=== PATIENT | female | born 1935 | race African-American/Black ===

== ENCOUNTER → 2017-12-16 | Outpatient (CLI) | payer OTHER | END | disposition home or self-care (01) | LOC: ECHO 09:08 | DX: I08.1 Rheumatic disorders of both mitral and tricuspid valves (principal); R01.1 Cardiac murmur, unspecified | CPT/HCPCS: 93306 ==

== ENCOUNTER 2018-06-22 15:17 | Inpatient (IN) | payer MEDICARE, OTHER ==
[2018-06-22] VITALS (11 sets, daily range): BP systolic 88–115; BP diastolic 43–60
[~2018-06-22] VITALS: Ht 167.6 cm; Wt 106.8 kg
[~2018-06-22 15:17] MED LIST: CRESTOR5 MG PO; LEVO500T59 PO; SITA100T PO; [UNRECOGNIZED DRUG - CODE] PO
[2018-06-22] MEDS ORDERED: PANTOPRAZOLE IV PUSH 40 MG VIAL. IVP ONE (15:30)
[2018-06-22] MEDS ORDERED: IV NORMAL SALINE 1000ML BAG 1,000 ML IV ONE ×2 (15:30→17:45)
[2018-06-22 15:39] LABS: BASO # 0.1 x10^3/uL (0.0-0.2); BASO % 1 % (0-3); EOS # 0.1 x10^3/uL (0.0-0.7); EOS % 1 % (0-3); HEMOGLOBIN 10.2 g/dL (12.0-15.5); LYMPH # 3.4 x10^3/uL (1.0-4.8); LYMPH % 20 % (24-48); MEAN CORPUSCULAR HEMOGLOBIN 31 pg (25-35); MEAN CORPUSCULAR HGB CONC 33 g/dL (31-37); MEAN CORPUSCULAR VOLUME 93 fL (79-100); MONO # 1.5 x10^3/uL (0.0-1.1); MONO % 9 % (0-9); NEUT # 11.6 x10^3uL (1.8-7.7); NEUT % 70 % (31-73); PLATELET COUNT 296 x10^3/uL (140-400); RED BLOOD COUNT 3.33 x10^6/uL (3.50-5.40); RED CELL DISTRIBUTION WIDTH 13.7 % (11.5-14.5); WHITE BLOOD COUNT 16.6 x10^3/uL (4.0-11.0)
[2018-06-22 15:48] LABS: PROTHROMBIN TIME PATIENT 12.9 SEC (11.7-14.0)
[2018-06-22 15:52] LABS: CALCIUM 8.7 mg/dL (8.5-10.1); CREATININE 0.8 mg/dL (0.6-1.0); GFR 82.7; POTASSIUM 3.8 mmol/L (3.5-5.1)
--- NOTE | 2018-06-22 15:57 | PHYS DOC ---
Past Medical History Past Medical History: Diabetes-Type II, High Cholesterol, Hypertension, Other Past Surgical History: No Surgical History, Other Alcohol Use: None Drug Use: None Adult General Chief Complaint Chief Complaint: RECTAL BLEED [facility] HPI Patient is a 83 year old female who is in by EMS because of rectal bleeding. Patient states she suddenly started to have bright red rectal bleeding several times and then had a near-syncopal because of generalized weakness and had a fall without injury to her head family member heard about her fall and called 911. EMS reported that she had about 500 mL of blood on the floor. Patient did not have history of rectal bleeding of taking anticoagulation medication. Patient treated with antibiotics recently with upper respiratory infection. Patient denies chest pain, palpitation, abdominal pain. Review of Systems Review of Systems Constitutional: Denies fever or chills [] Eyes: Denies change in visual acuity, redness, or eye pain [] HENT: Denies nasal congestion or sore throat [] Respiratory: Denies cough or shortness of breath [] Cardiovascular: No additional information not addressed in HPI [] GI: Denies abdominal pain, nausea, vomiting, report bloody stools.[] : Denies dysuria or hematuria [] Musculoskeletal: Denies back pain or joint pain [] Integument: Denies rash or skin lesions [] Neurologic: Denies headache, focal weakness or sensory changes [] Endocrine: Denies polyuria or polydipsia [] All other systems were reviewed and found to be within normal limits, except as documented in this note. Current Medications Current Medications Current Medications Medications (Trade) Dose Ordered Sig/Kusum Start Time Stop Time Status Last Admin Dose Admin Pantoprazole Sodium (PROTONIX VIAL for IV PUSH) 80 mg 1X ONCE 06/22/18 15:30 06/22/18 15:32 DC 06/22/18 15:57 80 MG Sodium Chloride 1,000 ml @ 1,000 mls/hr 1X ONCE 06/22/18 15:30 06/22/18 16:29 DC 06/22/18 15:52 1,000 MLS/HR Allergies Allergies Allergies Coded Allergies Type Severity Reaction Last Updated Verified No Known Drug Allergies 10/20/15 No Physical Exam Physical Exam Constitutional: Well developed, well nourished, moderate distress, non-toxic appearance, patient covered with foul-smelling dark blood around genital and rectal area HENT: Normocephalic, atraumatic, oropharynx dry, mild pallor Eyes: PERRLA, EOMI, conjunctiva normal, no discharge. [] Neck: Normal range of motion, no tenderness, supple, no stridor. [] Cardiovascular:Heart rate regular rhythm, no murmur [] Lungs & Thorax: Bilateral breath sounds clear to auscultation [] Abdomen: Bowel sounds normal, soft, no tenderness, no masses, no pulsatile masses. Rectal exam with present of drum stock clerk showed loose maroon colored blood in the rectum. Skin: Warm, dry, no erythema, no rash. [] Back: No tenderness, no CVA tenderness. [] Extremities: No tenderness, no cyanosis, no clubbing, ROM intact, no edema. [] Neurologic: Alert and oriented X 3, normal motor function, normal sensory function, no focal deficits noted. [] Psychologic: Affect normal, judgement normal, mood normal. [] Current Patient Data Vital Signs Vital Signs Date Time Temp Pulse Resp B/P (MAP) Pulse Ox O2 Delivery O2 Flow Rate FiO2 06/22/18 15:45 78 107/44 (65) 96 Room Air 06/22/18 15:17 97.8 22 97.8 Lab Values Laboratory Tests Test 06/22/18 15:25 White Blood Count 16.6 x10^3/uL (4.0-11.0) H Red Blood Count 3.33 x10^6/uL (3.50-5.40) L Hemoglobin 10.2 g/dL (12.0-15.5) L Hematocrit 31.0 % (36.0-47.0) L Mean Corpuscular Volume 93 fL (79-100) Mean Corpuscular Hemoglobin 31 pg (25-35) Mean Corpuscular Hemoglobin Concent 33 g/dL (31-37) Red Cell Distribution Width 13.7 % (11.5-14.5) Platelet Count 296 x10^3/uL (140-400) Neutrophils (%) (Auto) 70 % (31-73) Lymphocytes (%) (Auto) 20 % (24-48) L Monocytes (%) (Auto) 9 % (0-9) Eosinophils (%) (Auto) 1 % (0-3) Basophils (%) (Auto) 1 % (0-3) Neutrophils # (Auto) 11.6 x10^3uL (1.8-7.7) H Lymphocytes # (Auto) 3.4 x10^3/uL (1.0-4.8) Monocytes # (Auto) 1.5 x10^3/uL (0.0-1.1) H Eosinophils # (Auto) 0.1 x10^3/uL (0.0-0.7) Basophils # (Auto) 0.1 x10^3/uL (0.0-0.2) Prothrombin Time 12.9 SEC (11.7-14.0) Prothrombin Time INR 1.0 (0.8-1.1) PTT 25 SEC (24-38) Sodium Level 141 mmol/L (136-145) Potassium Level 3.8 mmol/L (3.5-5.1) Chloride Level 104 mmol/L (98-107) Carbon Dioxide Level 29 mmol/L (21-32) Anion Gap 8 (6-14) Blood Urea Nitrogen 27 mg/dL (7-20) H Creatinine 0.8 mg/dL (0.6-1.0) Estimated GFR (Cockcroft-Gault) 82.7 BUN/Creatinine Ratio 34 (6-20) H Glucose Level 178 mg/dL (70-99) H Lactic Acid Level 1.6 mmol/L (0.4-2.0) Calcium Level 8.7 mg/dL (8.5-10.1) Total Bilirubin 0.3 mg/dL (0.2-1.0) Aspartate Amino Transferase (AST) 25 U/L (15-37) Alanine Aminotransferase (ALT) 38 U/L (14-59) Alkaline Phosphatase 67 U/L (46-116) Troponin I Quantitative < 0.017 ng/mL (0.000-0.055) XB-Baf-G-Type Natriuretic Peptide 60 pg/mL (0-449) Total Protein 6.7 g/dL (6.4-8.2) Albumin 2.8 g/dL (3.4-5.0) L Albumin/Globulin Ratio 0.7 (1.0-1.7) L Laboratory Tests 06/22/18 15:25 Laboratory Tests 06/22/18 15:25 EKG EKG [] Radiology/Procedures Radiology/Procedures [] Course & Med Decision Making Course & Med Decision Making Pertinent Labs reviewed. (See chart for details) Evaluation of patient in ER showed 83-year-old female patient brought in by EMS because of rectal bleeding. Patient was covered with foul-smelling blood but had stable vital signs. 12-lead because started and patient instructed with IV fluid, Protonix, and Zofran. Hbg was reported 10.2. Dr. Mayo accepted admission at 1600. Dr. Kaufman production associate GI was consulted at 1610 and agreed with plan of care. Dragon Disclaimer Dragon Disclaimer This electronic medical record was generated, in whole or in part, using a voice recognition dictation system. Departure Departure Impression: Primary Impression: Rectal bleeding Additional Impressions: Anemia Dehydration Disposition: 09 ADMITTED INPATIENT (at 1554) Admitting Physician: King Domínguez (accepted admission at 1600) Condition: GUARDED Referrals: UNKNOWN PCP NAME (PCP) Critical Care Time Critical care time was 50 minutes exclusive of procedures. Problem Qualifiers TATUM HERNÁNDEZ MD Jun 22, 2018 15:57
[2018-06-22 15:58] LABS: ALBUMIN 2.8 g/dL (3.4-5.0); ALBUMIN/GLOBULIN RATIO 0.7 (1.0-1.7); TOTAL BILIRUBIN 0.3 mg/dL (0.2-1.0); TOTAL PROTEIN 6.7 g/dL (6.4-8.2)
[2018-06-22] MEDS ORDERED: ONDANSETRON PF 4 MG/2 ML VIAL. IV PRN (16:15)
[2018-06-22] MEDS: IV NORMAL SALINE 1000ML BAG 1,000 ML IV SCH ×2 (16:40→23:21)
--- NOTE | 2018-06-22 16:44 | PDOC2 ---
GI CONSULT Reason For Consult: Lower GI bleeding HPI: HPI: Very pleasant 83 y/o female seen in the ER. This morning she ate scrambled eggs and sausage for breakfast, then brushed her teeth which made her gag and vomit. After that, she sat on the toilet to urinate because she had what felt like "a hunger pain." Then passed bright red blood w/ a small amount of runny stool. Then stood up, felt dizzy, and fell to her knees. No LOC. Crawled to yell to her son for help. Was diaphoretic when arrived in ER, still feeling a little dizzy but better. BP 87/39 in ER. No bleeding since arrival. Has a little abdominal soreness. Typically no issues w/ vomiting, abd pain, or bleeding. Denies reflux/heartburn , dysphagia, change in appetite, weight loss, diarrhea, or melena. Has a h/o constipation controlled w/ Miralax QHS. No previous EGD or colonoscopy - she "doesn't believe in them." No GB, liver, pancreas, or PUD history. No h/o anemia. Takes ASA 81mg QD but no NSAIDs. WBC 16.6, Hgb 10.2 w/ normal indices, BUN 27 w/ normal Cr. For comparison, Hgb 11-12 in 10/2015. PMH: PMH: HTN, DM, allergic rhinitis, ?asthma, constipation, bilateral cataract removal FH: Family History: No pertinent hx (denies GI cancers) Social History: Smoke: No ALCOHOL: none Drugs: None ROS: GEN: +sweats HEENT: Denies blurred vision, sore throat CV: Denies chest pain RESP: +coughs up phlegm sometimes GI: Per HPI : Denies hematuria, dysuria ENDO: Denies weight changes NEURO: +dizziness MSK: Denies weakness, joint pain/swelling SKIN: Denies jaundice, pruritus Vitals: Vitals: Vital Signs Date Time Temp Pulse Resp B/P (MAP) Pulse Ox O2 Delivery O2 Flow Rate FiO2 06/22/18 15:17 97.8 77 22 87/39 (55) 98 Room Air 97.8 Labs: Labs: Laboratory Tests Test 06/22/18 15:25 White Blood Count 16.6 x10^3/uL (4.0-11.0) Red Blood Count 3.33 x10^6/uL (3.50-5.40) Hemoglobin 10.2 g/dL (12.0-15.5) Hematocrit 31.0 % (36.0-47.0) Mean Corpuscular Volume 93 fL (79-100) Mean Corpuscular Hemoglobin 31 pg (25-35) Mean Corpuscular Hemoglobin Concent 33 g/dL (31-37) Red Cell Distribution Width 13.7 % (11.5-14.5) Platelet Count 296 x10^3/uL (140-400) Neutrophils (%) (Auto) 70 % (31-73) Lymphocytes (%) (Auto) 20 % (24-48) Monocytes (%) (Auto) 9 % (0-9) Eosinophils (%) (Auto) 1 % (0-3) Basophils (%) (Auto) 1 % (0-3) Neutrophils # (Auto) 11.6 x10^3uL (1.8-7.7) Lymphocytes # (Auto) 3.4 x10^3/uL (1.0-4.8) Monocytes # (Auto) 1.5 x10^3/uL (0.0-1.1) Eosinophils # (Auto) 0.1 x10^3/uL (0.0-0.7) Basophils # (Auto) 0.1 x10^3/uL (0.0-0.2) Prothrombin Time 12.9 SEC (11.7-14.0) Prothromb Time International Ratio 1.0 (0.8-1.1) Activated Partial Thromboplast Time 25 SEC (24-38) Sodium Level 141 mmol/L (136-145) Potassium Level 3.8 mmol/L (3.5-5.1) Chloride Level 104 mmol/L (98-107) Carbon Dioxide Level 29 mmol/L (21-32) Anion Gap 8 (6-14) Blood Urea Nitrogen 27 mg/dL (7-20) Creatinine 0.8 mg/dL (0.6-1.0) Estimated GFR (Cockcroft-Gault) 82.7 BUN/Creatinine Ratio 34 (6-20) Glucose Level 178 mg/dL (70-99) Lactic Acid Level 1.6 mmol/L (0.4-2.0) Calcium Level 8.7 mg/dL (8.5-10.1) Total Bilirubin 0.3 mg/dL (0.2-1.0) Aspartate Amino Transf (AST/SGOT) 25 U/L (15-37) Alanine Aminotransferase (ALT/SGPT) 38 U/L (14-59) Alkaline Phosphatase 67 U/L (46-116) Troponin I Quantitative < 0.017 ng/mL (0.000-0.055) NH-Buf-O-Type Natriuretic Peptide 60 pg/mL (0-449) Total Protein 6.7 g/dL (6.4-8.2) Albumin 2.8 g/dL (3.4-5.0) Albumin/Globulin Ratio 0.7 (1.0-1.7) Allergies: Coded Allergies: No Known Drug Allergies (Unverified , 10/20/15) Medications: Current Medications Medications (Trade) Dose Ordered Sig/Kusum Route PRN Reason Start Time Stop Time Status Last Admin Dose Admin Pantoprazole Sodium (PROTONIX VIAL for IV PUSH) 80 mg 1X ONCE IVP 06/22/18 15:30 06/22/18 15:32 DC 06/22/18 15:57 Sodium Chloride 1,000 ml @ 1,000 mls/hr 1X ONCE IV 06/22/18 15:30 06/22/18 16:29 DC 06/22/18 15:52 Imaging: Imaging: - PE: GEN: NAD, laying on left side HEENT: Atraumatic, PERRL LUNGS: CTAB HEART: RRR ABD: NABS, S/ND, vaguely tender RLQ/periumbilical EXTREMITY: No edema SKIN: No rashes, no jaundice NEURO/PSYCH: A & O 3 A/P: A/P: Rectal bleeding -associated w/ dizziness, mild abd discomfort Constipation - controlled w/ Miralax CRC screen - none Normocytic anemia -takes ASA QD -- ?ischemia - felt dizzy, was hypotensive, has some vague abd discomfort - check CT A/P. Was given IV PPI x 1 in ER, plans to admit to ICU. Monitor labs and for recurrent bleeding. ENMANUEL PORTER Jun 22, 2018 16:44
[2018-06-22] MEDS ORDERED: CONTRAST GIVEN. MC PRN (17:00)
[2018-06-22] MEDS ORDERED: IOHEXOL 300 MG/ML 100ML VIAL. IV ONE (17:00)
[2018-06-22 17:55] LABS: BILIRUBIN,URINE NEGATIVE (NEG); CLARITY,URINE CLEAR; COLOR,URINE YELLOW; NITRITE,URINE NEGATIVE (NEG); PROTEIN,URINE NEGATIVE (NEG-TRACE); UROBILINOGEN,URINE 0.2 mg/dL (0.2 mg/dL)
--- NOTE | 2018-06-22 18:01 | RAD ---
CT scan of the abdomen and pelvis with contrast 06/22/2018 CLINICAL HISTORY: Rectal bleeding and abdominal pain. TECHNIQUE: After the intravenous administration of 75 cc of Omnipaque 300, contiguous, 5 mm axial sections were obtained through the abdomen and pelvis. One or more of the following individualized dose reduction techniques were utilized for this study: 1. Automated exposure control. 2. Adjustment of the mA and/or kV according to patient size. 3. Use of iterative reconstruction technique. FINDINGS: No previous imaging studies are available for comparison. Images through the lung bases demonstrate minimal dependent subsegmental atelectasis bilaterally. Rounded low-attenuation lesions are seen involving the liver consistent with hepatic cysts. These measure 5 mm to 1.8 cm in size. The spleen, pancreas, adrenal glands and left kidney are within normal limits. Rounded low-attenuation lesions are seen involving the right kidney. These measure 3 mm to 3.7 cm in size. They likely represent cysts. Atherosclerotic calcification of the abdominal aorta is seen. The abdominal aorta tapers normally. The gallbladder is well-distended. No free fluid or free air is seen within the abdomen. There is no evidence of bowel obstruction. Images through the pelvis demonstrate the urinary bladder distended with urine. Scattered diverticula are seen involving the sigmoid colon. No inflammatory changes are seen in the adjacent fat. Calcifications are seen within the pelvis consistent with phleboliths. A 1.8 cm well-defined benign-appearing fat-containing mass is seen within the fundus of the uterus. No free fluid is seen. Very mild S-shaped curvature of the thoracolumbar spine is seen. Degenerative changes are seen involving the thoracic and throughout the lumbar spine and both hips. IMPRESSION: No acute abnormality is seen. Electronically signed by: Miguel Smith MD (06/22/2018 5:58 PM) [facility]
[2018-06-22 18:05] LABS: BACTERIA,URINE MANY /HPF (0-FEW); RBC,URINE 0 /HPF (0-2); SQUAMOUS EPITHELIAL CELL,UR FEW /LPF
--- NOTE | 2018-06-22 19:12 | PDOC1 ---
History and Physical Date of Admission Date of Admission DATE: 06/22/18 TIME: 19:11 Identification/Chief Complaint Chief Complaint ssen in er for passing lg amt bright red blood w/ a small amount of runny stool, stood up, felt dizzy, and fell to her knees. LOC. Crawled to yell to her son for help. BP 87/39 in ER. EMS reported that she had about 500 mL of blood on the floor. Past Medical History Past Medical History Past Medical History Past Medical History: Diabetes-Type II, High Cholesterol, Hypertension, Other Past Surgical History: No Surgical History, Other Alcohol Use: None Drug Use: None FAMILY HX OBESITY Musculoskeletal: Osteoarthritis ENT: No pertinent hx Endocrine: Diabetes Past Surgical History Past Surgical History: No pertinent history Family History Family History: Hypertension, Obesity Social History Smoke: No ALCOHOL: none Drugs: None Current Problem List Problem List Problems Medical Problems: (1) Anemia Status: Acute (2) Dehydration Status: Acute (3) Rectal bleeding Status: Acute Current Medications Current Medications Current Medications Pantoprazole Sodium (PROTONIX VIAL for IV PUSH) 80 mg 1X ONCE IVP Last administered on 06/22/18at 15:57; Start 06/22/18 at 15:30; Stop 06/22/18 at 15:32 ; Status DC Sodium Chloride 1,000 ml @ 1,000 mls/hr 1X ONCE IV Last administered on at 15:52; Start 06/22/18 at 15:30; Stop 06/22/18 at 16:29; Status DC Ondansetron HCl (Zofran) 4 mg PRN Q8HRS PRN IV NAUSEA/VOMITING; Start 06/22/18 at 16:15; Stop 06/23/18 at 16:14 Sodium Chloride 1,000 ml @ 150 mls/hr Q6H40M IV Last administered on at 16:40; Start 06/22/18 at 16:11; Stop 06/23/18 at 16:10 Iohexol (Omnipaque 300 Mg/ml) 75 ml 1X ONCE IV Last administered on 06/22/18at 17:04; Start 06/22/18 at 17:00; Stop 06/22/18 at 17:01; Status DC Info (CONTRAST GIVEN -- Rx MONITORING) 1 each PRN DAILY PRN MC SEE COMMENTS; Start 06/22/18 at 17:00; Stop 06/24/18 at 16:59 Sodium Chloride 1,000 ml @ 1,000 mls/hr 1X ONCE IV Last administered on at 17:45; Start 06/22/18 at 17:45; Stop 06/22/18 at 18:44; Status DC Active Scripts Active Levaquin (Levofloxacin) 500 Mg Tablet 500 Mg PO DAILY06 Reported Januvia (Sitagliptin Phosphate) 100 Mg Tablet 1 Tab PO DAILY Beta Carotene (Beta-Carotene) 10,000 Unit Capsule 12,000 Unit PO Crestor (Rosuvastatin Calcium) 5 Mg Tablet 1 Tab PO DAILY Allergies Allergies: Coded Allergies: No Known Drug Allergies (Unverified , 10/20/15) ROS Review of System Review of Systems Constitutional: Denies fever or chills [] Eyes: Denies change in visual acuity, redness, or eye pain [] HENT: Denies nasal congestion or sore throat [] Respiratory: Denies cough or shortness of breath [] Cardiovascular: No additional information not addressed in HPI [] GI: Denies abdominal pain, nausea, vomiting, report bloody stools.[] : Denies dysuria or hematuria [] Musculoskeletal: Denies back pain or joint pain [] Integument: Denies rash or skin lesions [] Neurologic: Denies headache, focal weakness or sensory changes [] Endocrine: Denies polyuria or polydipsia [] 14 PT systems were reviewed and found to be within normal limits, except as documented Breast: No New/Changing Breast Lumps, No Nipple changes, No Nipple discharge, No Other Gastrointestinal: Yes Hematochezia Physical Exam Physical Exam Physical Exam Physical Exam Constitutional: Well developed, well nourished, moderate distress, non-toxic appearance, patient covered with foul-smelling dark blood around genital and rectal area HENT: Normocephalic, atraumatic, oropharynx dry, mild pallor Eyes: PERRLA, EOMI, conjunctiva normal, no discharge. [] Neck: Normal range of motion, no tenderness, supple, no stridor. [] Cardiovascular:Heart rate regular rhythm, no murmur [] Lungs & Thorax: Bilateral breath sounds clear to auscultation [] Abdomen: Bowel sounds normal, soft, no tenderness, no masses, no pulsatile masses. Rectal exam with present of auger machine offbearer showed loose maroon colored blood in the rectum. Skin: Warm, dry, no erythema, no rash. [] Back: No tenderness, no CVA tenderness. [] Extremities: No tenderness, no cyanosis, no clubbing, ROM intact, no edema. [] Neurologic: Alert and oriented X 3, normal motor function, normal sensory function, no focal deficits noted. [] Psychologic: Affect normal, judgement normal, mood normal. [] Current Patient Data General: Alert, Oriented X3, Cooperative HEENT: PERRLA Lungs: Clear to auscultation Heart: S1S2, RRR Breasts: Not examined Extremities: No cyanosis Neuro: Cranial nerves 3-12 NL Psych/Mental Status: Mental status NL, Mood NL Vitals Vitals Vital Signs Date Time Temp Pulse Resp B/P (MAP) Pulse Ox O2 Delivery O2 Flow Rate FiO2 06/22/18 18:30 82 15 97 Room Air 06/22/18 18:15 129/44 (72) 06/22/18 15:17 97.8 97.8 Labs Labs Laboratory Tests Test 06/22/18 15:25 06/22/18 17:30 06/22/18 17:43 White Blood Count 16.6 x10^3/uL (4.0-11.0) Red Blood Count 3.33 x10^6/uL (3.50-5.40) Hemoglobin 10.2 g/dL (12.0-15.5) 9.0 g/dL (12.0-15.5) Hematocrit 31.0 % (36.0-47.0) Mean Corpuscular Volume 93 fL (79-100) Mean Corpuscular Hemoglobin 31 pg (25-35) Mean Corpuscular Hemoglobin Concent 33 g/dL (31-37) Red Cell Distribution Width 13.7 % (11.5-14.5) Platelet Count 296 x10^3/uL (140-400) Neutrophils (%) (Auto) 70 % (31-73) Lymphocytes (%) (Auto) 20 % (24-48) Monocytes (%) (Auto) 9 % (0-9) Eosinophils (%) (Auto) 1 % (0-3) Basophils (%) (Auto) 1 % (0-3) Neutrophils # (Auto) 11.6 x10^3uL (1.8-7.7) Lymphocytes # (Auto) 3.4 x10^3/uL (1.0-4.8) Monocytes # (Auto) 1.5 x10^3/uL (0.0-1.1) Eosinophils # (Auto) 0.1 x10^3/uL (0.0-0.7) Basophils # (Auto) 0.1 x10^3/uL (0.0-0.2) Prothrombin Time 12.9 SEC (11.7-14.0) Prothromb Time International Ratio 1.0 (0.8-1.1) Activated Partial Thromboplast Time 25 SEC (24-38) Sodium Level 141 mmol/L (136-145) Potassium Level 3.8 mmol/L (3.5-5.1) Chloride Level 104 mmol/L (98-107) Carbon Dioxide Level 29 mmol/L (21-32) Anion Gap 8 (6-14) Blood Urea Nitrogen 27 mg/dL (7-20) Creatinine 0.8 mg/dL (0.6-1.0) Estimated GFR (Cockcroft-Gault) 82.7 BUN/Creatinine Ratio 34 (6-20) Glucose Level 178 mg/dL (70-99) Lactic Acid Level 1.6 mmol/L (0.4-2.0) Calcium Level 8.7 mg/dL (8.5-10.1) Total Bilirubin 0.3 mg/dL (0.2-1.0) Aspartate Amino Transf (AST/SGOT) 25 U/L (15-37) Alanine Aminotransferase (ALT/SGPT) 38 U/L (14-59) Alkaline Phosphatase 67 U/L (46-116) Troponin I Quantitative < 0.017 ng/mL (0.000-0.055) JC-Lug-R-Type Natriuretic Peptide 60 pg/mL (0-449) Total Protein 6.7 g/dL (6.4-8.2) Albumin 2.8 g/dL (3.4-5.0) Albumin/Globulin Ratio 0.7 (1.0-1.7) Urine Collection Type U cath Urine Color Yellow Urine Clarity Clear Urine pH 5.0 Urine Specific [place] >=1.030 Urine Protein Negative mg/dL (NEG-TRACE) Urine Glucose (UA) Negative mg/dL (NEG) Urine Ketones (Stick) Negative mg/dL (NEG) Urine Blood Negative (NEG) Urine Nitrite Negative (NEG) Urine Bilirubin Negative (NEG) Urine Urobilinogen Dipstick 0.2 mg/dL (0.2 mg/dL) Urine Leukocyte Esterase Small (NEG) Urine RBC 0 /HPF (0-2) Urine WBC 5-10 /HPF (0-4) Urine Squamous Epithelial Cells Few /LPF Urine Bacteria Many /HPF (0-FEW) Urine Mucus Mod /LPF Laboratory Tests Test 06/22/18 15:25 06/22/18 17:30 06/22/18 17:43 White Blood Count 16.6 x10^3/uL (4.0-11.0) Red Blood Count 3.33 x10^6/uL (3.50-5.40) Hemoglobin 10.2 g/dL (12.0-15.5) 9.0 g/dL (12.0-15.5) Hematocrit 31.0 % (36.0-47.0) Mean Corpuscular Volume 93 fL (79-100) Mean Corpuscular Hemoglobin 31 pg (25-35) Mean Corpuscular Hemoglobin Concent 33 g/dL (31-37) Red Cell Distribution Width 13.7 % (11.5-14.5) Platelet Count 296 x10^3/uL (140-400) Neutrophils (%) (Auto) 70 % (31-73) Lymphocytes (%) (Auto) 20 % (24-48) Monocytes (%) (Auto) 9 % (0-9) Eosinophils (%) (Auto) 1 % (0-3) Basophils (%) (Auto) 1 % (0-3) Neutrophils # (Auto) 11.6 x10^3uL (1.8-7.7) Lymphocytes # (Auto) 3.4 x10^3/uL (1.0-4.8) Monocytes # (Auto) 1.5 x10^3/uL (0.0-1.1) Eosinophils # (Auto) 0.1 x10^3/uL (0.0-0.7) Basophils # (Auto) 0.1 x10^3/uL (0.0-0.2) Prothrombin Time 12.9 SEC (11.7-14.0) Prothromb Time International Ratio 1.0 (0.8-1.1) Activated Partial Thromboplast Time 25 SEC (24-38) Sodium Level 141 mmol/L (136-145) Potassium Level 3.8 mmol/L (3.5-5.1) Chloride Level 104 mmol/L (98-107) Carbon Dioxide Level 29 mmol/L (21-32) Anion Gap 8 (6-14) Blood Urea Nitrogen 27 mg/dL (7-20) Creatinine 0.8 mg/dL (0.6-1.0) Estimated GFR (Cockcroft-Gault) 82.7 BUN/Creatinine Ratio 34 (6-20) Glucose Level 178 mg/dL (70-99) Lactic Acid Level 1.6 mmol/L (0.4-2.0) Calcium Level 8.7 mg/dL (8.5-10.1) Total Bilirubin 0.3 mg/dL (0.2-1.0) Aspartate Amino Transf (AST/SGOT) 25 U/L (15-37) Alanine Aminotransferase (ALT/SGPT) 38 U/L (14-59) Alkaline Phosphatase 67 U/L (46-116) Troponin I Quantitative < 0.017 ng/mL (0.000-0.055) QQ-Kfu-Y-Type Natriuretic Peptide 60 pg/mL (0-449) Total Protein 6.7 g/dL (6.4-8.2) Albumin 2.8 g/dL (3.4-5.0) Albumin/Globulin Ratio 0.7 (1.0-1.7) Urine Collection Type U cath Urine Color Yellow Urine Clarity Clear Urine pH 5.0 Urine Specific [place] >=1.030 Urine Protein Negative mg/dL (NEG-TRACE) Urine Glucose (UA) Negative mg/dL (NEG) Urine Ketones (Stick) Negative mg/dL (NEG) Urine Blood Negative (NEG) Urine Nitrite Negative (NEG) Urine Bilirubin Negative (NEG) Urine Urobilinogen Dipstick 0.2 mg/dL (0.2 mg/dL) Urine Leukocyte Esterase Small (NEG) Urine RBC 0 /HPF (0-2) Urine WBC 5-10 /HPF (0-4) Urine Squamous Epithelial Cells Few /LPF Urine Bacteria Many /HPF (0-FEW) Urine Mucus Mod /LPF Images Images TECHNIQUE: After the intravenous administration of 75 cc of Omnipaque 300, contiguous, 5 mm axial sections were obtained through the abdomen and pelvis. One or more of the following individualized dose reduction techniques were utilized for this study: 1. Automated exposure control. 2. Adjustment of the mA and/or kV according to patient size. 3. Use of iterative reconstruction technique. FINDINGS: No previous imaging studies are available for comparison. Images through the lung bases demonstrate minimal dependent subsegmental atelectasis bilaterally. Rounded low-attenuation lesions are seen involving the liver consistent with hepatic cysts. These measure 5 mm to 1.8 cm in size. The spleen, pancreas, adrenal glands and left kidney are within normal limits. Rounded low-attenuation lesions are seen involving the right kidney. These measure 3 mm to 3.7 cm in size. They likely represent cysts. Atherosclerotic calcification of the abdominal aorta is seen. The abdominal aorta tapers normally. The gallbladder is well-distended. No free fluid or free air is seen within the abdomen. There is no evidence of bowel obstruction. Images through the pelvis demonstrate the urinary bladder distended with urine. Scattered diverticula are seen involving the sigmoid colon. No inflammatory changes are seen in the adjacent fat. Calcifications are seen within the pelvis consistent with phleboliths. A 1.8 cm well-defined benign-appearing fat-containing mass is seen within the fundus of the uterus. No free fluid is seen. Very mild S-shaped curvature of the thoracolumbar spine is seen. Degenerative changes are seen involving the thoracic and throughout the lumbar spine and both hips. IMPRESSION: No acute abnormality is seen. Electronically signed by: Miguel Smith MD (06/22/2018 5:58 PM) [facility] VTE Prophylaxis Ordered VTE Prophylaxis Devices: Yes VTE Pharmacological Prophylaxi: Contraindicated Assessment/Plan Assessment/Plan IMPRESSION ischemic colitis associated with syncope; ICU BED T/S 2 UNITS GI CONSULTED TRANSFUSE PRN PROTONIX DRIP NPO h/h q [address] IF active bleeding , stat bleeding scan IR to see if positive and ongoing bleeding SCD'S 105 MIN CC TIME EDGAR IRVERA MD Jun 22, 2018 19:12
[2018-06-23] VITALS (42 sets, daily range): BP systolic 74–130; BP diastolic 33–67
[2018-06-23] MEDS: IV NORMAL SALINE 1000ML BAG 1,000 ML IV SCH ×4 (02:00→17:15)
[2018-06-23] MEDS ORDERED: HEPARIN for NUC MED 500 UNIT/5 ML DISP.SYRIN. IV ONE (03:30)
--- NOTE | 2018-06-23 05:24 | RAD ---
Examination: Nuclear medicine GI bleed scan Clinical History: GI bleed 27 mCi Tc-99 m labeled red blood cells were administered via ultratag kit and spot view of the abdomen and pelvis was obtained by gamma camera for a nuclear medicine tagged red blood cell GI bleed study. Findings: There is radiotracer identified in the bowel loop on the left probably the descending colon extending distally and proximally likely active GI bleed. Examination somewhat limited as patient refused last 30 minutes of the exam. IMPRESSION: Examination is positive for active GI bleed in the bowel loop on the left probably the descending colon. Examination somewhat limited as patient refused last 30 minutes of the exam. Patient's nurse Christopher was informed at time of dictation. Electronically signed by: Tayo Browne MD (06/23/2018 5:20 AM) [id number]
[2018-06-23] MEDS ORDERED: ACETAMINOPHEN 325 MG TABLET. PO PRN (05:30)
[2018-06-23] MEDS ORDERED: diphenhydrAMINE HCL 25 MG CAPSULE PO PRN (05:30)
[2018-06-23 05:59] LABS: BASO % 0 % (0-3); EOS % 0 % (0-3); HEMATOCRIT 22.1 % (36.0-47.0); HEMOGLOBIN 7.3 g/dL (12.0-15.5); LYMPH # 1.7 x10^3/uL (1.0-4.8); LYMPH % 9 % (24-48); MEAN CORPUSCULAR HEMOGLOBIN 31 pg (25-35); MEAN CORPUSCULAR HGB CONC 33 g/dL (31-37); MEAN CORPUSCULAR VOLUME 94 fL (79-100); MONO # 1.1 x10^3/uL (0.0-1.1); MONO % 6 % (0-9); NEUT # 15.7 x10^3uL (1.8-7.7); NEUT % 85 % (31-73); PLATELET COUNT 225 x10^3/uL (140-400); RED BLOOD COUNT 2.36 x10^6/uL (3.50-5.40); RED CELL DISTRIBUTION WIDTH 13.5 % (11.5-14.5); WHITE BLOOD COUNT 18.6 x10^3/uL (4.0-11.0)
[2018-06-23 06:11] LABS: CREATININE 0.6 mg/dL (0.6-1.0); GFR 115.2; POTASSIUM 3.5 mmol/L (3.5-5.1)
[2018-06-23 06:13] LABS: ALBUMIN 2.3 g/dL (3.4-5.0); ALBUMIN/GLOBULIN RATIO 0.8 (1.0-1.7); TOTAL BILIRUBIN 0.4 mg/dL (0.2-1.0); TOTAL PROTEIN 5.3 g/dL (6.4-8.2)
[2018-06-23] MEDS ORDERED: CONTRAST GIVEN. MC PRN (06:30)
[2018-06-23] MEDS ORDERED: IOHEXOL 300 MG/ML 100ML VIAL. IV ONE (07:00)
[2018-06-23 07:47] LABS: % BANDS 1 % (0-9); % BASOS 1 % (0-3); % LYMPHS 18 % (24-48); % MONOS 6 % (0-10); % SEGS 74 % (35-66)
[2018-06-23 07:48] LABS: ANISOCYTOSIS SLIGHT; PLT ESTIMATE ADEQUATE (ADEQUATE)
--- NOTE | 2018-06-23 08:15 | RAD ---
CTA of the abdomen and pelvis with and without contrast, 06/23/2018: HISTORY: GI tract bleeding Multidetector CT imaging was performed prior to and following an IV bolus injection of iodinated contrast material. The postcontrast scans were obtained in arterial and slightly delayed phases. 3-D volume rendered reconstructions were also produced. There is moderate aortoiliac calcific plaquing. There is no evidence of aneurysm or high-grade stenosis. The celiac and superior mesenteric arteries are patent. Diverticula are evident in the colon, most numerous in the descending colon and sigmoid. No definite contrast extravasation is seen to suggest active GI tract bleeding. No paracolonic inflammatory process is evident. Incidental note is again made of multiple low-density hepatic lesions, probably cysts. Material of increased density in the gallbladder probably represents vicarious excretion of IV contrast by the gallbladder. There is a 3 cm right renal cyst. A Callahan catheter is present in the urinary bladder. A small fat-containing umbilical hernia is noted. A small hiatal hernia is noted. IMPRESSION: 1. Colonic diverticulosis. 2. No CT evidence of active GI tract bleeding. PQRS Compliance Statement: One or more of the following individualized dose reduction techniques were utilized for this examination: 1. Automated exposure control 2. Adjustment of the mA and/or kV according to patient size 3. Use of iterative reconstruction technique Electronically signed by: Adam Gallagher MD (06/23/2018 8:12 AM) [facility]
[2018-06-23] MEDS: PANTOPRAZOLE IV PUSH 40 MG VIAL. IVP SCH (08:39)
[2018-06-23] MEDS ORDERED: LIDOCAINE WITH 8.4% SOD BICARB 3 ML DISP.SYRIN. ONE (09:14)
[2018-06-23] MEDS ORDERED: IODIXANOL 320 MG/ML 50ML VIAL. ONE ×2 (09:14→11:01)
[2018-06-23] MEDS ORDERED: IODIXANOL 320 MG/ML 100 ML VIAL. ONE ×3 (09:14→10:09)
[2018-06-23] MEDS ORDERED: MORPHINE SULFATE 2 MG/ML VIAL. IV PRN (09:15)
[2018-06-23] MEDS ORDERED: DOCUSATE SODIUM 100 MG CAPSULE. PO PRN (09:15)
[2018-06-23] MEDS ORDERED: traMADol 50 MG TABLET PO PRN (09:15)
[2018-06-23] MEDS ORDERED: MIDAZOLAM HCL/PF 2 MG/2 ML VIAL. ONE (09:34)
[2018-06-23] MEDS ORDERED: fentaNYL PF VIAL 100 MCG/2 ML VIAL ONE (09:34)
--- NOTE | 2018-06-23 09:43 | PDOC ---
G I PROGRESS NOTE Subjective Seen in IR. No distress. Objective Events of evening/this morning noted. Physical Exam Lungs clear. RRR Abdomen soft, not tender nor distended. Review of Relevant I have reviewed the following items fabiola (where applicable) has been applied. Labs Laboratory Tests Test 06/22/18 15:25 06/22/18 17:30 06/22/18 17:43 06/23/18 05:45 White Blood Count 16.6 x10^3/uL (4.0-11.0) 18.6 x10^3/uL (4.0-11.0) Red Blood Count 3.33 x10^6/uL (3.50-5.40) 2.36 x10^6/uL (3.50-5.40) Hemoglobin 10.2 g/dL (12.0-15.5) 9.0 g/dL (12.0-15.5) 7.3 g/dL (12.0-15.5) Hematocrit 31.0 % (36.0-47.0) 22.1 % (36.0-47.0) Mean Corpuscular Volume 93 fL (79-100) 94 fL (79-100) Mean Corpuscular Hemoglobin 31 pg (25-35) 31 pg (25-35) Mean Corpuscular Hemoglobin Concent 33 g/dL (31-37) 33 g/dL (31-37) Red Cell Distribution Width 13.7 % (11.5-14.5) 13.5 % (11.5-14.5) Platelet Count 296 x10^3/uL (140-400) 225 x10^3/uL (140-400) Neutrophils (%) (Auto) 70 % (31-73) 85 % (31-73) Lymphocytes (%) (Auto) 20 % (24-48) 9 % (24-48) Monocytes (%) (Auto) 9 % (0-9) 6 % (0-9) Eosinophils (%) (Auto) 1 % (0-3) 0 % (0-3) Basophils (%) (Auto) 1 % (0-3) 0 % (0-3) Neutrophils # (Auto) 11.6 x10^3uL (1.8-7.7) 15.7 x10^3uL (1.8-7.7) Lymphocytes # (Auto) 3.4 x10^3/uL (1.0-4.8) 1.7 x10^3/uL (1.0-4.8) Monocytes # (Auto) 1.5 x10^3/uL (0.0-1.1) 1.1 x10^3/uL (0.0-1.1) Eosinophils # (Auto) 0.1 x10^3/uL (0.0-0.7) 0.0 x10^3/uL (0.0-0.7) Basophils # (Auto) 0.1 x10^3/uL (0.0-0.2) 0.0 x10^3/uL (0.0-0.2) Prothrombin Time 12.9 SEC (11.7-14.0) Prothromb Time International Ratio 1.0 (0.8-1.1) Activated Partial Thromboplast Time 25 SEC (24-38) Sodium Level 141 mmol/L (136-145) 144 mmol/L (136-145) Potassium Level 3.8 mmol/L (3.5-5.1) 3.5 mmol/L (3.5-5.1) Chloride Level 104 mmol/L (98-107) 111 mmol/L (98-107) Carbon Dioxide Level 29 mmol/L (21-32) 25 mmol/L (21-32) Anion Gap 8 (6-14) 8 (6-14) Blood Urea Nitrogen 27 mg/dL (7-20) 18 mg/dL (7-20) Creatinine 0.8 mg/dL (0.6-1.0) 0.6 mg/dL (0.6-1.0) Estimated GFR (Cockcroft-Gault) 82.7 115.2 BUN/Creatinine Ratio 34 (6-20) 30 (6-20) Glucose Level 178 mg/dL (70-99) 153 mg/dL (70-99) Lactic Acid Level 1.6 mmol/L (0.4-2.0) Calcium Level 8.7 mg/dL (8.5-10.1) 7.0 mg/dL (8.5-10.1) Total Bilirubin 0.3 mg/dL (0.2-1.0) 0.4 mg/dL (0.2-1.0) Aspartate Amino Transf (AST/SGOT) 25 U/L (15-37) 19 U/L (15-37) Alanine Aminotransferase (ALT/SGPT) 38 U/L (14-59) 29 U/L (14-59) Alkaline Phosphatase 67 U/L (46-116) 58 U/L (46-116) Troponin I Quantitative < 0.017 ng/mL (0.000-0.055) AW-Vry-G-Type Natriuretic Peptide 60 pg/mL (0-449) Total Protein 6.7 g/dL (6.4-8.2) 5.3 g/dL (6.4-8.2) Albumin 2.8 g/dL (3.4-5.0) 2.3 g/dL (3.4-5.0) Albumin/Globulin Ratio 0.7 (1.0-1.7) 0.8 (1.0-1.7) Urine Collection Type U cath Urine Color Yellow Urine Clarity Clear Urine pH 5.0 Urine Specific [place] >=1.030 Urine Protein Negative mg/dL (NEG-TRACE) Urine Glucose (UA) Negative mg/dL (NEG) Urine Ketones (Stick) Negative mg/dL (NEG) Urine Blood Negative (NEG) Urine Nitrite Negative (NEG) Urine Bilirubin Negative (NEG) Urine Urobilinogen Dipstick 0.2 mg/dL (0.2 mg/dL) Urine Leukocyte Esterase Small (NEG) Urine RBC 0 /HPF (0-2) Urine WBC 5-10 /HPF (0-4) Urine Squamous Epithelial Cells Few /LPF Urine Bacteria Many /HPF (0-FEW) Urine Mucus Mod /LPF Segmented Neutrophils % 74 % (35-66) Band Neutrophils % 1 % (0-9) Lymphocytes % 18 % (24-48) Monocytes % 6 % (0-10) Basophils % 1 % (0-3) Platelet Estimate Adequate (ADEQUATE) Anisocytosis Slight Laboratory Tests Test 06/22/18 15:25 06/22/18 17:30 06/22/18 17:43 06/23/18 05:45 White Blood Count 16.6 x10^3/uL (4.0-11.0) 18.6 x10^3/uL (4.0-11.0) Red Blood Count 3.33 x10^6/uL (3.50-5.40) 2.36 x10^6/uL (3.50-5.40) Hemoglobin 10.2 g/dL (12.0-15.5) 9.0 g/dL (12.0-15.5) 7.3 g/dL (12.0-15.5) Hematocrit 31.0 % (36.0-47.0) 22.1 % (36.0-47.0) Mean Corpuscular Volume 93 fL (79-100) 94 fL (79-100) Mean Corpuscular Hemoglobin 31 pg (25-35) 31 pg (25-35) Mean Corpuscular Hemoglobin Concent 33 g/dL (31-37) 33 g/dL (31-37) Red Cell Distribution Width 13.7 % (11.5-14.5) 13.5 % (11.5-14.5) Platelet Count 296 x10^3/uL (140-400) 225 x10^3/uL (140-400) Neutrophils (%) (Auto) 70 % (31-73) 85 % (31-73) Lymphocytes (%) (Auto) 20 % (24-48) 9 % (24-48) Monocytes (%) (Auto) 9 % (0-9) 6 % (0-9) Eosinophils (%) (Auto) 1 % (0-3) 0 % (0-3) Basophils (%) (Auto) 1 % (0-3) 0 % (0-3) Neutrophils # (Auto) 11.6 x10^3uL (1.8-7.7) 15.7 x10^3uL (1.8-7.7) Lymphocytes # (Auto) 3.4 x10^3/uL (1.0-4.8) 1.7 x10^3/uL (1.0-4.8) Monocytes # (Auto) 1.5 x10^3/uL (0.0-1.1) 1.1 x10^3/uL (0.0-1.1) Eosinophils # (Auto) 0.1 x10^3/uL (0.0-0.7) 0.0 x10^3/uL (0.0-0.7) Basophils # (Auto) 0.1 x10^3/uL (0.0-0.2) 0.0 x10^3/uL (0.0-0.2) Prothrombin Time 12.9 SEC (11.7-14.0) Prothromb Time International Ratio 1.0 (0.8-1.1) Activated Partial Thromboplast Time 25 SEC (24-38) Sodium Level 141 mmol/L (136-145) 144 mmol/L (136-145) Potassium Level 3.8 mmol/L (3.5-5.1) 3.5 mmol/L (3.5-5.1) Chloride Level 104 mmol/L (98-107) 111 mmol/L (98-107) Carbon Dioxide Level 29 mmol/L (21-32) 25 mmol/L (21-32) Anion Gap 8 (6-14) 8 (6-14) Blood Urea Nitrogen 27 mg/dL (7-20) 18 mg/dL (7-20) Creatinine 0.8 mg/dL (0.6-1.0) 0.6 mg/dL (0.6-1.0) Estimated GFR (Cockcroft-Gault) 82.7 115.2 BUN/Creatinine Ratio 34 (6-20) 30 (6-20) Glucose Level 178 mg/dL (70-99) 153 mg/dL (70-99) Lactic Acid Level 1.6 mmol/L (0.4-2.0) Calcium Level 8.7 mg/dL (8.5-10.1) 7.0 mg/dL (8.5-10.1) Total Bilirubin 0.3 mg/dL (0.2-1.0) 0.4 mg/dL (0.2-1.0) Aspartate Amino Transf (AST/SGOT) 25 U/L (15-37) 19 U/L (15-37) Alanine Aminotransferase (ALT/SGPT) 38 U/L (14-59) 29 U/L (14-59) Alkaline Phosphatase 67 U/L (46-116) 58 U/L (46-116) Troponin I Quantitative < 0.017 ng/mL (0.000-0.055) DR-Pdp-V-Type Natriuretic Peptide 60 pg/mL (0-449) Total Protein 6.7 g/dL (6.4-8.2) 5.3 g/dL (6.4-8.2) Albumin 2.8 g/dL (3.4-5.0) 2.3 g/dL (3.4-5.0) Albumin/Globulin Ratio 0.7 (1.0-1.7) 0.8 (1.0-1.7) Urine Collection Type U cath Urine Color Yellow Urine Clarity Clear Urine pH 5.0 Urine Specific [place] >=1.030 Urine Protein Negative mg/dL (NEG-TRACE) Urine Glucose (UA) Negative mg/dL (NEG) Urine Ketones (Stick) Negative mg/dL (NEG) Urine Blood Negative (NEG) Urine Nitrite Negative (NEG) Urine Bilirubin Negative (NEG) Urine Urobilinogen Dipstick 0.2 mg/dL (0.2 mg/dL) Urine Leukocyte Esterase Small (NEG) Urine RBC 0 /HPF (0-2) Urine WBC 5-10 /HPF (0-4) Urine Squamous Epithelial Cells Few /LPF Urine Bacteria Many /HPF (0-FEW) Urine Mucus Mod /LPF Segmented Neutrophils % 74 % (35-66) Band Neutrophils % 1 % (0-9) Lymphocytes % 18 % (24-48) Monocytes % 6 % (0-10) Basophils % 1 % (0-3) Platelet Estimate Adequate (ADEQUATE) Anisocytosis Slight Receiving blood; one more unit on hold. Vitals/I & O Vital Sign - Last 24 Hours 06/22/18 06/22/18 06/22/18 06/22/18 15:17 15:45 16:00 16:15 Temp 97.8 97.8 Pulse 77 78 78 80 Resp 22 16 B/P (MAP) 87/39 (55) 107/44 (65) 83/50 (61) 105/47 (66) Pulse Ox 98 96 95 O2 Delivery Room Air Room Air Room Air Room Air 06/22/18 06/22/18 06/22/18 06/22/18 16:30 16:45 17:15 17:30 Pulse 82 82 76 80 Resp 19 19 13 19 B/P (MAP) 111/50 (70) 119/74 (89) 82/54 (63) 98/38 (58) Pulse Ox 99 97 95 97 O2 Delivery Room Air Room Air Room Air Room Air 06/22/18 06/22/18 06/22/1806/22/18 17:45 18:00 18:15 18:30 Pulse 82 80 76 82 Resp 16 18 17 15 B/P (MAP) 87/47 (60) 113/47 (69) 129/44 (72) Pulse Ox 98 96 97 O2 Delivery Room Air Room Air Room Air Room Air 06/22/18 06/22/181818 18 18:45 19:00 19:15 19:30 Temp 98.2 98.2 Pulse 90 82 80 82 Resp 20 20 27 25 B/P (MAP) 108/60 (76) 98/57 (71) 109/46 (67) 88/44 (59) Pulse Ox 95 95 93 99 06/22/18 06/22/18 06/22/18 06/22/18 19:45 20:00 20:30 21:00 Pulse 74 82 84 90 Resp 18 25 28 20 B/P (MAP) 115/43 (67) 101/48 (65) 114/54 (74) 108/60 (76) Pulse Ox 99 99 100 95 06/22/1806/22/18 18/18 18 21:30 22:00 23:00 00:00 Temp 98.3 98.3 Pulse 80 82 81 94 Resp 15 15 21 30 B/P (MAP) 115/56 (75) 106/46 (66) 98/47 (64) 112/55 (74) Pulse Ox 99 99 98 98 18 06/23/18 06/23/18 18 01:00 02:00 03:00 04:00 Pulse 90 100 100 102 Resp 19 19 19 20 B/P (MAP) 109/46 (67) 97/49 (65) 101/51 (68) 111/59 (76) Pulse Ox 99 98 98 98 18 06/23/18 06/23/18 06/23/18 05:00 06:00 07:00 07:48 Temp 98.0 98.2 98.2 98.0 98.2 98.2 Pulse 101 100 100 100 Resp 24 24 16 16 B/P (MAP) 126/50 (75) 87/36 (53) 106/37 (60) 106/37 Pulse Ox 100 99 99 O2 Delivery Room Air 06/23/18 06/23/18 08:08 08:14 Temp 98.0 98.0 98.0 98.0 Pulse 100 100 Resp 16 16 B/P (MAP) 87/33 89/56 (67) Pulse Ox 99 O2 Delivery Room Air Intake and Output 06/22/18 06/22/18 06/23/18 15:00 23:00 07:00 Intake Total 2000 ml Output Total 700 ml 1050 ml Balance 1300 ml -1050 ml Images Nuclear medicine scan positive distal transverse/splenic flexure (reviewed with Dr. Milan). CTA negative. Diverticulosis on CT and CTA. Problem List Problems Medical Problems: (1) Anemia Status: Acute (2) Dehydration Status: Acute (3) Rectal bleeding Status: Acute Assessment Hematochezia, diverticular source suspect. Plan of Care Note Agree with angio; discussed with Dr. Milan. Await outcome of this. PRAVEENA GARCIA MD Jun 23, 2018 09:43
[2018-06-23] MEDS ORDERED: fentaNYL PF VIAL 100 MCG/2 ML VIAL IV ONE (10:15)
[2018-06-23] MEDS ORDERED: LIDOCAINE WITH 8.4% SOD BICARB 3 ML DISP.SYRIN. IJ ONE (10:15)
[2018-06-23] MEDS ORDERED: MIDAZOLAM HCL/PF 2 MG/2 ML VIAL. IV ONE (10:15)
[2018-06-23] MEDS ORDERED: IODIXANOL 320 MG/ML 100 ML VIAL. IART ONE (10:15)
--- NOTE | 2018-06-23 10:54 | PDOC ---
BRIEF OPERATIVE NOTE Pre-Op Diagnosis GI Bleeding Post-Op Diagnosis same Procedure Performed mesenteric angiogram Surgeon Kayli Anesthesia Type: Conscious Sedation Findings No active arterial extravasation, aneurysm, pseudoaneurysm, or vascular malformation Complications No immediate EDWIN JAIN MD Jun 23, 2018 10:54
[2018-06-23 12:03] LABS: HEMATOCRIT 21.3 % (36.0-47.0); HEMOGLOBIN 7.2 g/dL (12.0-15.5); RED BLOOD COUNT 2.28 x10^6/uL (3.50-5.40); RED CELL DISTRIBUTION WIDTH 13.3 % (11.5-14.5); WHITE BLOOD COUNT 14.4 x10^3/uL (4.0-11.0)
--- NOTE | 2018-06-23 12:16 | RAD ---
Procedure: Diagnostic mesenteric arteriogram Clinical Indication: 83-year-old female with lower GI bleeding, positive tagged red blood cell scan in the position of the of the distal transverse colon and/or splenic flexure, negative CTA Sedation: Local anesthesia only Antibiotics: None Exposure: Kerma-Area Product: 1336 Gycm2 Contrast: 101 cc of Visipaque 320 contrast media Sterility: All elements of maximal sterile barrier technique including the use of a cap, mask, sterile gown, sterile gloves, large sterile sheet, appropriate hand hygiene, and 2% chlorhexidine for cutaneous antisepsis (or acceptable alternative antiseptic per current guidelines) were followed for this procedure. Consent: The procedure was explained in its entirety to the patient or the patients designated financial service representative by a member of the treatment team, including a discussion of the risks, benefits and commonly accepted alternatives to the procedure, as well as the expected consequences of no therapy whatsoever. Discussion of the risks included, but was not limited to, those that are most frequent and those that are rare but possibly severe or life-threatening, as well as the possibility of unforeseen complications. Technique and Findings: Following informed consent, the patient was prepped and draped in usual sterile fashion. Ultrasound interrogation of the right groin revealed patency of the right common femoral artery. A hardcopy ultrasound image was recorded as a 21-gauge micropuncture needle was used to gain access to this vessel. The needle was exchanged over wire for 5 Brazilian sheath. A flush catheter was advanced into the abdominal aorta and contrast aortography was performed with the eyes centered over the area of interest. No active arterial extravasation or arterial abnormality is identified. This flush catheter was then exchanged for Sos Omni catheter which was used to select the celiac artery and selective angiography was performed, also failing to demonstrate any active arterial extravasation or arterial abnormality. The catheter was then used to select the superior mesenteric artery and select of angiography was performed. There is no active arterial extravasation, aneurysm, pseudoaneurysm, stenosis, branch occlusion, or vascular reformation identified. The catheter was then advanced into the inferior mesenteric artery and selective angiography was performed first with attention to the ascending segment, then separately with attention to the descending segment. In both instances no arterial abnormality or active arterial extravasation was identified. A Progreat microcatheter was then advanced coaxially and used to select the ascending segment, constituting a second order division of the inferior mesenteric artery, and selective angiography was performed. No abnormality was identified. The catheter was then advanced further into the middle colic artery, constituting a third order division of the inferior mesenteric artery, and selective angiography was performed once again demonstrating no arterial abnormality. All catheters were then removed and contrast angiography of the right groin was performed to assess for suitability of a closure device. The sheath was then exchanged for a star close device which was successfully utilized to obtain hemostasis. Complications: No immediate Impression: 1. Diagnostic mesenteric angiogram demonstrating no evidence of active arterial extravasation, aneurysm, pseudoaneurysm, stenosis, occlusion, or vascular malformation in the mesenteric arterial circulation to account for this patient's clinical presentation.
[2018-06-23 13:52] LABS: PROTHROMBIN TIME PATIENT 14.5 SEC (11.7-14.0)
--- NOTE | 2018-06-23 14:05 | PDOC ---
PROGRESS NOTES Chief Complaint Chief Complaint bright red blood per rectum, 2/2 diverticulosis? HTN dm2 hld morbid obesity plan: FU WITH GI, IR 2 u PRBC today hh q6h hold po meds npo ivf NS 125cc/h icu care given low bp, now BP lower side stable IR angiogram today, neg bleeding. + bleeding scan, neg CTA. gi ppx History of Present Illness History of Present Illness ROS: no fever, chills, sob or chest pain cont rectal bleeding with some abd cramps otherwise no abd pain, no N/V bp lower side 2u prbc today + bleeding scan, neg CTA. Vitals Vitals Vital Signs Date Time Temp Pulse Resp B/P (MAP) Pulse Ox O2 Delivery O2 Flow Rate FiO2 06/23/18 13:58 99.0 95 22 107/61 99.0 06/23/18 11:45 97 06/23/18 11:11 Room Air 06/23/18 10:42 2.0 Physical Exam General: Alert, Oriented X3, Cooperative Heart: Regular rate, Normal S1, Normal S2 Lungs: Clear Abdomen: Normal bowel sounds, Soft, No tenderness Extremities: No cyanosis Skin: No rashes, No significant lesion Labs LABS Laboratory Tests Test 06/22/18 15:25 06/22/18 17:30 06/22/18 17:43 06/23/18 05:45 White Blood Count 16.6 x10^3/uL (4.0-11.0) 18.6 x10^3/uL (4.0-11.0) Red Blood Count 3.33 x10^6/uL (3.50-5.40) 2.36 x10^6/uL (3.50-5.40) Hemoglobin 10.2 g/dL (12.0-15.5) 9.0 g/dL (12.0-15.5) 7.3 g/dL (12.0-15.5) Hematocrit 31.0 % (36.0-47.0) 22.1 % (36.0-47.0) Mean Corpuscular Volume 93 fL (79-100) 94 fL (79-100) Mean Corpuscular Hemoglobin 31 pg (25-35) 31 pg (25-35) Mean Corpuscular Hemoglobin Concent 33 g/dL (31-37) 33 g/dL (31-37) Red Cell Distribution Width 13.7 % (11.5-14.5) 13.5 % (11.5-14.5) Platelet Count 296 x10^3/uL (140-400) 225 x10^3/uL (140-400) Neutrophils (%) (Auto) 70 % (31-73) 85 % (31-73) Lymphocytes (%) (Auto) 20 % (24-48) 9 % (24-48) Monocytes (%) (Auto) 9 % (0-9) 6 % (0-9) Eosinophils (%) (Auto) 1 % (0-3) 0 % (0-3) Basophils (%) (Auto) 1 % (0-3) 0 % (0-3) Neutrophils # (Auto) 11.6 x10^3uL (1.8-7.7) 15.7 x10^3uL (1.8-7.7) Lymphocytes # (Auto) 3.4 x10^3/uL (1.0-4.8) 1.7 x10^3/uL (1.0-4.8) Monocytes # (Auto) 1.5 x10^3/uL (0.0-1.1) 1.1 x10^3/uL (0.0-1.1) Eosinophils # (Auto) 0.1 x10^3/uL (0.0-0.7) 0.0 x10^3/uL (0.0-0.7) Basophils # (Auto) 0.1 x10^3/uL (0.0-0.2) 0.0 x10^3/uL (0.0-0.2) Prothrombin Time 12.9 SEC (11.7-14.0) Prothromb Time International Ratio 1.0 (0.8-1.1) Activated Partial Thromboplast Time 25 SEC (24-38) Sodium Level 141 mmol/L (136-145) 144 mmol/L (136-145) Potassium Level 3.8 mmol/L (3.5-5.1) 3.5 mmol/L (3.5-5.1) Chloride Level 104 mmol/L (98-107) 111 mmol/L (98-107) Carbon Dioxide Level 29 mmol/L (21-32) 25 mmol/L (21-32) Anion Gap 8 (6-14) 8 (6-14) Blood Urea Nitrogen 27 mg/dL (7-20) 18 mg/dL (7-20) Creatinine 0.8 mg/dL (0.6-1.0) 0.6 mg/dL (0.6-1.0) Estimated GFR (Cockcroft-Gault) 82.7 115.2 BUN/Creatinine Ratio 34 (6-20) 30 (6-20) Glucose Level 178 mg/dL (70-99) 153 mg/dL (70-99) Lactic Acid Level 1.6 mmol/L (0.4-2.0) Calcium Level 8.7 mg/dL (8.5-10.1) 7.0 mg/dL (8.5-10.1) Total Bilirubin 0.3 mg/dL (0.2-1.0) 0.4 mg/dL (0.2-1.0) Aspartate Amino Transf (AST/SGOT) 25 U/L (15-37) 19 U/L (15-37) Alanine Aminotransferase (ALT/SGPT) 38 U/L (14-59) 29 U/L (14-59) Alkaline Phosphatase 67 U/L (46-116) 58 U/L (46-116) Troponin I Quantitative < 0.017 ng/mL (0.000-0.055) AD-Rxs-Q-Type Natriuretic Peptide 60 pg/mL (0-449) Total Protein 6.7 g/dL (6.4-8.2) 5.3 g/dL (6.4-8.2) Albumin 2.8 g/dL (3.4-5.0) 2.3 g/dL (3.4-5.0) Albumin/Globulin Ratio 0.7 (1.0-1.7) 0.8 (1.0-1.7) Urine Collection Type U cath Urine Color Yellow Urine Clarity Clear Urine pH 5.0 Urine Specific [place] >=1.030 Urine Protein Negative mg/dL (NEG-TRACE) Urine Glucose (UA) Negative mg/dL (NEG) Urine Ketones (Stick) Negative mg/dL (NEG) Urine Blood Negative (NEG) Urine Nitrite Negative (NEG) Urine Bilirubin Negative (NEG) Urine Urobilinogen Dipstick 0.2 mg/dL (0.2 mg/dL) Urine Leukocyte Esterase Small (NEG) Urine RBC 0 /HPF (0-2) Urine WBC 5-10 /HPF (0-4) Urine Squamous Epithelial Cells Few /LPF Urine Bacteria Many /HPF (0-FEW) Urine Mucus Mod /LPF Segmented Neutrophils % 74 % (35-66) Band Neutrophils % 1 % (0-9) Lymphocytes % 18 % (24-48) Monocytes % 6 % (0-10) Basophils % 1 % (0-3) Platelet Estimate Adequate (ADEQUATE) Anisocytosis Slight Test 06/23/18 11:50 06/23/18 13:35 White Blood Count 14.4 x10^3/uL (4.0-11.0) Red Blood Count 2.28 x10^6/uL (3.50-5.40) Hemoglobin 7.2 g/dL (12.0-15.5) Hematocrit 21.3 % (36.0-47.0) Mean Corpuscular Volume 94 fL (79-100) Mean Corpuscular Hemoglobin 32 pg (25-35) Mean Corpuscular Hemoglobin Concent 34 g/dL (31-37) Red Cell Distribution Width 13.3 % (11.5-14.5) Platelet Count 202 x10^3/uL (140-400) Prothrombin Time 14.5 SEC (11.7-14.0) Prothromb Time International Ratio 1.2 (0.8-1.1) Assessment and Plan Assessmemt and Plan Problems Medical Problems: (1) Anemia Status: Acute (2) Dehydration Status: Acute (3) Rectal bleeding Status: Acute Comment Review of Relevant I have reviewed the following items fabiola (where applicable) has been applied. Labs Laboratory Tests Test 06/22/18 15:25 06/22/18 17:30 06/22/18 17:43 06/23/18 05:45 White Blood Count 16.6 x10^3/uL (4.0-11.0) 18.6 x10^3/uL (4.0-11.0) Red Blood Count 3.33 x10^6/uL (3.50-5.40) 2.36 x10^6/uL (3.50-5.40) Hemoglobin 10.2 g/dL (12.0-15.5) 9.0 g/dL (12.0-15.5) 7.3 g/dL (12.0-15.5) Hematocrit 31.0 % (36.0-47.0) 22.1 % (36.0-47.0) Mean Corpuscular Volume 93 fL (79-100) 94 fL (79-100) Mean Corpuscular Hemoglobin 31 pg (25-35) 31 pg (25-35) Mean Corpuscular Hemoglobin Concent 33 g/dL (31-37) 33 g/dL (31-37) Red Cell Distribution Width 13.7 % (11.5-14.5) 13.5 % (11.5-14.5) Platelet Count 296 x10^3/uL (140-400) 225 x10^3/uL (140-400) Neutrophils (%) (Auto) 70 % (31-73) 85 % (31-73) Lymphocytes (%) (Auto) 20 % (24-48) 9 % (24-48) Monocytes (%) (Auto) 9 % (0-9) 6 % (0-9) Eosinophils (%) (Auto) 1 % (0-3) 0 % (0-3) Basophils (%) (Auto) 1 % (0-3) 0 % (0-3) Neutrophils # (Auto) 11.6 x10^3uL (1.8-7.7) 15.7 x10^3uL (1.8-7.7) Lymphocytes # (Auto) 3.4 x10^3/uL (1.0-4.8) 1.7 x10^3/uL (1.0-4.8) Monocytes # (Auto) 1.5 x10^3/uL (0.0-1.1) 1.1 x10^3/uL (0.0-1.1) Eosinophils # (Auto) 0.1 x10^3/uL (0.0-0.7) 0.0 x10^3/uL (0.0-0.7) Basophils # (Auto) 0.1 x10^3/uL (0.0-0.2) 0.0 x10^3/uL (0.0-0.2) Prothrombin Time 12.9 SEC (11.7-14.0) Prothromb Time International Ratio 1.0 (0.8-1.1) Activated Partial Thromboplast Time 25 SEC (24-38) Sodium Level 141 mmol/L (136-145) 144 mmol/L (136-145) Potassium Level 3.8 mmol/L (3.5-5.1) 3.5 mmol/L (3.5-5.1) Chloride Level 104 mmol/L (98-107) 111 mmol/L (98-107) Carbon Dioxide Level 29 mmol/L (21-32) 25 mmol/L (21-32) Anion Gap 8 (6-14) 8 (6-14) Blood Urea Nitrogen 27 mg/dL (7-20) 18 mg/dL (7-20) Creatinine 0.8 mg/dL (0.6-1.0) 0.6 mg/dL (0.6-1.0) Estimated GFR (Cockcroft-Gault) 82.7 115.2 BUN/Creatinine Ratio 34 (6-20) 30 (6-20) Glucose Level 178 mg/dL (70-99) 153 mg/dL (70-99) Lactic Acid Level 1.6 mmol/L (0.4-2.0) Calcium Level 8.7 mg/dL (8.5-10.1) 7.0 mg/dL (8.5-10.1) Total Bilirubin 0.3 mg/dL (0.2-1.0) 0.4 mg/dL (0.2-1.0) Aspartate Amino Transf (AST/SGOT) 25 U/L (15-37) 19 U/L (15-37) Alanine Aminotransferase (ALT/SGPT) 38 U/L (14-59) 29 U/L (14-59) Alkaline Phosphatase 67 U/L (46-116) 58 U/L (46-116) Troponin I Quantitative < 0.017 ng/mL (0.000-0.055) UZ-Fqu-I-Type Natriuretic Peptide 60 pg/mL (0-449) Total Protein 6.7 g/dL (6.4-8.2) 5.3 g/dL (6.4-8.2) Albumin 2.8 g/dL (3.4-5.0) 2.3 g/dL (3.4-5.0) Albumin/Globulin Ratio 0.7 (1.0-1.7) 0.8 (1.0-1.7) Urine Collection Type U cath Urine Color Yellow Urine Clarity Clear Urine pH 5.0 Urine Specific [place] >=1.030 Urine Protein Negative mg/dL (NEG-TRACE) Urine Glucose (UA) Negative mg/dL (NEG) Urine Ketones (Stick) Negative mg/dL (NEG) Urine Blood Negative (NEG) Urine Nitrite Negative (NEG) Urine Bilirubin Negative (NEG) Urine Urobilinogen Dipstick 0.2 mg/dL (0.2 mg/dL) Urine Leukocyte Esterase Small (NEG) Urine RBC 0 /HPF (0-2) Urine WBC 5-10 /HPF (0-4) Urine Squamous Epithelial Cells Few /LPF Urine Bacteria Many /HPF (0-FEW) Urine Mucus Mod /LPF Segmented Neutrophils % 74 % (35-66) Band Neutrophils % 1 % (0-9) Lymphocytes % 18 % (24-48) Monocytes % 6 % (0-10) Basophils % 1 % (0-3) Platelet Estimate Adequate (ADEQUATE) Anisocytosis Slight Test 06/23/18 11:50 06/23/18 13:35 White Blood Count 14.4 x10^3/uL (4.0-11.0) Red Blood Count 2.28 x10^6/uL (3.50-5.40) Hemoglobin 7.2 g/dL (12.0-15.5) Hematocrit 21.3 % (36.0-47.0) Mean Corpuscular Volume 94 fL (79-100) Mean Corpuscular Hemoglobin 32 pg (25-35) Mean Corpuscular Hemoglobin Concent 34 g/dL (31-37) Red Cell Distribution Width 13.3 % (11.5-14.5) Platelet Count 202 x10^3/uL (140-400) Prothrombin Time 14.5 SEC (11.7-14.0) Prothromb Time International Ratio 1.2 (0.8-1.1) Laboratory Tests Test 06/22/18 15:25 06/22/18 17:30 06/22/18 17:43 06/23/18 05:45 White Blood Count 16.6 x10^3/uL (4.0-11.0) 18.6 x10^3/uL (4.0-11.0) Red Blood Count 3.33 x10^6/uL (3.50-5.40) 2.36 x10^6/uL (3.50-5.40) Hemoglobin 10.2 g/dL (12.0-15.5) 9.0 g/dL (12.0-15.5) 7.3 g/dL (12.0-15.5) Hematocrit 31.0 % (36.0-47.0) 22.1 % (36.0-47.0) Mean Corpuscular Volume 93 fL (79-100) 94 fL (79-100) Mean Corpuscular Hemoglobin 31 pg (25-35) 31 pg (25-35) Mean Corpuscular Hemoglobin Concent 33 g/dL (31-37) 33 g/dL (31-37) Red Cell Distribution Width 13.7 % (11.5-14.5) 13.5 % (11.5-14.5) Platelet Count 296 x10^3/uL (140-400) 225 x10^3/uL (140-400) Neutrophils (%) (Auto) 70 % (31-73) 85 % (31-73) Lymphocytes (%) (Auto) 20 % (24-48) 9 % (24-48) Monocytes (%) (Auto) 9 % (0-9) 6 % (0-9) Eosinophils (%) (Auto) 1 % (0-3) 0 % (0-3) Basophils (%) (Auto) 1 % (0-3) 0 % (0-3) Neutrophils # (Auto) 11.6 x10^3uL (1.8-7.7) 15.7 x10^3uL (1.8-7.7) Lymphocytes # (Auto) 3.4 x10^3/uL (1.0-4.8) 1.7 x10^3/uL (1.0-4.8) Monocytes # (Auto) 1.5 x10^3/uL (0.0-1.1) 1.1 x10^3/uL (0.0-1.1) Eosinophils # (Auto) 0.1 x10^3/uL (0.0-0.7) 0.0 x10^3/uL (0.0-0.7) Basophils # (Auto) 0.1 x10^3/uL (0.0-0.2) 0.0 x10^3/uL (0.0-0.2) Prothrombin Time 12.9 SEC (11.7-14.0) Prothromb Time International Ratio 1.0 (0.8-1.1) Activated Partial Thromboplast Time 25 SEC (24-38) Sodium Level 141 mmol/L (136-145) 144 mmol/L (136-145) Potassium Level 3.8 mmol/L (3.5-5.1) 3.5 mmol/L (3.5-5.1) Chloride Level 104 mmol/L (98-107) 111 mmol/L (98-107) Carbon Dioxide Level 29 mmol/L (21-32) 25 mmol/L (21-32) Anion Gap 8 (6-14) 8 (6-14) Blood Urea Nitrogen 27 mg/dL (7-20) 18 mg/dL (7-20) Creatinine 0.8 mg/dL (0.6-1.0) 0.6 mg/dL (0.6-1.0) Estimated GFR (Cockcroft-Gault) 82.7 115.2 BUN/Creatinine Ratio 34 (6-20) 30 (6-20) Glucose Level 178 mg/dL (70-99) 153 mg/dL (70-99) Lactic Acid Level 1.6 mmol/L (0.4-2.0) Calcium Level 8.7 mg/dL (8.5-10.1) 7.0 mg/dL (8.5-10.1) Total Bilirubin 0.3 mg/dL (0.2-1.0) 0.4 mg/dL (0.2-1.0) Aspartate Amino Transf (AST/SGOT) 25 U/L (15-37) 19 U/L (15-37) Alanine Aminotransferase (ALT/SGPT) 38 U/L (14-59) 29 U/L (14-59) Alkaline Phosphatase 67 U/L (46-116) 58 U/L (46-116) Troponin I Quantitative < 0.017 ng/mL (0.000-0.055) NX-Qrk-C-Type Natriuretic Peptide 60 pg/mL (0-449) Total Protein 6.7 g/dL (6.4-8.2) 5.3 g/dL (6.4-8.2) Albumin 2.8 g/dL (3.4-5.0) 2.3 g/dL (3.4-5.0) Albumin/Globulin Ratio 0.7 (1.0-1.7) 0.8 (1.0-1.7) Urine Collection Type U cath Urine Color Yellow Urine Clarity Clear Urine pH 5.0 Urine Specific [place] >=1.030 Urine Protein Negative mg/dL (NEG-TRACE) Urine Glucose (UA) Negative mg/dL (NEG) Urine Ketones (Stick) Negative mg/dL (NEG) Urine Blood Negative (NEG) Urine Nitrite Negative (NEG) Urine Bilirubin Negative (NEG) Urine Urobilinogen Dipstick 0.2 mg/dL (0.2 mg/dL) Urine Leukocyte Esterase Small (NEG) Urine RBC 0 /HPF (0-2) Urine WBC 5-10 /HPF (0-4) Urine Squamous Epithelial Cells Few /LPF Urine Bacteria Many /HPF (0-FEW) Urine Mucus Mod /LPF Segmented Neutrophils % 74 % (35-66) Band Neutrophils % 1 % (0-9) Lymphocytes % 18 % (24-48) Monocytes % 6 % (0-10) Basophils % 1 % (0-3) Platelet Estimate Adequate (ADEQUATE) Anisocytosis Slight Test 06/23/18 11:50 06/23/18 13:35 White Blood Count 14.4 x10^3/uL (4.0-11.0) Red Blood Count 2.28 x10^6/uL (3.50-5.40) Hemoglobin 7.2 g/dL (12.0-15.5) Hematocrit 21.3 % (36.0-47.0) Mean Corpuscular Volume 94 fL (79-100) Mean Corpuscular Hemoglobin 32 pg (25-35) Mean Corpuscular Hemoglobin Concent 34 g/dL (31-37) Red Cell Distribution Width 13.3 % (11.5-14.5) Platelet Count 202 x10^3/uL (140-400) Prothrombin Time 14.5 SEC (11.7-14.0) Prothromb Time International Ratio 1.2 (0.8-1.1) Medications Current Medications Pantoprazole Sodium (PROTONIX VIAL for IV PUSH) 80 mg 1X ONCE IVP Last administered on 06/22/18at 15:57; Start 06/22/18 at 15:30; Stop 06/22/18 at 15:32 ; Status DC Sodium Chloride 1,000 ml @ 1,000 mls/hr 1X ONCE IV Last administered on at 15:52; Start 06/22/18 at 15:30; Stop 06/22/18 at 16:29; Status DC Ondansetron HCl (Zofran) 4 mg PRN Q8HRS PRN IV NAUSEA/VOMITING; Start 06/22/18 at 16:15; Stop 06/23/18 at 16:14 Sodium Chloride 1,000 ml @ 150 mls/hr Q6H40M IV Last administered on at 06:27; Start 06/22/18 at 16:11; Stop 06/23/18 at 09:11; Status DC Iohexol (Omnipaque 300 Mg/ml) 75 ml 1X ONCE IV Last administered on 06/22/18at 17:04; Start 06/22/18 at 17:00; Stop 06/22/18 at 17:01; Status DC Info (CONTRAST GIVEN -- Rx MONITORING) 1 each PRN DAILY PRN MC SEE COMMENTS; Start 06/22/18 at 17:00; Stop 06/24/18 at 16:59 Sodium Chloride 1,000 ml @ 1,000 mls/hr 1X ONCE IV Last administered on at 17:45; Start 06/22/18 at 17:45; Stop 06/22/18 at 18:44; Status DC Pantoprazole Sodium (PROTONIX VIAL for IV PUSH) 40 mg DAILYAC IVP Last administered on 06/23/18at 08:39; Start 06/23/18 at 07:30 Heparin Sodium (Porcine) (HEPARIN for NUC MED) 100 unit 1X ONCE IV Last administered on 06/23/18at 03:30; Start 06/23/18 at 03:30; Stop 06/23/18 at 03:31 ; Status DC Acetaminophen (Tylenol) 650 mg 1X PRN PRN PO PRE-TRANSFUSION; Start 06/23/18 at 05:30 Diphenhydramine HCl (Benadryl) 25 mg PRN 1X PRN PO PRE-TRANSFUSION; Start 06/23 at 05:30 Iohexol (Omnipaque 300 Mg/ml) 90 ml 1X ONCE IV Last administered on 06/23/18at 07:15; Start 06/23/18 at 07:00; Stop 06/23/18 at 07:01; Status DC Info (CONTRAST GIVEN -- Rx MONITORING) 1 each PRN DAILY PRN MC SEE COMMENTS; Start 06/23/18 at 06:30; Stop 06/25/18 at 06:29 Acetaminophen (Tylenol) 650 mg PRN Q6HRS PRN PO FEVER; Start 06/23/18 at 09:15 Ondansetron HCl (Zofran) 4 mg PRN Q6HRS PRN IV NAUSEA/VOMITING; Start 06/23/18 at 09:15 Morphine Sulfate (Morphine Sulfate) 2 mg PRN Q2HR PRN IV MODERATE TO SEVERE PAIN; Start 06/23/18 at 09:15 Tramadol HCl (Ultram) 50 mg PRN Q6HRS PRN PO MILD TO MODERATE PAIN; Start 06/23 at 09:15 Docusate Sodium (Colace) 100 mg PRN DAILY PRN PO CONSTIPATION; Start 06/23/18 at 09:15 Sodium Chloride 1,000 ml @ 125 mls/hr Q8H IV ; Start 06/23/18 at 09:15 Iodixanol (Visipaque 320) 100 ml STK-MED ONCE .ROUTE ; Start 06/23/18 at 09:14; Stop 06/23/18 at 09:15; Status DC Lidocaine/Sodium Bicarbonate (Buffered Lidocaine 1%) 3 ml STK-MED ONCE .ROUTE ; Start 06/23/18 at 09:14; Stop 06/23/18 at 09:15; Status DC Iodixanol (Visipaque 320) 50 ml STK-MED ONCE .ROUTE ; Start 06/23/18 at 09:14; Stop 06/23/18 at 09:15; Status DC Heparin Sodium/ Sodium Chloride 1,000 ml @ As Directed STK-MED ONCE .ROUTE ; Start 06/23/18 at 09:14; Stop 06/23/18 at 09:15; Status DC Iodixanol (Visipaque 320) 100 ml STK-MED ONCE .ROUTE ; Start 06/23/18 at 09:31; Stop 06/23/18 at 09:32; Status DC Midazolam HCl (Versed) 2 mg STK-MED ONCE .ROUTE ; Start 06/23/18 at 09:34; Stop 06/23/18 at 09:35; Status DC Fentanyl Citrate (Fentanyl 2ml Vial) 100 mcg STK-MED ONCE .ROUTE ; Start at 09:34; Stop 06/23/18 at 09:35; Status DC Heparin Sodium/ Sodium Chloride (HEPARIN for ARTERIAL LINE FLUSH) 1,000 unit 1X ONCE IART Last administered on 06/23/18at 10:15; Start 06/23/18 at 10:15; Stop 06/23/18 at 10:16; Status DC Lidocaine/Sodium Bicarbonate (Buffered Lidocaine 1%) 3 ml 1X ONCE IJ Last administered on 06/23/18at 10:15; Start 06/23/18 at 10:15; Stop 06/23/18 at 10:16 ; Status DC Midazolam HCl (Versed) 2 mg 1X ONCE IV ; Start 06/23/18 at 10:15; Stop at 10:16; Status DC Fentanyl Citrate (Fentanyl 2ml Vial) 100 mcg 1X ONCE IV ; Start 06/23/18 at 10: 15; Stop 06/23/18 at 10:16; Status DC Iodixanol (Visipaque 320) 100 ml 1X ONCE IART Last administered on 06/23/18at 10:15; Start 06/23/18 at 10:15; Stop 06/23/18 at 10:16; Status DC Iodixanol (Visipaque 320) 100 ml STK-MED ONCE .ROUTE ; Start 06/23/18 at 10:09; Stop 06/23/18 at 10:10; Status DC Iodixanol (Visipaque 320) 50 ml STK-MED ONCE .ROUTE ; Start 06/23/18 at 11:01; Stop 06/23/18 at 11:02; Status DC Active Scripts Active Levaquin (Levofloxacin) 500 Mg Tablet 500 Mg PO DAILY06 Reported Januvia (Sitagliptin Phosphate) 100 Mg Tablet 1 Tab PO DAILY Beta Carotene (Beta-Carotene) 10,000 Unit Capsule 12,000 Unit PO Crestor (Rosuvastatin Calcium) 5 Mg Tablet 1 Tab PO DAILY Vitals/I & O Vital Sign - Last 24 Hours 06/22/18 06/22/1818 18 15:17 15:45 16:00 16:15 Temp 97.8 97.8 Pulse 77 78 78 80 Resp 22 16 B/P (MAP) 87/39 (55) 107/44 (65) 83/50 (61) 105/47 (66) Pulse Ox 98 96 95 O2 Delivery Room Air Room Air Room Air Room Air 06/22/1818 18 06/22/18 16:30 16:45 17:15 17:30 Pulse 82 82 76 80 Resp 19 19 13 19 B/P (MAP) 111/50 (70) 119/74 (89) 82/54 (63) 98/38 (58) Pulse Ox 99 97 95 97 O2 Delivery Room Air Room Air Room Air Room Air 06/22/1818 06/22/18 06/22/18 17:45 18:00 18:15 18:30 Pulse 82 80 76 82 Resp 16 18 17 15 B/P (MAP) 87/47 (60) 113/47 (69) 129/44 (72) Pulse Ox 98 96 97 O2 Delivery Room Air Room Air Room Air Room Air 06/22/1818/18 18/18 18 18:45 19:00 19:15 19:30 Temp 98.2 98.2 Pulse 90 82 80 82 Resp 20 20 27 25 B/P (MAP) 108/60 (76) 98/57 (71) 109/46 (67) 88/44 (59) Pulse Ox 95 95 93 99 06/22/1818 18 06/22/18 19:45 20:00 20:30 21:00 Pulse 74 82 84 90 Resp 18 25 28 20 B/P (MAP) 115/43 (67) 101/48 (65) 114/54 (74) 108/60 (76) Pulse Ox 99 99 100 95 18 06/22/18 06/22/18 06/23/18 21:30 22:00 23:00 00:00 Temp 98.3 98.3 Pulse 80 82 81 94 Resp 15 15 21 30 B/P (MAP) 115/56 (75) 106/46 (66) 98/47 (64) 112/55 (74) Pulse Ox 99 99 98 98 9/19/18 9/19/18 9/19/18 9/19/18 01:00 02:00 03:00 04:00 Pulse 90 100 100 102 Resp 19 20 B/P (MAP) 109/46 (67) 97/49 (65) 101/51 (68) 111/59 (76) Pulse Ox 99 98 98 98 06/23/18 06/23/18 06/23/18 06/23/18 05:00 06:00 07:00 07:48 Temp 98.0 98.2 98.2 98.0 98.2 98.2 Pulse 101 100 100 100 Resp 24 24 16 16 B/P (MAP) 126/50 (75) 87/36 (53) 106/37 (60) 106/37 Pulse Ox 100 99 99 O2 Delivery Room Air 06/23/18 06/23/18 06/23/18 06/23/18 08:08 08:14 08:30 09:00 Temp 98.0 98.0 98.2 98.0 98.0 98.2 Pulse 100 100 99 99 Resp 16 16 16 B/P (MAP) 87/33 89/56 (67) 104/67 104/67 (79) Pulse Ox 99 99 O2 Delivery Room Air Room Air 06/23/18 06/23/18 06/23/18 06/23/18 09:00 10:15 10:42 11:11 Temp 98.0 98.0 Pulse 101 102 108 Resp 22 16 B/P (MAP) 118/67 85/56 (66) Pulse Ox 100 99 O2 Delivery Nasal Cannula Room Air O2 Flow Rate 2.0 06/23/18 06/23/18 06/23/18 06/23/18 11:15 11:30 11:35 11:45 Pulse 108 112 120 112 Resp 16 16 16 16 B/P (MAP) 96/42 (60) 74/51 (59) 123/50 (74) 97/49 (65) Pulse Ox 99 99 97 06/23/18 06/23/18 11:46 13:58 Temp 99.0 99.0 Pulse 110 95 Resp 22 B/P (MAP) 125/50 107/61 Intake and Output 06/22/18 06/22/18 06/23/18 15:00 23:00 07:00 Intake Total 2000 ml Output Total 700 ml 1050 ml Balance 1300 ml -1050 ml DENNIS HOLCOMB MD Jun 23, 2018 14:05
--- NOTE | 2018-06-23 16:31 | PDOC2 ---
CONSULT Date of Consult Date of Consult DATE: 06/23/18 TIME: 16:11 Reason for Consult Reason for Consult: GI bleeding Referring Physician Referring Physician: Dr Kaufman Identification/Chief Complaint Chief Complaint BRB per rectum Source Source: Chart review, Patient History of Present Illness Reason for Visit: Ms Molina is an 83 yo lady who presented to the ED after an episode at home. She had passed a small loose stool with a large amount of BRB. She stood up from the commode, felt weak and fell to her knees. She called for her son and he called the ambulance. . She was hypotensive in the ED. She has had a bleeding scan that suggested splenic flexure, descending colon source, an abd CTA that was negative and a mesenteric arteriogram which did not show a source of bleeding. We are asked to follow after she had a large bloody stool post IR. Past Medical History Cardiovascular: HTN Pulmonary: Asthma GI: Constipation, Other (bleeding) Musculoskeletal: Osteoarthritis ENT: No pertinent hx Endocrine: Diabetes Past Surgical History Past Surgical History: No pertinent history Family History Family History: Hypertension, Obesity Social History No ALCOHOL: none Drugs: None Current Problem List Problem List Problems Medical Problems: (1) Anemia Status: Acute (2) Dehydration Status: Acute (3) Rectal bleeding Status: Acute Current Medications Current Medications Current Medications Pantoprazole Sodium (PROTONIX VIAL for IV PUSH) 80 mg 1X ONCE IVP Last administered on 06/22/18at 15:57; Start 06/22/18 at 15:30; Stop 06/22/18 at 15:32 ; Status DC Sodium Chloride 1,000 ml @ 1,000 mls/hr 1X ONCE IV Last administered on at 15:52; Start 06/22/18 at 15:30; Stop 06/22/18 at 16:29; Status DC Ondansetron HCl (Zofran) 4 mg PRN Q8HRS PRN IV NAUSEA/VOMITING; Start 06/22/18 at 16:15; Stop 06/23/18 at 16:14 Sodium Chloride 1,000 ml @ 150 mls/hr Q6H40M IV Last administered on at 06:27; Start 06/22/18 at 16:11; Stop 06/23/18 at 09:11; Status DC Iohexol (Omnipaque 300 Mg/ml) 75 ml 1X ONCE IV Last administered on 06/22/18at 17:04; Start 06/22/18 at 17:00; Stop 06/22/18 at 17:01; Status DC Info (CONTRAST GIVEN -- Rx MONITORING) 1 each PRN DAILY PRN MC SEE COMMENTS; Start 06/22/18 at 17:00; Stop 06/24/18 at 16:59 Sodium Chloride 1,000 ml @ 1,000 mls/hr 1X ONCE IV Last administered on at 17:45; Start 06/22/18 at 17:45; Stop 06/22/18 at 18:44; Status DC Pantoprazole Sodium (PROTONIX VIAL for IV PUSH) 40 mg DAILYAC IVP Last administered on 06/23/18at 08:39; Start 06/23/18 at 07:30 Heparin Sodium (Porcine) (HEPARIN for NUC MED) 100 unit 1X ONCE IV Last administered on 06/23/18at 03:30; Start 06/23/18 at 03:30; Stop 06/23/18 at 03:31 ; Status DC Acetaminophen (Tylenol) 650 mg 1X PRN PRN PO PRE-TRANSFUSION; Start 06/23/18 at 05:30 Diphenhydramine HCl (Benadryl) 25 mg PRN 1X PRN PO PRE-TRANSFUSION; Start 06/23 at 05:30 Iohexol (Omnipaque 300 Mg/ml) 90 ml 1X ONCE IV Last administered on 06/23/18at 07:15; Start 06/23/18 at 07:00; Stop 06/23/18 at 07:01; Status DC Info (CONTRAST GIVEN -- Rx MONITORING) 1 each PRN DAILY PRN MC SEE COMMENTS; Start 06/23/18 at 06:30; Stop 06/25/18 at 06:29 Acetaminophen (Tylenol) 650 mg PRN Q6HRS PRN PO FEVER; Start 06/23/18 at 09:15 Ondansetron HCl (Zofran) 4 mg PRN Q6HRS PRN IV NAUSEA/VOMITING; Start 06/23/18 at 09:15 Morphine Sulfate (Morphine Sulfate) 2 mg PRN Q2HR PRN IV MODERATE TO SEVERE PAIN; Start 06/23/18 at 09:15 Tramadol HCl (Ultram) 50 mg PRN Q6HRS PRN PO MILD TO MODERATE PAIN; Start 06/23 at 09:15 Docusate Sodium (Colace) 100 mg PRN DAILY PRN PO CONSTIPATION; Start 06/23/18 at 09:15 Sodium Chloride 1,000 ml @ 125 mls/hr Q8H IV ; Start 06/23/18 at 09:15 Iodixanol (Visipaque 320) 100 ml STK-MED ONCE .ROUTE ; Start 06/23/18 at 09:14; Stop 06/23/18 at 09:15; Status DC Lidocaine/Sodium Bicarbonate (Buffered Lidocaine 1%) 3 ml STK-MED ONCE .ROUTE ; Start 06/23/18 at 09:14; Stop 06/23/18 at 09:15; Status DC Iodixanol (Visipaque 320) 50 ml STK-MED ONCE .ROUTE ; Start 06/23/18 at 09:14; Stop 06/23/18 at 09:15; Status DC Heparin Sodium/ Sodium Chloride 1,000 ml @ As Directed STK-MED ONCE .ROUTE ; Start 06/23/18 at 09:14; Stop 06/23/18 at 09:15; Status DC Iodixanol (Visipaque 320) 100 ml STK-MED ONCE .ROUTE ; Start 06/23/18 at 09:31; Stop 06/23/18 at 09:32; Status DC Midazolam HCl (Versed) 2 mg STK-MED ONCE .ROUTE ; Start 06/23/18 at 09:34; Stop 06/23/18 at 09:35; Status DC Fentanyl Citrate (Fentanyl 2ml Vial) 100 mcg STK-MED ONCE .ROUTE ; Start at 09:34; Stop 06/23/18 at 09:35; Status DC Heparin Sodium/ Sodium Chloride (HEPARIN for ARTERIAL LINE FLUSH) 1,000 unit 1X ONCE IART Last administered on 06/23/18at 10:15; Start 06/23/18 at 10:15; Stop 06/23/18 at 10:16; Status DC Lidocaine/Sodium Bicarbonate (Buffered Lidocaine 1%) 3 ml 1X ONCE IJ Last administered on 06/23/18at 10:15; Start 06/23/18 at 10:15; Stop 06/23/18 at 10:16 ; Status DC Midazolam HCl (Versed) 2 mg 1X ONCE IV ; Start 06/23/18 at 10:15; Stop at 10:16; Status DC Fentanyl Citrate (Fentanyl 2ml Vial) 100 mcg 1X ONCE IV ; Start 06/23/18 at 10: 15; Stop 06/23/18 at 10:16; Status DC Iodixanol (Visipaque 320) 100 ml 1X ONCE IART Last administered on 06/23/18at 10:15; Start 06/23/18 at 10:15; Stop 06/23/18 at 10:16; Status DC Iodixanol (Visipaque 320) 100 ml STK-MED ONCE .ROUTE ; Start 06/23/18 at 10:09; Stop 06/23/18 at 10:10; Status DC Iodixanol (Visipaque 320) 50 ml STK-MED ONCE .ROUTE ; Start 06/23/18 at 11:01; Stop 06/23/18 at 11:02; Status DC Active Scripts Active Levaquin (Levofloxacin) 500 Mg Tablet 500 Mg PO DAILY06 Reported Januvia (Sitagliptin Phosphate) 100 Mg Tablet 1 Tab PO DAILY Beta Carotene (Beta-Carotene) 10,000 Unit Capsule 12,000 Unit PO Crestor (Rosuvastatin Calcium) 5 Mg Tablet 1 Tab PO DAILY Allergies Allergies: Coded Allergies: No Known Drug Allergies (Unverified , 10/20/15) ROS General: YES: Chills Neurological: Yes Dizziness Physical Exam General: Alert, Cooperative, No acute distress HEENT: Atraumatic Lungs: Normal air movement Heart: Regular rate Abdomen: Soft, No tenderness Skin: Other (warm, dry) Neuro: Normal speech Vitals VITALS Vital Signs Date Time Temp Pulse Resp B/P (MAP) Pulse Ox O2 Delivery O2 Flow Rate FiO2 06/23/18 15:00 98.4 82 18 109/51 (70) 99 Room Air 98.4 06/23/18 10:42 2.0 Labs Labs Laboratory Tests Test 06/22/18 15:25 06/22/18 17:30 06/22/18 17:43 06/23/18 05:45 White Blood Count 16.6 x10^3/uL (4.0-11.0) 18.6 x10^3/uL (4.0-11.0) Red Blood Count 3.33 x10^6/uL (3.50-5.40) 2.36 x10^6/uL (3.50-5.40) Hemoglobin 10.2 g/dL (12.0-15.5) 9.0 g/dL (12.0-15.5) 7.3 g/dL (12.0-15.5) Hematocrit 31.0 % (36.0-47.0) 22.1 % (36.0-47.0) Mean Corpuscular Volume 93 fL (79-100) 94 fL (79-100) Mean Corpuscular Hemoglobin 31 pg (25-35) 31 pg (25-35) Mean Corpuscular Hemoglobin Concent 33 g/dL (31-37) 33 g/dL (31-37) Red Cell Distribution Width 13.7 % (11.5-14.5) 13.5 % (11.5-14.5) Platelet Count 296 x10^3/uL (140-400) 225 x10^3/uL (140-400) Neutrophils (%) (Auto) 70 % (31-73) 85 % (31-73) Lymphocytes (%) (Auto) 20 % (24-48) 9 % (24-48) Monocytes (%) (Auto) 9 % (0-9) 6 % (0-9) Eosinophils (%) (Auto) 1 % (0-3) 0 % (0-3) Basophils (%) (Auto) 1 % (0-3) 0 % (0-3) Neutrophils # (Auto) 11.6 x10^3uL (1.8-7.7) 15.7 x10^3uL (1.8-7.7) Lymphocytes # (Auto) 3.4 x10^3/uL (1.0-4.8) 1.7 x10^3/uL (1.0-4.8) Monocytes # (Auto) 1.5 x10^3/uL (0.0-1.1) 1.1 x10^3/uL (0.0-1.1) Eosinophils # (Auto) 0.1 x10^3/uL (0.0-0.7) 0.0 x10^3/uL (0.0-0.7) Basophils # (Auto) 0.1 x10^3/uL (0.0-0.2) 0.0 x10^3/uL (0.0-0.2) Prothrombin Time 12.9 SEC (11.7-14.0) Prothromb Time International Ratio 1.0 (0.8-1.1) Activated Partial Thromboplast Time 25 SEC (24-38) Sodium Level 141 mmol/L (136-145) 144 mmol/L (136-145) Potassium Level 3.8 mmol/L (3.5-5.1) 3.5 mmol/L (3.5-5.1) Chloride Level 104 mmol/L (98-107) 111 mmol/L (98-107) Carbon Dioxide Level 29 mmol/L (21-32) 25 mmol/L (21-32) Anion Gap 8 (6-14) 8 (6-14) Blood Urea Nitrogen 27 mg/dL (7-20) 18 mg/dL (7-20) Creatinine 0.8 mg/dL (0.6-1.0) 0.6 mg/dL (0.6-1.0) Estimated GFR (Cockcroft-Gault) 82.7 115.2 BUN/Creatinine Ratio 34 (6-20) 30 (6-20) Glucose Level 178 mg/dL (70-99) 153 mg/dL (70-99) Lactic Acid Level 1.6 mmol/L (0.4-2.0) Calcium Level 8.7 mg/dL (8.5-10.1) 7.0 mg/dL (8.5-10.1) Total Bilirubin 0.3 mg/dL (0.2-1.0) 0.4 mg/dL (0.2-1.0) Aspartate Amino Transf (AST/SGOT) 25 U/L (15-37) 19 U/L (15-37) Alanine Aminotransferase (ALT/SGPT) 38 U/L (14-59) 29 U/L (14-59) Alkaline Phosphatase 67 U/L (46-116) 58 U/L (46-116) Troponin I Quantitative < 0.017 ng/mL (0.000-0.055) VS-Kxm-C-Type Natriuretic Peptide 60 pg/mL (0-449) Total Protein 6.7 g/dL (6.4-8.2) 5.3 g/dL (6.4-8.2) Albumin 2.8 g/dL (3.4-5.0) 2.3 g/dL (3.4-5.0) Albumin/Globulin Ratio 0.7 (1.0-1.7) 0.8 (1.0-1.7) Urine Collection Type U cath Urine Color Yellow Urine Clarity Clear Urine pH 5.0 Urine Specific [place] >=1.030 Urine Protein Negative mg/dL (NEG-TRACE) Urine Glucose (UA) Negative mg/dL (NEG) Urine Ketones (Stick) Negative mg/dL (NEG) Urine Blood Negative (NEG) Urine Nitrite Negative (NEG) Urine Bilirubin Negative (NEG) Urine Urobilinogen Dipstick 0.2 mg/dL (0.2 mg/dL) Urine Leukocyte Esterase Small (NEG) Urine RBC 0 /HPF (0-2) Urine WBC 5-10 /HPF (0-4) Urine Squamous Epithelial Cells Few /LPF Urine Bacteria Many /HPF (0-FEW) Urine Mucus Mod /LPF Segmented Neutrophils % 74 % (35-66) Band Neutrophils % 1 % (0-9) Lymphocytes % 18 % (24-48) Monocytes % 6 % (0-10) Basophils % 1 % (0-3) Platelet Estimate Adequate (ADEQUATE) Anisocytosis Slight Test 06/23/18 11:50 06/23/18 13:35 White Blood Count 14.4 x10^3/uL (4.0-11.0) Red Blood Count 2.28 x10^6/uL (3.50-5.40) Hemoglobin 7.2 g/dL (12.0-15.5) Hematocrit 21.3 % (36.0-47.0) Mean Corpuscular Volume 94 fL (79-100) Mean Corpuscular Hemoglobin 32 pg (25-35) Mean Corpuscular Hemoglobin Concent 34 g/dL (31-37) Red Cell Distribution Width 13.3 % (11.5-14.5) Platelet Count 202 x10^3/uL (140-400) Prothrombin Time 14.5 SEC (11.7-14.0) Prothromb Time International Ratio 1.2 (0.8-1.1) Laboratory Tests Test 06/22/18 17:30 06/22/18 17:43 06/23/18 05:45 06/23/18 11:50 Hemoglobin 9.0 g/dL (12.0-15.5) 7.3 g/dL (12.0-15.5) 7.2 g/dL (12.0-15.5) Urine Collection Type U cath Urine Color Yellow Urine Clarity Clear Urine pH 5.0 Urine Specific [place] >=1.030 Urine Protein Negative mg/dL (NEG-TRACE) Urine Glucose (UA) Negative mg/dL (NEG) Urine Ketones (Stick) Negative mg/dL (NEG) Urine Blood Negative (NEG) Urine Nitrite Negative (NEG) Urine Bilirubin Negative (NEG) Urine Urobilinogen Dipstick 0.2 mg/dL (0.2 mg/dL) Urine Leukocyte Esterase Small (NEG) Urine RBC 0 /HPF (0-2) Urine WBC 5-10 /HPF (0-4) Urine Squamous Epithelial Cells Few /LPF Urine Bacteria Many /HPF (0-FEW) Urine Mucus Mod /LPF White Blood Count 18.6 x10^3/uL (4.0-11.0) 14.4 x10^3/uL (4.0-11.0) Red Blood Count 2.36 x10^6/uL (3.50-5.40) 2.28 x10^6/uL (3.50-5.40) Hematocrit 22.1 % (36.0-47.0) 21.3 % (36.0-47.0) Mean Corpuscular Volume 94 fL (79-100) 94 fL (79-100) Mean Corpuscular Hemoglobin 31 pg (25-35) 32 pg (25-35) Mean Corpuscular Hemoglobin Concent 33 g/dL (31-37) 34 g/dL (31-37) Red Cell Distribution Width 13.5 % (11.5-14.5) 13.3 % (11.5-14.5) Platelet Count 225 x10^3/uL (140-400) 202 x10^3/uL (140-400) Neutrophils (%) (Auto) 85 % (31-73) Lymphocytes (%) (Auto) 9 % (24-48) Monocytes (%) (Auto) 6 % (0-9) Eosinophils (%) (Auto) 0 % (0-3) Basophils (%) (Auto) 0 % (0-3) Neutrophils # (Auto) 15.7 x10^3uL (1.8-7.7) Lymphocytes # (Auto) 1.7 x10^3/uL (1.0-4.8) Monocytes # (Auto) 1.1 x10^3/uL (0.0-1.1) Eosinophils # (Auto) 0.0 x10^3/uL (0.0-0.7) Basophils # (Auto) 0.0 x10^3/uL (0.0-0.2) Segmented Neutrophils % 74 % (35-66) Band Neutrophils % 1 % (0-9) Lymphocytes % 18 % (24-48) Monocytes % 6 % (0-10) Basophils % 1 % (0-3) Platelet Estimate Adequate (ADEQUATE) Anisocytosis Slight Sodium Level 144 mmol/L (136-145) Potassium Level 3.5 mmol/L (3.5-5.1) Chloride Level 111 mmol/L (98-107) Carbon Dioxide Level 25 mmol/L (21-32) Anion Gap 8 (6-14) Blood Urea Nitrogen 18 mg/dL (7-20) Creatinine 0.6 mg/dL (0.6-1.0) Estimated GFR (Cockcroft-Gault) 115.2 BUN/Creatinine Ratio 30 (6-20) Glucose Level 153 mg/dL (70-99) Calcium Level 7.0 mg/dL (8.5-10.1) Total Bilirubin 0.4 mg/dL (0.2-1.0) Aspartate Amino Transf (AST/SGOT) 19 U/L (15-37) Alanine Aminotransferase (ALT/SGPT) 29 U/L (14-59) Alkaline Phosphatase 58 U/L (46-116) Total Protein 5.3 g/dL (6.4-8.2) Albumin 2.3 g/dL (3.4-5.0) Albumin/Globulin Ratio 0.8 (1.0-1.7) Test 06/23/18 13:35 Prothrombin Time 14.5 SEC (11.7-14.0) Prothromb Time International Ratio 1.2 (0.8-1.1) Images Images bleeding scan, CTA, mesenteric arteriogram reviewed Assessment/Plan Assessment/Plan GI bleed of uncertain source (possible splenic flexure by bleeding scan) obesity diverticulosis would not recommend surgical intervention without a definite bleeding source serial labs, exams, repeat studies as needed will follow Thanks for consult JOLENE DEJESUS MD Jun 23, 2018 16:31
[2018-06-23 16:47] LABS: HEMATOCRIT 25.5 % (36.0-47.0); HEMOGLOBIN 8.4 g/dL (12.0-15.5); RED BLOOD COUNT 2.82 x10^6/uL (3.50-5.40); RED CELL DISTRIBUTION WIDTH 15.5 % (11.5-14.5); WHITE BLOOD COUNT 14.3 x10^3/uL (4.0-11.0)
[2018-06-23] MEDS: ONDANSETRON PF 4 MG/2 ML VIAL. IV PRN (22:57)
[2018-06-23 23:00] LABS: RED BLOOD COUNT 2.13 x10^6/uL (3.50-5.40); RED CELL DISTRIBUTION WIDTH 15.5 % (11.5-14.5); WHITE BLOOD COUNT 13.7 x10^3/uL (4.0-11.0)
[2018-06-23 23:03] LABS: HEMOGLOBIN 6.5 g/dL (12.0-15.5)
[2018-06-24] VITALS (44 sets, daily range): BP systolic 55–138; BP diastolic 34–65
[2018-06-24] MEDS: IV NORMAL SALINE 1000ML BAG 1,000 ML IV SCH ×2 (01:15→05:55)
[2018-06-24] MEDS: NOREPINEPHRIN 8MG/250ML PREMIX 250 ML IV PRN ×2 (03:00→23:33)
[2018-06-24] MEDS ORDERED: IV NORMAL SALINE 1000ML BAG 1,000 ML IV ONE ×3 (03:15→05:50)
--- NOTE | 2018-06-24 04:35 | PDOC ---
SURGICAL PROGRESS NOTE Subjective awake and alert had some bloody stools earlier and dropped her Hb on some pressors now, receiving blood, FFP, platelets and fluid bolus Vital Signs Vital Signs Date Time Temp Pulse Resp B/P (MAP) Pulse Ox O2 Delivery O2 Flow Rate FiO2 06/24/18 03:35 98.0 92 18 126/65 98.0 06/24/18 03:00 99 Room Air 06/23/18 10:42 2.0 I&O Intake and Output 06/24/18 07:00 Intake Total 5755 ml Output Total 2661 ml Balance 3094 ml Intake IV Total 3611 ml Blood Product 934 ml Blood Product IV Normal Saline Flush 560 ml Other 650 ml Output Urine Total 1560 ml Stool Total 1101 ml # Bowel Movements 2 PATIENT HAS A KEANE: Yes General: Alert, Oriented X3, No acute distress Abdomen: Soft, No tenderness Labs Laboratory Tests Test 06/22/18 15:25 06/22/18 17:30 06/22/18 17:43 06/23/18 05:45 White Blood Count 16.6 x10^3/uL (4.0-11.0) 18.6 x10^3/uL (4.0-11.0) Red Blood Count 3.33 x10^6/uL (3.50-5.40) 2.36 x10^6/uL (3.50-5.40) Hemoglobin 10.2 g/dL (12.0-15.5) 9.0 g/dL (12.0-15.5) 7.3 g/dL (12.0-15.5) Hematocrit 31.0 % (36.0-47.0) 22.1 % (36.0-47.0) Mean Corpuscular Volume 93 fL (79-100) 94 fL (79-100) Mean Corpuscular Hemoglobin 31 pg (25-35) 31 pg (25-35) Mean Corpuscular Hemoglobin Concent 33 g/dL (31-37) 33 g/dL (31-37) Red Cell Distribution Width 13.7 % (11.5-14.5) 13.5 % (11.5-14.5) Platelet Count 296 x10^3/uL (140-400) 225 x10^3/uL (140-400) Neutrophils (%) (Auto) 70 % (31-73) 85 % (31-73) Lymphocytes (%) (Auto) 20 % (24-48) 9 % (24-48) Monocytes (%) (Auto) 9 % (0-9) 6 % (0-9) Eosinophils (%) (Auto) 1 % (0-3) 0 % (0-3) Basophils (%) (Auto) 1 % (0-3) 0 % (0-3) Neutrophils # (Auto) 11.6 x10^3uL (1.8-7.7) 15.7 x10^3uL (1.8-7.7) Lymphocytes # (Auto) 3.4 x10^3/uL (1.0-4.8) 1.7 x10^3/uL (1.0-4.8) Monocytes # (Auto) 1.5 x10^3/uL (0.0-1.1) 1.1 x10^3/uL (0.0-1.1) Eosinophils # (Auto) 0.1 x10^3/uL (0.0-0.7) 0.0 x10^3/uL (0.0-0.7) Basophils # (Auto) 0.1 x10^3/uL (0.0-0.2) 0.0 x10^3/uL (0.0-0.2) Prothrombin Time 12.9 SEC (11.7-14.0) Prothromb Time International Ratio 1.0 (0.8-1.1) Activated Partial Thromboplast Time 25 SEC (24-38) Sodium Level 141 mmol/L (136-145) 144 mmol/L (136-145) Potassium Level 3.8 mmol/L (3.5-5.1) 3.5 mmol/L (3.5-5.1) Chloride Level 104 mmol/L (98-107) 111 mmol/L (98-107) Carbon Dioxide Level 29 mmol/L (21-32) 25 mmol/L (21-32) Anion Gap 8 (6-14) 8 (6-14) Blood Urea Nitrogen 27 mg/dL (7-20) 18 mg/dL (7-20) Creatinine 0.8 mg/dL (0.6-1.0) 0.6 mg/dL (0.6-1.0) Estimated GFR (Cockcroft-Gault) 82.7 115.2 BUN/Creatinine Ratio 34 (6-20) 30 (6-20) Glucose Level 178 mg/dL (70-99) 153 mg/dL (70-99) Lactic Acid Level 1.6 mmol/L (0.4-2.0) Calcium Level 8.7 mg/dL (8.5-10.1) 7.0 mg/dL (8.5-10.1) Total Bilirubin 0.3 mg/dL (0.2-1.0) 0.4 mg/dL (0.2-1.0) Aspartate Amino Transf (AST/SGOT) 25 U/L (15-37) 19 U/L (15-37) Alanine Aminotransferase (ALT/SGPT) 38 U/L (14-59) 29 U/L (14-59) Alkaline Phosphatase 67 U/L (46-116) 58 U/L (46-116) Troponin I Quantitative < 0.017 ng/mL (0.000-0.055) AN-Blu-Q-Type Natriuretic Peptide 60 pg/mL (0-449) Total Protein 6.7 g/dL (6.4-8.2) 5.3 g/dL (6.4-8.2) Albumin 2.8 g/dL (3.4-5.0) 2.3 g/dL (3.4-5.0) Albumin/Globulin Ratio 0.7 (1.0-1.7) 0.8 (1.0-1.7) Urine Collection Type U cath Urine Color Yellow Urine Clarity Clear Urine pH 5.0 Urine Specific [place] >=1.030 Urine Protein Negative mg/dL (NEG-TRACE) Urine Glucose (UA) Negative mg/dL (NEG) Urine Ketones (Stick) Negative mg/dL (NEG) Urine Blood Negative (NEG) Urine Nitrite Negative (NEG) Urine Bilirubin Negative (NEG) Urine Urobilinogen Dipstick 0.2 mg/dL (0.2 mg/dL) Urine Leukocyte Esterase Small (NEG) Urine RBC 0 /HPF (0-2) Urine WBC 5-10 /HPF (0-4) Urine Squamous Epithelial Cells Few /LPF Urine Bacteria Many /HPF (0-FEW) Urine Mucus Mod /LPF Segmented Neutrophils % 74 % (35-66) Band Neutrophils % 1 % (0-9) Lymphocytes % 18 % (24-48) Monocytes % 6 % (0-10) Basophils % 1 % (0-3) Platelet Estimate Adequate (ADEQUATE) Anisocytosis Slight Test 06/23/18 11:50 06/23/18 13:35 06/23/18 16:40 06/23/18 22:55 White Blood Count 14.4 x10^3/uL (4.0-11.0) 14.3 x10^3/uL (4.0-11.0) 13.7 x10^3/uL (4.0-11.0) Red Blood Count 2.28 x10^6/uL (3.50-5.40) 2.82 x10^6/uL (3.50-5.40) 2.13 x10^6/uL (3.50-5.40) Hemoglobin 7.2 g/dL (12.0-15.5) 8.4 g/dL (12.0-15.5) 6.5 g/dL (12.0-15.5) Hematocrit 21.3 % (36.0-47.0) 25.5 % (36.0-47.0) 19.0 % (36.0-47.0) Mean Corpuscular Volume 94 fL (79-100) 91 fL (79-100) 90 fL (79-100) Mean Corpuscular Hemoglobin 32 pg (25-35) 30 pg (25-35) 30 pg (25-35) Mean Corpuscular Hemoglobin Concent 34 g/dL (31-37) 33 g/dL (31-37) 34 g/dL (31-37) Red Cell Distribution Width 13.3 % (11.5-14.5) 15.5 % (11.5-14.5) 15.5 % (11.5-14.5) Platelet Count 202 x10^3/uL (140-400) 176 x10^3/uL (140-400) 163 x10^3/uL (140-400) Prothrombin Time 14.5 SEC (11.7-14.0) Prothromb Time International Ratio 1.2 (0.8-1.1) Test 06/24/18 00:32 Glucose (Fingerstick) 184 mg/dL (70-99) Laboratory Tests Test 06/23/18 05:45 06/23/18 11:50 06/23/18 13:35 06/23/18 16:40 White Blood Count 18.6 x10^3/uL (4.0-11.0) 14.4 x10^3/uL (4.0-11.0) 14.3 x10^3/uL (4.0-11.0) Red Blood Count 2.36 x10^6/uL (3.50-5.40) 2.28 x10^6/uL (3.50-5.40) 2.82 x10^6/uL (3.50-5.40) Hemoglobin 7.3 g/dL (12.0-15.5) 7.2 g/dL (12.0-15.5) 8.4 g/dL (12.0-15.5) Hematocrit 22.1 % (36.0-47.0) 21.3 % (36.0-47.0) 25.5 % (36.0-47.0) Mean Corpuscular Volume 94 fL (79-100) 94 fL (79-100) 91 fL (79-100) Mean Corpuscular Hemoglobin 31 pg (25-35) 32 pg (25-35) 30 pg (25-35) Mean Corpuscular Hemoglobin Concent 33 g/dL (31-37) 34 g/dL (31-37) 33 g/dL (31-37) Red Cell Distribution Width 13.5 % (11.5-14.5) 13.3 % (11.5-14.5) 15.5 % (11.5-14.5) Platelet Count 225 x10^3/uL (140-400) 202 x10^3/uL (140-400) 176 x10^3/uL (140-400) Neutrophils (%) (Auto) 85 % (31-73) Lymphocytes (%) (Auto) 9 % (24-48) Monocytes (%) (Auto) 6 % (0-9) Eosinophils (%) (Auto) 0 % (0-3) Basophils (%) (Auto) 0 % (0-3) Neutrophils # (Auto) 15.7 x10^3uL (1.8-7.7) Lymphocytes # (Auto) 1.7 x10^3/uL (1.0-4.8) Monocytes # (Auto) 1.1 x10^3/uL (0.0-1.1) Eosinophils # (Auto) 0.0 x10^3/uL (0.0-0.7) Basophils # (Auto) 0.0 x10^3/uL (0.0-0.2) Segmented Neutrophils % 74 % (35-66) Band Neutrophils % 1 % (0-9) Lymphocytes % 18 % (24-48) Monocytes % 6 % (0-10) Basophils % 1 % (0-3) Platelet Estimate Adequate (ADEQUATE) Anisocytosis Slight Sodium Level 144 mmol/L (136-145) Potassium Level 3.5 mmol/L (3.5-5.1) Chloride Level 111 mmol/L (98-107) Carbon Dioxide Level 25 mmol/L (21-32) Anion Gap 8 (6-14) Blood Urea Nitrogen 18 mg/dL (7-20) Creatinine 0.6 mg/dL (0.6-1.0) Estimated GFR (Cockcroft-Gault) 115.2 BUN/Creatinine Ratio 30 (6-20) Glucose Level 153 mg/dL (70-99) Calcium Level 7.0 mg/dL (8.5-10.1) Total Bilirubin 0.4 mg/dL (0.2-1.0) Aspartate Amino Transf (AST/SGOT) 19 U/L (15-37) Alanine Aminotransferase (ALT/SGPT) 29 U/L (14-59) Alkaline Phosphatase 58 U/L (46-116) Total Protein 5.3 g/dL (6.4-8.2) Albumin 2.3 g/dL (3.4-5.0) Albumin/Globulin Ratio 0.8 (1.0-1.7) Prothrombin Time 14.5 SEC (11.7-14.0) Prothromb Time International Ratio 1.2 (0.8-1.1) Test 06/23/18 22:55 06/24/18 00:32 White Blood Count 13.7 x10^3/uL (4.0-11.0) Red Blood Count 2.13 x10^6/uL (3.50-5.40) Hemoglobin 6.5 g/dL (12.0-15.5) Hematocrit 19.0 % (36.0-47.0) Mean Corpuscular Volume 90 fL (79-100) Mean Corpuscular Hemoglobin 30 pg (25-35) Mean Corpuscular Hemoglobin Concent 34 g/dL (31-37) Red Cell Distribution Width 15.5 % (11.5-14.5) Platelet Count 163 x10^3/uL (140-400) Glucose (Fingerstick) 184 mg/dL (70-99) Hb 6.8 earlier repeat is PND Problem List Problems Medical Problems: (1) Anemia Status: Acute (2) Dehydration Status: Acute (3) Rectal bleeding Status: Acute Assessment/Plan GI bleed, uncertain source IR has nothing further to offer discussed colectomy with end ileostomy explained surgical risks and the prospect of a permanent stoma she understands will d/w Dr Kaufman re: surgery plans and pre/intraop EGD JOLENE DEJESUS MD Jun 24, 2018 04:35
[2018-06-24] MEDS: ONDANSETRON PF 4 MG/2 ML VIAL. IV PRN (05:43)
[2018-06-24] MEDS ORDERED: ROCURONIUM 100 MG/10 ML VIAL. ONE (05:48)
[2018-06-24] MEDS ORDERED: SUCCINYLCHOLINE 200 MG/10 ML VIAL. ONE (05:48)
--- NOTE | 2018-06-24 06:18 | PDOC4 ---
PROCEDURE Procedure EGD Indication: GI bleeding/rule out UGI lesion prior to operative intervention for colonic bleeding. Meds: per anesthesia Findings: E--hint of non-obstructing Shatzki's ring at GEJ. G--Normal D--Normal to second portion. Jon. well. IMP: Mild, non-obstructing Shatzki's ring. Otherwise normal exam. REC: Proceed with OR. Await findings. PRAVEENA GARCIA MD Jun 24, 2018 06:18
[2018-06-24 06:20] LABS: BASO % 0 % (0-3); EOS % 0 % (0-3); LYMPH # 1.3 x10^3/uL (1.0-4.8); LYMPH % 10 % (24-48); MEAN CORPUSCULAR HEMOGLOBIN 31 pg (25-35); MEAN CORPUSCULAR HGB CONC 34 g/dL (31-37); MEAN CORPUSCULAR VOLUME 89 fL (79-100); MONO % 7 % (0-9); NEUT # 11.2 x10^3uL (1.8-7.7); NEUT % 83 % (31-73); PLATELET COUNT 168 x10^3/uL (140-400); PROTHROMBIN TIME PATIENT 16.3 SEC (11.7-14.0); RED BLOOD COUNT 2.21 x10^6/uL (3.50-5.40); RED CELL DISTRIBUTION WIDTH 15.7 % (11.5-14.5); WHITE BLOOD COUNT 13.5 x10^3/uL (4.0-11.0)
[2018-06-24 06:22] LABS: CALCIUM 6.2 mg/dL (8.5-10.1); CREATININE 0.8 mg/dL (0.6-1.0); GFR 82.7
[2018-06-24 06:25] LABS: HEMOGLOBIN 6.7 g/dL (12.0-15.5)
[2018-06-24 06:26] LABS: HEMATOCRIT 19.7 % (36.0-47.0)
[2018-06-24] MEDS: cefOXitin SODIUM 2 GM in IV DEXTROSE 5% 100ML 100 ML IV ONE ×2 (06:45→08:43)
[2018-06-24] MEDS ORDERED: fentaNYL PF VIAL 250 MCG/5 ML VIAL ONE (07:16)
[2018-06-24] MEDS ORDERED: PROPOFOL 20 ML IV ONE (07:17)
[2018-06-24] MEDS ORDERED: ETOMIDATE 20 MG/10 ML VIAL. IV ONE (07:17)
[2018-06-24] MEDS ORDERED: ONDANSETRON PF 4 MG/2 ML VIAL. ONE (07:55)
[2018-06-24] MEDS ORDERED: NEOSTIGMINE METHYLSULFATE 5 MG/5 ML SYRINGE. ONE (08:38)
[2018-06-24] MEDS ORDERED: GLYCOPYRROLATE 1 MG/5 ML VIAL. ONE (08:39)
[2018-06-24] MEDS ORDERED: 0.9 % SODIUM CHLORIDE 10 ML DISP.SYRIN. IV PRN (09:15)
[2018-06-24] MEDS ORDERED: ONDANSETRON PF 4 MG/2 ML VIAL. IV PRN ×2 (09:15→10:00)
[2018-06-24] MEDS ORDERED: PHENOL ORAL SPRAY 177ML BOTTLE. PO PRN (09:15)
--- NOTE | 2018-06-24 09:15 | RAD ---
EXAM: Abdomen, single view. HISTORY: Colectomy. COMPARISON: None. FINDINGS: A frontal view of the abdomen is obtained. There is a nasogastric tube within the distal stomach. There is a surgical drain overlying the left hemipelvis. There are midline ventral abdominal wall skin allan due to a recent colectomy. There are nondistended air-filled loops of bowel within the abdomen. There is no obstruction. There is no abnormal retained foreign body. IMPRESSION: Evidence of a recent laparotomy. There is no obstruction or evidence of an abnormal retained foreign body. There is a drain overlying the right hemipelvis and a nasogastric tube within the distal stomach. Electronically signed by: Carolynn Bar MD (06/24/2018 9:12 AM) [facility]
[2018-06-24] MEDS ORDERED: VANCOMYCIN 2 GM in IV NORMAL SALINE 500ML BAG 500 ML IV ONE (09:30)
--- NOTE | 2018-06-24 09:51 | PDOC ---
BRIEF OPERATIVE NOTE Date: Jun 24, 2018 Pre-Op Diagnosis GI bleed Post-Op Diagnosis same Procedure Performed colectomy, left S&O Surgeon [facility] Phlebotomist Christine PATTON Anesthesia Type: General Blood Loss 50cc IV Fluid 2000cc crystalloid 2 units of PRBCs 2 units of FFP Urine Output 150cc Specimens Obtained colon, left tube and ovary Findings diffuse adhesions, atrophic pelvic organs consistent with her age, normal SB Complications none JOLENE DEJESUS MD Jun 24, 2018 09:51
[2018-06-24] MEDS ORDERED: ENOXAPARIN 40 MG/0.4 ML SYRINGE. SQ SCH (10:00)
[2018-06-24] MEDS ORDERED: HYDROmorphone 2 MG/ML VIAL IV PRN (10:00)
[2018-06-24] MEDS ORDERED: PROPOFOL 10 MG/ML (20ML) VIAL. IV ONE (10:00)
[2018-06-24] MEDS ORDERED: MORPHINE SULFATE 2 MG/ML VIAL. IV PRN (10:00)
[2018-06-24] MEDS ORDERED: LIDOCAINE 1% PF 2 ML VIAL. ID PRN (10:00)
[2018-06-24] MEDS ORDERED: fentaNYL PF VIAL 100 MCG/2 ML VIAL IV PRN (10:00)
--- NOTE | 2018-06-24 10:08 | RAD ---
EXAM: Chest, single view. HISTORY: Central line placement. COMPARISON: 10/20/2015 FINDINGS: A frontal view of the chest is obtained. There is a right internal jugular central venous catheter with the tip in the inferior right atrium. There is a nasogastric tube within the stomach. There are suspected small pleural effusions. There is atelectasis. There is enlargement of the cardiac silhouette.. There is no pneumothorax. IMPRESSION: 1. Right internal jugular catheter with the tip in the inferior right atrium. 2. Nasogastric tube within the stomach. 3. Suspected small pleural effusions with lower lobe predominant atelectasis. Electronically signed by: Carolynn Bar MD (06/24/2018 10:05 AM) [id number]
[2018-06-24 10:13] LABS: CREATININE 0.8 mg/dL (0.6-1.0); GFR 82.7; POTASSIUM 3.2 mmol/L (3.5-5.1)
[2018-06-24] MEDS: fentaNYL PF VIAL 100 MCG/2 ML VIAL IV PRN ×6 (10:13→14:28)
[2018-06-24 10:23] LABS: CALCIUM 5.7 mg/dL (8.5-10.1)
[2018-06-24] MEDS ORDERED: PROCHLORPERAZINE 10 MG/2 ML VIAL. ONE (10:24)
[2018-06-24] MEDS ORDERED: fentaNYL PF VIAL 100 MCG/2 ML VIAL ONE (10:24)
[2018-06-24] MEDS: PROCHLORPERAZINE 10 MG/2 ML VIAL. IV PRN ×2 (10:28→10:47)
[2018-06-24 10:46] LABS: HEMATOCRIT 23.5 % (36.0-47.0); HEMOGLOBIN 8.2 g/dL (12.0-15.5); RED BLOOD COUNT 2.74 x10^6/uL (3.50-5.40); RED CELL DISTRIBUTION WIDTH 15.4 % (11.5-14.5); WHITE BLOOD COUNT 22.4 x10^3/uL (4.0-11.0)
[2018-06-24] MEDS ORDERED: HYDROmorphone 2 MG/ML VIAL ONE (11:04)
[2018-06-24] MEDS: IV RINGERS,LACTATED 1000ML 1,000 ML IV SCH ×2 (11:05→11:34)
[2018-06-24] MEDS: PANTOPRAZOLE IV PUSH 40 MG VIAL. IVP SCH (12:46)
[2018-06-24] MEDS: POTASSIUM CL 20MEQ-0.45% NACL 1,000 ML IV SCH ×2 (12:47→23:42)
[2018-06-24] MEDS: VANCOMYCIN PER PHARMACY MC PRN (13:22)
--- NOTE | 2018-06-24 13:52 | PDOC ---
PROGRESS NOTES Chief Complaint Chief Complaint bright red blood per rectum, 2/2 diverticulosis 2/2 colectomy 06/24 hypotension with gib acute anemia with gib HTN dm2 hld morbid obesity 2/3 + bcx bacteremia sepsis with bacteremia plan: FU WITH GI, IR total got 7u PRBC transfusion, plt and FFP transfusion hold po meds npo 1/2 NS +K 100cc/h icu care IR angiogram neg bleeding. + bleeding scan, neg CTA. EGD today non obstructing shatki ring. colectomy today since cont bleeding with low hb and low bp. gi ppx add vanco since + bcx, ID consult. cc time 35min History of Present Illness History of Present Illness ROS: no fever, chills, sob or chest pain cont rectal bleeding with some abd cramps overnight, as per nurse could have about 2L blood loss otherwise no abd pain, no N/V bp lower side sx today + bleeding scan, neg CTA. Vitals Vitals Vital Signs Date Time Temp Pulse Resp B/P (MAP) Pulse Ox O2 Delivery O2 Flow Rate FiO2 06/24/18 12:20 97.2 132 21 102/34 100 Room Air 8.0 97.2 Physical Exam General: Alert, Oriented X3, No acute distress Heart: Regular rate Lungs: Clear Abdomen: Soft, Other (sx wound. ELI drain. NGT) Extremities: No cyanosis Skin: Other (warm, dry) Labs LABS Laboratory Tests Test 06/23/18 16:40 06/23/18 22:55 06/24/18 00:32 06/24/18 05:55 White Blood Count 14.3 x10^3/uL (4.0-11.0) 13.7 x10^3/uL (4.0-11.0) 13.5 x10^3/uL (4.0-11.0) Red Blood Count 2.82 x10^6/uL (3.50-5.40) 2.13 x10^6/uL (3.50-5.40) 2.21 x10^6/uL (3.50-5.40) Hemoglobin 8.4 g/dL (12.0-15.5) 6.5 g/dL (12.0-15.5) 6.7 g/dL (12.0-15.5) Hematocrit 25.5 % (36.0-47.0) 19.0 % (36.0-47.0) 19.7 % (36.0-47.0) Mean Corpuscular Volume 91 fL (79-100) 90 fL (79-100) 89 fL (79-100) Mean Corpuscular Hemoglobin 30 pg (25-35) 30 pg (25-35) 31 pg (25-35) Mean Corpuscular Hemoglobin Concent 33 g/dL (31-37) 34 g/dL (31-37) 34 g/dL (31-37) Red Cell Distribution Width 15.5 % (11.5-14.5) 15.5 % (11.5-14.5) 15.7 % (11.5-14.5) Platelet Count 176 x10^3/uL (140-400) 163 x10^3/uL (140-400) 168 x10^3/uL (140-400) Glucose (Fingerstick) 184 mg/dL (70-99) Neutrophils (%) (Auto) 83 % (31-73) Lymphocytes (%) (Auto) 10 % (24-48) Monocytes (%) (Auto) 7 % (0-9) Eosinophils (%) (Auto) 0 % (0-3) Basophils (%) (Auto) 0 % (0-3) Neutrophils # (Auto) 11.2 x10^3uL (1.8-7.7) Lymphocytes # (Auto) 1.3 x10^3/uL (1.0-4.8) Monocytes # (Auto) 1.0 x10^3/uL (0.0-1.1) Eosinophils # (Auto) 0.0 x10^3/uL (0.0-0.7) Basophils # (Auto) 0.0 x10^3/uL (0.0-0.2) Prothrombin Time 16.3 SEC (11.7-14.0) Prothromb Time International Ratio 1.4 (0.8-1.1) Activated Partial Thromboplast Time 27 SEC (24-38) Sodium Level 145 mmol/L (136-145) Potassium Level 4.0 mmol/L (3.5-5.1) Chloride Level 113 mmol/L (98-107) Carbon Dioxide Level 22 mmol/L (21-32) Anion Gap 10 (6-14) Blood Urea Nitrogen 18 mg/dL (7-20) Creatinine 0.8 mg/dL (0.6-1.0) Estimated GFR (Cockcroft-Gault) 82.7 Glucose Level 223 mg/dL (70-99) Calcium Level 6.2 mg/dL (8.5-10.1) Test 06/24/18 09:45 White Blood Count 22.4 x10^3/uL (4.0-11.0) Red Blood Count 2.74 x10^6/uL (3.50-5.40) Hemoglobin 8.2 g/dL (12.0-15.5) Hematocrit 23.5 % (36.0-47.0) Mean Corpuscular Volume 86 fL (79-100) Mean Corpuscular Hemoglobin 30 pg (25-35) Mean Corpuscular Hemoglobin Concent 35 g/dL (31-37) Red Cell Distribution Width 15.4 % (11.5-14.5) Platelet Count 113 x10^3/uL (140-400) Sodium Level 145 mmol/L (136-145) Potassium Level 3.2 mmol/L (3.5-5.1) Chloride Level 115 mmol/L (98-107) Carbon Dioxide Level 21 mmol/L (21-32) Anion Gap 9 (6-14) Blood Urea Nitrogen 16 mg/dL (7-20) Creatinine 0.8 mg/dL (0.6-1.0) Estimated GFR (Cockcroft-Gault) 82.7 Glucose Level 216 mg/dL (70-99) Glucose (Fingerstick) 192 mg/dL (70-99) Calcium Level 5.7 mg/dL (8.5-10.1) Assessment and Plan Assessmemt and Plan Problems Medical Problems: (1) Anemia Status: Acute (2) Dehydration Status: Acute (3) Rectal bleeding Status: Acute Comment Review of Relevant I have reviewed the following items fabiola (where applicable) has been applied. Labs Laboratory Tests Test 06/22/18 15:25 06/22/18 17:30 06/22/18 17:43 06/22/18 18:30 White Blood Count 16.6 x10^3/uL (4.0-11.0) Red Blood Count 3.33 x10^6/uL (3.50-5.40) Hemoglobin 10.2 g/dL (12.0-15.5) 9.0 g/dL (12.0-15.5) Hematocrit 31.0 % (36.0-47.0) Mean Corpuscular Volume 93 fL (79-100) Mean Corpuscular Hemoglobin 31 pg (25-35) Mean Corpuscular Hemoglobin Concent 33 g/dL (31-37) Red Cell Distribution Width 13.7 % (11.5-14.5) Platelet Count 296 x10^3/uL (140-400) Neutrophils (%) (Auto) 70 % (31-73) Lymphocytes (%) (Auto) 20 % (24-48) Monocytes (%) (Auto) 9 % (0-9) Eosinophils (%) (Auto) 1 % (0-3) Basophils (%) (Auto) 1 % (0-3) Neutrophils # (Auto) 11.6 x10^3uL (1.8-7.7) Lymphocytes # (Auto) 3.4 x10^3/uL (1.0-4.8) Monocytes # (Auto) 1.5 x10^3/uL (0.0-1.1) Eosinophils # (Auto) 0.1 x10^3/uL (0.0-0.7) Basophils # (Auto) 0.1 x10^3/uL (0.0-0.2) Prothrombin Time 12.9 SEC (11.7-14.0) Prothromb Time International Ratio 1.0 (0.8-1.1) Activated Partial Thromboplast Time 25 SEC (24-38) Sodium Level 141 mmol/L (136-145) Potassium Level 3.8 mmol/L (3.5-5.1) Chloride Level 104 mmol/L (98-107) Carbon Dioxide Level 29 mmol/L (21-32) Anion Gap 8 (6-14) Blood Urea Nitrogen 27 mg/dL (7-20) Creatinine 0.8 mg/dL (0.6-1.0) Estimated GFR (Cockcroft-Gault) 82.7 BUN/Creatinine Ratio 34 (6-20) Glucose Level 178 mg/dL (70-99) Lactic Acid Level 1.6 mmol/L (0.4-2.0) Calcium Level 8.7 mg/dL (8.5-10.1) Total Bilirubin 0.3 mg/dL (0.2-1.0) Aspartate Amino Transf (AST/SGOT) 25 U/L (15-37) Alanine Aminotransferase (ALT/SGPT) 38 U/L (14-59) Alkaline Phosphatase 67 U/L (46-116) Troponin I Quantitative < 0.017 ng/mL (0.000-0.055) NM-Hlh-C-Type Natriuretic Peptide 60 pg/mL (0-449) Total Protein 6.7 g/dL (6.4-8.2) Albumin 2.8 g/dL (3.4-5.0) Albumin/Globulin Ratio 0.7 (1.0-1.7) Urine Collection Type U cath Urine Color Yellow Urine Clarity Clear Urine pH 5.0 Urine Specific [place] >=1.030 Urine Protein Negative mg/dL (NEG-TRACE) Urine Glucose (UA) Negative mg/dL (NEG) Urine Ketones (Stick) Negative mg/dL (NEG) Urine Blood Negative (NEG) Urine Nitrite Negative (NEG) Urine Bilirubin Negative (NEG) Urine Urobilinogen Dipstick 0.2 mg/dL (0.2 mg/dL) Urine Leukocyte Esterase Small (NEG) Urine RBC 0 /HPF (0-2) Urine WBC 5-10 /HPF (0-4) Urine Squamous Epithelial Cells Few /LPF Urine Bacteria Many /HPF (0-FEW) Urine Mucus Mod /LPF Nasal Screen MRSA (PCR) Negative (Negative) Test 06/23/18 05:45 06/23/18 11:50 06/23/18 13:35 06/23/18 16:40 White Blood Count 18.6 x10^3/uL (4.0-11.0) 14.4 x10^3/uL (4.0-11.0) 14.3 x10^3/uL (4.0-11.0) Red Blood Count 2.36 x10^6/uL (3.50-5.40) 2.28 x10^6/uL (3.50-5.40) 2.82 x10^6/uL (3.50-5.40) Hemoglobin 7.3 g/dL (12.0-15.5) 7.2 g/dL (12.0-15.5) 8.4 g/dL (12.0-15.5) Hematocrit 22.1 % (36.0-47.0) 21.3 % (36.0-47.0) 25.5 % (36.0-47.0) Mean Corpuscular Volume 94 fL (79-100) 94 fL (79-100) 91 fL (79-100) Mean Corpuscular Hemoglobin 31 pg (25-35) 32 pg (25-35) 30 pg (25-35) Mean Corpuscular Hemoglobin Concent 33 g/dL (31-37) 34 g/dL (31-37) 33 g/dL (31-37) Red Cell Distribution Width 13.5 % (11.5-14.5) 13.3 % (11.5-14.5) 15.5 % (11.5-14.5) Platelet Count 225 x10^3/uL (140-400) 202 x10^3/uL (140-400) 176 x10^3/uL (140-400) Neutrophils (%) (Auto) 85 % (31-73) Lymphocytes (%) (Auto) 9 % (24-48) Monocytes (%) (Auto) 6 % (0-9) Eosinophils (%) (Auto) 0 % (0-3) Basophils (%) (Auto) 0 % (0-3) Neutrophils # (Auto) 15.7 x10^3uL (1.8-7.7) Lymphocytes # (Auto) 1.7 x10^3/uL (1.0-4.8) Monocytes # (Auto) 1.1 x10^3/uL (0.0-1.1) Eosinophils # (Auto) 0.0 x10^3/uL (0.0-0.7) Basophils # (Auto) 0.0 x10^3/uL (0.0-0.2) Segmented Neutrophils % 74 % (35-66) Band Neutrophils % 1 % (0-9) Lymphocytes % 18 % (24-48) Monocytes % 6 % (0-10) Basophils % 1 % (0-3) Platelet Estimate Adequate (ADEQUATE) Anisocytosis Slight Sodium Level 144 mmol/L (136-145) Potassium Level 3.5 mmol/L (3.5-5.1) Chloride Level 111 mmol/L (98-107) Carbon Dioxide Level 25 mmol/L (21-32) Anion Gap 8 (6-14) Blood Urea Nitrogen 18 mg/dL (7-20) Creatinine 0.6 mg/dL (0.6-1.0) Estimated GFR (Cockcroft-Gault) 115.2 BUN/Creatinine Ratio 30 (6-20) Glucose Level 153 mg/dL (70-99) Calcium Level 7.0 mg/dL (8.5-10.1) Total Bilirubin 0.4 mg/dL (0.2-1.0) Aspartate Amino Transf (AST/SGOT) 19 U/L (15-37) Alanine Aminotransferase (ALT/SGPT) 29 U/L (14-59) Alkaline Phosphatase 58 U/L (46-116) Total Protein 5.3 g/dL (6.4-8.2) Albumin 2.3 g/dL (3.4-5.0) Albumin/Globulin Ratio 0.8 (1.0-1.7) Prothrombin Time 14.5 SEC (11.7-14.0) Prothromb Time International Ratio 1.2 (0.8-1.1) Test 06/23/18 22:55 06/24/18 00:32 06/24/18 05:55 06/24/18 09:45 White Blood Count 13.7 x10^3/uL (4.0-11.0) 13.5 x10^3/uL (4.0-11.0) 22.4 x10^3/uL (4.0-11.0) Red Blood Count 2.13 x10^6/uL (3.50-5.40) 2.21 x10^6/uL (3.50-5.40) 2.74 x10^6/uL (3.50-5.40) Hemoglobin 6.5 g/dL (12.0-15.5) 6.7 g/dL (12.0-15.5) 8.2 g/dL (12.0-15.5) Hematocrit 19.0 % (36.0-47.0) 19.7 % (36.0-47.0) 23.5 % (36.0-47.0) Mean Corpuscular Volume 90 fL (79-100) 89 fL (79-100) 86 fL (79-100) Mean Corpuscular Hemoglobin 30 pg (25-35) 31 pg (25-35) 30 pg (25-35) Mean Corpuscular Hemoglobin Concent 34 g/dL (31-37) 34 g/dL (31-37) 35 g/dL (31-37) Red Cell Distribution Width 15.5 % (11.5-14.5) 15.7 % (11.5-14.5) 15.4 % (11.5-14.5) Platelet Count 163 x10^3/uL (140-400) 168 x10^3/uL (140-400) 113 x10^3/uL (140-400) Glucose (Fingerstick) 184 mg/dL (70-99) 192 mg/dL (70-99) Neutrophils (%) (Auto) 83 % (31-73) Lymphocytes (%) (Auto) 10 % (24-48) Monocytes (%) (Auto) 7 % (0-9) Eosinophils (%) (Auto) 0 % (0-3) Basophils (%) (Auto) 0 % (0-3) Neutrophils # (Auto) 11.2 x10^3uL (1.8-7.7) Lymphocytes # (Auto) 1.3 x10^3/uL (1.0-4.8) Monocytes # (Auto) 1.0 x10^3/uL (0.0-1.1) Eosinophils # (Auto) 0.0 x10^3/uL (0.0-0.7) Basophils # (Auto) 0.0 x10^3/uL (0.0-0.2) Prothrombin Time 16.3 SEC (11.7-14.0) Prothromb Time International Ratio 1.4 (0.8-1.1) Activated Partial Thromboplast Time 27 SEC (24-38) Sodium Level 145 mmol/L (136-145) 145 mmol/L (136-145) Potassium Level 4.0 mmol/L (3.5-5.1) 3.2 mmol/L (3.5-5.1) Chloride Level 113 mmol/L (98-107) 115 mmol/L (98-107) Carbon Dioxide Level 22 mmol/L (21-32) 21 mmol/L (21-32) Anion Gap 10 (6-14) 9 (6-14) Blood Urea Nitrogen 18 mg/dL (7-20) 16 mg/dL (7-20) Creatinine 0.8 mg/dL (0.6-1.0) 0.8 mg/dL (0.6-1.0) Estimated GFR (Cockcroft-Gault) 82.7 82.7 Glucose Level 223 mg/dL (70-99) 216 mg/dL (70-99) Calcium Level 6.2 mg/dL (8.5-10.1) 5.7 mg/dL (8.5-10.1) Laboratory Tests Test 06/23/18 16:40 06/23/18 22:55 06/24/18 00:32 06/24/18 05:55 White Blood Count 14.3 x10^3/uL (4.0-11.0) 13.7 x10^3/uL (4.0-11.0) 13.5 x10^3/uL (4.0-11.0) Red Blood Count 2.82 x10^6/uL (3.50-5.40) 2.13 x10^6/uL (3.50-5.40) 2.21 x10^6/uL (3.50-5.40) Hemoglobin 8.4 g/dL (12.0-15.5) 6.5 g/dL (12.0-15.5) 6.7 g/dL (12.0-15.5) Hematocrit 25.5 % (36.0-47.0) 19.0 % (36.0-47.0) 19.7 % (36.0-47.0) Mean Corpuscular Volume 91 fL (79-100) 90 fL (79-100) 89 fL (79-100) Mean Corpuscular Hemoglobin 30 pg (25-35) 30 pg (25-35) 31 pg (25-35) Mean Corpuscular Hemoglobin Concent 33 g/dL (31-37) 34 g/dL (31-37) 34 g/dL (31-37) Red Cell Distribution Width 15.5 % (11.5-14.5) 15.5 % (11.5-14.5) 15.7 % (11.5-14.5) Platelet Count 176 x10^3/uL (140-400) 163 x10^3/uL (140-400) 168 x10^3/uL (140-400) Glucose (Fingerstick) 184 mg/dL (70-99) Neutrophils (%) (Auto) 83 % (31-73) Lymphocytes (%) (Auto) 10 % (24-48) Monocytes (%) (Auto) 7 % (0-9) Eosinophils (%) (Auto) 0 % (0-3) Basophils (%) (Auto) 0 % (0-3) Neutrophils # (Auto) 11.2 x10^3uL (1.8-7.7) Lymphocytes # (Auto) 1.3 x10^3/uL (1.0-4.8) Monocytes # (Auto) 1.0 x10^3/uL (0.0-1.1) Eosinophils # (Auto) 0.0 x10^3/uL (0.0-0.7) Basophils # (Auto) 0.0 x10^3/uL (0.0-0.2) Prothrombin Time 16.3 SEC (11.7-14.0) Prothromb Time International Ratio 1.4 (0.8-1.1) Activated Partial Thromboplast Time 27 SEC (24-38) Sodium Level 145 mmol/L (136-145) Potassium Level 4.0 mmol/L (3.5-5.1) Chloride Level 113 mmol/L (98-107) Carbon Dioxide Level 22 mmol/L (21-32) Anion Gap 10 (6-14) Blood Urea Nitrogen 18 mg/dL (7-20) Creatinine 0.8 mg/dL (0.6-1.0) Estimated GFR (Cockcroft-Gault) 82.7 Glucose Level 223 mg/dL (70-99) Calcium Level 6.2 mg/dL (8.5-10.1) Test 06/24/18 09:45 White Blood Count 22.4 x10^3/uL (4.0-11.0) Red Blood Count 2.74 x10^6/uL (3.50-5.40) Hemoglobin 8.2 g/dL (12.0-15.5) Hematocrit 23.5 % (36.0-47.0) Mean Corpuscular Volume 86 fL (79-100) Mean Corpuscular Hemoglobin 30 pg (25-35) Mean Corpuscular Hemoglobin Concent 35 g/dL (31-37) Red Cell Distribution Width 15.4 % (11.5-14.5) Platelet Count 113 x10^3/uL (140-400) Sodium Level 145 mmol/L (136-145) Potassium Level 3.2 mmol/L (3.5-5.1) Chloride Level 115 mmol/L (98-107) Carbon Dioxide Level 21 mmol/L (21-32) Anion Gap 9 (6-14) Blood Urea Nitrogen 16 mg/dL (7-20) Creatinine 0.8 mg/dL (0.6-1.0) Estimated GFR (Cockcroft-Gault) 82.7 Glucose Level 216 mg/dL (70-99) Glucose (Fingerstick) 192 mg/dL (70-99) Calcium Level 5.7 mg/dL (8.5-10.1) Microbiology 06/22/18 Blood Culture - Preliminary, Resulted NO GROWTH AFTER 1 DAY Medications Current Medications Pantoprazole Sodium (PROTONIX VIAL for IV PUSH) 80 mg 1X ONCE IVP Last administered on 06/22/18at 15:57; Start 06/22/18 at 15:30; Stop 06/22/18 at 15:32 ; Status DC Sodium Chloride 1,000 ml @ 1,000 mls/hr 1X ONCE IV Last administered on at 15:52; Start 06/22/18 at 15:30; Stop 06/22/18 at 16:29; Status DC Ondansetron HCl (Zofran) 4 mg PRN Q8HRS PRN IV NAUSEA/VOMITING; Start 06/22/18 at 16:15; Stop 06/23/18 at 16:14; Status DC Sodium Chloride 1,000 ml @ 150 mls/hr Q6H40M IV Last administered on at 06:27; Start 06/22/18 at 16:11; Stop 06/23/18 at 09:11; Status DC Iohexol (Omnipaque 300 Mg/ml) 75 ml 1X ONCE IV Last administered on 06/22/18at 17:04; Start 06/22/18 at 17:00; Stop 06/22/18 at 17:01; Status DC Info (CONTRAST GIVEN -- Rx MONITORING) 1 each PRN DAILY PRN MC SEE COMMENTS; Start 06/22/18 at 17:00; Stop 06/24/18 at 09:36; Status DC Sodium Chloride 1,000 ml @ 1,000 mls/hr 1X ONCE IV Last administered on at 17:45; Start 06/22/18 at 17:45; Stop 06/22/18 at 18:44; Status DC Pantoprazole Sodium (PROTONIX VIAL for IV PUSH) 40 mg DAILYAC IVP Last administered on 06/24/18at 12:46; Start 06/23/18 at 07:30 Heparin Sodium (Porcine) (HEPARIN for NUC MED) 100 unit 1X ONCE IV Last administered on 06/23/18at 03:30; Start 06/23/18 at 03:30; Stop 06/23/18 at 03:31 ; Status DC Acetaminophen (Tylenol) 650 mg 1X PRN PRN PO PRE-TRANSFUSION; Start 06/23/18 at 05:30 Diphenhydramine HCl (Benadryl) 25 mg PRN 1X PRN PO PRE-TRANSFUSION; Start 06/23 at 05:30 Iohexol (Omnipaque 300 Mg/ml) 90 ml 1X ONCE IV Last administered on 06/23/18at 07:15; Start 06/23/18 at 07:00; Stop 06/23/18 at 07:01; Status DC Info (CONTRAST GIVEN -- Rx MONITORING) 1 each PRN DAILY PRN MC SEE COMMENTS; Start 06/23/18 at 06:30; Stop 06/25/18 at 06:29 Acetaminophen (Tylenol) 650 mg PRN Q6HRS PRN PO FEVER; Start 06/23/18 at 09:15 Ondansetron HCl (Zofran) 4 mg PRN Q6HRS PRN IV NAUSEA/VOMITING Last administered on 06/24/18at 05:43; Start 06/23/18 at 09:15 Morphine Sulfate (Morphine Sulfate) 2 mg PRN Q2HR PRN IV MODERATE TO SEVERE PAIN; Start 06/23/18 at 09:15; Stop 06/24/18 at 09:36; Status DC Tramadol HCl (Ultram) 50 mg PRN Q6HRS PRN PO MILD TO MODERATE PAIN; Start 06/23 at 09:15 Docusate Sodium (Colace) 100 mg PRN DAILY PRN PO CONSTIPATION; Start 06/23/18 at 09:15 Sodium Chloride 1,000 ml @ 125 mls/hr Q8H IV Last administered on 06/24/18at 05 :55; Start 06/23/18 at 09:15 Iodixanol (Visipaque 320) 100 ml STK-MED ONCE .ROUTE ; Start 06/23/18 at 09:14; Stop 06/23/18 at 09:15; Status DC Lidocaine/Sodium Bicarbonate (Buffered Lidocaine 1%) 3 ml STK-MED ONCE .ROUTE ; Start 06/23/18 at 09:14; Stop 06/23/18 at 09:15; Status DC Iodixanol (Visipaque 320) 50 ml STK-MED ONCE .ROUTE ; Start 06/23/18 at 09:14; Stop 06/23/18 at 09:15; Status DC Heparin Sodium/ Sodium Chloride 1,000 ml @ As Directed STK-MED ONCE .ROUTE ; Start 06/23/18 at 09:14; Stop 06/23/18 at 09:15; Status DC Iodixanol (Visipaque 320) 100 ml STK-MED ONCE .ROUTE ; Start 06/23/18 at 09:31; Stop 06/23/18 at 09:32; Status DC Midazolam HCl (Versed) 2 mg STK-MED ONCE .ROUTE ; Start 06/23/18 at 09:34; Stop 06/23/18 at 09:35; Status DC Fentanyl Citrate (Fentanyl 2ml Vial) 100 mcg STK-MED ONCE .ROUTE ; Start at 09:34; Stop 06/23/18 at 09:35; Status DC Heparin Sodium/ Sodium Chloride (HEPARIN for ARTERIAL LINE FLUSH) 1,000 unit 1X ONCE IART Last administered on 06/23/18at 10:15; Start 06/23/18 at 10:15; Stop 06/23/18 at 10:16; Status DC Lidocaine/Sodium Bicarbonate (Buffered Lidocaine 1%) 3 ml 1X ONCE IJ Last administered on 06/23/18at 10:15; Start 06/23/18 at 10:15; Stop 06/23/18 at 10:16 ; Status DC Midazolam HCl (Versed) 2 mg 1X ONCE IV ; Start 06/23/18 at 10:15; Stop at 10:16; Status DC Fentanyl Citrate (Fentanyl 2ml Vial) 100 mcg 1X ONCE IV ; Start 06/23/18 at 10: 15; Stop 06/23/18 at 10:16; Status DC Iodixanol (Visipaque 320) 100 ml 1X ONCE IART Last administered on 06/23/18at 10:15; Start 06/23/18 at 10:15; Stop 06/23/18 at 10:16; Status DC Iodixanol (Visipaque 320) 100 ml STK-MED ONCE .ROUTE ; Start 06/23/18 at 10:09; Stop 06/23/18 at 10:10; Status DC Iodixanol (Visipaque 320) 50 ml STK-MED ONCE .ROUTE ; Start 06/23/18 at 11:01; Stop 06/23/18 at 11:02; Status DC Sodium Chloride 1,000 ml @ 1,000 mls/hr 1X ONCE IV Last administered on at 03:00; Start 06/24/18 at 03:15; Stop 06/24/18 at 04:14; Status DC Sodium Chloride 1,000 ml @ 1,000 mls/hr 1X ONCE IV Last administered on at 04:06; Start 06/24/18 at 04:15; Stop 06/24/18 at 05:14; Status DC Norepinephrine Bitartrate 250 ml @ 1.875 mls/ hr CONT PRN IV SEE I/O RECORD Last administered on 06/24/18at 03:00; Start 06/24/18 at 03:15 Cefoxitin Sodium 2 gm/Dextrose 100 ml @ 200 mls/hr ONCE ONCE IV Last administered on 06/24/18at 06:45; Start 06/24/18 at 05:00; Stop 06/24/18 at 05:29 ; Status DC Succinylcholine Chloride (Anectine) 200 mg STK-MED ONCE .ROUTE ; Start 06/24/18 at 05:48; Stop 06/24/18 at 05:49; Status DC Rocuronium [place] (Zemuron) 100 mg STK-MED ONCE .ROUTE ; Start 06/24/18 at 05: 48; Stop 06/24/18 at 05:49; Status DC Sodium Chloride 1,000 ml @ 1,000 mls/hr 1X ONCE IV Last administered on at 05:50; Start 06/24/18 at 05:50; Stop 06/24/18 at 06:49; Status DC Fentanyl Citrate (Fentanyl 5ml Vial) 250 mcg STK-MED ONCE .ROUTE ; Start at 07:16; Stop 06/24/18 at 07:18; Status DC Etomidate (Amidate) 20 mg STK-MED ONCE IV ; Start 06/24/18 at 07:17; Stop at 07:18; Status DC Propofol 20 ml @ As Directed STK-MED ONCE IV ; Start 06/24/18 at 07:17; Stop at 07:18; Status DC Ondansetron HCl (Zofran) 4 mg STK-MED ONCE .ROUTE ; Start 06/24/18 at 07:55; Stop 06/24/18 at 07:56; Status DC Neostigmine Methylsulfate (Neostigmine Methylsulfate) 5 mg STK-MED ONCE .ROUTE ; Start 06/24/18 at 08:38; Stop 06/24/18 at 08:40; Status DC Glycopyrrolate (Robinul) 1 mg STK-MED ONCE .ROUTE ; Start 06/24/18 at 08:39; Stop 06/24/18 at 08:40; Status DC Cefoxitin Sodium 100 ml @ As Directed STK-MED ONCE IV ; Start 06/24/18 at 07:42 ; Stop 06/24/18 at 08:43; Status DC Vancomycin HCl (Vanco Per Pharmacy) 1 each PRN DAILY PRN MC SEE COMMENTS Last administered on 06/24/18at 13:22; Start 06/24/18 at 09:00 Vancomycin HCl 2 gm/Sodium Chloride 500 ml @ 250 mls/hr 1X ONCE IV Last administered on 06/24/18at 12:47; Start 06/24/18 at 09:30; Stop 06/24/18 at 11:29 ; Status DC Cefoxitin Sodium 50 ml @ 100 mls/hr 1X PERIOP IV ; Start 06/24/18 at 09:15; Status Cancel Diphenhydramine HCl (Benadryl) 25 mg PRN Q6HRS PRN IV ITCHING; Start 06/24/18 at 09:15 Enoxaparin Sodium (Lovenox 40mg Syringe) 40 mg Q24H SQ ; Start 06/24/18 at 10:00 ; Stop 06/24/18 at 10:00; Status DC Sodium Chloride (Normal Saline Flush) 3 ml QSHIFT PRN IV AFTER MEDS AND BLOOD DRAWS; Start 06/24/18 at 09:15 Potassium Chloride/Sodium Chloride 1,000 ml @ 100 mls/hr Q10H IV Last administered on 06/24/18at 12:47; Start 06/24/18 at 09:13 Morphine Sulfate (Morphine Sulfate) 5 mg PRN Q3HRS PRN IV MODERATE PAIN; Start 06/24/18 at 09:45 Ondansetron HCl (Zofran) 4 mg PRN Q6HRS PRN IV NAUESA, 1ST CHOICE; Start at 09:15 Throat Lozenges (Chloraseptic) 1 spray PRN Q2HR PRN PO SORE THROAT; Start 06/24 at 09:15 Throat Lozenges (Cepacol Sore Throat Lozenge) 1 geni PRN Q2HRS PRN PO SORE THROAT; Start 06/24/18 at 09:15 Enoxaparin Sodium (Lovenox 40mg Syringe) 40 mg Q24H SQ ; Start 06/25/18 at 09:00 Ondansetron HCl (Zofran) 4 mg PRN Q6HRS PRN IV NAUSEA/VOMITING; Start 06/24/18 at 10:00; Stop 06/24/18 at 18:00 Fentanyl Citrate (Fentanyl 2ml Vial) 25 mcg PRN Q5MIN PRN IV MILD PAIN; Start 06/24/18 at 10:00; Stop 06/24/18 at 18:00 Fentanyl Citrate (Fentanyl 2ml Vial) 50 mcg PRN Q5MIN PRN IV MODERATE TO SEVERE PAIN Last administered on 06/24/18at 11:10; Start 06/24/18 at 10:00; Stop 06/24/18 at 18:00 Morphine Sulfate (Morphine Sulfate) 1 mg PRN Q10MIN PRN IV SEVERE PAIN; Start 06/24/18 at 10:00; Stop 06/24/18 at 18:00 Ringer's Solution 1,000 ml @ 30 mls/hr Q24H IV Last administered on 06/24/18at 11:34; Start 06/24/18 at 09:52; Stop 06/24/18 at 21:51 Lidocaine HCl (Xylocaine-Mpf 1% 2ml Vial) 2 ml PRN 1X PRN ID PRIOR TO IV START ; Start 06/24/18 at 10:00; Stop 06/24/18 at 18:00 Hydromorphone HCl (Dilaudid) 0.5 mg PRN Q10MIN PRN IV SEV PAIN, Second choice; Start 06/24/18 at 10:00; Stop 06/24/18 at 18:00 Prochlorperazine Edisylate (Compazine) 5 mg PACU PRN PRN IV NAUSEA, MRX1 Last administered on 06/24/18at 10:47; Start 06/24/18 at 10:00; Stop 06/24/18 at 18:00 Fentanyl Citrate (Fentanyl 2ml Vial) 100 mcg STK-MED ONCE .ROUTE ; Start at 10:24; Stop 06/24/18 at 10:25; Status DC Prochlorperazine Edisylate (Compazine) 10 mg STK-MED ONCE .ROUTE ; Start at 10:24; Stop 06/24/18 at 10:25; Status DC Hydromorphone HCl (Dilaudid) 2 mg STK-MED ONCE .ROUTE ; Start 06/24/18 at 11:04 ; Stop 06/24/18 at 11:05; Status DC Cefoxitin Sodium 100 ml @ 200 mls/hr OC PROC ONCE IV Last administered on at 08:43; Start 06/24/18 at 12:00; Stop 06/24/18 at 12:29; Status DC Vancomycin HCl 1.5 gm/Sodium Chloride 500 ml @ 250 mls/hr Q24H IV ; Start 06/25 at 13:00 Vancomycin HCl (Vancomycin Trough Level) 1 each 1X ONCE MC ; Start 06/26/18 at 12:30; Stop 06/26/18 at 12:31 Active Scripts Active Levaquin (Levofloxacin) 500 Mg Tablet 500 Mg PO DAILY06 Reported Januvia (Sitagliptin Phosphate) 100 Mg Tablet 1 Tab PO DAILY Beta Carotene (Beta-Carotene) 10,000 Unit Capsule 12,000 Unit PO Crestor (Rosuvastatin Calcium) 5 Mg Tablet 1 Tab PO DAILY Vitals/I & O Vital Sign - Last 24 Hours 06/23/18 06/23/18 06/23/18 06/23/18 13:58 14:00 14:08 15:00 Temp 99.0 98.2 98.4 99.0 98.2 98.4 Pulse 95 102 80 82 Resp 22 16 18 B/P (MAP) 107/61 101/50 (67) 101/50 109/51 (70) Pulse Ox 99 99 O2 Delivery Room Air Room Air 06/23/18 06/23/18 06/23/18 06/23/18 16:32 16:42 16:49 17:07 Temp 98.2 98.2 Pulse 100 98 103 88 Resp 16 16 16 B/P (MAP) 106/64 125/54 106/54 (71) 125/54 (77) Pulse Ox 99 O2 Delivery Room Air Room Air 06/23/18 06/23/18 06/23/18 06/23/18 18:00 19:00 20:00 21:00 Temp 98.7 99.8 98.7 99.8 Pulse 93 96 97 Resp 17 25 15 B/P (MAP) 104/66 (79) 102/49 (66) 110/47 (68) 101/54 (70) Pulse Ox 99 99 99 O2 Delivery Room Air Room Air Room Air 06/23/18 06/23/18 06/23/18 06/23/18 22:00 22:33 22:50 23:00 Temp 99.6 99.0 99.6 99.0 Pulse 116 119 117 114 Resp 7 22 16 B/P (MAP) 112/51 (71) 89/47 97/50 103/43 (63) Pulse Ox 99 99 O2 Delivery Room Air Room Air 06/23/18 06/23/18 06/24/18 06/24/18 23:05 23:20 00:00 00:25 Temp 99.3 99.1 99.3 99.1 Pulse 114 122 106 108 Resp 22 24 21 20 B/P (MAP) 103/43 95/38 95/34 (54) 84/46 (59) Pulse Ox 98 99 O2 Delivery Room Air Room Air 9/20/18 9/20/18 9/20/18 9/20/18 00:26 00:41 00:45 01:00 Temp 97.8 98.4 97.8 98.4 Pulse 126 116 118 114 Resp 17 24 23 B/P (MAP) 114/41 91/42 91/42 (58) 104/40 (61) Pulse Ox 100 99 O2 Delivery Room Air Room Air 06/24/18 06/24/18 06/24/18 06/24/18 02:00 02:03 02:18 02:30 Temp 98.0 98.8 98.0 98.8 Pulse 114 116 124 122 Resp 18 16 10 22 B/P (MAP) 106/43 (64) 106/43 86/46 83/44 (57) Pulse Ox 99 100 O2 Delivery Room Air Room Air 06/24/18 06/24/18 06/24/18 06/24/18 02:45 02:47 02:50 02:54 Pulse 126 128 124 Resp 28 B/P (MAP) 59/39 (46) 55/43 (47) 75/34 (48) Pulse Ox 100 100 100 100 O2 Delivery Room Air Room Air Room Air Room Air 06/24/18 06/24/18 06/24/18 06/24/18 03:00 03:05 03:15 03:22 Temp 98.1 98.1 Pulse 94 110 102 101 Resp 32 20 B/P (MAP) 124/52 (76) 90/52 (65) 111/51 (71) 111/51 Pulse Ox 99 99 98 O2 Delivery Room Air Room Air Room Air 06/24/18 06/24/18 06/24/18 06/24/18 03:25 03:30 03:35 04:00 Temp 98.0 98.0 98.0 98.0 Pulse 107 100 92 98 Resp 18 16 B/P (MAP) 114/47 124/52 (76) 126/65 122/61 (81) Pulse Ox 98 100 O2 Delivery Room Air Room Air 06/24/18 06/24/18 06/24/18 06/24/18 04:30 04:30 04:45 05:00 Temp 98.6 97.8 98.6 97.8 Pulse 106 107 108 102 Resp 18 18 16 18 B/P (MAP) 134/53 (80) 134/53 123/55 130/51 (77) Pulse Ox 100 100 O2 Delivery Room Air Room Air 06/24/1806/24/18 06/24/18 18 05:30 05:30 05:45 05:55 Temp 98.2 98.2 Pulse 120 120 120 Resp 16 20 20 B/P (MAP) 91/46 (61) 91/46 107/37 (60) Pulse Ox 99 97 O2 Delivery Room Air Room Air Nasal Cannula O2 Flow Rate 2.0 06/24/18 06/24/1806/24/06/24/18 06:00 06:15 09:35 09:36 Temp 97.3 97.3 Pulse 118 112 106 Resp 20 14 16 B/P (MAP) 95/60 (72) 94/41 (58) 139/62 Pulse Ox 100 100 100 O2 Delivery Room Air Room Air Mask Nasal Cannula O2 Flow Rate 8 8 06/24/18 06/24/1806/24/06/24/18 09:51 10:06 10:13 10:21 Temp 97.3 97.3 97.3 97.3 97.3 97.3 Pulse 108 100 104 Resp 16 17 17 B/P (MAP) 144/59 122/51 136/40 Pulse Ox 100 100 100 100 O2 Delivery Simple Mask Room Air Simple Mask Room Air O2 Flow Rate 8 8.0 06/24/1806/24/06/24/06/24/18 10:29 10:36 10:48 10:51 Temp 97.3 97.3 97.3 97.3 Pulse 114 124 Resp 18 18 20 B/P (MAP) 138/40 134/48 Pulse Ox 100 100 100 100 O2 Delivery Room Air Room Air Room Air Room Air 06/24/18 06/24/1806/24/06/24/18 11:03 11:06 11:10 11:21 Temp 97.3 97.3 97.3 97.3 Pulse 128 128 Resp 20 20 20 20 B/P (MAP) 144/40 112/38 Pulse Ox 98 98 99 99 O2 Delivery Nasal Cannula Room Air Room Air Room Air O2 Flow Rate 8.0 06/24/1806/24/06/24/18 18 11:36 11:51 12:06 12:20 Temp 97.3 97.3 97.2 97.2 97.3 97.3 97.2 97.2 Pulse 126 122 135 132 Resp B/P (MAP) 112/39 104/46 94/34 102/34 Pulse Ox 98 99 100 100 O2 Delivery Room Air Room Air Room Air Room Air O2 Flow Rate 8.0 Intake and Output 06/23/18 06/23/18 06/24/18 15:00 23:00 07:00 Intake Total 350 ml 1934 ml 4932 ml Output Total 475 ml 1775 ml 1606 ml Balance -125 ml 159 ml 3326 ml DENNIS HOLCOMB MD Jun 24, 2018 13:52
[2018-06-24] MEDS ORDERED: POTASSIUM CHLORIDE 20MEQ 50 ML IV ONE (14:00)
[2018-06-24] MEDS ORDERED: CALCIUM CHLORIDE 1,000 MG in IV DEXTROSE 5% 50 ML IV ONE (14:00)
--- NOTE | 2018-06-24 14:03 | PDOC ---
Provider Note Provider Note Pt seen examined consult dictated [id number] MIGUEL A CABALLERO MD Jun 24, 2018 14:03
[2018-06-24] MEDS ORDERED: CEFEPIME HCL 1 GM in IV DEXTROSE 5% 50 ML IV SCH (14:30)
--- NOTE | 2018-06-24 17:09 | OP ---
DATE OF SURGERY: 06/24/2018 PREOPERATIVE DIAGNOSIS: Gastrointestinal bleeding. POSTOPERATIVE DIAGNOSIS: Gastrointestinal bleeding. PROCEDURE: Colectomy and left salpingo-oophorectomy. SURGEON: Artur Dejesus MD ASSOCIATE [employer] COURT JUDGE: ABDI Harmon. ANESTHESIA: General endotracheal. BLOOD LOSS: 50 mL. INTRAVENOUS FLUID: 2000 mL of crystalloid, 2 units of packed red blood cells, 2 units of fresh frozen plasma. URINE OUTPUT: 150 mL. INDICATIONS: The patient is an 83-year-old with persistent heavy bright red blood per rectum despite attempts at Interventional Radiology yesterday for embolization. An upper endoscopy done preop was negative for source of bleeding and as such she is brought for colectomy with end ileostomy. OPERATIVE FINDINGS: There were diffuse abdominal adhesions suggestive of previous inflammatory process. Gallbladder was supple. Stomach was unremarkable with an NG tube in place. The small bowel was run from ligament of Treitz to ileocecal valve without abnormality. The appendix was unremarkable. The ascending, transverse, and descending colons were somewhat fluid filled, but viable. The sigmoid colon was similarly found to be distended. There were adhesions to the left tube and ovary, which was atrophic consistent with the patient's age, as was her uterus and right tube and ovary. DESCRIPTION OF PROCEDURE: The patient brought to the operating suite, given a general endotracheal anesthetic and the abdomen prepped and draped in usual sterile fashion. A midline incision from xiphoid to pubis was made through the skin and subcutaneous tissue to the anterior sheath. This was opened in the midline and extended with cautery taking care to avoid injury to abdominal contents. Abdominal exploration carried out with results as noted above. With the Omni self-retaining retractor for exposure, we set about mobilizing the colon by reflecting the sigmoid off the left pelvic wall, taking care to identify and avoid injury to the left ureter. The left tube and ovary were densely adherent to the sigmoid and the mesocolon and as such were removed with the colon. The bowel was skeletonized distally just above the peritoneal reflection and a Contour stapler used to divide the bowel. The mesocolon was serially clamped, divided and ligated with Vicryl ties up to the distal descending. White line of Toldt was taken down and the left colon reflected toward the midline. The splenic flexure carefully mobilized in a similar fashion, avoiding injury to the spleen. We then divided the distal small bowel and brought the right colon to midline by taking down the white line of Toldt, taking care to avoid the right ureter, right kidney and duodenum. The mesocolon was then serially clamped, divided and ligated in its entirety to allow removal of the colon. Abdomen was irrigated, evacuated and checked for hemostasis. When present, a 19-Bengali round Jim drain was left in the true pelvis, brought out the left side of the abdomen, sewn to the skin with a silk stitch. When a correct sponge count had been obtained, the end ileostomy was created on the right side of the abdomen by delivering the distal ileum on to the abdominal wall. The bowel was secured with 3-0 chromic sutures to the peritoneum. It was also secured to the anterior sheath at 12, 3, 6, and 9 o'clock with 3-0 chromic. When a second sponge count was correct, the midline incision was closed in running fashion using looped 0 PDS tied in the middle. Inocencio drain left in the depths of the subcutaneous and the skin closed loosely with allan. Ileostomy was matured with 3-0 chromic and an appliance placed. Postop foreign body film was negative for unexplained foreign body. The patient awakened from her anesthetic and taken to the recovery room in stable but guarded condition. ARTUR DEJESUS MD DR: JAYLON/janie JOB#: [id number] / [id number]
[2018-06-24] MEDS: CEFEPIME HCL IV Push 1 GM VIAL. IVP SCH ×2 (17:36→23:42)
--- NOTE | 2018-06-24 17:44 | CONS ---
DATE OF CONSULTATION: 06/24/2018 REFERRING PHYSICIAN: Dr. Brambila. REASON FOR CONSULTATION: Bacteremia. HISTORY OF PRESENT ILLNESS: An 83-year-old female who presented to the ER on 06/22/2018 because of rectal bleeding. The patient was in her normal health and at home. After eating breakfast, she noticed bright red bleeding per rectum as per daughter at bedside. The patient is back from surgery today and is unable to give any details. History obtained from staff, medical records and daughter at bedside. She had a near syncopal episode because of generalized weakness and had a fall without any injury. EMS was called. There was about 500 mL of blood on the floor. The patient was treated with antibiotics recently for URI. No chest pain, shortness of breath, fevers or chills. The patient underwent EGD, which showed mild nonobstructing Schatzki ring, otherwise normal exam. She required multiple blood transfusions. Last night, she had a blood transfusion. There was leukocytosis on admission. Her hemoglobin fell to 6.7 this morning. She received blood transfusion and underwent surgery with colectomy and left SNO. She had normal small bowel, but diffuse adhesions. Blood cultures were done on 06/22/2018, which shows 2/3 bottles positive for gram-positive cocci in clusters suggestive of staph, so ID consultation has been requested. The patient has been started on vancomycin. The patient received cefoxitin preop. The patient had required pressors overnight. Currently, she is postop, has a central line placed and art line placed. She complains of pain, unable to give details. No fevers, no chills, no shortness of breath, no chest pain. PAST MEDICAL HISTORY: Hypertension, diabetes 2, hyperlipidemia, morbid obesity. ALLERGIES: No known drug allergies. SOCIAL HISTORY: Denies smoking, ETOH or illicit drug use. , works locally part-time, lives independently with a son in her home. REVIEW OF SYSTEMS: Unable to obtain except for the patient complains of pain at operative site. PHYSICAL EXAMINATION: VITAL SIGNS: Temperature 97.2, pulse 21, respiratory rate 21, blood pressure 102/34, oxygen saturation 100% on 8 liters. GENERAL: Sleepy, but arousable, lying comfortably in bed. HEENT: Anicteric, no thrush. Oral mucosa moist. Right IJ and NG tube. NECK: Supple. LUNGS: Clear bilaterally. HEART: S1, S2, tachycardia. ABDOMEN: Soft. Multiple wounds dressed. ELI drain, NG tube. EXTREMITIES: No cyanosis, no edema. DERMATOLOGIC: Warm, dry, no generalized rash. CENTRAL NERVOUS SYSTEM: Moves all 4 extremities. LABORATORY DATA: WBC 22.4, hemoglobin 8.2, hematocrit 23.5, platelet 113, was 168. Sodium 145, potassium 3.2, chloride 115, bicarbonate 21, BUN 16, creatinine 0.8, glucose 216, lactate 1.6, calcium 5.7. Nasal screen for MRSA negative. UA, 5-10 wbc's, small leukocyte esterase. MICROBIOLOGY: Blood culture 2 of 3 bottles 1/2 sets positive for gram-positive cocci in clusters suggestive of staph. IMAGING: CT abdomen and pelvis shows no acute abnormality. Visceral angiography shows no evidence of active arterial extravasation, aneurysm, subaneurysm, stenosis, occlusion or vascular malformation. GI bleed scan shows positive for active GI bleed in the bowel loop on the left, probably the descending colon. KUB shows evidence of recent laparotomy. There is no obstruction or evidence of abdominal drain foreign body. There is drain overlying the right hemipelvis and nasogastric tube within the distal stomach. Chest x-ray shows right internal jugular catheter with tip in the inferior right atrium nasogastric tube within the stomach, suspected small pleural effusion with lower lobe predominant atelectasis. IMPRESSION: 1. Bright red blood per rectum secondary to diverticulosis, status post colectomy, 06/24/2018. 2. Two out of 3 bottles positive for gram-positive cocci in clusters suggestive of Staphylococcus 3. Hypotension with gastrointestinal bleed POA. 4. Sepsis multifactorial 5. Hypertension/hyperlipidemia. 6. Diabetes mellitus 2. 7. Thrombocytopenia. 8. Hypocalcemia. 9. Anemia. RECOMMENDATIONS: 1. Continue vancomycin. may need renal dosing. 2. Start empiric cefepime 1 gram IV q.12h., pending ID of gram-positive cocci in clusters. 3. Repeat blood cultures. 4. Follow up culture and suscep results. 5. Follow up labs in a.m. 6. Continue supportive care. Discussed with daughter and RN at bedside. Thank you, Dr. Brambila for consulting Infectious Disease to participate in this patient's care. If you have any questions, do not hesitate to contact me. MIGUEL A CABALLERO MD DR: Ray JOB#: [id number] / [id number] ROZINA
[2018-06-24] MEDS: MORPHINE SULFATE 10 MG/ML VIAL. IV PRN ×3 (18:45→23:09)
[2018-06-24 18:49] LABS: HEMOGLOBIN 7.6 g/dL (12.0-15.5); RED BLOOD COUNT 2.59 x10^6/uL (3.50-5.40); RED CELL DISTRIBUTION WIDTH 16.3 % (11.5-14.5); WHITE BLOOD COUNT 29.3 x10^3/uL (4.0-11.0)
[2018-06-24 18:57] LABS: CALCIUM 6.5 mg/dL (8.5-10.1); CREATININE 0.8 mg/dL (0.6-1.0); GFR 82.7; POTASSIUM 3.7 mmol/L (3.5-5.1)
[2018-06-24] MEDS ORDERED: FUROSEMIDE 40 MG/4 ML VIAL. IVP ONE (19:15)
[2018-06-24] MEDS ORDERED: ALBUMIN HUMAN 5% 250 ML IV ONE (19:15)
[2018-06-24] MEDS: diphenhydrAMINE 50 MG/ML VIAL IV PRN (23:49)
[2018-06-25] VITALS (35 sets, daily range): BP systolic 78–157; BP diastolic 36–58
[2018-06-25] MEDS: MORPHINE SULFATE 10 MG/ML VIAL. IV PRN ×3 (01:27→20:57)
[2018-06-25 05:30] LABS: BASO % 0 % (0-3); EOS % 0 % (0-3); LYMPH # 1.4 x10^3/uL (1.0-4.8); LYMPH % 5 % (24-48); MEAN CORPUSCULAR HEMOGLOBIN 30 pg (25-35); MEAN CORPUSCULAR HGB CONC 35 g/dL (31-37); MEAN CORPUSCULAR VOLUME 86 fL (79-100); MONO # 3.4 x10^3/uL (0.0-1.1); MONO % 12 % (0-9); NEUT # 22.3 x10^3uL (1.8-7.7); NEUT % 82 % (31-73); PLATELET COUNT 125 x10^3/uL (140-400); RED BLOOD COUNT 2.05 x10^6/uL (3.50-5.40); RED CELL DISTRIBUTION WIDTH 16.2 % (11.5-14.5)
[2018-06-25 05:55] LABS: CREATININE 0.6 mg/dL (0.6-1.0); GFR 115.2; POTASSIUM 3.4 mmol/L (3.5-5.1)
[2018-06-25 05:58] LABS: CALCIUM 5.9 mg/dL (8.5-10.1)
[2018-06-25 06:09] LABS: HEMATOCRIT 17.6 % (36.0-47.0); HEMOGLOBIN 6.1 g/dL (12.0-15.5)
--- NOTE | 2018-06-25 08:41 | PDOC ---
Infectious Disease Note Subjective: Subjective pt is sleepy but arousable, on pressors s/p PRBCs ROS: ROS d/w RN Vital Signs: Vital Signs Vital Signs Date Time Temp Pulse Resp B/P (MAP) Pulse Ox O2 Delivery O2 Flow Rate FiO2 06/25/18 08:32 99.2 128 12 134/58 99.2 06/25/18 06:00 96 Room Air 06/25/18 04:56 8.0 Physical Exam: PHYSICAL EXAM GENERAL: sleepy but arousable HEENT: Anicteric, no thrush. Oral mucosa moist. NG tube. NECK: Supple.RT IJ in place LUNGS: dec bs at bases HEART: S1, S2, tachycardia. ABDOMEN: Soft. surgical wound dressed drain and ostomy intact. lorenzo in place EXTREMITIES: No cyanosis, no edema. DERMATOLOGIC: Warm, dry, no generalized rash. CENTRAL NERVOUS SYSTEM: Moves all 4 extremities. Medications: Inpatient Meds: Current Medications Medications (Trade) Dose Ordered Sig/Kusum Start Time Stop Time Status Last Admin Dose Admin Acetaminophen (Tylenol) 650 mg PRN Q6HRS PRN 06/23/18 09:15 Albumin Human 250 ml @ 62.5 mls/hr 1X ONCE 06/24/18 19:15 06/24/18 23:14 DC 06/24/18 20:32 62.5 MLS/HR Calcium Chloride 1000 mg/Dextrose 60 ml @ 120 mls/hr 1X ONCE 06/24/18 14:00 06/24/18 14:29 DC 06/24/18 14:28 120 MLS/HR Cefepime HCl (Maxipime) 1 gm Q12HR 06/24/18 14:30 06/24/18 23:42 1 GM Cefepime HCl 1 gm/ Dextrose 50 ml @ 100 mls/hr Q12HR 06/24/18 14:30 Cancel Cefoxitin Sodium 100 ml @ 200 mls/hr OC PROC ONCE 06/24/18 12:00 06/24/18 12:29 DC 06/24/18 08:43 200 MLS/HR Cefoxitin Sodium 2 gm/Dextrose 100 ml @ 200 mls/hr ONCE ONCE 06/24/18 05:00 06/24/18 05:29 DC 06/24/18 06:45 200 MLS/HR Diphenhydramine HCl (Benadryl) 25 mg PRN Q6HRS PRN 06/24/18 09:15 06/24/18 23:49 25 MG Docusate Sodium (Colace) 100 mg PRN DAILY PRN 06/23/18 09:15 Enoxaparin Sodium (Lovenox 40mg Syringe) 40 mg Q24H 06/25/18 09:00 Etomidate (Amidate) 20 mg STK-MED ONCE 06/24/18 07:17 06/24/18 07:18 DC Fentanyl Citrate (Fentanyl 2ml Vial) 100 mcg STK-MED ONCE 06/24/18 10:24 06/24/18 10:25 DC Fentanyl Citrate (Fentanyl 5ml Vial) 250 mcg STK-MED ONCE 06/24/18 07:16 06/24/18 07:18 DC Furosemide (Lasix) 40 mg 1X ONCE 06/24/18 19:15 06/24/18 19:16 DC Glycopyrrolate (Robinul) 1 mg STK-MED ONCE 06/24/18 08:39 06/24/18 08:40 DC Heparin Sodium (Porcine) (HEPARIN for NUC MED) 100 unit 1X ONCE 06/23/18 03:30 06/23/18 03:31 DC 06/23/18 03:30 100 UNIT Heparin Sodium/ Sodium Chloride (HEPARIN for ARTERIAL LINE FLUSH) 1,000 unit 1X ONCE 06/23/18 10:15 06/23/18 10:16 DC 06/23/18 10:15 1,000 UNIT Hydromorphone HCl (Dilaudid) 2 mg STK-MED ONCE 06/24/18 11:04 06/24/18 11:05 DC Info (CONTRAST GIVEN -- Rx MONITORING) 1 each PRN DAILY PRN 06/23/18 06:30 06/25/18 06:29 DC Iodixanol (Visipaque 320) 50 ml STK-MED ONCE 06/23/18 11:01 06/23/18 11:02 DC Iohexol (Omnipaque 300 Mg/ml) 90 ml 1X ONCE 06/23/18 07:00 06/23/18 07:01 DC 06/23/18 07:15 90 ML Lidocaine HCl (Xylocaine-Mpf 1% 2ml Vial) 2 ml PRN 1X PRN 06/24/18 10:00 06/24/18 18:00 DC Lidocaine/Sodium Bicarbonate (Buffered Lidocaine 1%) 3 ml 1X ONCE 06/23/18 10:15 06/23/18 10:16 DC 06/23/18 10:15 7 ML Midazolam HCl (Versed) 2 mg 1X ONCE 06/23/18 10:15 06/23/18 10:16 DC Morphine Sulfate (Morphine Sulfate) 5 mg PRN Q2HR PRN 06/24/18 22:45 06/25/18 04:26 5 MG Neostigmine Methylsulfate (Neostigmine Methylsulfate) 5 mg STK-MED ONCE 06/24/18 08:38 06/24/18 08:40 DC Norepinephrine Bitartrate 250 ml @ 1.875 mls/ hr CONT PRN 06/24/18 03:15 06/24/18 23:33 1.875 MLS/HR Ondansetron HCl (Zofran) 4 mg PRN Q6HRS PRN 06/24/18 10:00 06/24/18 18:00 DC Pantoprazole Sodium (PROTONIX VIAL for IV PUSH) 40 mg DAILYAC 06/23/18 07:30 06/24/18 12:46 40 MG Potassium Chloride/Sodium Chloride 1,000 ml @ 100 mls/hr Q10H 06/24/18 09:13 06/24/18 23:42 100 MLS/HR Potassium Chloride/Water 50 ml @ 50 mls/hr 1X ONCE 06/24/18 14:00 06/24/18 14:59 DC 06/24/18 14:29 50 MLS/HR Prochlorperazine Edisylate (Compazine) 10 mg STK-MED ONCE 06/24/18 10:24 06/24/18 10:25 DC Propofol 20 ml @ As Directed STK-MED ONCE 06/24/18 07:17 06/24/18 07:18 DC Ringer's Solution 1,000 ml @ 30 mls/hr Q24H 06/24/18 09:52 06/24/18 21:51 DC 06/24/18 11:34 30 MLS/HR Rocuronium Glady (Zemuron) 100 mg STK-MED ONCE 06/24/18 05:48 06/24/18 05:49 DC Sodium Chloride (Normal Saline Flush) 3 ml QSHIFT PRN 06/24/18 09:15 Succinylcholine Chloride (Anectine) 200 mg STK-MED ONCE 06/24/18 05:48 06/24/18 05:49 DC Throat Lozenges (Cepacol Sore Throat Lozenge) 1 geni PRN Q2HRS PRN 06/24/18 09:15 Throat Lozenges (Chloraseptic) 1 spray PRN Q2HR PRN 06/24/18 09:15 Tramadol HCl (Ultram) 50 mg PRN Q6HRS PRN 06/23/18 09:15 Vancomycin HCl (Vanco Per Pharmacy) 1 each PRN DAILY PRN 06/24/18 09:00 06/24/18 13:22 1 EACH Vancomycin HCl (Vancomycin Trough Level) 1 each 1X ONCE 06/26/18 12:30 06/26/18 12:31 Vancomycin HCl 1.5 gm/Sodium Chloride 500 ml @ 250 mls/hr Q24H 06/25/18 13:00 Vancomycin HCl 2 gm/Sodium Chloride 500 ml @ 250 mls/hr 1X ONCE 06/24/18 09:30 06/24/18 11:29 DC 06/24/18 12:47 250 MLS/HR Labs: Lab Laboratory Tests Test 06/24/18 09:45 06/24/18 18:40 06/25/18 04:15 06/25/18 04:19 White Blood Count 22.4 x10^3/uL (4.0-11.0) 29.3 x10^3/uL (4.0-11.0) 27.0 x10^3/uL (4.0-11.0) Red Blood Count 2.74 x10^6/uL (3.50-5.40) 2.59 x10^6/uL (3.50-5.40) 2.05 x10^6/uL (3.50-5.40) Hemoglobin 8.2 g/dL (12.0-15.5) 7.6 g/dL (12.0-15.5) 6.1 g/dL (12.0-15.5) Hematocrit 23.5 % (36.0-47.0) 22.0 % (36.0-47.0) 17.6 % (36.0-47.0) Mean Corpuscular Volume 86 fL (79-100) 85 fL (79-100) 86 fL (79-100) Mean Corpuscular Hemoglobin 30 pg (25-35) 29 pg (25-35) 30 pg (25-35) Mean Corpuscular Hemoglobin Concent 35 g/dL (31-37) 34 g/dL (31-37) 35 g/dL (31-37) Red Cell Distribution Width 15.4 % (11.5-14.5) 16.3 % (11.5-14.5) 16.2 % (11.5-14.5) Platelet Count 113 x10^3/uL (140-400) 131 x10^3/uL (140-400) 125 x10^3/uL (140-400) Sodium Level 145 mmol/L (136-145) 144 mmol/L (136-145) 146 mmol/L (136-145) Potassium Level 3.2 mmol/L (3.5-5.1) 3.7 mmol/L (3.5-5.1) 3.4 mmol/L (3.5-5.1) Chloride Level 115 mmol/L (98-107) 113 mmol/L (98-107) 116 mmol/L (98-107) Carbon Dioxide Level 21 mmol/L (21-32) 21 mmol/L (21-32) 20 mmol/L (21-32) Anion Gap 9 (6-14) 10 (6-14) 10 (6-14) Blood Urea Nitrogen 16 mg/dL (7-20) 19 mg/dL (7-20) 16 mg/dL (7-20) Creatinine 0.8 mg/dL (0.6-1.0) 0.8 mg/dL (0.6-1.0) 0.6 mg/dL (0.6-1.0) Estimated GFR (Cockcroft-Gault) 82.7 82.7 115.2 Glucose Level 216 mg/dL (70-99) 179 mg/dL (70-99) 153 mg/dL (70-99) Glucose (Fingerstick) 192 mg/dL (70-99) 146 mg/dL (70-99) Calcium Level 5.7 mg/dL (8.5-10.1) 6.5 mg/dL (8.5-10.1) 5.9 mg/dL (8.5-10.1) Neutrophils (%) (Auto) 82 % (31-73) Lymphocytes (%) (Auto) 5 % (24-48) Monocytes (%) (Auto) 12 % (0-9) Eosinophils (%) (Auto) 0 % (0-3) Basophils (%) (Auto) 0 % (0-3) Neutrophils # (Auto) 22.3 x10^3uL (1.8-7.7) Lymphocytes # (Auto) 1.4 x10^3/uL (1.0-4.8) Monocytes # (Auto) 3.4 x10^3/uL (0.0-1.1) Eosinophils # (Auto) 0.0 x10^3/uL (0.0-0.7) Basophils # (Auto) 0.0 x10^3/uL (0.0-0.2) Test 06/25/18 06:00 Ionized Calcium 0.94 mmol/L (1.13-1.32) Objective: Assessment: 1. Bright red blood per rectum secondary to diverticulosis, status post colectomy, 06/24/2018. 2. Hypotension with gastrointestinal bleed. 3. Two out of 3 bottles positive for gram-positive cocci in clusters suggestive of Staphylococcus bacteremia. 4. E coli on urine c/s 5. Hypertension/hyperlipidemia. 6. Diabetes mellitus 2. 7. Thrombocytopenia. 8. Hypocalcemia. 9. Anemia. Plan: Plan of Care 1. Continue vancomycin and cefepime 1 gram IV q.12h 2. f/u Urine cults and bc 3. Follow up culture and sensory results. 4. Follow up labs in MIGUEL A Dyson MD Jun 25, 2018 08:41
--- NOTE | 2018-06-25 08:48 | PDOC ---
DIXON GONSALVES [employer] S[employer]IOR ASSOCIATE 06/25/18 0848: SURGICAL PROGRESS NOTE Subjective pain managed hypotension improved with transfusion family in room Vital Signs Vital Signs Date Time Temp Pulse Resp B/P (MAP) Pulse Ox O2 Delivery O2 Flow Rate FiO2 06/25/18 08:32 99.2 128 12 134/58 99.2 06/25/18 06:00 96 Room Air 06/25/18 04:56 8.0 I&O Intake and Output 06/25/18 07:00 Intake Total 3000 ml Output Total 1895 ml Balance 1105 ml Intake Oral 0 ml IV Total 3000 ml Output Urine Total 1270 ml Stool Total 30 ml Gastric Drainage Total 0 ml Drainage Total 545 ml Estimated Blood Loss 50 ml General: Alert, Cooperative Abdomen: Soft, Other (ostomy no stool, stoma viable ) Labs Laboratory Tests Test 06/23/18 11:50 06/23/18 13:35 06/23/18 16:40 06/23/18 22:55 White Blood Count 14.4 x10^3/uL (4.0-11.0) 14.3 x10^3/uL (4.0-11.0) 13.7 x10^3/uL (4.0-11.0) Red Blood Count 2.28 x10^6/uL (3.50-5.40) 2.82 x10^6/uL (3.50-5.40) 2.13 x10^6/uL (3.50-5.40) Hemoglobin 7.2 g/dL (12.0-15.5) 8.4 g/dL (12.0-15.5) 6.5 g/dL (12.0-15.5) Hematocrit 21.3 % (36.0-47.0) 25.5 % (36.0-47.0) 19.0 % (36.0-47.0) Mean Corpuscular Volume 94 fL (79-100) 91 fL (79-100) 90 fL (79-100) Mean Corpuscular Hemoglobin 32 pg (25-35) 30 pg (25-35) 30 pg (25-35) Mean Corpuscular Hemoglobin Concent 34 g/dL (31-37) 33 g/dL (31-37) 34 g/dL (31-37) Red Cell Distribution Width 13.3 % (11.5-14.5) 15.5 % (11.5-14.5) 15.5 % (11.5-14.5) Platelet Count 202 x10^3/uL (140-400) 176 x10^3/uL (140-400) 163 x10^3/uL (140-400) Prothrombin Time 14.5 SEC (11.7-14.0) Prothromb Time International Ratio 1.2 (0.8-1.1) Test 06/24/18 00:32 06/24/18 05:55 06/24/18 09:45 06/24/18 18:40 Glucose (Fingerstick) 184 mg/dL (70-99) 192 mg/dL (70-99) White Blood Count 13.5 x10^3/uL (4.0-11.0) 22.4 x10^3/uL (4.0-11.0) 29.3 x10^3/uL (4.0-11.0) Red Blood Count 2.21 x10^6/uL (3.50-5.40) 2.74 x10^6/uL (3.50-5.40) 2.59 x10^6/uL (3.50-5.40) Hemoglobin 6.7 g/dL (12.0-15.5) 8.2 g/dL (12.0-15.5) 7.6 g/dL (12.0-15.5) Hematocrit 19.7 % (36.0-47.0) 23.5 % (36.0-47.0) 22.0 % (36.0-47.0) Mean Corpuscular Volume 89 fL (79-100) 86 fL (79-100) 85 fL (79-100) Mean Corpuscular Hemoglobin 31 pg (25-35) 30 pg (25-35) 29 pg (25-35) Mean Corpuscular Hemoglobin Concent 34 g/dL (31-37) 35 g/dL (31-37) 34 g/dL (31-37) Red Cell Distribution Width 15.7 % (11.5-14.5) 15.4 % (11.5-14.5) 16.3 % (11.5-14.5) Platelet Count 168 x10^3/uL (140-400) 113 x10^3/uL (140-400) 131 x10^3/uL (140-400) Neutrophils (%) (Auto) 83 % (31-73) Lymphocytes (%) (Auto) 10 % (24-48) Monocytes (%) (Auto) 7 % (0-9) Eosinophils (%) (Auto) 0 % (0-3) Basophils (%) (Auto) 0 % (0-3) Neutrophils # (Auto) 11.2 x10^3uL (1.8-7.7) Lymphocytes # (Auto) 1.3 x10^3/uL (1.0-4.8) Monocytes # (Auto) 1.0 x10^3/uL (0.0-1.1) Eosinophils # (Auto) 0.0 x10^3/uL (0.0-0.7) Basophils # (Auto) 0.0 x10^3/uL (0.0-0.2) Prothrombin Time 16.3 SEC (11.7-14.0) Prothromb Time International Ratio 1.4 (0.8-1.1) Activated Partial Thromboplast Time 27 SEC (24-38) Sodium Level 145 mmol/L (136-145) 145 mmol/L (136-145) 144 mmol/L (136-145) Potassium Level 4.0 mmol/L (3.5-5.1) 3.2 mmol/L (3.5-5.1) 3.7 mmol/L (3.5-5.1) Chloride Level 113 mmol/L (98-107) 115 mmol/L (98-107) 113 mmol/L (98-107) Carbon Dioxide Level 22 mmol/L (21-32) 21 mmol/L (21-32) 21 mmol/L (21-32) Anion Gap 10 (6-14) 9 (6-14) 10 (6-14) Blood Urea Nitrogen 18 mg/dL (7-20) 16 mg/dL (7-20) 19 mg/dL (7-20) Creatinine 0.8 mg/dL (0.6-1.0) 0.8 mg/dL (0.6-1.0) 0.8 mg/dL (0.6-1.0) Estimated GFR (Cockcroft-Gault) 82.7 82.7 82.7 Glucose Level 223 mg/dL (70-99) 216 mg/dL (70-99) 179 mg/dL (70-99) Calcium Level 6.2 mg/dL (8.5-10.1) 5.7 mg/dL (8.5-10.1) 6.5 mg/dL (8.5-10.1) Test 06/25/18 04:15 06/25/18 04:19 06/25/18 06:00 White Blood Count 27.0 x10^3/uL (4.0-11.0) Red Blood Count 2.05 x10^6/uL (3.50-5.40) Hemoglobin 6.1 g/dL (12.0-15.5) Hematocrit 17.6 % (36.0-47.0) Mean Corpuscular Volume 86 fL (79-100) Mean Corpuscular Hemoglobin 30 pg (25-35) Mean Corpuscular Hemoglobin Concent 35 g/dL (31-37) Red Cell Distribution Width 16.2 % (11.5-14.5) Platelet Count 125 x10^3/uL (140-400) Neutrophils (%) (Auto) 82 % (31-73) Lymphocytes (%) (Auto) 5 % (24-48) Monocytes (%) (Auto) 12 % (0-9) Eosinophils (%) (Auto) 0 % (0-3) Basophils (%) (Auto) 0 % (0-3) Neutrophils # (Auto) 22.3 x10^3uL (1.8-7.7) Lymphocytes # (Auto) 1.4 x10^3/uL (1.0-4.8) Monocytes # (Auto) 3.4 x10^3/uL (0.0-1.1) Eosinophils # (Auto) 0.0 x10^3/uL (0.0-0.7) Basophils # (Auto) 0.0 x10^3/uL (0.0-0.2) Sodium Level 146 mmol/L (136-145) Potassium Level 3.4 mmol/L (3.5-5.1) Chloride Level 116 mmol/L (98-107) Carbon Dioxide Level 20 mmol/L (21-32) Anion Gap 10 (6-14) Blood Urea Nitrogen 16 mg/dL (7-20) Creatinine 0.6 mg/dL (0.6-1.0) Estimated GFR (Cockcroft-Gault) 115.2 Glucose Level 153 mg/dL (70-99) Calcium Level 5.9 mg/dL (8.5-10.1) Glucose (Fingerstick) 146 mg/dL (70-99) Ionized Calcium 0.94 mmol/L (1.13-1.32) Laboratory Tests Test 06/24/18 09:45 06/24/18 18:40 06/25/18 04:15 06/25/18 04:19 White Blood Count 22.4 x10^3/uL (4.0-11.0) 29.3 x10^3/uL (4.0-11.0) 27.0 x10^3/uL (4.0-11.0) Red Blood Count 2.74 x10^6/uL (3.50-5.40) 2.59 x10^6/uL (3.50-5.40) 2.05 x10^6/uL (3.50-5.40) Hemoglobin 8.2 g/dL (12.0-15.5) 7.6 g/dL (12.0-15.5) 6.1 g/dL (12.0-15.5) Hematocrit 23.5 % (36.0-47.0) 22.0 % (36.0-47.0) 17.6 % (36.0-47.0) Mean Corpuscular Volume 86 fL (79-100) 85 fL (79-100) 86 fL (79-100) Mean Corpuscular Hemoglobin 30 pg (25-35) 29 pg (25-35) 30 pg (25-35) Mean Corpuscular Hemoglobin Concent 35 g/dL (31-37) 34 g/dL (31-37) 35 g/dL (31-37) Red Cell Distribution Width 15.4 % (11.5-14.5) 16.3 % (11.5-14.5) 16.2 % (11.5-14.5) Platelet Count 113 x10^3/uL (140-400) 131 x10^3/uL (140-400) 125 x10^3/uL (140-400) Sodium Level 145 mmol/L (136-145) 144 mmol/L (136-145) 146 mmol/L (136-145) Potassium Level 3.2 mmol/L (3.5-5.1) 3.7 mmol/L (3.5-5.1) 3.4 mmol/L (3.5-5.1) Chloride Level 115 mmol/L (98-107) 113 mmol/L (98-107) 116 mmol/L (98-107) Carbon Dioxide Level 21 mmol/L (21-32) 21 mmol/L (21-32) 20 mmol/L (21-32) Anion Gap 9 (6-14) 10 (6-14) 10 (6-14) Blood Urea Nitrogen 16 mg/dL (7-20) 19 mg/dL (7-20) 16 mg/dL (7-20) Creatinine 0.8 mg/dL (0.6-1.0) 0.8 mg/dL (0.6-1.0) 0.6 mg/dL (0.6-1.0) Estimated GFR (Cockcroft-Gault) 82.7 82.7 115.2 Glucose Level 216 mg/dL (70-99) 179 mg/dL (70-99) 153 mg/dL (70-99) Glucose (Fingerstick) 192 mg/dL (70-99) 146 mg/dL (70-99) Calcium Level 5.7 mg/dL (8.5-10.1) 6.5 mg/dL (8.5-10.1) 5.9 mg/dL (8.5-10.1) Neutrophils (%) (Auto) 82 % (31-73) Lymphocytes (%) (Auto) 5 % (24-48) Monocytes (%) (Auto) 12 % (0-9) Eosinophils (%) (Auto) 0 % (0-3) Basophils (%) (Auto) 0 % (0-3) Neutrophils # (Auto) 22.3 x10^3uL (1.8-7.7) Lymphocytes # (Auto) 1.4 x10^3/uL (1.0-4.8) Monocytes # (Auto) 3.4 x10^3/uL (0.0-1.1) Eosinophils # (Auto) 0.0 x10^3/uL (0.0-0.7) Basophils # (Auto) 0.0 x10^3/uL (0.0-0.2) Test 06/25/18 06:00 Ionized Calcium 0.94 mmol/L (1.13-1.32) Problem List Problems Medical Problems: (1) Anemia Status: Acute (2) Dehydration Status: Acute (3) Rectal bleeding Status: Acute Assessment/Plan s/p resection await bowel function EDGAR CORADO MD 06/25/18 0923: SURGICAL PROGRESS NOTE Assessment/Plan Agree with Frank assessment and plan awaiting bowel function continue supportive care DIXON GONSALVES APRN Jun 25, 2018 08:48 EDGAR CORADO MD Jun 25, 2018 09:23
[2018-06-25] MEDS ORDERED: ENOXAPARIN 40 MG/0.4 ML SYRINGE. SQ SCH (09:00)
[2018-06-25] MEDS: CEFEPIME HCL IV Push 1 GM VIAL. IVP SCH ×2 (09:09→21:05)
[2018-06-25] MEDS: PANTOPRAZOLE IV PUSH 40 MG VIAL. IVP SCH (09:09)
--- NOTE | 2018-06-25 09:11 | PDOC ---
Subjective: Subjective: Daughter present - says pt was very restless yesterday and c/o thirst which concerned her but seems much better this morning. Objective: Objective: Diffuse adhesions noted in OR. Reviewed w/ Dr. Brambila and RN. Vital Signs: Vital Signs Date Time Temp Pulse Resp B/P (MAP) Pulse Ox O2 Delivery O2 Flow Rate FiO2 06/25/18 08:32 99.2 128 12 134/58 99.2 06/25/18 06:00 96 Room Air 06/25/18 04:56 8.0 Labs: Laboratory Tests Test 06/24/18 09:45 06/24/18 18:40 06/25/18 04:15 06/25/18 04:19 White Blood Count 22.4 x10^3/uL 29.3 x10^3/uL 27.0 x10^3/uL Red Blood Count 2.74 x10^6/uL 2.59 x10^6/uL 2.05 x10^6/uL Hemoglobin 8.2 g/dL 7.6 g/dL 6.1 g/dL Hematocrit 23.5 % 22.0 % 17.6 % Mean Corpuscular Volume 86 fL 85 fL 86 fL Mean Corpuscular Hemoglobin 30 pg 29 pg 30 pg Mean Corpuscular Hemoglobin Concent 35 g/dL 34 g/dL 35 g/dL Red Cell Distribution Width 15.4 % 16.3 % 16.2 % Platelet Count 113 x10^3/uL 131 x10^3/uL 125 x10^3/uL Sodium Level 145 mmol/L 144 mmol/L 146 mmol/L Potassium Level 3.2 mmol/L 3.7 mmol/L 3.4 mmol/L Chloride Level 115 mmol/L 113 mmol/L 116 mmol/L Carbon Dioxide Level 21 mmol/L 21 mmol/L 20 mmol/L Anion Gap 9 10 10 Blood Urea Nitrogen 16 mg/dL 19 mg/dL 16 mg/dL Creatinine 0.8 mg/dL 0.8 mg/dL 0.6 mg/dL Estimated GFR (Cockcroft-Gault) 82.7 82.7 115.2 Glucose Level 216 mg/dL 179 mg/dL 153 mg/dL Glucose (Fingerstick) 192 mg/dL 146 mg/dL Calcium Level 5.7 mg/dL 6.5 mg/dL 5.9 mg/dL Neutrophils (%) (Auto) 82 % Lymphocytes (%) (Auto) 5 % Monocytes (%) (Auto) 12 % Eosinophils (%) (Auto) 0 % Basophils (%) (Auto) 0 % Neutrophils # (Auto) 22.3 x10^3uL Lymphocytes # (Auto) 1.4 x10^3/uL Monocytes # (Auto) 3.4 x10^3/uL Eosinophils # (Auto) 0.0 x10^3/uL Basophils # (Auto) 0.0 x10^3/uL Test 06/25/18 06:00 Ionized Calcium 0.94 mmol/L Imaging: EGD E--hint of non-obstructing Shatzki's ring at GEJ. G--Normal D--Normal to second portion. IMP: Mild, non-obstructing Shatzki's ring. Otherwise normal exam. PE: GEN: NAD LUNGS: NC HEART: tachycardic ABD: quiet, ostomy NEURO/PSYCH: in and out of sleep, moving legs around A/P: Lower GI bleed s/p colectomy and LSO Anemia - transfusion in process Hypocalcemia UTI -- Supportive care, continue per surgery. ENMANUEL PORTER Jun 25, 2018 09:11
[2018-06-25] MEDS: POTASSIUM CL 20MEQ-0.45% NACL 1,000 ML IV SCH ×2 (11:11→20:58)
[2018-06-25] MEDS: VANCOMYCIN PER PHARMACY MC PRN (11:18)
[2018-06-25 11:56] LABS: PROTHROMBIN TIME PATIENT 15.5 SEC (11.7-14.0)
[2018-06-25 12:00] LABS: D-DIMER 0.63 ug/mlFEU (0.00-0.50)
--- NOTE | 2018-06-25 13:28 | PDOC ---
PROGRESS NOTES Chief Complaint Chief Complaint bright red blood per rectum, 2/2 diverticulosis 2/2 Colectomy and left salpingo -oophorectomy.06/24 hypotension with gib, requried pressors acute anemia with gib HTN dm2 hld morbid obesity 2/3 + bcx bacteremia sepsis with bacteremia plan: FU WITH GI, IR total got 9u PRBC transfusion, plt and FFP transfusion hold po meds npo, fu colostomy, ELI drain, sx wound care 1/2 NS +K 100cc/h icu care IR angiogram neg bleeding. + bleeding scan, neg CTA. EGD today non obstructing shatki ring. colectomy since cont bleeding with low hb and low bp. gi ppx fu with ID, fu bcx, on vanco and cefepime for now 2 u PRBC today, repeat hh at 2pm. talked to daughter at bedside taper levaphed if BP better hold lovenox till tmr cc time 35min History of Present Illness History of Present Illness ROS: no fever, chills, sob or chest pain cont rectal bleeding with some abd cramps overnight, as per nurse could have about 2L blood loss bp low, need levaqhed since sx + bleeding scan, neg CTA. got Colectomy and left salpingo-oophorectomy 06/24, hb low again today, no active bleeding , another 2u RPBC Vitals Vitals Vital Signs Date Time Temp Pulse Resp B/P (MAP) Pulse Ox O2 Delivery O2 Flow Rate FiO2 06/25/18 11:00 118 12 124/52 (76) 96 Room Air 06/25/18 10:00 99.5 99.5 06/25/18 04:56 8.0 Physical Exam Physical Exam GENERAL: sleepy but arousable HEENT: Anicteric, no thrush. Oral mucosa moist. NG tube. NECK: Supple.RT IJ in place LUNGS: dec bs at bases HEART: S1, S2, tachycardia. ABDOMEN: Soft. surgical wound dressed drain and ostomy intact. lorenzo in place EXTREMITIES: No cyanosis, no edema. DERMATOLOGIC: Warm, dry, no generalized rash. CENTRAL NERVOUS SYSTEM: Moves all 4 extremities. General: Alert, Cooperative Heart: Regular rate Lungs: Clear Abdomen: Soft, Other (ostomy no stool, stoma viable ) Extremities: No cyanosis Skin: Other (warm, dry) Labs LABS Laboratory Tests Test 06/24/18 18:40 06/25/18 04:15 06/25/18 04:19 06/25/18 06:00 White Blood Count 29.3 x10^3/uL (4.0-11.0) 27.0 x10^3/uL (4.0-11.0) Red Blood Count 2.59 x10^6/uL (3.50-5.40) 2.05 x10^6/uL (3.50-5.40) Hemoglobin 7.6 g/dL (12.0-15.5) 6.1 g/dL (12.0-15.5) Hematocrit 22.0 % (36.0-47.0) 17.6 % (36.0-47.0) Mean Corpuscular Volume 85 fL (79-100) 86 fL (79-100) Mean Corpuscular Hemoglobin 29 pg (25-35) 30 pg (25-35) Mean Corpuscular Hemoglobin Concent 34 g/dL (31-37) 35 g/dL (31-37) Red Cell Distribution Width 16.3 % (11.5-14.5) 16.2 % (11.5-14.5) Platelet Count 131 x10^3/uL (140-400) 125 x10^3/uL (140-400) Sodium Level 144 mmol/L (136-145) 146 mmol/L (136-145) Potassium Level 3.7 mmol/L (3.5-5.1) 3.4 mmol/L (3.5-5.1) Chloride Level 113 mmol/L (98-107) 116 mmol/L (98-107) Carbon Dioxide Level 21 mmol/L (21-32) 20 mmol/L (21-32) Anion Gap 10 (6-14) 10 (6-14) Blood Urea Nitrogen 19 mg/dL (7-20) 16 mg/dL (7-20) Creatinine 0.8 mg/dL (0.6-1.0) 0.6 mg/dL (0.6-1.0) Estimated GFR (Cockcroft-Gault) 82.7 115.2 Glucose Level 179 mg/dL (70-99) 153 mg/dL (70-99) Calcium Level 6.5 mg/dL (8.5-10.1) 5.9 mg/dL (8.5-10.1) Neutrophils (%) (Auto) 82 % (31-73) Lymphocytes (%) (Auto) 5 % (24-48) Monocytes (%) (Auto) 12 % (0-9) Eosinophils (%) (Auto) 0 % (0-3) Basophils (%) (Auto) 0 % (0-3) Neutrophils # (Auto) 22.3 x10^3uL (1.8-7.7) Lymphocytes # (Auto) 1.4 x10^3/uL (1.0-4.8) Monocytes # (Auto) 3.4 x10^3/uL (0.0-1.1) Eosinophils # (Auto) 0.0 x10^3/uL (0.0-0.7) Basophils # (Auto) 0.0 x10^3/uL (0.0-0.2) Glucose (Fingerstick) 146 mg/dL (70-99) Ionized Calcium 0.94 mmol/L (1.13-1.32) Test 06/25/18 11:40 Prothrombin Time 15.5 SEC (11.7-14.0) Prothromb Time International Ratio 1.3 (0.8-1.1) Fibrinogen 368 mg/dL (200-440) D-Dimer (Betsy) 0.63 ug/mlFEU (0.00-0.50) Assessment and Plan Assessmemt and Plan Problems Medical Problems: (1) Anemia Status: Acute (2) Dehydration Status: Acute (3) Rectal bleeding Status: Acute Comment Review of Relevant I have reviewed the following items fabiola (where applicable) has been applied. Labs Laboratory Tests Test 06/23/18 13:35 06/23/18 16:40 06/23/18 22:55 06/24/18 00:32 Prothrombin Time 14.5 SEC (11.7-14.0) Prothromb Time International Ratio 1.2 (0.8-1.1) White Blood Count 14.3 x10^3/uL (4.0-11.0) 13.7 x10^3/uL (4.0-11.0) Red Blood Count 2.82 x10^6/uL (3.50-5.40) 2.13 x10^6/uL (3.50-5.40) Hemoglobin 8.4 g/dL (12.0-15.5) 6.5 g/dL (12.0-15.5) Hematocrit 25.5 % (36.0-47.0) 19.0 % (36.0-47.0) Mean Corpuscular Volume 91 fL (79-100) 90 fL (79-100) Mean Corpuscular Hemoglobin 30 pg (25-35) 30 pg (25-35) Mean Corpuscular Hemoglobin Concent 33 g/dL (31-37) 34 g/dL (31-37) Red Cell Distribution Width 15.5 % (11.5-14.5) 15.5 % (11.5-14.5) Platelet Count 176 x10^3/uL (140-400) 163 x10^3/uL (140-400) Glucose (Fingerstick) 184 mg/dL (70-99) Test 06/24/18 05:55 06/24/18 09:45 06/24/18 18:40 06/25/18 04:15 White Blood Count 13.5 x10^3/uL (4.0-11.0) 22.4 x10^3/uL (4.0-11.0) 29.3 x10^3/uL (4.0-11.0) 27.0 x10^3/uL (4.0-11.0) Red Blood Count 2.21 x10^6/uL (3.50-5.40) 2.74 x10^6/uL (3.50-5.40) 2.59 x10^6/uL (3.50-5.40) 2.05 x10^6/uL (3.50-5.40) Hemoglobin 6.7 g/dL (12.0-15.5) 8.2 g/dL (12.0-15.5) 7.6 g/dL (12.0-15.5) 6.1 g/dL (12.0-15.5) Hematocrit 19.7 % (36.0-47.0) 23.5 % (36.0-47.0) 22.0 % (36.0-47.0) 17.6 % (36.0-47.0) Mean Corpuscular Volume 89 fL (79-100) 86 fL (79-100) 85 fL (79-100) 86 fL ( 79-100) Mean Corpuscular Hemoglobin 31 pg (25-35) 30 pg (25-35) 29 pg (25-35) 30 pg ( 25-35) Mean Corpuscular Hemoglobin Concent 34 g/dL (31-37) 35 g/dL (31-37) 34 g/dL (31-37) 35 g/dL (31-37) Red Cell Distribution Width 15.7 % (11.5-14.5) 15.4 % (11.5-14.5) 16.3 % (11.5-14.5) 16.2 % (11.5-14.5) Platelet Count 168 x10^3/uL (140-400) 113 x10^3/uL (140-400) 131 x10^3/uL (140-400) 125 x10^3/uL (140-400) Neutrophils (%) (Auto) 83 % (31-73) 82 % (31-73) Lymphocytes (%) (Auto) 10 % (24-48) 5 % (24-48) Monocytes (%) (Auto) 7 % (0-9) 12 % (0-9) Eosinophils (%) (Auto) 0 % (0-3) 0 % (0-3) Basophils (%) (Auto) 0 % (0-3) 0 % (0-3) Neutrophils # (Auto) 11.2 x10^3uL (1.8-7.7) 22.3 x10^3uL (1.8-7.7) Lymphocytes # (Auto) 1.3 x10^3/uL (1.0-4.8) 1.4 x10^3/uL (1.0-4.8) Monocytes # (Auto) 1.0 x10^3/uL (0.0-1.1) 3.4 x10^3/uL (0.0-1.1) Eosinophils # (Auto) 0.0 x10^3/uL (0.0-0.7) 0.0 x10^3/uL (0.0-0.7) Basophils # (Auto) 0.0 x10^3/uL (0.0-0.2) 0.0 x10^3/uL (0.0-0.2) Prothrombin Time 16.3 SEC (11.7-14.0) Prothromb Time International Ratio 1.4 (0.8-1.1) Activated Partial Thromboplast Time 27 SEC (24-38) Sodium Level 145 mmol/L (136-145) 145 mmol/L (136-145) 144 mmol/L (136-145) 146 mmol/L (136-145) Potassium Level 4.0 mmol/L (3.5-5.1) 3.2 mmol/L (3.5-5.1) 3.7 mmol/L (3.5-5.1) 3.4 mmol/L (3.5-5.1) Chloride Level 113 mmol/L (98-107) 115 mmol/L (98-107) 113 mmol/L (98-107) 116 mmol/L (98-107) Carbon Dioxide Level 22 mmol/L (21-32) 21 mmol/L (21-32) 21 mmol/L (21-32) 20 mmol/L (21-32) Anion Gap 10 (6-14) 9 (6-14) 10 (6-14) 10 (6-14) Blood Urea Nitrogen 18 mg/dL (7-20) 16 mg/dL (7-20) 19 mg/dL (7-20) 16 mg/dL (7-20) Creatinine 0.8 mg/dL (0.6-1.0) 0.8 mg/dL (0.6-1.0) 0.8 mg/dL (0.6-1.0) 0.6 mg/dL (0.6-1.0) Estimated GFR (Cockcroft-Gault) 82.7 82.7 82.7 115.2 Glucose Level 223 mg/dL (70-99) 216 mg/dL (70-99) 179 mg/dL (70-99) 153 mg/dL (70-99) Calcium Level 6.2 mg/dL (8.5-10.1) 5.7 mg/dL (8.5-10.1) 6.5 mg/dL (8.5-10.1) 5.9 mg/dL (8.5-10.1) Glucose (Fingerstick) 192 mg/dL (70-99) Test 06/25/18 04:19 06/25/18 06:00 06/25/18 11:40 Glucose (Fingerstick) 146 mg/dL (70-99) Ionized Calcium 0.94 mmol/L (1.13-1.32) Prothrombin Time 15.5 SEC (11.7-14.0) Prothromb Time International Ratio 1.3 (0.8-1.1) Fibrinogen 368 mg/dL (200-440) D-Dimer (Betsy) 0.63 ug/mlFEU (0.00-0.50) Laboratory Tests Test 06/24/18 18:40 06/25/18 04:15 06/25/18 04:19 06/25/18 06:00 White Blood Count 29.3 x10^3/uL (4.0-11.0) 27.0 x10^3/uL (4.0-11.0) Red Blood Count 2.59 x10^6/uL (3.50-5.40) 2.05 x10^6/uL (3.50-5.40) Hemoglobin 7.6 g/dL (12.0-15.5) 6.1 g/dL (12.0-15.5) Hematocrit 22.0 % (36.0-47.0) 17.6 % (36.0-47.0) Mean Corpuscular Volume 85 fL (79-100) 86 fL (79-100) Mean Corpuscular Hemoglobin 29 pg (25-35) 30 pg (25-35) Mean Corpuscular Hemoglobin Concent 34 g/dL (31-37) 35 g/dL (31-37) Red Cell Distribution Width 16.3 % (11.5-14.5) 16.2 % (11.5-14.5) Platelet Count 131 x10^3/uL (140-400) 125 x10^3/uL (140-400) Sodium Level 144 mmol/L (136-145) 146 mmol/L (136-145) Potassium Level 3.7 mmol/L (3.5-5.1) 3.4 mmol/L (3.5-5.1) Chloride Level 113 mmol/L (98-107) 116 mmol/L (98-107) Carbon Dioxide Level 21 mmol/L (21-32) 20 mmol/L (21-32) Anion Gap 10 (6-14) 10 (6-14) Blood Urea Nitrogen 19 mg/dL (7-20) 16 mg/dL (7-20) Creatinine 0.8 mg/dL (0.6-1.0) 0.6 mg/dL (0.6-1.0) Estimated GFR (Cockcroft-Gault) 82.7 115.2 Glucose Level 179 mg/dL (70-99) 153 mg/dL (70-99) Calcium Level 6.5 mg/dL (8.5-10.1) 5.9 mg/dL (8.5-10.1) Neutrophils (%) (Auto) 82 % (31-73) Lymphocytes (%) (Auto) 5 % (24-48) Monocytes (%) (Auto) 12 % (0-9) Eosinophils (%) (Auto) 0 % (0-3) Basophils (%) (Auto) 0 % (0-3) Neutrophils # (Auto) 22.3 x10^3uL (1.8-7.7) Lymphocytes # (Auto) 1.4 x10^3/uL (1.0-4.8) Monocytes # (Auto) 3.4 x10^3/uL (0.0-1.1) Eosinophils # (Auto) 0.0 x10^3/uL (0.0-0.7) Basophils # (Auto) 0.0 x10^3/uL (0.0-0.2) Glucose (Fingerstick) 146 mg/dL (70-99) Ionized Calcium 0.94 mmol/L (1.13-1.32) Test 06/25/18 11:40 Prothrombin Time 15.5 SEC (11.7-14.0) Prothromb Time International Ratio 1.3 (0.8-1.1) Fibrinogen 368 mg/dL (200-440) D-Dimer (Betsy) 0.63 ug/mlFEU (0.00-0.50) Microbiology 06/22/18 Blood Culture - Preliminary, Resulted NO GROWTH AFTER 2 DAYS 06/22/18 Urine Culture - Preliminary, Resulted 06/22/18 Urine Culture Result 1 (ERICA) - Preliminary, Resulted Medications Current Medications Pantoprazole Sodium (PROTONIX VIAL for IV PUSH) 80 mg 1X ONCE IVP Last administered on 06/22/18at 15:57; Start 06/22/18 at 15:30; Stop 06/22/18 at 15:32 ; Status DC Sodium Chloride 1,000 ml @ 1,000 mls/hr 1X ONCE IV Last administered on at 15:52; Start 06/22/18 at 15:30; Stop 06/22/18 at 16:29; Status DC Ondansetron HCl (Zofran) 4 mg PRN Q8HRS PRN IV NAUSEA/VOMITING; Start 06/22/18 at 16:15; Stop 06/23/18 at 16:14; Status DC Sodium Chloride 1,000 ml @ 150 mls/hr Q6H40M IV Last administered on at 06:27; Start 06/22/18 at 16:11; Stop 06/23/18 at 09:11; Status DC Iohexol (Omnipaque 300 Mg/ml) 75 ml 1X ONCE IV Last administered on 06/22/18at 17:04; Start 06/22/18 at 17:00; Stop 06/22/18 at 17:01; Status DC Info (CONTRAST GIVEN -- Rx MONITORING) 1 each PRN DAILY PRN MC SEE COMMENTS; Start 06/22/18 at 17:00; Stop 06/24/18 at 09:36; Status DC Sodium Chloride 1,000 ml @ 1,000 mls/hr 1X ONCE IV Last administered on at 17:45; Start 06/22/18 at 17:45; Stop 06/22/18 at 18:44; Status DC Pantoprazole Sodium (PROTONIX VIAL for IV PUSH) 40 mg DAILYAC IVP Last administered on 06/25/18at 09:09; Start 06/23/18 at 07:30 Heparin Sodium (Porcine) (HEPARIN for NUC MED) 100 unit 1X ONCE IV Last administered on 06/23/18at 03:30; Start 06/23/18 at 03:30; Stop 06/23/18 at 03:31 ; Status DC Acetaminophen (Tylenol) 650 mg 1X PRN PRN PO PRE-TRANSFUSION; Start 06/23/18 at 05:30 Diphenhydramine HCl (Benadryl) 25 mg PRN 1X PRN PO PRE-TRANSFUSION; Start 06/23 at 05:30 Iohexol (Omnipaque 300 Mg/ml) 90 ml 1X ONCE IV Last administered on 06/23/18at 07:15; Start 06/23/18 at 07:00; Stop 06/23/18 at 07:01; Status DC Info (CONTRAST GIVEN -- Rx MONITORING) 1 each PRN DAILY PRN MC SEE COMMENTS; Start 06/23/18 at 06:30; Stop 06/25/18 at 06:29; Status DC Acetaminophen (Tylenol) 650 mg PRN Q6HRS PRN PO FEVER; Start 06/23/18 at 09:15 Ondansetron HCl (Zofran) 4 mg PRN Q6HRS PRN IV NAUSEA/VOMITING Last administered on 06/24/18at 05:43; Start 06/23/18 at 09:15 Morphine Sulfate (Morphine Sulfate) 2 mg PRN Q2HR PRN IV MODERATE TO SEVERE PAIN; Start 06/23/18 at 09:15; Stop 06/24/18 at 09:36; Status DC Tramadol HCl (Ultram) 50 mg PRN Q6HRS PRN PO MILD TO MODERATE PAIN; Start 06/23 at 09:15 Docusate Sodium (Colace) 100 mg PRN DAILY PRN PO CONSTIPATION; Start 06/23/18 at 09:15 Sodium Chloride 1,000 ml @ 125 mls/hr Q8H IV Last administered on 06/24/18at 05 :55; Start 06/23/18 at 09:15; Stop 06/24/18 at 13:49; Status DC Iodixanol (Visipaque 320) 100 ml STK-MED ONCE .ROUTE ; Start 06/23/18 at 09:14; Stop 06/23/18 at 09:15; Status DC Lidocaine/Sodium Bicarbonate (Buffered Lidocaine 1%) 3 ml STK-MED ONCE .ROUTE ; Start 06/23/18 at 09:14; Stop 06/23/18 at 09:15; Status DC Iodixanol (Visipaque 320) 50 ml STK-MED ONCE .ROUTE ; Start 06/23/18 at 09:14; Stop 06/23/18 at 09:15; Status DC Heparin Sodium/ Sodium Chloride 1,000 ml @ As Directed STK-MED ONCE .ROUTE ; Start 06/23/18 at 09:14; Stop 06/23/18 at 09:15; Status DC Iodixanol (Visipaque 320) 100 ml STK-MED ONCE .ROUTE ; Start 06/23/18 at 09:31; Stop 06/23/18 at 09:32; Status DC Midazolam HCl (Versed) 2 mg STK-MED ONCE .ROUTE ; Start 06/23/18 at 09:34; Stop 06/23/18 at 09:35; Status DC Fentanyl Citrate (Fentanyl 2ml Vial) 100 mcg STK-MED ONCE .ROUTE ; Start at 09:34; Stop 06/23/18 at 09:35; Status DC Heparin Sodium/ Sodium Chloride (HEPARIN for ARTERIAL LINE FLUSH) 1,000 unit 1X ONCE IART Last administered on 06/23/18at 10:15; Start 06/23/18 at 10:15; Stop 06/23/18 at 10:16; Status DC Lidocaine/Sodium Bicarbonate (Buffered Lidocaine 1%) 3 ml 1X ONCE IJ Last administered on 06/23/18at 10:15; Start 06/23/18 at 10:15; Stop 06/23/18 at 10:16 ; Status DC Midazolam HCl (Versed) 2 mg 1X ONCE IV ; Start 06/23/18 at 10:15; Stop at 10:16; Status DC Fentanyl Citrate (Fentanyl 2ml Vial) 100 mcg 1X ONCE IV ; Start 06/23/18 at 10: 15; Stop 06/23/18 at 10:16; Status DC Iodixanol (Visipaque 320) 100 ml 1X ONCE IART Last administered on 06/23/18at 10:15; Start 06/23/18 at 10:15; Stop 06/23/18 at 10:16; Status DC Iodixanol (Visipaque 320) 100 ml STK-MED ONCE .ROUTE ; Start 06/23/18 at 10:09; Stop 06/23/18 at 10:10; Status DC Iodixanol (Visipaque 320) 50 ml STK-MED ONCE .ROUTE ; Start 06/23/18 at 11:01; Stop 06/23/18 at 11:02; Status DC Sodium Chloride 1,000 ml @ 1,000 mls/hr 1X ONCE IV Last administered on at 03:00; Start 06/24/18 at 03:15; Stop 06/24/18 at 04:14; Status DC Sodium Chloride 1,000 ml @ 1,000 mls/hr 1X ONCE IV Last administered on at 04:06; Start 06/24/18 at 04:15; Stop 06/24/18 at 05:14; Status DC Norepinephrine Bitartrate 250 ml @ 1.875 mls/ hr CONT PRN IV SEE I/O RECORD Last administered on 06/24/18at 23:33; Start 06/24/18 at 03:15 Cefoxitin Sodium 2 gm/Dextrose 100 ml @ 200 mls/hr ONCE ONCE IV Last administered on 06/24/18at 06:45; Start 06/24/18 at 05:00; Stop 06/24/18 at 05:29 ; Status DC Succinylcholine Chloride (Anectine) 200 mg STK-MED ONCE .ROUTE ; Start 06/24/18 at 05:48; Stop 06/24/18 at 05:49; Status DC Rocuronium Franklin (Zemuron) 100 mg STK-MED ONCE .ROUTE ; Start 06/24/18 at 05: 48; Stop 06/24/18 at 05:49; Status DC Sodium Chloride 1,000 ml @ 1,000 mls/hr 1X ONCE IV Last administered on at 05:50; Start 06/24/18 at 05:50; Stop 06/24/18 at 06:49; Status DC Fentanyl Citrate (Fentanyl 5ml Vial) 250 mcg STK-MED ONCE .ROUTE ; Start at 07:16; Stop 06/24/18 at 07:18; Status DC Etomidate (Amidate) 20 mg STK-MED ONCE IV ; Start 06/24/18 at 07:17; Stop at 07:18; Status DC Propofol 20 ml @ As Directed STK-MED ONCE IV ; Start 06/24/18 at 07:17; Stop at 07:18; Status DC Ondansetron HCl (Zofran) 4 mg STK-MED ONCE .ROUTE ; Start 06/24/18 at 07:55; Stop 06/24/18 at 07:56; Status DC Neostigmine Methylsulfate (Neostigmine Methylsulfate) 5 mg STK-MED ONCE .ROUTE ; Start 06/24/18 at 08:38; Stop 06/24/18 at 08:40; Status DC Glycopyrrolate (Robinul) 1 mg STK-MED ONCE .ROUTE ; Start 06/24/18 at 08:39; Stop 06/24/18 at 08:40; Status DC Cefoxitin Sodium 100 ml @ As Directed STK-MED ONCE IV ; Start 06/24/18 at 07:42 ; Stop 06/24/18 at 08:43; Status DC Vancomycin HCl (Vanco Per Pharmacy) 1 each PRN DAILY PRN MC SEE COMMENTS Last administered on 06/25/18at 11:18; Start 06/24/18 at 09:00 Vancomycin HCl 2 gm/Sodium Chloride 500 ml @ 250 mls/hr 1X ONCE IV Last administered on 06/24/18at 12:47; Start 06/24/18 at 09:30; Stop 06/24/18 at 11:29 ; Status DC Cefoxitin Sodium 50 ml @ 100 mls/hr 1X PERIOP IV ; Start 06/24/18 at 09:15; Status Cancel Diphenhydramine HCl (Benadryl) 25 mg PRN Q6HRS PRN IV ITCHING Last administered on 06/24/18at 23:49; Start 06/24/18 at 09:15 Enoxaparin Sodium (Lovenox 40mg Syringe) 40 mg Q24H SQ ; Start 06/24/18 at 10:00 ; Stop 06/24/18 at 10:00; Status DC Sodium Chloride (Normal Saline Flush) 3 ml QSHIFT PRN IV AFTER MEDS AND BLOOD DRAWS; Start 06/24/18 at 09:15 Potassium Chloride/Sodium Chloride 1,000 ml @ 100 mls/hr Q10H IV Last administered on 06/25/18at 11:11; Start 06/24/18 at 09:13 Morphine Sulfate (Morphine Sulfate) 5 mg PRN Q3HRS PRN IV MODERATE-SEVERE PAIN Last administered on 06/24/18at 20:38; Start 06/24/18 at 09:45; Stop 06/24/18 at 22:38; Status DC Ondansetron HCl (Zofran) 4 mg PRN Q6HRS PRN IV NAUESA, 1ST CHOICE; Start at 09:15; Stop 06/24/18 at 14:47; Status DC Throat Lozenges (Chloraseptic) 1 spray PRN Q2HR PRN PO SORE THROAT; Start 06/24 at 09:15 Throat Lozenges (Cepacol Sore Throat Lozenge) 1 geni PRN Q2HRS PRN PO SORE THROAT; Start 06/24/18 at 09:15 Enoxaparin Sodium (Lovenox 40mg Syringe) 40 mg Q24H SQ ; Start 06/25/18 at 09:00 ; Stop 06/25/18 at 10:53; Status DC Ondansetron HCl (Zofran) 4 mg PRN Q6HRS PRN IV NAUSEA/VOMITING; Start 06/24/18 at 10:00; Stop 06/24/18 at 18:00; Status DC Fentanyl Citrate (Fentanyl 2ml Vial) 25 mcg PRN Q5MIN PRN IV MILD PAIN; Start 06/24/18 at 10:00; Stop 06/24/18 at 18:00; Status DC Fentanyl Citrate (Fentanyl 2ml Vial) 50 mcg PRN Q5MIN PRN IV MODERATE TO SEVERE PAIN Last administered on 06/24/18at 14:28; Start 06/24/18 at 10:00; Stop 06/24/18 at 18:00; Status DC Morphine Sulfate (Morphine Sulfate) 1 mg PRN Q10MIN PRN IV SEVERE PAIN; Start 06/24/18 at 10:00; Stop 06/24/18 at 18:00; Status DC Ringer's Solution 1,000 ml @ 30 mls/hr Q24H IV Last administered on 06/24/18at 11:34; Start 06/24/18 at 09:52; Stop 06/24/18 at 21:51; Status DC Lidocaine HCl (Xylocaine-Mpf 1% 2ml Vial) 2 ml PRN 1X PRN ID PRIOR TO IV START ; Start 06/24/18 at 10:00; Stop 06/24/18 at 18:00; Status DC Hydromorphone HCl (Dilaudid) 0.5 mg PRN Q10MIN PRN IV SEV PAIN, Second choice Last administered on 06/24/18at 15:15; Start 06/24/18 at 10:00; Stop 06/24/18 at 18:00; Status DC Prochlorperazine Edisylate (Compazine) 5 mg PACU PRN PRN IV NAUSEA, [id number] Last administered on 06/24/18at 10:47; Start 06/24/18 at 10:00; Stop 06/24/18 at 18:00 ; Status DC Fentanyl Citrate (Fentanyl 2ml Vial) 100 mcg STK-MED ONCE .ROUTE ; Start at 10:24; Stop 06/24/18 at 10:25; Status DC Prochlorperazine Edisylate (Compazine) 10 mg STK-MED ONCE .ROUTE ; Start at 10:24; Stop 06/24/18 at 10:25; Status DC Hydromorphone HCl (Dilaudid) 2 mg STK-MED ONCE .ROUTE ; Start 06/24/18 at 11:04 ; Stop 06/24/18 at 11:05; Status DC Cefoxitin Sodium 100 ml @ 200 mls/hr OC PROC ONCE IV Last administered on at 08:43; Start 06/24/18 at 12:00; Stop 06/24/18 at 12:29; Status DC Vancomycin HCl 1.5 gm/Sodium Chloride 500 ml @ 250 mls/hr Q24H IV ; Start 06/25 at 13:00 Vancomycin HCl (Vancomycin Trough Level) 1 each 1X ONCE MC ; Start 06/26/18 at 12:30; Stop 06/26/18 at 12:31 Potassium Chloride/Water 50 ml @ 50 mls/hr 1X ONCE IV Last administered on at 14:29; Start 06/24/18 at 14:00; Stop 06/24/18 at 14:59; Status DC Calcium Chloride 1000 mg/Dextrose 60 ml @ 120 mls/hr 1X ONCE IV Last administered on 06/24/18at 14:28; Start 06/24/18 at 14:00; Stop 06/24/18 at 14:29 ; Status DC Cefepime HCl 1 gm/ Dextrose 50 ml @ 100 mls/hr Q12HR IV ; Start 06/24/18 at 14: 30; Status Cancel Cefepime HCl (Maxipime) 1 gm Q12HR IVP Last administered on 06/25/18at 09:09; Start 06/24/18 at 14:30 Albumin Human 250 ml @ 62.5 mls/hr 1X ONCE IV Last administered on 06/24/18at 20:32; Start 06/24/18 at 19:15; Stop 06/24/18 at 23:14; Status DC Furosemide (Lasix) 40 mg 1X ONCE IVP Last administered on 06/25/18at 09:05; Start 06/24/18 at 19:15; Stop 06/24/18 at 19:16; Status DC Morphine Sulfate (Morphine Sulfate) 5 mg PRN Q2HR PRN IV PAIN Last administered on 06/25/18at 04:26; Start 06/24/18 at 22:45 Enoxaparin Sodium (Lovenox 40mg Syringe) 40 mg Q24H SQ ; Start 06/26/18 at 16:00 Lactobacillus Rhamnosus (Culturelle) 1 cap BID PO ; Start 06/25/18 at 21:00 Propofol (Diprivan) 200 mg STK-MED ONCE IV ; Start 06/24/18 at 10:00; Stop 06/25 at 12:24; Status DC Active Scripts Active Levaquin (Levofloxacin) 500 Mg Tablet 500 Mg PO DAILY06 Reported Januvia (Sitagliptin Phosphate) 100 Mg Tablet 1 Tab PO DAILY Beta Carotene (Beta-Carotene) 10,000 Unit Capsule 12,000 Unit PO Crestor (Rosuvastatin Calcium) 5 Mg Tablet 1 Tab PO DAILY Vitals/I & O Vital Sign - Last 24 Hours 06/24/18 06/24/18 06/24/18 06/24/18 14:00 14:28 15:00 15:15 Pulse 126 122 Resp 12 14 B/P (MAP) 132/48 (76) 122/48 (72) Pulse Ox 98 97 97 97 O2 Delivery Room Air Room Air Room Air Room Air O2 Flow Rate 8.0 06/24/18 06/24/18 06/24/18 06/24/18 16:00 16:00 16:00 17:00 Temp 99.4 99.4 Pulse 138 129 130 Resp 14 12 B/P (MAP) 104/44 (64) 118/44 (68) Pulse Ox 94 95 O2 Delivery Room Air Room Air Room Air 06/24/18 06/24/18 06/24/18 06/24/18 17:01 18:00 18:45 19:00 Pulse 128 128 Resp 12 12 12 B/P (MAP) 116/45 (68) 138/51 (80) 138/51 (80) Pulse Ox 97 97 96 O2 Delivery Room Air Room Air Room Air 06/24/18 06/24/18 06/24/18 06/24/18 20:00 20:00 20:00 20:38 Temp 99.1 99.1 Pulse 126 129 Resp 12 20 B/P (MAP) 104/64 (77) 104/64 (77) Pulse Ox 97 97 O2 Delivery Room Air Room Air Room Air O2 Flow Rate 8.0 06/24/18 06/24/18 06/24/18 06/24/18 21:00 22:00 23:00 23:09 Pulse 128 126 128 Resp 14 12 12 24 B/P (MAP) 101/41 (61) 100/40 (60) 85/39 (54) Pulse Ox 97 95 97 97 O2 Delivery Room Air Room Air Room Air Room Air O2 Flow Rate 8.0 06/24/18 06/24/18 06/24/18 06/24/18 23:30 23:55 23:56 23:59 Pulse 128 122 122 Resp 12 12 12 B/P (MAP) 87/38 (54) 85/39 (54) 74/36 (49) Pulse Ox 97 97 97 O2 Delivery Room Air Room Air Room Air Room Air 06/24/18 06/25/18 06/25/18 06/25/18 23:59 00:00 00:00 00:02 Temp 97.8 97.8 Pulse 122 124 129 122 Resp 12 11 12 B/P (MAP) 69/37 (48) 86/41 (56) 102/43 (62) 85/39 (54) Pulse Ox 97 96 97 O2 Delivery Room Air Room Air Room Air 06/25/18 06/25/18 06/25/18 06/25/18 00:03 00:04 00:05 00:06 Pulse 124 124 124 125 Resp 12 12 12 12 B/P (MAP) 90/41 (57) 85/39 (54) 78/36 (50) 84/40 (55) Pulse Ox 97 97 97 97 O2 Delivery Room Air Room Air Room Air Room Air 9/21/18 9/21/18 9/21/18 9/21/18 01:00 01:27 02:00 03:00 Pulse 127 123 123 Resp 10 12 20 12 B/P (MAP) 108/45 (66) 117/46 (69) 103/44 (63) Pulse Ox 97 97 97 98 O2 Delivery Room Air Room Air Room Air Room Air O2 Flow Rate 8.0 06/25/18 06/25/18 06/25/18 06/25/18 04:00 04:00 04:00 04:26 Pulse 124 124 Resp 8 8 B/P (MAP) 106/44 (64) 103/44 (63) Pulse Ox 96 98 O2 Delivery Room Air Room Air Room Air O2 Flow Rate 8.0 06/25/18 06/25/18 06/25/18 06/25/18 04:56 05:00 06:00 06:49 Temp 99.3 99.1 99.3 99.1 Pulse 125 125 136 Resp 10 9 10 13 B/P (MAP) 109/46 (67) 103/41 (61) 105/49 Pulse Ox 96 95 96 O2 Delivery Room Air Room Air Room Air O2 Flow Rate 8.0 06/25/18 06/25/18 06/25/18 06/25/18 07:00 07:04 08:00 08:00 Temp 99.2 99.2 99.2 99.2 Pulse 134 124 124 Resp 12 20 10 B/P (MAP) 98/40 (59) 108/50 112/50 (70) Pulse Ox 94 96 O2 Delivery Room Air Room Air 06/25/18 06/25/18 06/25/18 06/25/18 08:00 08:04 08:32 08:45 Temp 99.2 99.2 99.3 99.2 99.2 99.3 Pulse 123 128 124 Resp 14 12 12 B/P (MAP) 117/51 134/58 128/46 O2 Delivery Room Air 06/25/18 06/25/18 06/25/18 06/25/18 09:00 09:45 10:00 11:00 Temp 99.5 99.5 99.5 99.5 Pulse 124 122 122 118 Resp 10 12 14 12 B/P (MAP) 130/56 (80) 124/57 128/58 (81) 124/52 (76) Pulse Ox 97 97 96 O2 Delivery Room Air Room Air Room Air Intake and Output 06/24/18 06/24/18 06/25/18 15:00 23:00 07:00 Intake Total 3000 ml Output Total 770 ml 525 ml 600 ml Balance 2230 ml -525 ml -600 ml DENNIS HOLCOMB MD Jun 25, 2018 13:28
[2018-06-25] MEDS: NOREPINEPHRIN 8MG/250ML PREMIX 250 ML IV PRN (13:45)
[2018-06-25] MEDS: VANCOMYCIN 1.5 GM in IV NORMAL SALINE 500ML BAG 500 ML IV SCH (13:46)
[2018-06-25] MEDS: LACTOBACILLUS RHAMNOSUS GG 1 CAPSULE. PO SCH (21:00)
[2018-06-26] VITALS (17 sets, daily range): BP systolic 120–151; BP diastolic 42–75
[2018-06-26] MEDS: MORPHINE SULFATE 10 MG/ML VIAL. IV PRN ×6 (01:24→20:43)
[2018-06-26 04:41] LABS: BASO % 0 % (0-3); EOS % 0 % (0-3); HEMATOCRIT 23.1 % (36.0-47.0); HEMOGLOBIN 8.2 g/dL (12.0-15.5); LYMPH # 1.1 x10^3/uL (1.0-4.8); LYMPH % 5 % (24-48); MEAN CORPUSCULAR HEMOGLOBIN 31 pg (25-35); MEAN CORPUSCULAR HGB CONC 35 g/dL (31-37); MEAN CORPUSCULAR VOLUME 88 fL (79-100); MONO # 2.1 x10^3/uL (0.0-1.1); MONO % 10 % (0-9); NEUT # 17.5 x10^3uL (1.8-7.7); NEUT % 84 % (31-73); PLATELET COUNT 136 x10^3/uL (140-400); RED BLOOD COUNT 2.64 x10^6/uL (3.50-5.40); RED CELL DISTRIBUTION WIDTH 15.3 % (11.5-14.5); WHITE BLOOD COUNT 20.8 x10^3/uL (4.0-11.0)
[2018-06-26 05:34] LABS: CALCIUM 6.5 mg/dL (8.5-10.1); CREATININE 0.5 mg/dL (0.6-1.0); GFR 142.2; POTASSIUM 3.3 mmol/L (3.5-5.1)
[2018-06-26] MEDS ORDERED: CALCIUM GLUCONATE 1,000 MG in IV DEXTROSE 5% 100ML 100 ML IV ONE (07:15)
--- NOTE | 2018-06-26 07:18 | PDOC ---
Infectious Disease Note Subjective: Subjective pt is sleepy but arousable, on pressors s/p PRBCs ROS: ROS Negative except for above. Vital Signs: Vital Signs Vital Signs Date Time Temp Pulse Resp B/P (MAP) Pulse Ox O2 Delivery O2 Flow Rate FiO2 06/26/18 06:00 102 19 147/50 (82) 97 Room Air 06/26/18 01:54 8.0 06/26/18 00:01 99.1 99.1 Physical Exam: PHYSICAL EXAM GENERAL: sleepy but arousable HEENT: Anicteric, no thrush. Oral mucosa moist. NG tube. NECK: Supple.RT IJ in place LUNGS: dec bs at bases HEART: S1, S2, tachycardia. ABDOMEN: Soft. surgical wound dressed drain and ostomy intact. lorenzo in place EXTREMITIES: No cyanosis, no edema. DERMATOLOGIC: Warm, dry, no generalized rash. CENTRAL NERVOUS SYSTEM: Moves all 4 extremities. Medications: Inpatient Meds: Current Medications Medications (Trade) Dose Ordered Sig/[place] Start Time Stop Time Status Last Admin Dose Admin Acetaminophen (Tylenol) 650 mg PRN Q6HRS PRN 06/23/18 09:15 Albumin Human 250 ml @ 62.5 mls/hr 1X ONCE 06/24/18 19:15 06/24/18 23:14 DC 06/24/18 20:32 62.5 MLS/HR Calcium Chloride 1000 mg/Dextrose 60 ml @ 120 mls/hr 1X ONCE 06/24/18 14:00 06/24/18 14:29 DC 06/24/18 14:28 120 MLS/HR Calcium Gluconate 1000 mg/Dextrose 110 ml @ 220 mls/hr 1X ONCE 06/26/18 07:15 06/26/18 07:44 Cefepime HCl (Maxipime) 1 gm Q12HR 06/24/18 14:30 06/25/18 21:05 1 GM Cefepime HCl 1 gm/ Dextrose 50 ml @ 100 mls/hr Q12HR 06/24/18 14:30 Cancel Cefoxitin Sodium 100 ml @ 200 mls/hr OC PROC ONCE 06/24/18 12:00 06/24/18 12:29 DC 06/24/18 08:43 200 MLS/HR Cefoxitin Sodium 2 gm/Dextrose 100 ml @ 200 mls/hr ONCE ONCE 06/24/18 05:00 06/24/18 05:29 DC 06/24/18 06:45 200 MLS/HR Diphenhydramine HCl (Benadryl) 25 mg PRN Q6HRS PRN 06/24/18 09:15 06/24/18 23:49 25 MG Docusate Sodium (Colace) 100 mg PRN DAILY PRN 06/23/18 09:15 Enoxaparin Sodium (Lovenox 40mg Syringe) 40 mg Q24H 06/26/18 16:00 Etomidate (Amidate) 20 mg STK-MED ONCE 06/24/18 07:17 06/24/18 07:18 DC Fentanyl Citrate (Fentanyl 2ml Vial) 100 mcg STK-MED ONCE 06/24/18 10:24 06/24/18 10:25 DC Fentanyl Citrate (Fentanyl 5ml Vial) 250 mcg STK-MED ONCE 06/24/18 07:16 06/24/18 07:18 DC Furosemide (Lasix) 40 mg 1X ONCE 06/24/18 19:15 06/24/18 19:16 DC 06/25/18 09:05 40 MG Glycopyrrolate (Robinul) 1 mg STK-MED ONCE 06/24/18 08:39 06/24/18 08:40 DC Heparin Sodium (Porcine) (HEPARIN for NUC MED) 100 unit 1X ONCE 06/23/18 03:30 06/23/18 03:31 DC 06/23/18 03:30 100 UNIT Heparin Sodium/ Sodium Chloride (HEPARIN for ARTERIAL LINE FLUSH) 1,000 unit 1X ONCE 06/23/18 10:15 06/23/18 10:16 DC 06/23/18 10:15 1,000 UNIT Hydromorphone HCl (Dilaudid) 2 mg STK-MED ONCE 06/24/18 11:04 06/24/18 11:05 DC Info (CONTRAST GIVEN -- Rx MONITORING) 1 each PRN DAILY PRN 06/23/18 06:30 06/25/18 06:29 DC Iodixanol (Visipaque 320) 50 ml STK-MED ONCE 06/23/18 11:01 06/23/18 11:02 DC Iohexol (Omnipaque 300 Mg/ml) 90 ml 1X ONCE 06/23/18 07:00 06/23/18 07:01 DC 06/23/18 07:15 90 ML Lactobacillus Rhamnosus (Culturelle) 1 cap BID 06/25/18 21:00 Lidocaine HCl (Xylocaine-Mpf 1% 2ml Vial) 2 ml PRN 1X PRN 06/24/18 10:00 06/24/18 18:00 DC Lidocaine/Sodium Bicarbonate (Buffered Lidocaine 1%) 3 ml 1X ONCE 06/23/18 10:15 06/23/18 10:16 DC 06/23/18 10:15 7 ML Midazolam HCl (Versed) 2 mg 1X ONCE 06/23/18 10:15 06/23/18 10:16 DC Morphine Sulfate (Morphine Sulfate) 5 mg PRN Q2HR PRN 06/24/18 22:45 06/26/18 01:24 5 MG Neostigmine Methylsulfate (Neostigmine Methylsulfate) 5 mg STK-MED ONCE 06/24/18 08:38 06/24/18 08:40 DC Norepinephrine Bitartrate 250 ml @ 1.875 mls/ hr CONT PRN 06/24/18 03:15 06/25/18 13:45 9.4 MLS/HR Ondansetron HCl (Zofran) 4 mg PRN Q6HRS PRN 06/24/18 10:00 06/24/18 18:00 DC Pantoprazole Sodium (PROTONIX VIAL for IV PUSH) 40 mg DAILYAC 06/23/18 07:30 06/25/18 09:09 40 MG Potassium Chloride/Sodium Chloride 1,000 ml @ 100 mls/hr Q10H 06/24/18 09:13 06/25/18 20:58 100 MLS/HR Potassium Chloride/Water 50 ml @ 50 mls/hr 1X ONCE 06/26/18 08:00 06/26/18 08:59 Prochlorperazine Edisylate (Compazine) 10 mg STK-MED ONCE 06/24/18 10:24 06/24/18 10:25 DC Propofol (Diprivan) 200 mg STK-MED ONCE 06/24/18 10:00 06/25/18 12:24 DC Ringer's Solution 1,000 ml @ 30 mls/hr Q24H 06/24/18 09:52 06/24/18 21:51 DC 06/24/18 11:34 30 MLS/HR Rocuronium [place] (Zemuron) 100 mg STK-MED ONCE 06/24/18 05:48 06/24/18 05:49 DC Sodium Chloride (Normal Saline Flush) 3 ml QSHIFT PRN 06/24/18 09:15 Succinylcholine Chloride (Anectine) 200 mg STK-MED ONCE 06/24/18 05:48 06/24/18 05:49 DC Throat Lozenges (Cepacol Sore Throat Lozenge) 1 geni PRN Q2HRS PRN 06/24/18 09:15 Throat Lozenges (Chloraseptic) 1 spray PRN Q2HR PRN 06/24/18 09:15 06/25/18 19:34 1 SPRAY Tramadol HCl (Ultram) 50 mg PRN Q6HRS PRN 06/23/18 09:15 Vancomycin HCl (Vanco Per Pharmacy) 1 each PRN DAILY PRN 06/24/18 09:00 06/25/18 11:18 1 EACH Vancomycin HCl (Vancomycin Trough Level) 1 each 1X ONCE 06/26/18 12:30 06/26/18 12:31 Vancomycin HCl 1.5 gm/Sodium Chloride 500 ml @ 250 mls/hr Q24H 06/25/18 13:00 06/25/18 13:46 250 MLS/HR Vancomycin HCl 2 gm/Sodium Chloride 500 ml @ 250 mls/hr 1X ONCE 06/24/18 09:30 06/24/18 11:29 DC 06/24/18 12:47 250 MLS/HR Labs: Lab Laboratory Tests Test 06/25/18 11:40 06/25/18 13:40 06/26/18 04:30 Prothrombin Time 15.5 SEC (11.7-14.0) Prothromb Time International Ratio 1.3 (0.8-1.1) Fibrinogen 368 mg/dL (200-440) D-Dimer (Betsy) 0.63 ug/mlFEU (0.00-0.50) Hemoglobin 9.2 g/dL (12.0-15.5) 8.2 g/dL (12.0-15.5) White Blood Count 20.8 x10^3/uL (4.0-11.0) Red Blood Count 2.64 x10^6/uL (3.50-5.40) Hematocrit 23.1 % (36.0-47.0) Mean Corpuscular Volume 88 fL (79-100) Mean Corpuscular Hemoglobin 31 pg (25-35) Mean Corpuscular Hemoglobin Concent 35 g/dL (31-37) Red Cell Distribution Width 15.3 % (11.5-14.5) Platelet Count 136 x10^3/uL (140-400) Neutrophils (%) (Auto) 84 % (31-73) Lymphocytes (%) (Auto) 5 % (24-48) Monocytes (%) (Auto) 10 % (0-9) Eosinophils (%) (Auto) 0 % (0-3) Basophils (%) (Auto) 0 % (0-3) Neutrophils # (Auto) 17.5 x10^3uL (1.8-7.7) Lymphocytes # (Auto) 1.1 x10^3/uL (1.0-4.8) Monocytes # (Auto) 2.1 x10^3/uL (0.0-1.1) Eosinophils # (Auto) 0.0 x10^3/uL (0.0-0.7) Basophils # (Auto) 0.0 x10^3/uL (0.0-0.2) Sodium Level 145 mmol/L (136-145) Potassium Level 3.3 mmol/L (3.5-5.1) Chloride Level 112 mmol/L (98-107) Carbon Dioxide Level 26 mmol/L (21-32) Anion Gap 7 (6-14) Blood Urea Nitrogen 9 mg/dL (7-20) Creatinine 0.5 mg/dL (0.6-1.0) Estimated GFR (Cockcroft-Gault) 142.2 Glucose Level 129 mg/dL (70-99) Calcium Level 6.5 mg/dL (8.5-10.1) Objective: Assessment: 1. Bright red blood per rectum secondary to diverticulosis, status post colectomy, 06/24/2018. 2. Hypotension with gastrointestinal bleed. 3. Two out of 3 bottles positive for gram-positive cocci in clusters suggestive of Staphylococcus bacteremia. 4. E coli on urine c/s 5. Hypertension/hyperlipidemia. 6. Diabetes mellitus 2. 7. Thrombocytopenia. 8. Hypocalcemia. 9. Anemia. Plan: Plan of Care 1. Continue vancomycin and cefepime 2. f/u bc 3. Follow up culture and suscep results. 4. Follow up labs in MIGUEL A Dyson MD Jun 26, 2018 07:18
[2018-06-26] MEDS: LACTOBACILLUS RHAMNOSUS GG 1 CAPSULE. PO SCH ×2 (07:49→20:41)
[2018-06-26] MEDS ORDERED: POTASSIUM CHLORIDE 20MEQ 50 ML IV ONE (08:00)
[2018-06-26] MEDS: PANTOPRAZOLE IV PUSH 40 MG VIAL. IVP SCH (08:10)
[2018-06-26] MEDS: POTASSIUM CL 20MEQ-0.45% NACL 1,000 ML IV SCH ×2 (08:10→13:46)
[2018-06-26] MEDS: CEFEPIME HCL IV Push 1 GM VIAL. IVP SCH ×2 (08:10→20:45)
--- NOTE | 2018-06-26 09:40 | PDOC ---
SURGICAL PROGRESS NOTE Subjective Patient resting comfortably in bed denies much pain no nausea. Vital Signs Vital Signs Date Time Temp Pulse Resp B/P (MAP) Pulse Ox O2 Delivery O2 Flow Rate FiO2 06/26/18 09:01 122/61 (81) 06/26/18 09:00 108 18 97 Room Air 06/26/18 08:00 99.3 99.3 06/26/18 01:54 8.0 I&O Intake and Output 06/26/18 07:00 Intake Total 4830 ml Output Total 4660 ml Balance 170 ml IV Total 4230 ml Blood Product IV Normal Saline Flush 600 ml Output Urine Total 4190 ml Drainage Total 470 ml PATIENT HAS A KEANE: Yes General: Alert, Oriented X3, Cooperative, mild distress Abdomen: Normal bowel sounds, Soft, No tenderness, Other (bilious output via the ileostomy and G-tube in place with minimal output) Labs Laboratory Tests Test 06/24/18 09:45 06/24/18 18:40 06/25/18 04:15 06/25/18 04:19 White Blood Count 22.4 x10^3/uL (4.0-11.0) 29.3 x10^3/uL (4.0-11.0) 27.0 x10^3/uL (4.0-11.0) Red Blood Count 2.74 x10^6/uL (3.50-5.40) 2.59 x10^6/uL (3.50-5.40) 2.05 x10^6/uL (3.50-5.40) Hemoglobin 8.2 g/dL (12.0-15.5) 7.6 g/dL (12.0-15.5) 6.1 g/dL (12.0-15.5) Hematocrit 23.5 % (36.0-47.0) 22.0 % (36.0-47.0) 17.6 % (36.0-47.0) Mean Corpuscular Volume 86 fL (79-100) 85 fL (79-100) 86 fL (79-100) Mean Corpuscular Hemoglobin 30 pg (25-35) 29 pg (25-35) 30 pg (25-35) Mean Corpuscular Hemoglobin Concent 35 g/dL (31-37) 34 g/dL (31-37) 35 g/dL (31-37) Red Cell Distribution Width 15.4 % (11.5-14.5) 16.3 % (11.5-14.5) 16.2 % (11.5-14.5) Platelet Count 113 x10^3/uL (140-400) 131 x10^3/uL (140-400) 125 x10^3/uL (140-400) Sodium Level 145 mmol/L (136-145) 144 mmol/L (136-145) 146 mmol/L (136-145) Potassium Level 3.2 mmol/L (3.5-5.1) 3.7 mmol/L (3.5-5.1) 3.4 mmol/L (3.5-5.1) Chloride Level 115 mmol/L (98-107) 113 mmol/L (98-107) 116 mmol/L (98-107) Carbon Dioxide Level 21 mmol/L (21-32) 21 mmol/L (21-32) 20 mmol/L (21-32) Anion Gap 9 (6-14) 10 (6-14) 10 (6-14) Blood Urea Nitrogen 16 mg/dL (7-20) 19 mg/dL (7-20) 16 mg/dL (7-20) Creatinine 0.8 mg/dL (0.6-1.0) 0.8 mg/dL (0.6-1.0) 0.6 mg/dL (0.6-1.0) Estimated GFR (Cockcroft-Gault) 82.7 82.7 115.2 Glucose Level 216 mg/dL (70-99) 179 mg/dL (70-99) 153 mg/dL (70-99) Glucose (Fingerstick) 192 mg/dL (70-99) 146 mg/dL (70-99) Calcium Level 5.7 mg/dL (8.5-10.1) 6.5 mg/dL (8.5-10.1) 5.9 mg/dL (8.5-10.1) Neutrophils (%) (Auto) 82 % (31-73) Lymphocytes (%) (Auto) 5 % (24-48) Monocytes (%) (Auto) 12 % (0-9) Eosinophils (%) (Auto) 0 % (0-3) Basophils (%) (Auto) 0 % (0-3) Neutrophils # (Auto) 22.3 x10^3uL (1.8-7.7) Lymphocytes # (Auto) 1.4 x10^3/uL (1.0-4.8) Monocytes # (Auto) 3.4 x10^3/uL (0.0-1.1) Eosinophils # (Auto) 0.0 x10^3/uL (0.0-0.7) Basophils # (Auto) 0.0 x10^3/uL (0.0-0.2) Test 06/25/18 06:00 06/25/18 11:40 06/25/18 13:40 06/26/18 04:30 Ionized Calcium 0.94 mmol/L (1.13-1.32) Prothrombin Time 15.5 SEC (11.7-14.0) Prothromb Time International Ratio 1.3 (0.8-1.1) Fibrinogen 368 mg/dL (200-440) D-Dimer (Betsy) 0.63 ug/mlFEU (0.00-0.50) Hemoglobin 9.2 g/dL (12.0-15.5) 8.2 g/dL (12.0-15.5) White Blood Count 20.8 x10^3/uL (4.0-11.0) Red Blood Count 2.64 x10^6/uL (3.50-5.40) Hematocrit 23.1 % (36.0-47.0) Mean Corpuscular Volume 88 fL (79-100) Mean Corpuscular Hemoglobin 31 pg (25-35) Mean Corpuscular Hemoglobin Concent 35 g/dL (31-37) Red Cell Distribution Width 15.3 % (11.5-14.5) Platelet Count 136 x10^3/uL (140-400) Neutrophils (%) (Auto) 84 % (31-73) Lymphocytes (%) (Auto) 5 % (24-48) Monocytes (%) (Auto) 10 % (0-9) Eosinophils (%) (Auto) 0 % (0-3) Basophils (%) (Auto) 0 % (0-3) Neutrophils # (Auto) 17.5 x10^3uL (1.8-7.7) Lymphocytes # (Auto) 1.1 x10^3/uL (1.0-4.8) Monocytes # (Auto) 2.1 x10^3/uL (0.0-1.1) Eosinophils # (Auto) 0.0 x10^3/uL (0.0-0.7) Basophils # (Auto) 0.0 x10^3/uL (0.0-0.2) Sodium Level 145 mmol/L (136-145) Potassium Level 3.3 mmol/L (3.5-5.1) Chloride Level 112 mmol/L (98-107) Carbon Dioxide Level 26 mmol/L (21-32) Anion Gap 7 (6-14) Blood Urea Nitrogen 9 mg/dL (7-20) Creatinine 0.5 mg/dL (0.6-1.0) Estimated GFR (Cockcroft-Gault) 142.2 Glucose Level 129 mg/dL (70-99) Calcium Level 6.5 mg/dL (8.5-10.1) Laboratory Tests Test 06/25/18 11:40 06/25/18 13:40 06/26/18 04:30 Prothrombin Time 15.5 SEC (11.7-14.0) Prothromb Time International Ratio 1.3 (0.8-1.1) Fibrinogen 368 mg/dL (200-440) D-Dimer (Betsy) 0.63 ug/mlFEU (0.00-0.50) Hemoglobin 9.2 g/dL (12.0-15.5) 8.2 g/dL (12.0-15.5) White Blood Count 20.8 x10^3/uL (4.0-11.0) Red Blood Count 2.64 x10^6/uL (3.50-5.40) Hematocrit 23.1 % (36.0-47.0) Mean Corpuscular Volume 88 fL (79-100) Mean Corpuscular Hemoglobin 31 pg (25-35) Mean Corpuscular Hemoglobin Concent 35 g/dL (31-37) Red Cell Distribution Width 15.3 % (11.5-14.5) Platelet Count 136 x10^3/uL (140-400) Neutrophils (%) (Auto) 84 % (31-73) Lymphocytes (%) (Auto) 5 % (24-48) Monocytes (%) (Auto) 10 % (0-9) Eosinophils (%) (Auto) 0 % (0-3) Basophils (%) (Auto) 0 % (0-3) Neutrophils # (Auto) 17.5 x10^3uL (1.8-7.7) Lymphocytes # (Auto) 1.1 x10^3/uL (1.0-4.8) Monocytes # (Auto) 2.1 x10^3/uL (0.0-1.1) Eosinophils # (Auto) 0.0 x10^3/uL (0.0-0.7) Basophils # (Auto) 0.0 x10^3/uL (0.0-0.2) Sodium Level 145 mmol/L (136-145) Potassium Level 3.3 mmol/L (3.5-5.1) Chloride Level 112 mmol/L (98-107) Carbon Dioxide Level 26 mmol/L (21-32) Anion Gap 7 (6-14) Blood Urea Nitrogen 9 mg/dL (7-20) Creatinine 0.5 mg/dL (0.6-1.0) Estimated GFR (Cockcroft-Gault) 142.2 Glucose Level 129 mg/dL (70-99) Calcium Level 6.5 mg/dL (8.5-10.1) Problem List Problems Medical Problems: (1) Anemia Status: Acute (2) Dehydration Status: Acute (3) Rectal bleeding Status: Acute Assessment/Plan Status post exploratory laparotomy with lysis of adhesions and ileostomy. We will DC NG tube Awaiting return of bowel function prior to starting diet Patient stable from a surgical standpoint to be transferred out of ICU EDGAR CORADO MD Jun 26, 2018 09:40
[2018-06-26] MEDS: VANCOMYCIN PER PHARMACY MC PRN ×2 (09:48→15:27)
--- NOTE | 2018-06-26 12:07 | PDOC ---
PROGRESS NOTES Chief Complaint Chief Complaint bright red blood per rectum, 2/2 diverticulosis 2/2 Colectomy and left salpingo -oophorectomy.06/24 hypotension with gib, requried pressors acute anemia with gib HTN dm2 hld morbid obesity /3 + bcx bacteremia sepsis with bacteremia hypokalemia hypocalcemia plan: FU WITH GI, IR total got 9u PRBC transfusion, plt and FFP transfusion hold po meds npo, fu colostomy, ELI drain, sx wound care 1/2 NS +K 100cc/h IR angiogram neg bleeding. + bleeding scan, neg CTA. EGD today non obstructing shatki ring. colectomy since cont bleeding with low hb and low bp. gi ppx fu with ID, fu bcx, on vanco and cefepime for now 2 u PRBC today, repeat hh at 2pm. talked to daughter at bedside off levaphed lovenox dvt ppx ok transfer out of ICU History of Present Illness History of Present Illness ROS: no fever, chills, sob or chest pain before sx: cont rectal bleeding with some abd cramps overnight, as per nurse could have about 2L blood loss bp low, need levaqhed since sx + bleeding scan, neg CTA. got Colectomy and left salpingo-oophorectomy 06/24, hb low again 06/25, no active bleeding , another 2u RPBC after sx: no active bleeding, hb stable after transfusion Vitals Vitals Vital Signs Date Time Temp Pulse Resp B/P (MAP) Pulse Ox O2 Delivery O2 Flow Rate FiO2 06/26/18 11:00 100 16 136/62 (86) 98 Room Air 06/26/18 08:00 99.3 99.3 06/26/18 01:54 8.0 Physical Exam Physical Exam GENERAL: sleepy but arousable HEENT: Anicteric, no thrush. Oral mucosa moist. NG tube. NECK: Supple.RT IJ in place LUNGS: dec bs at bases HEART: S1, S2, tachycardia. ABDOMEN: Soft. surgical wound dressed drain and ostomy intact. lorenzo in place EXTREMITIES: No cyanosis, no edema. DERMATOLOGIC: Warm, dry, no generalized rash. CENTRAL NERVOUS SYSTEM: Moves all 4 extremities. General: Alert, Oriented X3, Cooperative, mild distress Heart: Regular rate Lungs: Clear Abdomen: Normal bowel sounds, Soft, No tenderness, Other (bilious output via the ileostomy and G-tube in place with minimal output) Extremities: No cyanosis Skin: Other (warm, dry) Labs LABS Laboratory Tests Test 06/25/18 13:40 06/26/18 04:30 Hemoglobin 9.2 g/dL (12.0-15.5) 8.2 g/dL (12.0-15.5) White Blood Count 20.8 x10^3/uL (4.0-11.0) Red Blood Count 2.64 x10^6/uL (3.50-5.40) Hematocrit 23.1 % (36.0-47.0) Mean Corpuscular Volume 88 fL (79-100) Mean Corpuscular Hemoglobin 31 pg (25-35) Mean Corpuscular Hemoglobin Concent 35 g/dL (31-37) Red Cell Distribution Width 15.3 % (11.5-14.5) Platelet Count 136 x10^3/uL (140-400) Neutrophils (%) (Auto) 84 % (31-73) Lymphocytes (%) (Auto) 5 % (24-48) Monocytes (%) (Auto) 10 % (0-9) Eosinophils (%) (Auto) 0 % (0-3) Basophils (%) (Auto) 0 % (0-3) Neutrophils # (Auto) 17.5 x10^3uL (1.8-7.7) Lymphocytes # (Auto) 1.1 x10^3/uL (1.0-4.8) Monocytes # (Auto) 2.1 x10^3/uL (0.0-1.1) Eosinophils # (Auto) 0.0 x10^3/uL (0.0-0.7) Basophils # (Auto) 0.0 x10^3/uL (0.0-0.2) Sodium Level 145 mmol/L (136-145) Potassium Level 3.3 mmol/L (3.5-5.1) Chloride Level 112 mmol/L (98-107) Carbon Dioxide Level 26 mmol/L (21-32) Anion Gap 7 (6-14) Blood Urea Nitrogen 9 mg/dL (7-20) Creatinine 0.5 mg/dL (0.6-1.0) Estimated GFR (Cockcroft-Gault) 142.2 Glucose Level 129 mg/dL (70-99) Calcium Level 6.5 mg/dL (8.5-10.1) Assessment and Plan Assessmemt and Plan Problems Medical Problems: (1) Anemia Status: Acute (2) Dehydration Status: Acute (3) Rectal bleeding Status: Acute Comment Review of Relevant I have reviewed the following items fabiola (where applicable) has been applied. Labs Laboratory Tests Test 06/24/18 18:40 06/25/18 04:15 06/25/18 04:19 06/25/18 06:00 White Blood Count 29.3 x10^3/uL (4.0-11.0) 27.0 x10^3/uL (4.0-11.0) Red Blood Count 2.59 x10^6/uL (3.50-5.40) 2.05 x10^6/uL (3.50-5.40) Hemoglobin 7.6 g/dL (12.0-15.5) 6.1 g/dL (12.0-15.5) Hematocrit 22.0 % (36.0-47.0) 17.6 % (36.0-47.0) Mean Corpuscular Volume 85 fL (79-100) 86 fL (79-100) Mean Corpuscular Hemoglobin 29 pg (25-35) 30 pg (25-35) Mean Corpuscular Hemoglobin Concent 34 g/dL (31-37) 35 g/dL (31-37) Red Cell Distribution Width 16.3 % (11.5-14.5) 16.2 % (11.5-14.5) Platelet Count 131 x10^3/uL (140-400) 125 x10^3/uL (140-400) Sodium Level 144 mmol/L (136-145) 146 mmol/L (136-145) Potassium Level 3.7 mmol/L (3.5-5.1) 3.4 mmol/L (3.5-5.1) Chloride Level 113 mmol/L (98-107) 116 mmol/L (98-107) Carbon Dioxide Level 21 mmol/L (21-32) 20 mmol/L (21-32) Anion Gap 10 (6-14) 10 (6-14) Blood Urea Nitrogen 19 mg/dL (7-20) 16 mg/dL (7-20) Creatinine 0.8 mg/dL (0.6-1.0) 0.6 mg/dL (0.6-1.0) Estimated GFR (Cockcroft-Gault) 82.7 115.2 Glucose Level 179 mg/dL (70-99) 153 mg/dL (70-99) Calcium Level 6.5 mg/dL (8.5-10.1) 5.9 mg/dL (8.5-10.1) Neutrophils (%) (Auto) 82 % (31-73) Lymphocytes (%) (Auto) 5 % (24-48) Monocytes (%) (Auto) 12 % (0-9) Eosinophils (%) (Auto) 0 % (0-3) Basophils (%) (Auto) 0 % (0-3) Neutrophils # (Auto) 22.3 x10^3uL (1.8-7.7) Lymphocytes # (Auto) 1.4 x10^3/uL (1.0-4.8) Monocytes # (Auto) 3.4 x10^3/uL (0.0-1.1) Eosinophils # (Auto) 0.0 x10^3/uL (0.0-0.7) Basophils # (Auto) 0.0 x10^3/uL (0.0-0.2) Glucose (Fingerstick) 146 mg/dL (70-99) Ionized Calcium 0.94 mmol/L (1.13-1.32) Test 06/25/18 11:40 06/25/18 13:40 06/26/18 04:30 Prothrombin Time 15.5 SEC (11.7-14.0) Prothromb Time International Ratio 1.3 (0.8-1.1) Fibrinogen 368 mg/dL (200-440) D-Dimer (Betsy) 0.63 ug/mlFEU (0.00-0.50) Hemoglobin 9.2 g/dL (12.0-15.5) 8.2 g/dL (12.0-15.5) White Blood Count 20.8 x10^3/uL (4.0-11.0) Red Blood Count 2.64 x10^6/uL (3.50-5.40) Hematocrit 23.1 % (36.0-47.0) Mean Corpuscular Volume 88 fL (79-100) Mean Corpuscular Hemoglobin 31 pg (25-35) Mean Corpuscular Hemoglobin Concent 35 g/dL (31-37) Red Cell Distribution Width 15.3 % (11.5-14.5) Platelet Count 136 x10^3/uL (140-400) Neutrophils (%) (Auto) 84 % (31-73) Lymphocytes (%) (Auto) 5 % (24-48) Monocytes (%) (Auto) 10 % (0-9) Eosinophils (%) (Auto) 0 % (0-3) Basophils (%) (Auto) 0 % (0-3) Neutrophils # (Auto) 17.5 x10^3uL (1.8-7.7) Lymphocytes # (Auto) 1.1 x10^3/uL (1.0-4.8) Monocytes # (Auto) 2.1 x10^3/uL (0.0-1.1) Eosinophils # (Auto) 0.0 x10^3/uL (0.0-0.7) Basophils # (Auto) 0.0 x10^3/uL (0.0-0.2) Sodium Level 145 mmol/L (136-145) Potassium Level 3.3 mmol/L (3.5-5.1) Chloride Level 112 mmol/L (98-107) Carbon Dioxide Level 26 mmol/L (21-32) Anion Gap 7 (6-14) Blood Urea Nitrogen 9 mg/dL (7-20) Creatinine 0.5 mg/dL (0.6-1.0) Estimated GFR (Cockcroft-Gault) 142.2 Glucose Level 129 mg/dL (70-99) Calcium Level 6.5 mg/dL (8.5-10.1) Laboratory Tests Test 06/25/18 13:40 06/26/18 04:30 Hemoglobin 9.2 g/dL (12.0-15.5) 8.2 g/dL (12.0-15.5) White Blood Count 20.8 x10^3/uL (4.0-11.0) Red Blood Count 2.64 x10^6/uL (3.50-5.40) Hematocrit 23.1 % (36.0-47.0) Mean Corpuscular Volume 88 fL (79-100) Mean Corpuscular Hemoglobin 31 pg (25-35) Mean Corpuscular Hemoglobin Concent 35 g/dL (31-37) Red Cell Distribution Width 15.3 % (11.5-14.5) Platelet Count 136 x10^3/uL (140-400) Neutrophils (%) (Auto) 84 % (31-73) Lymphocytes (%) (Auto) 5 % (24-48) Monocytes (%) (Auto) 10 % (0-9) Eosinophils (%) (Auto) 0 % (0-3) Basophils (%) (Auto) 0 % (0-3) Neutrophils # (Auto) 17.5 x10^3uL (1.8-7.7) Lymphocytes # (Auto) 1.1 x10^3/uL (1.0-4.8) Monocytes # (Auto) 2.1 x10^3/uL (0.0-1.1) Eosinophils # (Auto) 0.0 x10^3/uL (0.0-0.7) Basophils # (Auto) 0.0 x10^3/uL (0.0-0.2) Sodium Level 145 mmol/L (136-145) Potassium Level 3.3 mmol/L (3.5-5.1) Chloride Level 112 mmol/L (98-107) Carbon Dioxide Level 26 mmol/L (21-32) Anion Gap 7 (6-14) Blood Urea Nitrogen 9 mg/dL (7-20) Creatinine 0.5 mg/dL (0.6-1.0) Estimated GFR (Cockcroft-Gault) 142.2 Glucose Level 129 mg/dL (70-99) Calcium Level 6.5 mg/dL (8.5-10.1) Microbiology 06/25/18 Blood Culture - Preliminary, Resulted NO GROWTH AFTER 1 DAY 06/22/18 Urine Culture - Final, Complete 06/22/18 Urine Culture Result 1 (ERICA) - Final, Complete 06/22/18 Antimicrobic Susceptibility - Final, Complete Medications Current Medications Pantoprazole Sodium (PROTONIX VIAL for IV PUSH) 80 mg 1X ONCE IVP Last administered on 06/22/18at 15:57; Start 06/22/18 at 15:30; Stop 06/22/18 at 15:32 ; Status DC Sodium Chloride 1,000 ml @ 1,000 mls/hr 1X ONCE IV Last administered on at 15:52; Start 06/22/18 at 15:30; Stop 06/22/18 at 16:29; Status DC Ondansetron HCl (Zofran) 4 mg PRN Q8HRS PRN IV NAUSEA/VOMITING; Start 06/22/18 at 16:15; Stop 06/23/18 at 16:14; Status DC Sodium Chloride 1,000 ml @ 150 mls/hr Q6H40M IV Last administered on at 06:27; Start 06/22/18 at 16:11; Stop 06/23/18 at 09:11; Status DC Iohexol (Omnipaque 300 Mg/ml) 75 ml 1X ONCE IV Last administered on 06/22/18at 17:04; Start 06/22/18 at 17:00; Stop 06/22/18 at 17:01; Status DC Info (CONTRAST GIVEN -- Rx MONITORING) 1 each PRN DAILY PRN MC SEE COMMENTS; Start 06/22/18 at 17:00; Stop 06/24/18 at 09:36; Status DC Sodium Chloride 1,000 ml @ 1,000 mls/hr 1X ONCE IV Last administered on at 17:45; Start 06/22/18 at 17:45; Stop 06/22/18 at 18:44; Status DC Pantoprazole Sodium (PROTONIX VIAL for IV PUSH) 40 mg DAILYAC IVP Last administered on 06/26/18at 08:10; Start 06/23/18 at 07:30 Heparin Sodium (Porcine) (HEPARIN for NUC MED) 100 unit 1X ONCE IV Last administered on 06/23/18at 03:30; Start 06/23/18 at 03:30; Stop 06/23/18 at 03:31 ; Status DC Acetaminophen (Tylenol) 650 mg 1X PRN PRN PO PRE-TRANSFUSION; Start 06/23/18 at 05:30 Diphenhydramine HCl (Benadryl) 25 mg PRN 1X PRN PO PRE-TRANSFUSION; Start 06/23 at 05:30 Iohexol (Omnipaque 300 Mg/ml) 90 ml 1X ONCE IV Last administered on 06/23/18at 07:15; Start 06/23/18 at 07:00; Stop 06/23/18 at 07:01; Status DC Info (CONTRAST GIVEN -- Rx MONITORING) 1 each PRN DAILY PRN MC SEE COMMENTS; Start 06/23/18 at 06:30; Stop 06/25/18 at 06:29; Status DC Acetaminophen (Tylenol) 650 mg PRN Q6HRS PRN PO FEVER; Start 06/23/18 at 09:15 Ondansetron HCl (Zofran) 4 mg PRN Q6HRS PRN IV NAUSEA/VOMITING Last administered on 06/24/18at 05:43; Start 06/23/18 at 09:15 Morphine Sulfate (Morphine Sulfate) 2 mg PRN Q2HR PRN IV MODERATE TO SEVERE PAIN; Start 06/23/18 at 09:15; Stop 06/24/18 at 09:36; Status DC Tramadol HCl (Ultram) 50 mg PRN Q6HRS PRN PO MILD TO MODERATE PAIN; Start 06/23 at 09:15 Docusate Sodium (Colace) 100 mg PRN DAILY PRN PO CONSTIPATION; Start 06/23/18 at 09:15 Sodium Chloride 1,000 ml @ 125 mls/hr Q8H IV Last administered on 06/24/18at 05 :55; Start 06/23/18 at 09:15; Stop 06/24/18 at 13:49; Status DC Iodixanol (Visipaque 320) 100 ml STK-MED ONCE .ROUTE ; Start 06/23/18 at 09:14; Stop 06/23/18 at 09:15; Status DC Lidocaine/Sodium Bicarbonate (Buffered Lidocaine 1%) 3 ml STK-MED ONCE .ROUTE ; Start 06/23/18 at 09:14; Stop 06/23/18 at 09:15; Status DC Iodixanol (Visipaque 320) 50 ml STK-MED ONCE .ROUTE ; Start 06/23/18 at 09:14; Stop 06/23/18 at 09:15; Status DC Heparin Sodium/ Sodium Chloride 1,000 ml @ As Directed STK-MED ONCE .ROUTE ; Start 06/23/18 at 09:14; Stop 06/23/18 at 09:15; Status DC Iodixanol (Visipaque 320) 100 ml STK-MED ONCE .ROUTE ; Start 06/23/18 at 09:31; Stop 06/23/18 at 09:32; Status DC Midazolam HCl (Versed) 2 mg STK-MED ONCE .ROUTE ; Start 06/23/18 at 09:34; Stop 06/23/18 at 09:35; Status DC Fentanyl Citrate (Fentanyl 2ml Vial) 100 mcg STK-MED ONCE .ROUTE ; Start at 09:34; Stop 06/23/18 at 09:35; Status DC Heparin Sodium/ Sodium Chloride (HEPARIN for ARTERIAL LINE FLUSH) 1,000 unit 1X ONCE IART Last administered on 06/23/18at 10:15; Start 06/23/18 at 10:15; Stop 06/23/18 at 10:16; Status DC Lidocaine/Sodium Bicarbonate (Buffered Lidocaine 1%) 3 ml 1X ONCE IJ Last administered on 06/23/18at 10:15; Start 06/23/18 at 10:15; Stop 06/23/18 at 10:16 ; Status DC Midazolam HCl (Versed) 2 mg 1X ONCE IV ; Start 06/23/18 at 10:15; Stop at 10:16; Status DC Fentanyl Citrate (Fentanyl 2ml Vial) 100 mcg 1X ONCE IV ; Start 06/23/18 at 10: 15; Stop 06/23/18 at 10:16; Status DC Iodixanol (Visipaque 320) 100 ml 1X ONCE IART Last administered on 06/23/18at 10:15; Start 06/23/18 at 10:15; Stop 06/23/18 at 10:16; Status DC Iodixanol (Visipaque 320) 100 ml STK-MED ONCE .ROUTE ; Start 06/23/18 at 10:09; Stop 06/23/18 at 10:10; Status DC Iodixanol (Visipaque 320) 50 ml STK-MED ONCE .ROUTE ; Start 06/23/18 at 11:01; Stop 06/23/18 at 11:02; Status DC Sodium Chloride 1,000 ml @ 1,000 mls/hr 1X ONCE IV Last administered on at 03:00; Start 06/24/18 at 03:15; Stop 06/24/18 at 04:14; Status DC Sodium Chloride 1,000 ml @ 1,000 mls/hr 1X ONCE IV Last administered on at 04:06; Start 06/24/18 at 04:15; Stop 06/24/18 at 05:14; Status DC Norepinephrine Bitartrate 250 ml @ 1.875 mls/ hr CONT PRN IV SEE I/O RECORD Last administered on 06/25/18at 13:45; Start 06/24/18 at 03:15 Cefoxitin Sodium 2 gm/Dextrose 100 ml @ 200 mls/hr ONCE ONCE IV Last administered on 06/24/18at 06:45; Start 06/24/18 at 05:00; Stop 06/24/18 at 05:29 ; Status DC Succinylcholine Chloride (Anectine) 200 mg STK-MED ONCE .ROUTE ; Start 06/24/18 at 05:48; Stop 06/24/18 at 05:49; Status DC Rocuronium [place]ard (Zemuron) 100 mg STK-MED ONCE .ROUTE ; Start 06/24/18 at 05: 48; Stop 06/24/18 at 05:49; Status DC Sodium Chloride 1,000 ml @ 1,000 mls/hr 1X ONCE IV Last administered on at 05:50; Start 06/24/18 at 05:50; Stop 06/24/18 at 06:49; Status DC Fentanyl Citrate (Fentanyl 5ml Vial) 250 mcg STK-MED ONCE .ROUTE ; Start at 07:16; Stop 06/24/18 at 07:18; Status DC Etomidate (Amidate) 20 mg STK-MED ONCE IV ; Start 06/24/18 at 07:17; Stop at 07:18; Status DC Propofol 20 ml @ As Directed STK-MED ONCE IV ; Start 06/24/18 at 07:17; Stop at 07:18; Status DC Ondansetron HCl (Zofran) 4 mg STK-MED ONCE .ROUTE ; Start 06/24/18 at 07:55; Stop 06/24/18 at 07:56; Status DC Neostigmine Methylsulfate (Neostigmine Methylsulfate) 5 mg STK-MED ONCE .ROUTE ; Start 06/24/18 at 08:38; Stop 06/24/18 at 08:40; Status DC Glycopyrrolate (Robinul) 1 mg STK-MED ONCE .ROUTE ; Start 06/24/18 at 08:39; Stop 06/24/18 at 08:40; Status DC Cefoxitin Sodium 100 ml @ As Directed STK-MED ONCE IV ; Start 06/24/18 at 07:42 ; Stop 06/24/18 at 08:43; Status DC Vancomycin HCl (Vanco Per Pharmacy) 1 each PRN DAILY PRN MC SEE COMMENTS Last administered on 06/26/18at 09:48; Start 06/24/18 at 09:00 Vancomycin HCl 2 gm/Sodium Chloride 500 ml @ 250 mls/hr 1X ONCE IV Last administered on 06/24/18at 12:47; Start 06/24/18 at 09:30; Stop 06/24/18 at 11:29 ; Status DC Cefoxitin Sodium 50 ml @ 100 mls/hr 1X PERIOP IV ; Start 06/24/18 at 09:15; Status Cancel Diphenhydramine HCl (Benadryl) 25 mg PRN Q6HRS PRN IV ITCHING Last administered on 06/24/18at 23:49; Start 06/24/18 at 09:15 Enoxaparin Sodium (Lovenox 40mg Syringe) 40 mg Q24H SQ ; Start 06/24/18 at 10:00 ; Stop 06/24/18 at 10:00; Status DC Sodium Chloride (Normal Saline Flush) 3 ml QSHIFT PRN IV AFTER MEDS AND BLOOD DRAWS; Start 06/24/18 at 09:15 Potassium Chloride/Sodium Chloride 1,000 ml @ 100 mls/hr Q10H IV Last administered on 06/26/18at 08:10; Start 06/24/18 at 09:13 Morphine Sulfate (Morphine Sulfate) 5 mg PRN Q3HRS PRN IV MODERATE-SEVERE PAIN Last administered on 06/24/18at 20:38; Start 06/24/18 at 09:45; Stop 06/24/18 at 22:38; Status DC Ondansetron HCl (Zofran) 4 mg PRN Q6HRS PRN IV NAUESA, 1ST CHOICE; Start at 09:15; Stop 06/24/18 at 14:47; Status DC Throat Lozenges (Chloraseptic) 1 spray PRN Q2HR PRN PO SORE THROAT Last administered on 06/25/18at 19:34; Start 06/24/18 at 09:15 Throat Lozenges (Cepacol Sore Throat Lozenge) 1 geni PRN Q2HRS PRN PO SORE THROAT; Start 06/24/18 at 09:15 Enoxaparin Sodium (Lovenox 40mg Syringe) 40 mg Q24H SQ ; Start 06/25/18 at 09:00 ; Stop 06/25/18 at 10:53; Status DC Ondansetron HCl (Zofran) 4 mg PRN Q6HRS PRN IV NAUSEA/VOMITING; Start 06/24/18 at 10:00; Stop 06/24/18 at 18:00; Status DC Fentanyl Citrate (Fentanyl 2ml Vial) 25 mcg PRN Q5MIN PRN IV MILD PAIN; Start 06/24/18 at 10:00; Stop 06/24/18 at 18:00; Status DC Fentanyl Citrate (Fentanyl 2ml Vial) 50 mcg PRN Q5MIN PRN IV MODERATE TO SEVERE PAIN Last administered on 06/24/18at 14:28; Start 06/24/18 at 10:00; Stop 06/24/18 at 18:00; Status DC Morphine Sulfate (Morphine Sulfate) 1 mg PRN Q10MIN PRN IV SEVERE PAIN; Start 06/24/18 at 10:00; Stop 06/24/18 at 18:00; Status DC Ringer's Solution 1,000 ml @ 30 mls/hr Q24H IV Last administered on 06/24/18at 11:34; Start 06/24/18 at 09:52; Stop 06/24/18 at 21:51; Status DC Lidocaine HCl (Xylocaine-Mpf 1% 2ml Vial) 2 ml PRN 1X PRN ID PRIOR TO IV START ; Start 06/24/18 at 10:00; Stop 06/24/18 at 18:00; Status DC Hydromorphone HCl (Dilaudid) 0.5 mg PRN Q10MIN PRN IV SEV PAIN, Second choice Last administered on 06/24/18at 15:15; Start 06/24/18 at 10:00; Stop 06/24/18 at 18:00; Status DC Prochlorperazine Edisylate (Compazine) 5 mg PACU PRN PRN IV NAUSEA, MRX1 Last administered on 06/24/18at 10:47; Start 06/24/18 at 10:00; Stop 06/24/18 at 18:00 ; Status DC Fentanyl Citrate (Fentanyl 2ml Vial) 100 mcg STK-MED ONCE .ROUTE ; Start at 10:24; Stop 06/24/18 at 10:25; Status DC Prochlorperazine Edisylate (Compazine) 10 mg STK-MED ONCE .ROUTE ; Start at 10:24; Stop 06/24/18 at 10:25; Status DC Hydromorphone HCl (Dilaudid) 2 mg STK-MED ONCE .ROUTE ; Start 06/24/18 at 11:04 ; Stop 06/24/18 at 11:05; Status DC Cefoxitin Sodium 100 ml @ 200 mls/hr OC PROC ONCE IV Last administered on at 08:43; Start 06/24/18 at 12:00; Stop 06/24/18 at 12:29; Status DC Vancomycin HCl 1.5 gm/Sodium Chloride 500 ml @ 250 mls/hr Q24H IV Last administered on 06/25/18at 13:46; Start 06/25/18 at 13:00 Vancomycin HCl (Vancomycin Trough Level) 1 each 1X ONCE MC ; Start 06/26/18 at 12:30; Stop 06/26/18 at 12:31 Potassium Chloride/Water 50 ml @ 50 mls/hr 1X ONCE IV Last administered on at 14:29; Start 06/24/18 at 14:00; Stop 06/24/18 at 14:59; Status DC Calcium Chloride 1000 mg/Dextrose 60 ml @ 120 mls/hr 1X ONCE IV Last administered on 06/24/18at 14:28; Start 06/24/18 at 14:00; Stop 06/24/18 at 14:29 ; Status DC Cefepime HCl 1 gm/ Dextrose 50 ml @ 100 mls/hr Q12HR IV ; Start 06/24/18 at 14: 30; Status Cancel Cefepime HCl (Maxipime) 1 gm Q12HR IVP Last administered on 06/26/18at 08:10; Start 06/24/18 at 14:30 Albumin Human 250 ml @ 62.5 mls/hr 1X ONCE IV Last administered on 06/24/18at 20:32; Start 06/24/18 at 19:15; Stop 06/24/18 at 23:14; Status DC Furosemide (Lasix) 40 mg 1X ONCE IVP Last administered on 06/25/18at 09:05; Start 06/24/18 at 19:15; Stop 06/24/18 at 19:16; Status DC Morphine Sulfate (Morphine Sulfate) 5 mg PRN Q2HR PRN IV PAIN Last administered on 06/26/18at 08:27; Start 06/24/18 at 22:45 Enoxaparin Sodium (Lovenox 40mg Syringe) 40 mg Q24H SQ ; Start 06/26/18 at 16:00 Lactobacillus Rhamnosus (Culturelle) 1 cap BID PO ; Start 06/25/18 at 21:00 Propofol (Diprivan) 200 mg STK-MED ONCE IV ; Start 06/24/18 at 10:00; Stop 06/25 at 12:24; Status DC Potassium Chloride/Water 50 ml @ 50 mls/hr 1X ONCE IV Last administered on at 08:27; Start 06/26/18 at 08:00; Stop 06/26/18 at 08:59; Status DC Calcium Gluconate 1000 mg/Dextrose 110 ml @ 220 mls/hr 1X ONCE IV Last administered on 06/26/18at 08:09; Start 06/26/18 at 07:15; Stop 06/26/18 at 07:44 ; Status DC Active Scripts Active Levaquin (Levofloxacin) 500 Mg Tablet 500 Mg PO DAILY06 Reported Januvia (Sitagliptin Phosphate) 100 Mg Tablet 1 Tab PO DAILY Beta Carotene (Beta-Carotene) 10,000 Unit Capsule 12,000 Unit PO Crestor (Rosuvastatin Calcium) 5 Mg Tablet 1 Tab PO DAILY Vitals/I & O Vital Sign - Last 24 Hours 06/25/18 06/25/18 06/25/18 06/25/18 13:00 14:00 15:00 16:00 Pulse 118 114 118 Resp 14 12 18 B/P (MAP) 134/50 (78) 112/46 (68) 114/50 (71) Pulse Ox 97 97 96 O2 Delivery Room Air Room Air Room Air 06/25/18 06/25/18 06/25/18 06/25/18 16:00 16:00 17:00 18:00 Temp 99.9 99.9 Pulse 122 116 114 Resp 12 12 16 B/P (MAP) 128/50 (76) 136/55 (82) 130/54 (79) Pulse Ox 98 96 98 O2 Delivery Room Air Room Air Room Air Room Air 06/25/18 06/25/18 06/25/18 06/25/18 19:00 20:00 20:00 20:00 Temp 99.5 99.5 Pulse 109 110 110 Resp 14 14 B/P (MAP) 157/56 (89) 119/48 (71) 119/48 (71) Pulse Ox 98 97 O2 Delivery Room Air Room Air Room Air 06/25/18 06/25/18 06/25/18 06/25/18 20:57 21:00 22:00 23:00 Pulse 114 111 109 Resp 11 16 15 15 B/P (MAP) 114/49 (70) 122/48 (72) 134/51 (78) Pulse Ox 98 99 97 96 O2 Delivery Room Air Room Air Room Air Room Air O2 Flow Rate 8.0 06/25/18 06/26/18 06/26/18 06/26/18 23:59 00:00 00:01 01:00 Temp 99.1 99.1 Pulse 109 108 107 Resp 15 15 B/P (MAP) 134/51 (78) 144/54 (84) 142/51 (81) Pulse Ox 97 96 O2 Delivery Room Air Room Air Room Air 06/26/18 06/26/18 06/26/18 06/26/18 01:24 01:54 02:00 03:00 Pulse 107 114 Resp 16 15 20 B/P (MAP) 121/47 (71) 148/50 (82) Pulse Ox 97 93 97 O2 Delivery Room Air Room Air Room Air O2 Flow Rate 8.0 8.0 06/26/18 06/26/18 06/26/18 06/26/18 04:00 04:00 04:00 05:00 Pulse 110 107 102 Resp 12 15 B/P (MAP) 149/56 (87) 149/56 (87) 133/51 (78) Pulse Ox 96 95 O2 Delivery Room Air Room Air Room Air 06/26/18 06/26/18 06/26/18 06/26/18 06:00 07:00 08:00 08:00 Temp 99.3 99.3 Pulse 102 99 98 98 Resp 19 21 18 B/P (MAP) 147/50 (82) 126/42 (70) 122/49 (73) 135/52 (79) Pulse Ox 97 95 95 O2 Delivery Room Air Room Air Room Air 06/26/18 06/26/18 06/26/18 06/26/18 08:00 08:27 09:00 09:01 Pulse 108 Resp 18 18 B/P (MAP) 128/47 (74) 122/61 (81) Pulse Ox 97 97 O2 Delivery Room Air Room Air Room Air 06/26/18 06/26/18 06/26/18 09:39 10:00 11:00 Pulse 95 100 Resp 18 16 B/P (MAP) 125/49 (74) 136/62 (86) Pulse Ox 97 96 98 O2 Delivery Room Air Room Air Room Air Intake and Output 06/25/18 06/25/18 06/26/18 15:00 23:00 07:00 Intake Total 3713 ml 1117 ml Output Total 1650 ml 2100 ml 910 ml Balance -1650 ml 1613 ml 207 ml DENNIS HOLCOMB MD Jun 26, 2018 12:07
[2018-06-26] MEDS: VANCOMYCIN 1.5 GM in IV NORMAL SALINE 500ML BAG 500 ML IV SCH (13:47)
[2018-06-26 14:10] LABS: VANC TR 2.9 mcg/mL (10.0-20.0)
[2018-06-26] MEDS: ENOXAPARIN 40 MG/0.4 ML SYRINGE. SQ SCH (16:24)
[2018-06-26] MEDS: diphenhydrAMINE 50 MG/ML VIAL IV PRN (21:01)
[2018-06-27] VITALS (7 sets, daily range): BP systolic 124–151; BP diastolic 61–91
[2018-06-27] MEDS: MORPHINE SULFATE 10 MG/ML VIAL. IV PRN ×2 (00:35→04:20)
[2018-06-27] MEDS: VANCOMYCIN 1.5 GM in IV NORMAL SALINE 500ML BAG 500 ML IV SCH ×2 (02:09→13:34)
[2018-06-27 05:20] LABS: BASO # 0.1 x10^3/uL (0.0-0.2); BASO % 1 % (0-3); EOS % 0 % (0-3); HEMOGLOBIN 8.3 g/dL (12.0-15.5); LYMPH # 1.1 x10^3/uL (1.0-4.8); LYMPH % 6 % (24-48); MEAN CORPUSCULAR HEMOGLOBIN 31 pg (25-35); MEAN CORPUSCULAR HGB CONC 35 g/dL (31-37); MEAN CORPUSCULAR VOLUME 89 fL (79-100); MONO # 1.5 x10^3/uL (0.0-1.1); MONO % 8 % (0-9); NEUT # 15.8 x10^3uL (1.8-7.7); NEUT % 85 % (31-73); PLATELET COUNT 192 x10^3/uL (140-400); RED BLOOD COUNT 2.68 x10^6/uL (3.50-5.40); RED CELL DISTRIBUTION WIDTH 15.4 % (11.5-14.5); WHITE BLOOD COUNT 18.5 x10^3/uL (4.0-11.0)
[2018-06-27] MEDS: POTASSIUM CL 20MEQ-0.45% NACL 1,000 ML IV SCH ×3 (05:30→17:13)
[2018-06-27 05:40] LABS: CREATININE 0.5 mg/dL (0.6-1.0); GFR 142.2; POTASSIUM 3.2 mmol/L (3.5-5.1)
--- NOTE | 2018-06-27 08:48 | PDOC ---
Infectious Disease Note Subjective: Subjective pt is sleepy but arousable, on pressors s/p PRBCs ROS: ROS Negative except for above. Vital Signs: Vital Signs Vital Signs Date Time Temp Pulse Resp B/P (MAP) Pulse Ox O2 Delivery O2 Flow Rate FiO2 06/27/18 07:59 98.4 107 22 151/73 (99) 96 Room Air 98.4 06/27/18 04:50 8.0 Physical Exam: PHYSICAL EXAM GENERAL: sleepy but arousable HEENT: Anicteric, no thrush. Oral mucosa moist. NG tube. NECK: Supple.RT IJ in place LUNGS: dec bs at bases HEART: S1, S2, tachycardia. ABDOMEN: Soft. surgical wound dressed drain and ostomy intact. lorenzo in place EXTREMITIES: No cyanosis, no edema. DERMATOLOGIC: Warm, dry, no generalized rash. CENTRAL NERVOUS SYSTEM: Moves all 4 extremities. Medications: Inpatient Meds: Current Medications Medications (Trade) Dose Ordered Sig/Kusum Start Time Stop Time Status Last Admin Dose Admin Acetaminophen (Tylenol) 650 mg PRN Q6HRS PRN 06/23/18 09:15 Albumin Human 250 ml @ 62.5 mls/hr 1X ONCE 06/24/18 19:15 06/24/18 23:14 DC 06/24/18 20:32 62.5 MLS/HR Calcium Chloride 1000 mg/Dextrose 60 ml @ 120 mls/hr 1X ONCE 06/24/18 14:00 06/24/18 14:29 DC 06/24/18 14:28 120 MLS/HR Calcium Gluconate 1000 mg/Dextrose 110 ml @ 220 mls/hr 1X ONCE 06/26/18 07:15 06/26/18 07:44 DC 06/26/18 08:09 220 MLS/HR Cefepime HCl (Maxipime) 1 gm Q12HR 06/24/18 14:30 06/26/18 20:45 1 GM Cefepime HCl 1 gm/ Dextrose 50 ml @ 100 mls/hr Q12HR 06/24/18 14:30 Cancel Cefoxitin Sodium 100 ml @ 200 mls/hr OC PROC ONCE 06/24/18 12:00 06/24/18 12:29 DC 06/24/18 08:43 200 MLS/HR Cefoxitin Sodium 2 gm/Dextrose 100 ml @ 200 mls/hr ONCE ONCE 06/24/18 05:00 06/24/18 05:29 DC 06/24/18 06:45 200 MLS/HR Diphenhydramine HCl (Benadryl) 25 mg PRN Q6HRS PRN 06/24/18 09:15 06/26/18 21:01 25 MG Docusate Sodium (Colace) 100 mg PRN DAILY PRN 06/23/18 09:15 Enoxaparin Sodium (Lovenox 40mg Syringe) 40 mg Q24H 06/26/18 16:00 06/26/18 16:24 40 MG Etomidate (Amidate) 20 mg STK-MED ONCE 06/24/18 07:17 06/24/18 07:18 DC Fentanyl Citrate (Fentanyl 2ml Vial) 100 mcg STK-MED ONCE 06/24/18 10:24 06/24/18 10:25 DC Fentanyl Citrate (Fentanyl 5ml Vial) 250 mcg STK-MED ONCE 06/24/18 07:16 06/24/18 07:18 DC Furosemide (Lasix) 40 mg 1X ONCE 06/24/18 19:15 06/24/18 19:16 DC 06/25/18 09:05 40 MG Glycopyrrolate (Robinul) 1 mg STK-MED ONCE 06/24/18 08:39 06/24/18 08:40 DC Heparin Sodium (Porcine) (HEPARIN for NUC MED) 100 unit 1X ONCE 06/23/18 03:30 06/23/18 03:31 DC 06/23/18 03:30 100 UNIT Heparin Sodium/ Sodium Chloride (HEPARIN for ARTERIAL LINE FLUSH) 1,000 unit 1X ONCE 06/23/18 10:15 06/23/18 10:16 DC 06/23/18 10:15 1,000 UNIT Hydromorphone HCl (Dilaudid) 2 mg STK-MED ONCE 06/24/18 11:04 06/24/18 11:05 DC Info (CONTRAST GIVEN -- Rx MONITORING) 1 each PRN DAILY PRN 06/23/18 06:30 06/25/18 06:29 DC Iodixanol (Visipaque 320) 50 ml STK-MED ONCE 06/23/18 11:01 06/23/18 11:02 DC Iohexol (Omnipaque 300 Mg/ml) 90 ml 1X ONCE 06/23/18 07:00 06/23/18 07:01 DC 06/23/18 07:15 90 ML Lactobacillus Rhamnosus (Culturelle) 1 cap BID 06/25/18 21:00 Lidocaine HCl (Xylocaine-Mpf 1% 2ml Vial) 2 ml PRN 1X PRN 06/24/18 10:00 06/24/18 18:00 DC Lidocaine/Sodium Bicarbonate (Buffered Lidocaine 1%) 3 ml 1X ONCE 06/23/18 10:15 06/23/18 10:16 DC 06/23/18 10:15 7 ML Midazolam HCl (Versed) 2 mg 1X ONCE 06/23/18 10:15 06/23/18 10:16 DC Morphine Sulfate (Morphine Sulfate) 5 mg PRN Q2HR PRN 06/24/18 22:45 06/27/18 04:20 5 MG Neostigmine Methylsulfate (Neostigmine Methylsulfate) 5 mg STK-MED ONCE 06/24/18 08:38 06/24/18 08:40 DC Norepinephrine Bitartrate 250 ml @ 1.875 mls/ hr CONT PRN 06/24/18 03:15 06/25/18 13:45 9.4 MLS/HR Ondansetron HCl (Zofran) 4 mg PRN Q6HRS PRN 06/24/18 10:00 06/24/18 18:00 DC Pantoprazole Sodium (PROTONIX VIAL for IV PUSH) 40 mg DAILYAC 06/23/18 07:30 06/26/18 08:10 40 MG Potassium Chloride/Sodium Chloride 1,000 ml @ 100 mls/hr Q10H 06/24/18 09:13 06/27/18 05:30 100 MLS/HR Potassium Chloride/Water 50 ml @ 50 mls/hr 1X ONCE 06/26/18 08:00 06/26/18 08:59 DC 06/26/18 08:27 50 MLS/HR Prochlorperazine Edisylate (Compazine) 10 mg STK-MED ONCE 06/24/18 10:24 06/24/18 10:25 DC Propofol (Diprivan) 200 mg STK-MED ONCE 06/24/18 10:00 06/25/18 12:24 DC Ringer's Solution 1,000 ml @ 30 mls/hr Q24H 06/24/18 09:52 06/24/18 21:51 DC 06/24/18 11:34 30 MLS/HR Rocuronium [place] (Zemuron) 100 mg STK-MED ONCE 06/24/18 05:48 06/24/18 05:49 DC Sodium Chloride (Normal Saline Flush) 3 ml QSHIFT PRN 06/24/18 09:15 Succinylcholine Chloride (Anectine) 200 mg STK-MED ONCE 06/24/18 05:48 06/24/18 05:49 DC Throat Lozenges (Cepacol Sore Throat Lozenge) 1 geni PRN Q2HRS PRN 06/24/18 09:15 Throat Lozenges (Chloraseptic) 1 spray PRN Q2HR PRN 06/24/18 09:15 06/25/18 19:34 1 SPRAY Tramadol HCl (Ultram) 50 mg PRN Q6HRS PRN 06/23/18 09:15 Vancomycin HCl (Vanco Per Pharmacy) 1 each PRN DAILY PRN 06/24/18 09:00 06/26/18 15:27 1 EACH Vancomycin HCl (Vancomycin Trough Level) 1 each 1X ONCE 06/26/18 12:30 06/26/18 12:31 DC 06/26/18 12:30 1 EACH Vancomycin HCl 1.5 gm/Sodium Chloride 500 ml @ 250 mls/hr Q12H 06/27/18 02:00 06/27/18 02:09 250 MLS/HR Vancomycin HCl 2 gm/Sodium Chloride 500 ml @ 250 mls/hr 1X ONCE 06/24/18 09:30 06/24/18 11:29 DC 06/24/18 12:47 250 MLS/HR Labs: Lab Laboratory Tests Test 06/26/18 13:50 06/27/18 04:50 Vancomycin Level Trough 2.9 mcg/mL (10.0-20.0) Vancomycin Last Dose Date 06/25/18 Vancomycin Last Dose Time 1300 White Blood Count 18.5 x10^3/uL (4.0-11.0) Red Blood Count 2.68 x10^6/uL (3.50-5.40) Hemoglobin 8.3 g/dL (12.0-15.5) Hematocrit 24.0 % (36.0-47.0) Mean Corpuscular Volume 89 fL (79-100) Mean Corpuscular Hemoglobin 31 pg (25-35) Mean Corpuscular Hemoglobin Concent 35 g/dL (31-37) Red Cell Distribution Width 15.4 % (11.5-14.5) Platelet Count 192 x10^3/uL (140-400) Neutrophils (%) (Auto) 85 % (31-73) Lymphocytes (%) (Auto) 6 % (24-48) Monocytes (%) (Auto) 8 % (0-9) Eosinophils (%) (Auto) 0 % (0-3) Basophils (%) (Auto) 1 % (0-3) Neutrophils # (Auto) 15.8 x10^3uL (1.8-7.7) Lymphocytes # (Auto) 1.1 x10^3/uL (1.0-4.8) Monocytes # (Auto) 1.5 x10^3/uL (0.0-1.1) Eosinophils # (Auto) 0.0 x10^3/uL (0.0-0.7) Basophils # (Auto) 0.1 x10^3/uL (0.0-0.2) Sodium Level 145 mmol/L (136-145) Potassium Level 3.2 mmol/L (3.5-5.1) Chloride Level 110 mmol/L (98-107) Carbon Dioxide Level 27 mmol/L (21-32) Anion Gap 8 (6-14) Blood Urea Nitrogen 10 mg/dL (7-20) Creatinine 0.5 mg/dL (0.6-1.0) Estimated GFR (Cockcroft-Gault) 142.2 Glucose Level 110 mg/dL (70-99) Calcium Level 7.0 mg/dL (8.5-10.1) Micro RUN DATE: 06/25/18 PAGE 1 RUN TIME: 5886 [facility] [address] [place] [address] Pancho Zuniga M.D., [employer] PATIENT: ROBERT MELO ACCT: [id number] LOC: 1 WEST ICU U : [id number] AGE/SX: 83/F ROOM: 110 REG : 06/22/[address]: EDGAR RIVERA MD : 1935 BED: 1 DIS : STATUS: ADM IN TLOC: SPEC #: [id number] JORGE: 06/22/18 STATUS: COMP REQ #: [id number] RECD: 06/22/[address]: TATUM HERNÁNDEZ MD SOURCE: URINE FOL ENTR: 06/22/[address]: EDGAR RIVERA MD SPDESC: INDWELLING PRAVEENA GARCIA MD UNKNOWN PCP NAME ORDERED: URINE CULTURE Procedure Result URINE CULTURE Final Final report URINE CULTURE RES 1 Final Escherichia coli Greater than 100,000 colony forming units per mL Cefazolin <=4 ug/mL Cefazolin with an DELONTE <=16 predicts susceptibility to the oral agents cefaclor, cefdinir, cefpodoxime, cefprozil, cefuroxime, cephalexin, and loracarbef when used for therapy of uncomplicated urinary tract infections due to E. coli, Klebsiella pneumoniae, and Proteus mirabilis. ANTIMICROBIAL SUSCEPTIBILITY Final Comment S = Susceptible; I = Intermediate; R = Resistant P = Positive; N = Negative MICS are expressed in micrograms per mL Antibiotic RSLT#1 RSLT#2 RSLT#3 RSLT#4 Amoxicillin/Clavulanic Acid S<=2 Ampicillin S<=2 Cefepime S<=0.12 Ceftriaxone S<=0.25 Cefuroxime S =4 Ciprofloxacin S<=0.25 Ertapenem S<=0.12 Gentamicin S<=1 Imipenem S<=0.25 Levofloxacin S<=0.12 Meropenem S<=0.25 Nitrofurantoin S<=16 Piperacillin/Tazobactam S<=4 Tetracycline S =2 Tobramycin S<=1 Trimethoprim/Sulfa S<=20 Performed at: [facility] RUN DATE: 06/26/18 PAGE 1 RUN TIME: 2008 [facility] [address] [place] [address] Pancho Zuniga M.D., [employer]ator PATIENT: ROBERT MELO ACCT: [id number] LOC: [address] [place] [address] U : [id number] AGE/SX: 83/F ROOM: 438 REG : 06/22/[address]: EDGAR RIVERA MD : 1935 BED: 1 DIS : STATUS: ADM IN TLOC: SPEC #: [id number] JORGE: 06/22/18 STATUS: RES REQ #: [id number] RECD: 06/24/[address] [facility] [address]: EDGAR RIVERA MD SOURCE: BLOOD ENTR: 06/24/18 [facility] DR: JOLENE DEJESUS MD SPDC: PRAVEENA GARCIA MD UNKNOWN PCP NAME ORDERED: BLD CULT - LC Procedure Result BLOOD CULTURE LC Preliminary Preliminary report BLD CULT RESULT 1 Preliminary Comment Coagulase negative Staphylococcus species. Performed at: [facility] [id number] [facility] [address], [place], [place] [id number] Dining Room Busser: MARILEE Castaneda MD, Phone: [phone] Objective: Assessment: 1. Bright red blood per rectum secondary to diverticulosis, status post colectomy, 06/24/2018. 2. Hypotension with gastrointestinal bleed. 3. Two out of 3 bottles positive for gram-positive cocci in clusters suggestive of Staphylococcus bacteremia.coag neg staph prelim, final id and delonte pending 4. E coli uti pansensitive 5. Hypertension/hyperlipidemia. 6. Diabetes mellitus 2. 7. Thrombocytopenia.resolved 8. Leucocytosis reactive 9. Acute blood loss Anemia Plan: Plan of Care 1. Continue empiric vancomycin and cefepime for now 2. f/u final bc results 3. Follow up labs in MIGUEL A Dyson MD Jun 27, 2018 08:48
--- NOTE | 2018-06-27 09:26 | PDOC ---
SURGICAL PROGRESS NOTE Subjective Patient awake and alert minimal pain states that she is getting hungry Vital Signs Vital Signs Date Time Temp Pulse Resp B/P (MAP) Pulse Ox O2 Delivery O2 Flow Rate FiO2 06/27/18 07:59 98.4 107 22 151/73 (99) 96 Room Air 98.4 06/27/18 04:50 8.0 I&O Intake and Output 06/27/18 07:00 Output Total 2165 ml Balance -2165 ml Output Urine Total 1500 ml Stool Total 100 ml Gastric Drainage Total 325 ml Drainage Total 240 ml PATIENT HAS A KEANE: No General: Alert, Oriented X3, Cooperative, mild distress Abdomen: Normal bowel sounds, Soft, No tenderness, Other (wounds clean dry and intact) Labs Laboratory Tests Test 06/25/18 11:40 06/25/18 13:40 06/26/18 04:30 06/26/18 13:50 Prothrombin Time 15.5 SEC (11.7-14.0) Prothromb Time International Ratio 1.3 (0.8-1.1) Fibrinogen 368 mg/dL (200-440) D-Dimer (Betsy) 0.63 ug/mlFEU (0.00-0.50) Hemoglobin 9.2 g/dL (12.0-15.5) 8.2 g/dL (12.0-15.5) White Blood Count 20.8 x10^3/uL (4.0-11.0) Red Blood Count 2.64 x10^6/uL (3.50-5.40) Hematocrit 23.1 % (36.0-47.0) Mean Corpuscular Volume 88 fL (79-100) Mean Corpuscular Hemoglobin 31 pg (25-35) Mean Corpuscular Hemoglobin Concent 35 g/dL (31-37) Red Cell Distribution Width 15.3 % (11.5-14.5) Platelet Count 136 x10^3/uL (140-400) Neutrophils (%) (Auto) 84 % (31-73) Lymphocytes (%) (Auto) 5 % (24-48) Monocytes (%) (Auto) 10 % (0-9) Eosinophils (%) (Auto) 0 % (0-3) Basophils (%) (Auto) 0 % (0-3) Neutrophils # (Auto) 17.5 x10^3uL (1.8-7.7) Lymphocytes # (Auto) 1.1 x10^3/uL (1.0-4.8) Monocytes # (Auto) 2.1 x10^3/uL (0.0-1.1) Eosinophils # (Auto) 0.0 x10^3/uL (0.0-0.7) Basophils # (Auto) 0.0 x10^3/uL (0.0-0.2) Sodium Level 145 mmol/L (136-145) Potassium Level 3.3 mmol/L (3.5-5.1) Chloride Level 112 mmol/L (98-107) Carbon Dioxide Level 26 mmol/L (21-32) Anion Gap 7 (6-14) Blood Urea Nitrogen 9 mg/dL (7-20) Creatinine 0.5 mg/dL (0.6-1.0) Estimated GFR (Cockcroft-Gault) 142.2 Glucose Level 129 mg/dL (70-99) Calcium Level 6.5 mg/dL (8.5-10.1) Vancomycin Level Trough 2.9 mcg/mL (10.0-20.0) Vancomycin Last Dose Date 06/25/18 Vancomycin Last Dose Time 1300 Test 06/27/18 04:50 White Blood Count 18.5 x10^3/uL (4.0-11.0) Red Blood Count 2.68 x10^6/uL (3.50-5.40) Hemoglobin 8.3 g/dL (12.0-15.5) Hematocrit 24.0 % (36.0-47.0) Mean Corpuscular Volume 89 fL (79-100) Mean Corpuscular Hemoglobin 31 pg (25-35) Mean Corpuscular Hemoglobin Concent 35 g/dL (31-37) Red Cell Distribution Width 15.4 % (11.5-14.5) Platelet Count 192 x10^3/uL (140-400) Neutrophils (%) (Auto) 85 % (31-73) Lymphocytes (%) (Auto) 6 % (24-48) Monocytes (%) (Auto) 8 % (0-9) Eosinophils (%) (Auto) 0 % (0-3) Basophils (%) (Auto) 1 % (0-3) Neutrophils # (Auto) 15.8 x10^3uL (1.8-7.7) Lymphocytes # (Auto) 1.1 x10^3/uL (1.0-4.8) Monocytes # (Auto) 1.5 x10^3/uL (0.0-1.1) Eosinophils # (Auto) 0.0 x10^3/uL (0.0-0.7) Basophils # (Auto) 0.1 x10^3/uL (0.0-0.2) Sodium Level 145 mmol/L (136-145) Potassium Level 3.2 mmol/L (3.5-5.1) Chloride Level 110 mmol/L (98-107) Carbon Dioxide Level 27 mmol/L (21-32) Anion Gap 8 (6-14) Blood Urea Nitrogen 10 mg/dL (7-20) Creatinine 0.5 mg/dL (0.6-1.0) Estimated GFR (Cockcroft-Gault) 142.2 Glucose Level 110 mg/dL (70-99) Calcium Level 7.0 mg/dL (8.5-10.1) Laboratory Tests Test 06/26/18 13:50 06/27/18 04:50 Vancomycin Level Trough 2.9 mcg/mL (10.0-20.0) Vancomycin Last Dose Date 06/25/18 Vancomycin Last Dose Time 1300 White Blood Count 18.5 x10^3/uL (4.0-11.0) Red Blood Count 2.68 x10^6/uL (3.50-5.40) Hemoglobin 8.3 g/dL (12.0-15.5) Hematocrit 24.0 % (36.0-47.0) Mean Corpuscular Volume 89 fL (79-100) Mean Corpuscular Hemoglobin 31 pg (25-35) Mean Corpuscular Hemoglobin Concent 35 g/dL (31-37) Red Cell Distribution Width 15.4 % (11.5-14.5) Platelet Count 192 x10^3/uL (140-400) Neutrophils (%) (Auto) 85 % (31-73) Lymphocytes (%) (Auto) 6 % (24-48) Monocytes (%) (Auto) 8 % (0-9) Eosinophils (%) (Auto) 0 % (0-3) Basophils (%) (Auto) 1 % (0-3) Neutrophils # (Auto) 15.8 x10^3uL (1.8-7.7) Lymphocytes # (Auto) 1.1 x10^3/uL (1.0-4.8) Monocytes # (Auto) 1.5 x10^3/uL (0.0-1.1) Eosinophils # (Auto) 0.0 x10^3/uL (0.0-0.7) Basophils # (Auto) 0.1 x10^3/uL (0.0-0.2) Sodium Level 145 mmol/L (136-145) Potassium Level 3.2 mmol/L (3.5-5.1) Chloride Level 110 mmol/L (98-107) Carbon Dioxide Level 27 mmol/L (21-32) Anion Gap 8 (6-14) Blood Urea Nitrogen 10 mg/dL (7-20) Creatinine 0.5 mg/dL (0.6-1.0) Estimated GFR (Cockcroft-Gault) 142.2 Glucose Level 110 mg/dL (70-99) Calcium Level 7.0 mg/dL (8.5-10.1) Problem List Problems Medical Problems: (1) Anemia Status: Acute (2) Dehydration Status: Acute (3) Rectal bleeding Status: Acute Assessment/Plan Status post colectomy passing stool we'll advance diet to clear liquids EDGAR CORADO MD Jun 27, 2018 09:26
[2018-06-27] MEDS: PANTOPRAZOLE IV PUSH 40 MG VIAL. IVP SCH (10:21)
[2018-06-27] MEDS: CEFEPIME HCL IV Push 1 GM VIAL. IVP SCH ×2 (10:22→21:51)
[2018-06-27] MEDS: ACETAMINOPHEN 325 MG TABLET. PO PRN ×2 (10:22→13:32)
[2018-06-27] MEDS: VANCOMYCIN PER PHARMACY MC PRN (13:21)
[2018-06-27] MEDS: LACTOBACILLUS RHAMNOSUS GG 1 CAPSULE. PO SCH ×2 (13:32→21:50)
[2018-06-27] MEDS: HYDROcodone/APAP 5/325MG 1 TAB TABLET PO PRN ×2 (14:51→21:51)
[2018-06-27] MEDS: LORazepam 0.5 MG TABLET PO PRN (14:51)
--- NOTE | 2018-06-27 14:51 | PDOC ---
PROGRESS NOTES Chief Complaint Chief Complaint bright red blood per rectum, 2/2 diverticulosis 2/2 Colectomy and left salpingo -oophorectomy.06/24 hypotension with gib, requried pressors acute anemia with gib HTN dm2 hld morbid obesity 2/3 + bcx bacteremia sepsis with bacteremia hypokalemia hypocalcemia plan: FU WITH GI, IR total got 9u PRBC transfusion, plt and FFP transfusion hold po meds , resume when eats better fu colostomy, ELI drain, sx wound care advance diet to clear liquid as per sx 1/2 NS +K 100cc/h IR angiogram neg bleeding. + bleeding scan, neg CTA. EGD non obstructing shatzki ring. colectomy since cont bleeding with low hb and low bp. gi ppx fu with ID, fu bcx, on vanco and cefepime for now talked to daughter at bedside off levaphed in ICU lovenox dvt ppx History of Present Illness History of Present Illness ROS: no fever, chills, sob or chest pain before sx: cont rectal bleeding with some abd cramps overnight, as per nurse could have about 2L blood loss bp low, need levaqhed since sx + bleeding scan, neg CTA. got Colectomy and left salpingo-oophorectomy 06/24, hb low again 06/25, no active bleeding , another 2u RPBC transfusion post op after sx: no active bleeding, hb stable after transfusion Vitals Vitals Vital Signs Date Time Temp Pulse Resp B/P (MAP) Pulse Ox O2 Delivery O2 Flow Rate FiO2 06/27/18 11:43 97.9 99 20 140/66 (90) 98 Room Air 97.9 06/27/18 04:50 8.0 Physical Exam Physical Exam GENERAL: sleepy but arousable HEENT: Anicteric, no thrush. Oral mucosa moist. NG tube. NECK: Supple.RT IJ in place LUNGS: dec bs at bases HEART: S1, S2, tachycardia. ABDOMEN: Soft. surgical wound dressed drain and ostomy intact. lorenzo in place EXTREMITIES: No cyanosis, no edema. DERMATOLOGIC: Warm, dry, no generalized rash. CENTRAL NERVOUS SYSTEM: Moves all 4 extremities. General: Alert, Oriented X3, Cooperative, mild distress Heart: Regular rate Lungs: Clear Abdomen: Normal bowel sounds, Soft, No tenderness, Other (wounds clean dry and intact) Extremities: No cyanosis Skin: Other (warm, dry) Labs LABS Laboratory Tests Test 06/27/18 04:50 White Blood Count 18.5 x10^3/uL (4.0-11.0) Red Blood Count 2.68 x10^6/uL (3.50-5.40) Hemoglobin 8.3 g/dL (12.0-15.5) Hematocrit 24.0 % (36.0-47.0) Mean Corpuscular Volume 89 fL (79-100) Mean Corpuscular Hemoglobin 31 pg (25-35) Mean Corpuscular Hemoglobin Concent 35 g/dL (31-37) Red Cell Distribution Width 15.4 % (11.5-14.5) Platelet Count 192 x10^3/uL (140-400) Neutrophils (%) (Auto) 85 % (31-73) Lymphocytes (%) (Auto) 6 % (24-48) Monocytes (%) (Auto) 8 % (0-9) Eosinophils (%) (Auto) 0 % (0-3) Basophils (%) (Auto) 1 % (0-3) Neutrophils # (Auto) 15.8 x10^3uL (1.8-7.7) Lymphocytes # (Auto) 1.1 x10^3/uL (1.0-4.8) Monocytes # (Auto) 1.5 x10^3/uL (0.0-1.1) Eosinophils # (Auto) 0.0 x10^3/uL (0.0-0.7) Basophils # (Auto) 0.1 x10^3/uL (0.0-0.2) Sodium Level 145 mmol/L (136-145) Potassium Level 3.2 mmol/L (3.5-5.1) Chloride Level 110 mmol/L (98-107) Carbon Dioxide Level 27 mmol/L (21-32) Anion Gap 8 (6-14) Blood Urea Nitrogen 10 mg/dL (7-20) Creatinine 0.5 mg/dL (0.6-1.0) Estimated GFR (Cockcroft-Gault) 142.2 Glucose Level 110 mg/dL (70-99) Calcium Level 7.0 mg/dL (8.5-10.1) Assessment and Plan Assessmemt and Plan Problems Medical Problems: (1) Anemia Status: Acute (2) Dehydration Status: Acute (3) Rectal bleeding Status: Acute Comment Review of Relevant I have reviewed the following items fabiola (where applicable) has been applied. Labs Laboratory Tests Test 06/26/18 04:30 06/26/18 13:50 06/27/18 04:50 White Blood Count 20.8 x10^3/uL (4.0-11.0) 18.5 x10^3/uL (4.0-11.0) Red Blood Count 2.64 x10^6/uL (3.50-5.40) 2.68 x10^6/uL (3.50-5.40) Hemoglobin 8.2 g/dL (12.0-15.5) 8.3 g/dL (12.0-15.5) Hematocrit 23.1 % (36.0-47.0) 24.0 % (36.0-47.0) Mean Corpuscular Volume 88 fL (79-100) 89 fL (79-100) Mean Corpuscular Hemoglobin 31 pg (25-35) 31 pg (25-35) Mean Corpuscular Hemoglobin Concent 35 g/dL (31-37) 35 g/dL (31-37) Red Cell Distribution Width 15.3 % (11.5-14.5) 15.4 % (11.5-14.5) Platelet Count 136 x10^3/uL (140-400) 192 x10^3/uL (140-400) Neutrophils (%) (Auto) 84 % (31-73) 85 % (31-73) Lymphocytes (%) (Auto) 5 % (24-48) 6 % (24-48) Monocytes (%) (Auto) 10 % (0-9) 8 % (0-9) Eosinophils (%) (Auto) 0 % (0-3) 0 % (0-3) Basophils (%) (Auto) 0 % (0-3) 1 % (0-3) Neutrophils # (Auto) 17.5 x10^3uL (1.8-7.7) 15.8 x10^3uL (1.8-7.7) Lymphocytes # (Auto) 1.1 x10^3/uL (1.0-4.8) 1.1 x10^3/uL (1.0-4.8) Monocytes # (Auto) 2.1 x10^3/uL (0.0-1.1) 1.5 x10^3/uL (0.0-1.1) Eosinophils # (Auto) 0.0 x10^3/uL (0.0-0.7) 0.0 x10^3/uL (0.0-0.7) Basophils # (Auto) 0.0 x10^3/uL (0.0-0.2) 0.1 x10^3/uL (0.0-0.2) Sodium Level 145 mmol/L (136-145) 145 mmol/L (136-145) Potassium Level 3.3 mmol/L (3.5-5.1) 3.2 mmol/L (3.5-5.1) Chloride Level 112 mmol/L (98-107) 110 mmol/L (98-107) Carbon Dioxide Level 26 mmol/L (21-32) 27 mmol/L (21-32) Anion Gap 7 (6-14) 8 (6-14) Blood Urea Nitrogen 9 mg/dL (7-20) 10 mg/dL (7-20) Creatinine 0.5 mg/dL (0.6-1.0) 0.5 mg/dL (0.6-1.0) Estimated GFR (Cockcroft-Gault) 142.2 142.2 Glucose Level 129 mg/dL (70-99) 110 mg/dL (70-99) Calcium Level 6.5 mg/dL (8.5-10.1) 7.0 mg/dL (8.5-10.1) Vancomycin Level Trough 2.9 mcg/mL (10.0-20.0) Vancomycin Last Dose Date 06/25/18 Vancomycin Last Dose Time 1300 Laboratory Tests Test 06/27/18 04:50 White Blood Count 18.5 x10^3/uL (4.0-11.0) Red Blood Count 2.68 x10^6/uL (3.50-5.40) Hemoglobin 8.3 g/dL (12.0-15.5) Hematocrit 24.0 % (36.0-47.0) Mean Corpuscular Volume 89 fL (79-100) Mean Corpuscular Hemoglobin 31 pg (25-35) Mean Corpuscular Hemoglobin Concent 35 g/dL (31-37) Red Cell Distribution Width 15.4 % (11.5-14.5) Platelet Count 192 x10^3/uL (140-400) Neutrophils (%) (Auto) 85 % (31-73) Lymphocytes (%) (Auto) 6 % (24-48) Monocytes (%) (Auto) 8 % (0-9) Eosinophils (%) (Auto) 0 % (0-3) Basophils (%) (Auto) 1 % (0-3) Neutrophils # (Auto) 15.8 x10^3uL (1.8-7.7) Lymphocytes # (Auto) 1.1 x10^3/uL (1.0-4.8) Monocytes # (Auto) 1.5 x10^3/uL (0.0-1.1) Eosinophils # (Auto) 0.0 x10^3/uL (0.0-0.7) Basophils # (Auto) 0.1 x10^3/uL (0.0-0.2) Sodium Level 145 mmol/L (136-145) Potassium Level 3.2 mmol/L (3.5-5.1) Chloride Level 110 mmol/L (98-107) Carbon Dioxide Level 27 mmol/L (21-32) Anion Gap 8 (6-14) Blood Urea Nitrogen 10 mg/dL (7-20) Creatinine 0.5 mg/dL (0.6-1.0) Estimated GFR (Cockcroft-Gault) 142.2 Glucose Level 110 mg/dL (70-99) Calcium Level 7.0 mg/dL (8.5-10.1) Microbiology 06/25/18 Blood Culture - Preliminary, Resulted NO GROWTH AFTER 2 DAYS 06/22/18 Urine Culture - Final, Complete 06/22/18 Urine Culture Result 1 (ERICA) - Final, Complete 06/22/18 Antimicrobic Susceptibility - Final, Complete Medications Current Medications Pantoprazole Sodium (PROTONIX VIAL for IV PUSH) 80 mg 1X ONCE IVP Last administered on 06/22/18at 15:57; Start 06/22/18 at 15:30; Stop 06/22/18 at 15:32 ; Status DC Sodium Chloride 1,000 ml @ 1,000 mls/hr 1X ONCE IV Last administered on at 15:52; Start 06/22/18 at 15:30; Stop 06/22/18 at 16:29; Status DC Ondansetron HCl (Zofran) 4 mg PRN Q8HRS PRN IV NAUSEA/VOMITING; Start 06/22/18 at 16:15; Stop 06/23/18 at 16:14; Status DC Sodium Chloride 1,000 ml @ 150 mls/hr Q6H40M IV Last administered on at 06:27; Start 06/22/18 at 16:11; Stop 06/23/18 at 09:11; Status DC Iohexol (Omnipaque 300 Mg/ml) 75 ml 1X ONCE IV Last administered on 06/22/18at 17:04; Start 06/22/18 at 17:00; Stop 06/22/18 at 17:01; Status DC Info (CONTRAST GIVEN -- Rx MONITORING) 1 each PRN DAILY PRN MC SEE COMMENTS; Start 06/22/18 at 17:00; Stop 06/24/18 at 09:36; Status DC Sodium Chloride 1,000 ml @ 1,000 mls/hr 1X ONCE IV Last administered on at 17:45; Start 06/22/18 at 17:45; Stop 06/22/18 at 18:44; Status DC Pantoprazole Sodium (PROTONIX VIAL for IV PUSH) 40 mg DAILYAC IVP Last administered on 06/27/18at 10:21; Start 06/23/18 at 07:30 Heparin Sodium (Porcine) (HEPARIN for NUC MED) 100 unit 1X ONCE IV Last administered on 06/23/18at 03:30; Start 06/23/18 at 03:30; Stop 06/23/18 at 03:31 ; Status DC Acetaminophen (Tylenol) 650 mg 1X PRN PRN PO PRE-TRANSFUSION; Start 06/23/18 at 05:30 Diphenhydramine HCl (Benadryl) 25 mg PRN 1X PRN PO PRE-TRANSFUSION; Start 06/23 at 05:30 Iohexol (Omnipaque 300 Mg/ml) 90 ml 1X ONCE IV Last administered on 06/23/18at 07:15; Start 06/23/18 at 07:00; Stop 06/23/18 at 07:01; Status DC Info (CONTRAST GIVEN -- Rx MONITORING) 1 each PRN DAILY PRN MC SEE COMMENTS; Start 06/23/18 at 06:30; Stop 06/25/18 at 06:29; Status DC Acetaminophen (Tylenol) 650 mg PRN Q6HRS PRN PO FEVER Last administered on 06/27at 13:32; Start 06/23/18 at 09:15 Ondansetron HCl (Zofran) 4 mg PRN Q6HRS PRN IV NAUSEA/VOMITING Last administered on 06/24/18at 05:43; Start 06/23/18 at 09:15 Morphine Sulfate (Morphine Sulfate) 2 mg PRN Q2HR PRN IV MODERATE TO SEVERE PAIN; Start 06/23/18 at 09:15; Stop 06/24/18 at 09:36; Status DC Tramadol HCl (Ultram) 50 mg PRN Q6HRS PRN PO MILD TO MODERATE PAIN; Start 06/23 at 09:15 Docusate Sodium (Colace) 100 mg PRN DAILY PRN PO CONSTIPATION; Start 06/23/18 at 09:15 Sodium Chloride 1,000 ml @ 125 mls/hr Q8H IV Last administered on 06/24/18at 05 :55; Start 06/23/18 at 09:15; Stop 06/24/18 at 13:49; Status DC Iodixanol (Visipaque 320) 100 ml STK-MED ONCE .ROUTE ; Start 06/23/18 at 09:14; Stop 06/23/18 at 09:15; Status DC Lidocaine/Sodium Bicarbonate (Buffered Lidocaine 1%) 3 ml STK-MED ONCE .ROUTE ; Start 06/23/18 at 09:14; Stop 06/23/18 at 09:15; Status DC Iodixanol (Visipaque 320) 50 ml STK-MED ONCE .ROUTE ; Start 06/23/18 at 09:14; Stop 06/23/18 at 09:15; Status DC Heparin Sodium/ Sodium Chloride 1,000 ml @ As Directed STK-MED ONCE .ROUTE ; Start 06/23/18 at 09:14; Stop 06/23/18 at 09:15; Status DC Iodixanol (Visipaque 320) 100 ml STK-MED ONCE .ROUTE ; Start 06/23/18 at 09:31; Stop 06/23/18 at 09:32; Status DC Midazolam HCl (Versed) 2 mg STK-MED ONCE .ROUTE ; Start 06/23/18 at 09:34; Stop 06/23/18 at 09:35; Status DC Fentanyl Citrate (Fentanyl 2ml Vial) 100 mcg STK-MED ONCE .ROUTE ; Start at 09:34; Stop 06/23/18 at 09:35; Status DC Heparin Sodium/ Sodium Chloride (HEPARIN for ARTERIAL LINE FLUSH) 1,000 unit 1X ONCE IART Last administered on 06/23/18at 10:15; Start 06/23/18 at 10:15; Stop 06/23/18 at 10:16; Status DC Lidocaine/Sodium Bicarbonate (Buffered Lidocaine 1%) 3 ml 1X ONCE IJ Last administered on 06/23/18at 10:15; Start 06/23/18 at 10:15; Stop 06/23/18 at 10:16 ; Status DC Midazolam HCl (Versed) 2 mg 1X ONCE IV ; Start 06/23/18 at 10:15; Stop at 10:16; Status DC Fentanyl Citrate (Fentanyl 2ml Vial) 100 mcg 1X ONCE IV ; Start 06/23/18 at 10: 15; Stop 06/23/18 at 10:16; Status DC Iodixanol (Visipaque 320) 100 ml 1X ONCE IART Last administered on 06/23/18at 10:15; Start 06/23/18 at 10:15; Stop 06/23/18 at 10:16; Status DC Iodixanol (Visipaque 320) 100 ml STK-MED ONCE .ROUTE ; Start 06/23/18 at 10:09; Stop 06/23/18 at 10:10; Status DC Iodixanol (Visipaque 320) 50 ml STK-MED ONCE .ROUTE ; Start 06/23/18 at 11:01; Stop 06/23/18 at 11:02; Status DC Sodium Chloride 1,000 ml @ 1,000 mls/hr 1X ONCE IV Last administered on at 03:00; Start 06/24/18 at 03:15; Stop 06/24/18 at 04:14; Status DC Sodium Chloride 1,000 ml @ 1,000 mls/hr 1X ONCE IV Last administered on at 04:06; Start 06/24/18 at 04:15; Stop 06/24/18 at 05:14; Status DC Norepinephrine Bitartrate 250 ml @ 1.875 mls/ hr CONT PRN IV SEE I/O RECORD Last administered on 06/25/18at 13:45; Start 06/24/18 at 03:15 Cefoxitin Sodium 2 gm/Dextrose 100 ml @ 200 mls/hr ONCE ONCE IV Last administered on 06/24/18at 06:45; Start 06/24/18 at 05:00; Stop 06/24/18 at 05:29 ; Status DC Succinylcholine Chloride (Anectine) 200 mg STK-MED ONCE .ROUTE ; Start 06/24/18 at 05:48; Stop 06/24/18 at 05:49; Status DC Rocuronium Deridder (Zemuron) 100 mg STK-MED ONCE .ROUTE ; Start 06/24/18 at 05: 48; Stop 06/24/18 at 05:49; Status DC Sodium Chloride 1,000 ml @ 1,000 mls/hr 1X ONCE IV Last administered on at 05:50; Start 06/24/18 at 05:50; Stop 06/24/18 at 06:49; Status DC Fentanyl Citrate (Fentanyl 5ml Vial) 250 mcg STK-MED ONCE .ROUTE ; Start at 07:16; Stop 06/24/18 at 07:18; Status DC Etomidate (Amidate) 20 mg STK-MED ONCE IV ; Start 06/24/18 at 07:17; Stop at 07:18; Status DC Propofol 20 ml @ As Directed STK-MED ONCE IV ; Start 06/24/18 at 07:17; Stop at 07:18; Status DC Ondansetron HCl (Zofran) 4 mg STK-MED ONCE .ROUTE ; Start 06/24/18 at 07:55; Stop 06/24/18 at 07:56; Status DC Neostigmine Methylsulfate (Neostigmine Methylsulfate) 5 mg STK-MED ONCE .ROUTE ; Start 06/24/18 at 08:38; Stop 06/24/18 at 08:40; Status DC Glycopyrrolate (Robinul) 1 mg STK-MED ONCE .ROUTE ; Start 06/24/18 at 08:39; Stop 06/24/18 at 08:40; Status DC Cefoxitin Sodium 100 ml @ As Directed STK-MED ONCE IV ; Start 06/24/18 at 07:42 ; Stop 06/24/18 at 08:43; Status DC Vancomycin HCl (Vanco Per Pharmacy) 1 each PRN DAILY PRN MC SEE COMMENTS Last administered on 06/27/18at 13:21; Start 06/24/18 at 09:00 Vancomycin HCl 2 gm/Sodium Chloride 500 ml @ 250 mls/hr 1X ONCE IV Last administered on 06/24/18at 12:47; Start 06/24/18 at 09:30; Stop 06/24/18 at 11:29 ; Status DC Cefoxitin Sodium 50 ml @ 100 mls/hr 1X PERIOP IV ; Start 06/24/18 at 09:15; Status Cancel Diphenhydramine HCl (Benadryl) 25 mg PRN Q6HRS PRN IV ITCHING Last administered on 06/26/18at 21:01; Start 06/24/18 at 09:15 Enoxaparin Sodium (Lovenox 40mg Syringe) 40 mg Q24H SQ ; Start 06/24/18 at 10:00 ; Stop 06/24/18 at 10:00; Status DC Sodium Chloride (Normal Saline Flush) 3 ml QSHIFT PRN IV AFTER MEDS AND BLOOD DRAWS; Start 06/24/18 at 09:15 Potassium Chloride/Sodium Chloride 1,000 ml @ 100 mls/hr Q10H IV Last administered on 06/27/18at 13:31; Start 06/24/18 at 09:13 Morphine Sulfate (Morphine Sulfate) 5 mg PRN Q3HRS PRN IV MODERATE-SEVERE PAIN Last administered on 06/24/18at 20:38; Start 06/24/18 at 09:45; Stop 06/24/18 at 22:38; Status DC Ondansetron HCl (Zofran) 4 mg PRN Q6HRS PRN IV NAUESA, 1ST CHOICE; Start at 09:15; Stop 06/24/18 at 14:47; Status DC Throat Lozenges (Chloraseptic) 1 spray PRN Q2HR PRN PO SORE THROAT Last administered on 06/25/18at 19:34; Start 06/24/18 at 09:15 Throat Lozenges (Cepacol Sore Throat Lozenge) 1 geni PRN Q2HRS PRN PO SORE THROAT; Start 06/24/18 at 09:15 Enoxaparin Sodium (Lovenox 40mg Syringe) 40 mg Q24H SQ ; Start 06/25/18 at 09:00 ; Stop 06/25/18 at 10:53; Status DC Ondansetron HCl (Zofran) 4 mg PRN Q6HRS PRN IV NAUSEA/VOMITING; Start 06/24/18 at 10:00; Stop 06/24/18 at 18:00; Status DC Fentanyl Citrate (Fentanyl 2ml Vial) 25 mcg PRN Q5MIN PRN IV MILD PAIN; Start 06/24/18 at 10:00; Stop 06/24/18 at 18:00; Status DC Fentanyl Citrate (Fentanyl 2ml Vial) 50 mcg PRN Q5MIN PRN IV MODERATE TO SEVERE PAIN Last administered on 06/24/18at 14:28; Start 06/24/18 at 10:00; Stop 06/24/18 at 18:00; Status DC Morphine Sulfate (Morphine Sulfate) 1 mg PRN Q10MIN PRN IV SEVERE PAIN; Start 06/24/18 at 10:00; Stop 06/24/18 at 18:00; Status DC Ringer's Solution 1,000 ml @ 30 mls/hr Q24H IV Last administered on 06/24/18at 11:34; Start 06/24/18 at 09:52; Stop 06/24/18 at 21:51; Status DC Lidocaine HCl (Xylocaine-Mpf 1% 2ml Vial) 2 ml PRN 1X PRN ID PRIOR TO IV START ; Start 06/24/18 at 10:00; Stop 06/24/18 at 18:00; Status DC Hydromorphone HCl (Dilaudid) 0.5 mg PRN Q10MIN PRN IV SEV PAIN, Second choice Last administered on 06/24/18at 15:15; Start 06/24/18 at 10:00; Stop 06/24/18 at 18:00; Status DC Prochlorperazine Edisylate (Compazine) 5 mg PACU PRN PRN IV NAUSEA, MRX1 Last administered on 06/24/18at 10:47; Start 06/24/18 at 10:00; Stop 06/24/18 at 18:00 ; Status DC Fentanyl Citrate (Fentanyl 2ml Vial) 100 mcg STK-MED ONCE .ROUTE ; Start at 10:24; Stop 06/24/18 at 10:25; Status DC Prochlorperazine Edisylate (Compazine) 10 mg STK-MED ONCE .ROUTE ; Start at 10:24; Stop 06/24/18 at 10:25; Status DC Hydromorphone HCl (Dilaudid) 2 mg STK-MED ONCE .ROUTE ; Start 06/24/18 at 11:04 ; Stop 06/24/18 at 11:05; Status DC Cefoxitin Sodium 100 ml @ 200 mls/hr OC PROC ONCE IV Last administered on at 08:43; Start 06/24/18 at 12:00; Stop 06/24/18 at 12:29; Status DC Vancomycin HCl 1.5 gm/Sodium Chloride 500 ml @ 250 mls/hr Q24H IV Last administered on 06/26/18at 13:47; Start 06/25/18 at 13:00; Stop 06/26/18 at 17:00 ; Status DC Vancomycin HCl (Vancomycin Trough Level) 1 each 1X ONCE MC Last administered on 06/26/18at 12:30; Start 06/26/18 at 12:30; Stop 06/26/18 at 12:31; Status DC Potassium Chloride/Water 50 ml @ 50 mls/hr 1X ONCE IV Last administered on at 14:29; Start 06/24/18 at 14:00; Stop 06/24/18 at 14:59; Status DC Calcium Chloride 1000 mg/Dextrose 60 ml @ 120 mls/hr 1X ONCE IV Last administered on 06/24/18at 14:28; Start 06/24/18 at 14:00; Stop 06/24/18 at 14:29 ; Status DC Cefepime HCl 1 gm/ Dextrose 50 ml @ 100 mls/hr Q12HR IV ; Start 06/24/18 at 14: 30; Status Cancel Cefepime HCl (Maxipime) 1 gm Q12HR IVP Last administered on 06/27/18at 10:22; Start 06/24/18 at 14:30 Albumin Human 250 ml @ 62.5 mls/hr 1X ONCE IV Last administered on 06/24/18at 20:32; Start 06/24/18 at 19:15; Stop 06/24/18 at 23:14; Status DC Furosemide (Lasix) 40 mg 1X ONCE IVP Last administered on 06/25/18at 09:05; Start 06/24/18 at 19:15; Stop 06/24/18 at 19:16; Status DC Morphine Sulfate (Morphine Sulfate) 5 mg PRN Q2HR PRN IV PAIN Last administered on 06/27/18at 04:20; Start 06/24/18 at 22:45 Enoxaparin Sodium (Lovenox 40mg Syringe) 40 mg Q24H SQ Last administered on at 16:24; Start 06/26/18 at 16:00 Lactobacillus Rhamnosus (Culturelle) 1 cap BID PO Last administered on at 13:32; Start 06/25/18 at 21:00 Propofol (Diprivan) 200 mg STK-MED ONCE IV ; Start 06/24/18 at 10:00; Stop 06/25 at 12:24; Status DC Potassium Chloride/Water 50 ml @ 50 mls/hr 1X ONCE IV Last administered on at 08:27; Start 06/26/18 at 08:00; Stop 06/26/18 at 08:59; Status DC Calcium Gluconate 1000 mg/Dextrose 110 ml @ 220 mls/hr 1X ONCE IV Last administered on 06/26/18at 08:09; Start 06/26/18 at 07:15; Stop 06/26/18 at 07:44 ; Status DC Vancomycin HCl 1.5 gm/Sodium Chloride 500 ml @ 250 mls/hr Q12H IV Last administered on 06/27/18at 13:34; Start 06/27/18 at 02:00 Vancomycin HCl (Vancomycin Trough Level) 1 each 1X ONCE MC ; Start 06/28/18 at 01:30; Stop 06/28/18 at 01:31 Acetaminophen/ Hydrocodone Bitart (Lortab 5/325) 1 tab PRN Q4HRS PRN PO PAIN; Start 06/27/18 at 14:15 Lorazepam (Ativan) 0.5 mg PRN Q8HRS PRN PO ANXIETY / AGITATION; Start 06/27/18 at 14:15 Active Scripts Active Levaquin (Levofloxacin) 500 Mg Tablet 500 Mg PO DAILY06 Reported Januvia (Sitagliptin Phosphate) 100 Mg Tablet 1 Tab PO DAILY Beta Carotene (Beta-Carotene) 10,000 Unit Capsule 12,000 Unit PO Crestor (Rosuvastatin Calcium) 5 Mg Tablet 1 Tab PO DAILY Vitals/I & O Vital Sign - Last 24 Hours 06/26/18 06/26/18 06/26/18 06/26/18 16:00 16:24 18:24 19:00 Temp 99.3 99.1 99.3 99.1 Pulse 99 107 Resp 18 B/P (MAP) 125/70 (88) 148/75 (99) Pulse Ox 98 97 96 O2 Delivery Room Air Room Air Room Air Room Air 06/26/18 06/26/18 06/27/18 06/27/18 20:00 20:43 00:00 00:35 Temp 98.7 98.7 Pulse 99 Resp B/P (MAP) 136/61 (86) Pulse Ox 97 97 97 O2 Delivery Room Air Room Air Room Air Room Air O2 Flow Rate 8.0 8.0 8.0 06/27/18 06/27/18 06/27/18 06/27/18 03:00 04:20 04:50 07:59 Temp 99.1 98.4 99.1 98.4 Pulse 100 107 Resp 20 22 B/P (MAP) 149/71 (97) 151/73 (99) Pulse Ox 100 100 100 96 O2 Delivery Room Air Room Air Room Air Room Air O2 Flow Rate 8.0 8.0 06/27/18 11:43 Temp 97.9 97.9 Pulse 99 Resp 20 B/P (MAP) 140/66 (90) Pulse Ox 98 O2 Delivery Room Air Intake and Output 06/26/18 06/26/18 06/27/18 15:00 23:00 07:00 Output Total 820 ml 395 ml 950 ml Balance -820 ml -395 ml -950 ml DENNIS HOLCOMB MD Jun 27, 2018 14:50
[2018-06-27] MEDS ORDERED: POTASSIUM CHLORIDE 20 MEQ TABLET.ER. PO ONE (15:15)
[2018-06-27] MEDS: ENOXAPARIN 40 MG/0.4 ML SYRINGE. SQ SCH (16:19)
[2018-06-27] MEDS: ONDANSETRON PF 4 MG/2 ML VIAL. IV PRN (18:19)
--- NOTE | 2018-06-27 19:31 | RAD ---
Bilateral upper Extremity Venous Doppler Ultrasound Indication: Bilateral arm swelling, left greater than right Comparison: None available Procedure: Color flow, duplex and 2D images are obtained with and without compression in the area of the deep and superficial venous structures of bilateral upper Extremity. Color Doppler and venous waveform analysis was also applied to the left jugular and subclavian vein. Findings: There is normal duplex flow, color flow and compressibility of all visualized deep vein segments. No evidence of deep venous thrombus is present in either arms. Note is made of diffuse swelling in bilateral lower arms. There is a clot in the left basilic vein extending from the lower arm to the mid arm consistent with a superficial thrombophlebitis. Impression: No convincing evidence of DVT seen in both upper extremities. Superficial thrombophlebitis seen in the left basilic vein from the upper arm to the lower arm. Electronically signed by: Yudelka Murrell MD (06/27/2018 7:27 PM) [facility]
[2018-06-27] MEDS: ZOLPIDEM 5 MG TABLET. PO PRN (21:50)
[2018-06-27] MEDS: BENZOCAINE/MENTHOL LOZENGE. PO PRN (21:51)
[2018-06-28 02:26] LABS: VANC TR 10.5 mcg/mL (10.0-20.0)
[2018-06-28 02:39] LABS: BASO % 0 % (0-3); EOS # 0.2 x10^3/uL (0.0-0.7); EOS % 1 % (0-3); HEMATOCRIT 24.1 % (36.0-47.0); HEMOGLOBIN 8.5 g/dL (12.0-15.5); LYMPH # 0.7 x10^3/uL (1.0-4.8); LYMPH % 4 % (24-48); MEAN CORPUSCULAR HEMOGLOBIN 32 pg (25-35); MEAN CORPUSCULAR HGB CONC 35 g/dL (31-37); MEAN CORPUSCULAR VOLUME 90 fL (79-100); MONO # 1.3 x10^3/uL (0.0-1.1); MONO % 9 % (0-9); NEUT # 12.7 x10^3uL (1.8-7.7); NEUT % 86 % (31-73); PLATELET COUNT 253 x10^3/uL (140-400); RED BLOOD COUNT 2.69 x10^6/uL (3.50-5.40); RED CELL DISTRIBUTION WIDTH 15.7 % (11.5-14.5); WHITE BLOOD COUNT 14.8 x10^3/uL (4.0-11.0)
[2018-06-28] MEDS: VANCOMYCIN PER PHARMACY MC PRN ×2 (02:53→02:57)
[2018-06-28] MEDS ORDERED: VANCOMYCIN 1.75 GM in IV NORMAL SALINE 500ML BAG 500 ML IV SCH (03:00)
[2018-06-28] MEDS: LORazepam 0.5 MG TABLET PO PRN ×2 (03:19→20:20)
[2018-06-28 05:03] LABS: CALCIUM 7.6 mg/dL (8.5-10.1); CREATININE 0.5 mg/dL (0.6-1.0); GFR 142.2; POTASSIUM 3.5 mmol/L (3.5-5.1)
[2018-06-28] MEDS: POTASSIUM CL 20MEQ-0.45% NACL 1,000 ML IV SCH ×3 (06:15→23:13)
[2018-06-28 08:00] VITALS: BP 132/69
[2018-06-28] MEDS: PANTOPRAZOLE IV PUSH 40 MG VIAL. IVP SCH (08:29)
[2018-06-28] MEDS: LACTOBACILLUS RHAMNOSUS GG 1 CAPSULE. PO SCH ×2 (08:29→20:20)
[2018-06-28] MEDS: HYDROcodone/APAP 5/325MG 1 TAB TABLET PO PRN ×3 (08:29→20:21)
[2018-06-28] MEDS: CEFEPIME HCL IV Push 1 GM VIAL. IVP SCH ×2 (08:32→20:21)
--- NOTE | 2018-06-28 08:41 | PDOC ---
DIXON GONSALVES [employer]END[employer] 06/28/18 0841: SURGICAL PROGRESS NOTE Subjective taking clears, better this am NO N/V +STOOL Vital Signs Vital Signs Date Time Temp Pulse Resp B/P (MAP) Pulse Ox O2 Delivery O2 Flow Rate FiO2 06/28/18 08:29 94 Room Air 06/28/18 08:00 98.2 108 18 132/69 (90) 98.2 I&O Intake and Output 06/28/18 07:00 Intake Total 200 ml Output Total 1160 ml Balance -960 ml Intake Oral 200 ml Output Urine Total 150 ml Drainage Total 1010 ml # Voids 1 General: Alert, Oriented X3, Cooperative, No acute distress Abdomen: Soft, Other (ND, dressing dry, ostomy with stool, drain serosang) Labs Laboratory Tests Test 06/26/18 13:50 06/27/18 04:50 06/28/18 01:50 Vancomycin Level Trough 2.9 mcg/mL (10.0-20.0) 10.5 mcg/mL (10.0-20.0) Vancomycin Last Dose Date 06/25/18 [id number] Vancomycin Last Dose Time 1300 1400 White Blood Count 18.5 x10^3/uL (4.0-11.0) 14.8 x10^3/uL (4.0-11.0) Red Blood Count 2.68 x10^6/uL (3.50-5.40) 2.69 x10^6/uL (3.50-5.40) Hemoglobin 8.3 g/dL (12.0-15.5) 8.5 g/dL (12.0-15.5) Hematocrit 24.0 % (36.0-47.0) 24.1 % (36.0-47.0) Mean Corpuscular Volume 89 fL (79-100) 90 fL (79-100) Mean Corpuscular Hemoglobin 31 pg (25-35) 32 pg (25-35) Mean Corpuscular Hemoglobin Concent 35 g/dL (31-37) 35 g/dL (31-37) Red Cell Distribution Width 15.4 % (11.5-14.5) 15.7 % (11.5-14.5) Platelet Count 192 x10^3/uL (140-400) 253 x10^3/uL (140-400) Neutrophils (%) (Auto) 85 % (31-73) 86 % (31-73) Lymphocytes (%) (Auto) 6 % (24-48) 4 % (24-48) Monocytes (%) (Auto) 8 % (0-9) 9 % (0-9) Eosinophils (%) (Auto) 0 % (0-3) 1 % (0-3) Basophils (%) (Auto) 1 % (0-3) 0 % (0-3) Neutrophils # (Auto) 15.8 x10^3uL (1.8-7.7) 12.7 x10^3uL (1.8-7.7) Lymphocytes # (Auto) 1.1 x10^3/uL (1.0-4.8) 0.7 x10^3/uL (1.0-4.8) Monocytes # (Auto) 1.5 x10^3/uL (0.0-1.1) 1.3 x10^3/uL (0.0-1.1) Eosinophils # (Auto) 0.0 x10^3/uL (0.0-0.7) 0.2 x10^3/uL (0.0-0.7) Basophils # (Auto) 0.1 x10^3/uL (0.0-0.2) 0.0 x10^3/uL (0.0-0.2) Sodium Level 145 mmol/L (136-145) 144 mmol/L (136-145) Potassium Level 3.2 mmol/L (3.5-5.1) 3.5 mmol/L (3.5-5.1) Chloride Level 110 mmol/L (98-107) 108 mmol/L (98-107) Carbon Dioxide Level 27 mmol/L (21-32) 29 mmol/L (21-32) Anion Gap 8 (6-14) 7 (6-14) Blood Urea Nitrogen 10 mg/dL (7-20) 11 mg/dL (7-20) Creatinine 0.5 mg/dL (0.6-1.0) 0.5 mg/dL (0.6-1.0) Estimated GFR (Cockcroft-Gault) 142.2 142.2 Glucose Level 110 mg/dL (70-99) 85 mg/dL (70-99) Calcium Level 7.0 mg/dL (8.5-10.1) 7.6 mg/dL (8.5-10.1) Laboratory Tests Test 06/28/18 01:50 White Blood Count 14.8 x10^3/uL (4.0-11.0) Red Blood Count 2.69 x10^6/uL (3.50-5.40) Hemoglobin 8.5 g/dL (12.0-15.5) Hematocrit 24.1 % (36.0-47.0) Mean Corpuscular Volume 90 fL (79-100) Mean Corpuscular Hemoglobin 32 pg (25-35) Mean Corpuscular Hemoglobin Concent 35 g/dL (31-37) Red Cell Distribution Width 15.7 % (11.5-14.5) Platelet Count 253 x10^3/uL (140-400) Neutrophils (%) (Auto) 86 % (31-73) Lymphocytes (%) (Auto) 4 % (24-48) Monocytes (%) (Auto) 9 % (0-9) Eosinophils (%) (Auto) 1 % (0-3) Basophils (%) (Auto) 0 % (0-3) Neutrophils # (Auto) 12.7 x10^3uL (1.8-7.7) Lymphocytes # (Auto) 0.7 x10^3/uL (1.0-4.8) Monocytes # (Auto) 1.3 x10^3/uL (0.0-1.1) Eosinophils # (Auto) 0.2 x10^3/uL (0.0-0.7) Basophils # (Auto) 0.0 x10^3/uL (0.0-0.2) Sodium Level 144 mmol/L (136-145) Potassium Level 3.5 mmol/L (3.5-5.1) Chloride Level 108 mmol/L (98-107) Carbon Dioxide Level 29 mmol/L (21-32) Anion Gap 7 (6-14) Blood Urea Nitrogen 11 mg/dL (7-20) Creatinine 0.5 mg/dL (0.6-1.0) Estimated GFR (Cockcroft-Gault) 142.2 Glucose Level 85 mg/dL (70-99) Calcium Level 7.6 mg/dL (8.5-10.1) Vancomycin Level Trough 10.5 mcg/mL (10.0-20.0) Vancomycin Last Dose Date [id number] Vancomycin Last Dose Time 1400 Problem List Problems Medical Problems: (1) Anemia Status: Acute (2) Dehydration Status: Acute (3) Rectal bleeding Status: Acute Assessment/Plan s/p xlap, diverting ileostomy dc planning, advance diet once po intake improved EDGAR CORADO MD 06/28/182053: SURGICAL PROGRESS NOTE Assessment/Plan Agree with Nisha's assessment and plan. DIXON GONSALVES APRN Jun 28, 2018 08:41 EDGAR CORADO MD Jun 28, 2018 20:54
--- NOTE | 2018-06-28 10:42 | PDOC ---
PROGRESS NOTES Chief Complaint Chief Complaint bright red blood per rectum, 2/2 diverticulosis 2/2 Colectomy and left salpingo -oophorectomy.06/24 hypotension with gib, requried pressors acute anemia with gib HTN dm2 hld morbid obesity 2/3 + bcx bacteremia sepsis with bacteremia hypokalemia hypocalcemia plan: FU WITH GI, IR total got 9u PRBC transfusion, plt and FFP transfusion hold po meds , resume when eats better fu colostomy, ELI drain, sx wound care advance diet to full liquid 1/2 NS +K 100cc/h IR angiogram neg bleeding. + bleeding scan, neg CTA. EGD non obstructing shatzki ring. colectomy since cont bleeding with low hb and low bp. gi ppx fu with ID, fu bcx, on vanco and cefepime for now talked to daughter at bedside lovenox dvt ppx History of Present Illness History of Present Illness ROS: no fever, chills, sob or chest pain before sx: cont rectal bleeding with some abd cramps overnight, as per nurse could have about 2L blood loss bp low, need levaqhed since sx + bleeding scan, neg CTA. got Colectomy and left salpingo-oophorectomy 06/24, hb low again 06/25, no active bleeding , another 2u RPBC transfusion post op after sx: no active bleeding, hb stable after transfusion Vitals Vitals Vital Signs Date Time Temp Pulse Resp B/P (MAP) Pulse Ox O2 Delivery O2 Flow Rate FiO2 06/28/18 09:48 94 Room Air 06/28/18 08:00 98.2 108 18 132/69 (90) 98.2 Physical Exam Physical Exam GENERAL: sleepy but arousable HEENT: Anicteric, no thrush. Oral mucosa moist. NG tube. NECK: Supple.RT IJ in place LUNGS: dec bs at bases HEART: S1, S2, tachycardia. ABDOMEN: Soft. surgical wound dressed drain and ostomy intact. lorezno in place EXTREMITIES: No cyanosis, no edema. DERMATOLOGIC: Warm, dry, no generalized rash. CENTRAL NERVOUS SYSTEM: Moves all 4 extremities. General: Alert, Oriented X3, Cooperative, No acute distress Heart: Regular rate, Normal S1, Normal S2 Lungs: Clear Abdomen: Soft, Other (ND, dressing dry, ostomy with stool, drain serosang) Extremities: No cyanosis Skin: Other (warm, dry) Labs LABS Laboratory Tests Test 06/28/18 01:50 White Blood Count 14.8 x10^3/uL (4.0-11.0) Red Blood Count 2.69 x10^6/uL (3.50-5.40) Hemoglobin 8.5 g/dL (12.0-15.5) Hematocrit 24.1 % (36.0-47.0) Mean Corpuscular Volume 90 fL (79-100) Mean Corpuscular Hemoglobin 32 pg (25-35) Mean Corpuscular Hemoglobin Concent 35 g/dL (31-37) Red Cell Distribution Width 15.7 % (11.5-14.5) Platelet Count 253 x10^3/uL (140-400) Neutrophils (%) (Auto) 86 % (31-73) Lymphocytes (%) (Auto) 4 % (24-48) Monocytes (%) (Auto) 9 % (0-9) Eosinophils (%) (Auto) 1 % (0-3) Basophils (%) (Auto) 0 % (0-3) Neutrophils # (Auto) 12.7 x10^3uL (1.8-7.7) Lymphocytes # (Auto) 0.7 x10^3/uL (1.0-4.8) Monocytes # (Auto) 1.3 x10^3/uL (0.0-1.1) Eosinophils # (Auto) 0.2 x10^3/uL (0.0-0.7) Basophils # (Auto) 0.0 x10^3/uL (0.0-0.2) Sodium Level 144 mmol/L (136-145) Potassium Level 3.5 mmol/L (3.5-5.1) Chloride Level 108 mmol/L (98-107) Carbon Dioxide Level 29 mmol/L (21-32) Anion Gap 7 (6-14) Blood Urea Nitrogen 11 mg/dL (7-20) Creatinine 0.5 mg/dL (0.6-1.0) Estimated GFR (Cockcroft-Gault) 142.2 Glucose Level 85 mg/dL (70-99) Calcium Level 7.6 mg/dL (8.5-10.1) Vancomycin Level Trough 10.5 mcg/mL (10.0-20.0) Vancomycin Last Dose Date 9221012 Vancomycin Last Dose Time 1400 Assessment and Plan Assessmemt and Plan Problems Medical Problems: (1) Anemia Status: Acute (2) Dehydration Status: Acute (3) Rectal bleeding Status: Acute Comment Review of Relevant I have reviewed the following items fabiola (where applicable) has been applied. Labs Laboratory Tests Test 06/26/18 13:50 06/27/18 04:50 06/28/18 01:50 Vancomycin Level Trough 2.9 mcg/mL (10.0-20.0) 10.5 mcg/mL (10.0-20.0) Vancomycin Last Dose Date 06/25/189221012 Vancomycin Last Dose Time 1300 1400 White Blood Count 18.5 x10^3/uL (4.0-11.0) 14.8 x10^3/uL (4.0-11.0) Red Blood Count 2.68 x10^6/uL (3.50-5.40) 2.69 x10^6/uL (3.50-5.40) Hemoglobin 8.3 g/dL (12.0-15.5) 8.5 g/dL (12.0-15.5) Hematocrit 24.0 % (36.0-47.0) 24.1 % (36.0-47.0) Mean Corpuscular Volume 89 fL (79-100) 90 fL (79-100) Mean Corpuscular Hemoglobin 31 pg (25-35) 32 pg (25-35) Mean Corpuscular Hemoglobin Concent 35 g/dL (31-37) 35 g/dL (31-37) Red Cell Distribution Width 15.4 % (11.5-14.5) 15.7 % (11.5-14.5) Platelet Count 192 x10^3/uL (140-400) 253 x10^3/uL (140-400) Neutrophils (%) (Auto) 85 % (31-73) 86 % (31-73) Lymphocytes (%) (Auto) 6 % (24-48) 4 % (24-48) Monocytes (%) (Auto) 8 % (0-9) 9 % (0-9) Eosinophils (%) (Auto) 0 % (0-3) 1 % (0-3) Basophils (%) (Auto) 1 % (0-3) 0 % (0-3) Neutrophils # (Auto) 15.8 x10^3uL (1.8-7.7) 12.7 x10^3uL (1.8-7.7) Lymphocytes # (Auto) 1.1 x10^3/uL (1.0-4.8) 0.7 x10^3/uL (1.0-4.8) Monocytes # (Auto) 1.5 x10^3/uL (0.0-1.1) 1.3 x10^3/uL (0.0-1.1) Eosinophils # (Auto) 0.0 x10^3/uL (0.0-0.7) 0.2 x10^3/uL (0.0-0.7) Basophils # (Auto) 0.1 x10^3/uL (0.0-0.2) 0.0 x10^3/uL (0.0-0.2) Sodium Level 145 mmol/L (136-145) 144 mmol/L (136-145) Potassium Level 3.2 mmol/L (3.5-5.1) 3.5 mmol/L (3.5-5.1) Chloride Level 110 mmol/L (98-107) 108 mmol/L (98-107) Carbon Dioxide Level 27 mmol/L (21-32) 29 mmol/L (21-32) Anion Gap 8 (6-14) 7 (6-14) Blood Urea Nitrogen 10 mg/dL (7-20) 11 mg/dL (7-20) Creatinine 0.5 mg/dL (0.6-1.0) 0.5 mg/dL (0.6-1.0) Estimated GFR (Cockcroft-Gault) 142.2 142.2 Glucose Level 110 mg/dL (70-99) 85 mg/dL (70-99) Calcium Level 7.0 mg/dL (8.5-10.1) 7.6 mg/dL (8.5-10.1) Laboratory Tests Test 06/28/18 01:50 White Blood Count 14.8 x10^3/uL (4.0-11.0) Red Blood Count 2.69 x10^6/uL (3.50-5.40) Hemoglobin 8.5 g/dL (12.0-15.5) Hematocrit 24.1 % (36.0-47.0) Mean Corpuscular Volume 90 fL (79-100) Mean Corpuscular Hemoglobin 32 pg (25-35) Mean Corpuscular Hemoglobin Concent 35 g/dL (31-37) Red Cell Distribution Width 15.7 % (11.5-14.5) Platelet Count 253 x10^3/uL (140-400) Neutrophils (%) (Auto) 86 % (31-73) Lymphocytes (%) (Auto) 4 % (24-48) Monocytes (%) (Auto) 9 % (0-9) Eosinophils (%) (Auto) 1 % (0-3) Basophils (%) (Auto) 0 % (0-3) Neutrophils # (Auto) 12.7 x10^3uL (1.8-7.7) Lymphocytes # (Auto) 0.7 x10^3/uL (1.0-4.8) Monocytes # (Auto) 1.3 x10^3/uL (0.0-1.1) Eosinophils # (Auto) 0.2 x10^3/uL (0.0-0.7) Basophils # (Auto) 0.0 x10^3/uL (0.0-0.2) Sodium Level 144 mmol/L (136-145) Potassium Level 3.5 mmol/L (3.5-5.1) Chloride Level 108 mmol/L (98-107) Carbon Dioxide Level 29 mmol/L (21-32) Anion Gap 7 (6-14) Blood Urea Nitrogen 11 mg/dL (7-20) Creatinine 0.5 mg/dL (0.6-1.0) Estimated GFR (Cockcroft-Gault) 142.2 Glucose Level 85 mg/dL (70-99) Calcium Level 7.6 mg/dL (8.5-10.1) Vancomycin Level Trough 10.5 mcg/mL (10.0-20.0) Vancomycin Last Dose Date 9221012 Vancomycin Last Dose Time 1400 Microbiology 06/25/18 Blood Culture - Preliminary, Resulted NO GROWTH AFTER 3 DAYS 06/22/18 Urine Culture - Final, Complete 06/22/18 Urine Culture Result 1 (ERICA) - Final, Complete 06/22/18 Antimicrobic Susceptibility - Final, Complete Medications Current Medications Pantoprazole Sodium (PROTONIX VIAL for IV PUSH) 80 mg 1X ONCE IVP Last administered on 06/22/18at 15:57; Start 06/22/18 at 15:30; Stop 06/22/18 at 15:32 ; Status DC Sodium Chloride 1,000 ml @ 1,000 mls/hr 1X ONCE IV Last administered on at 15:52; Start 06/22/18 at 15:30; Stop 06/22/18 at 16:29; Status DC Ondansetron HCl (Zofran) 4 mg PRN Q8HRS PRN IV NAUSEA/VOMITING; Start 06/22/18 at 16:15; Stop 06/23/18 at 16:14; Status DC Sodium Chloride 1,000 ml @ 150 mls/hr Q6H40M IV Last administered on at 06:27; Start 06/22/18 at 16:11; Stop 06/23/18 at 09:11; Status DC Iohexol (Omnipaque 300 Mg/ml) 75 ml 1X ONCE IV Last administered on 06/22/18at 17:04; Start 06/22/18 at 17:00; Stop 06/22/18 at 17:01; Status DC Info (CONTRAST GIVEN -- Rx MONITORING) 1 each PRN DAILY PRN MC SEE COMMENTS; Start 06/22/18 at 17:00; Stop 06/24/18 at 09:36; Status DC Sodium Chloride 1,000 ml @ 1,000 mls/hr 1X ONCE IV Last administered on at 17:45; Start 06/22/18 at 17:45; Stop 06/22/18 at 18:44; Status DC Pantoprazole Sodium (PROTONIX VIAL for IV PUSH) 40 mg DAILYAC IVP Last administered on 06/28/18at 08:29; Start 06/23/18 at 07:30 Heparin Sodium (Porcine) (HEPARIN for NUC MED) 100 unit 1X ONCE IV Last administered on 06/23/18at 03:30; Start 06/23/18 at 03:30; Stop 06/23/18 at 03:31 ; Status DC Acetaminophen (Tylenol) 650 mg 1X PRN PRN PO PRE-TRANSFUSION; Start 06/23/18 at 05:30; Stop 06/27/18 at 19:42; Status DC Diphenhydramine HCl (Benadryl) 25 mg PRN 1X PRN PO PRE-TRANSFUSION; Start 06/23 at 05:30; Stop 06/27/18 at 19:42; Status DC Iohexol (Omnipaque 300 Mg/ml) 90 ml 1X ONCE IV Last administered on 06/23/18at 07:15; Start 06/23/18 at 07:00; Stop 06/23/18 at 07:01; Status DC Info (CONTRAST GIVEN -- Rx MONITORING) 1 each PRN DAILY PRN MC SEE COMMENTS; Start 06/23/18 at 06:30; Stop 06/25/18 at 06:29; Status DC Acetaminophen (Tylenol) 650 mg PRN Q6HRS PRN PO FEVER Last administered on 06/27at 13:32; Start 06/23/18 at 09:15 Ondansetron HCl (Zofran) 4 mg PRN Q6HRS PRN IV NAUSEA/VOMITING Last administered on 06/27/18at 18:19; Start 06/23/18 at 09:15 Morphine Sulfate (Morphine Sulfate) 2 mg PRN Q2HR PRN IV MODERATE TO SEVERE PAIN; Start 06/23/18 at 09:15; Stop 06/24/18 at 09:36; Status DC Tramadol HCl (Ultram) 50 mg PRN Q6HRS PRN PO MILD TO MODERATE PAIN; Start 06/23 at 09:15 Docusate Sodium (Colace) 100 mg PRN DAILY PRN PO CONSTIPATION; Start 06/23/18 at 09:15 Sodium Chloride 1,000 ml @ 125 mls/hr Q8H IV Last administered on 06/24/18at 05 :55; Start 06/23/18 at 09:15; Stop 06/24/18 at 13:49; Status DC Iodixanol (Visipaque 320) 100 ml STK-MED ONCE .ROUTE ; Start 06/23/18 at 09:14; Stop 06/23/18 at 09:15; Status DC Lidocaine/Sodium Bicarbonate (Buffered Lidocaine 1%) 3 ml STK-MED ONCE .ROUTE ; Start 06/23/18 at 09:14; Stop 06/23/18 at 09:15; Status DC Iodixanol (Visipaque 320) 50 ml STK-MED ONCE .ROUTE ; Start 06/23/18 at 09:14; Stop 06/23/18 at 09:15; Status DC Heparin Sodium/ Sodium Chloride 1,000 ml @ As Directed STK-MED ONCE .ROUTE ; Start 06/23/18 at 09:14; Stop 06/23/18 at 09:15; Status DC Iodixanol (Visipaque 320) 100 ml STK-MED ONCE .ROUTE ; Start 06/23/18 at 09:31; Stop 06/23/18 at 09:32; Status DC Midazolam HCl (Versed) 2 mg STK-MED ONCE .ROUTE ; Start 06/23/18 at 09:34; Stop 06/23/18 at 09:35; Status DC Fentanyl Citrate (Fentanyl 2ml Vial) 100 mcg STK-MED ONCE .ROUTE ; Start at 09:34; Stop 06/23/18 at 09:35; Status DC Heparin Sodium/ Sodium Chloride (HEPARIN for ARTERIAL LINE FLUSH) 1,000 unit 1X ONCE IART Last administered on 06/23/18at 10:15; Start 06/23/18 at 10:15; Stop 06/23/18 at 10:16; Status DC Lidocaine/Sodium Bicarbonate (Buffered Lidocaine 1%) 3 ml 1X ONCE IJ Last administered on 06/23/18at 10:15; Start 06/23/18 at 10:15; Stop 06/23/18 at 10:16 ; Status DC Midazolam HCl (Versed) 2 mg 1X ONCE IV ; Start 06/23/18 at 10:15; Stop at 10:16; Status DC Fentanyl Citrate (Fentanyl 2ml Vial) 100 mcg 1X ONCE IV ; Start 06/23/18 at 10: 15; Stop 06/23/18 at 10:16; Status DC Iodixanol (Visipaque 320) 100 ml 1X ONCE IART Last administered on 06/23/18at 10:15; Start 06/23/18 at 10:15; Stop 06/23/18 at 10:16; Status DC Iodixanol (Visipaque 320) 100 ml STK-MED ONCE .ROUTE ; Start 06/23/18 at 10:09; Stop 06/23/18 at 10:10; Status DC Iodixanol (Visipaque 320) 50 ml STK-MED ONCE .ROUTE ; Start 06/23/18 at 11:01; Stop 06/23/18 at 11:02; Status DC Sodium Chloride 1,000 ml @ 1,000 mls/hr 1X ONCE IV Last administered on at 03:00; Start 06/24/18 at 03:15; Stop 06/24/18 at 04:14; Status DC Sodium Chloride 1,000 ml @ 1,000 mls/hr 1X ONCE IV Last administered on at 04:06; Start 06/24/18 at 04:15; Stop 06/24/18 at 05:14; Status DC Norepinephrine Bitartrate 250 ml @ 1.875 mls/ hr CONT PRN IV SEE I/O RECORD Last administered on 06/25/18at 13:45; Start 06/24/18 at 03:15; Stop 06/27/18 at 14:51; Status DC Cefoxitin Sodium 2 gm/Dextrose 100 ml @ 200 mls/hr ONCE ONCE IV Last administered on 06/24/18at 06:45; Start 06/24/18 at 05:00; Stop 06/24/18 at 05:29 ; Status DC Succinylcholine Chloride (Anectine) 200 mg STK-MED ONCE .ROUTE ; Start 06/24/18 at 05:48; Stop 06/24/18 at 05:49; Status DC Rocuronium [place] (Zemuron) 100 mg STK-MED ONCE .ROUTE ; Start 06/24/18 at 05: 48; Stop 06/24/18 at 05:49; Status DC Sodium Chloride 1,000 ml @ 1,000 mls/hr 1X ONCE IV Last administered on at 05:50; Start 06/24/18 at 05:50; Stop 06/24/18 at 06:49; Status DC Fentanyl Citrate (Fentanyl 5ml Vial) 250 mcg STK-MED ONCE .ROUTE ; Start at 07:16; Stop 06/24/18 at 07:18; Status DC Etomidate (Amidate) 20 mg STK-MED ONCE IV ; Start 06/24/18 at 07:17; Stop at 07:18; Status DC Propofol 20 ml @ As Directed STK-MED ONCE IV ; Start 06/24/18 at 07:17; Stop at 07:18; Status DC Ondansetron HCl (Zofran) 4 mg STK-MED ONCE .ROUTE ; Start 06/24/18 at 07:55; Stop 06/24/18 at 07:56; Status DC Neostigmine Methylsulfate (Neostigmine Methylsulfate) 5 mg STK-MED ONCE .ROUTE ; Start 06/24/18 at 08:38; Stop 06/24/18 at 08:40; Status DC Glycopyrrolate (Robinul) 1 mg STK-MED ONCE .ROUTE ; Start 06/24/18 at 08:39; Stop 06/24/18 at 08:40; Status DC Cefoxitin Sodium 100 ml @ As Directed STK-MED ONCE IV ; Start 06/24/18 at 07:42 ; Stop 06/24/18 at 08:43; Status DC Vancomycin HCl (Vanco Per Pharmacy) 1 each PRN DAILY PRN MC SEE COMMENTS Last administered on 06/28/18at 02:57; Start 06/24/18 at 09:00 Vancomycin HCl 2 gm/Sodium Chloride 500 ml @ 250 mls/hr 1X ONCE IV Last administered on 06/24/18at 12:47; Start 06/24/18 at 09:30; Stop 06/24/18 at 11:29 ; Status DC Cefoxitin Sodium 50 ml @ 100 mls/hr 1X PERIOP IV ; Start 06/24/18 at 09:15; Status Cancel Diphenhydramine HCl (Benadryl) 25 mg PRN Q6HRS PRN IV ITCHING Last administered on 06/26/18at 21:01; Start 06/24/18 at 09:15 Enoxaparin Sodium (Lovenox 40mg Syringe) 40 mg Q24H SQ ; Start 06/24/18 at 10:00 ; Stop 06/24/18 at 10:00; Status DC Sodium Chloride (Normal Saline Flush) 3 ml QSHIFT PRN IV AFTER MEDS AND BLOOD DRAWS; Start 06/24/18 at 09:15 Potassium Chloride/Sodium Chloride 1,000 ml @ 100 mls/hr Q10H IV Last administered on 06/28/18at 06:15; Start 06/24/18 at 09:13 Morphine Sulfate (Morphine Sulfate) 5 mg PRN Q3HRS PRN IV MODERATE-SEVERE PAIN Last administered on 06/24/18at 20:38; Start 06/24/18 at 09:45; Stop 06/24/18 at 22:38; Status DC Ondansetron HCl (Zofran) 4 mg PRN Q6HRS PRN IV NAUESA, 1ST CHOICE; Start at 09:15; Stop 06/24/18 at 14:47; Status DC Throat Lozenges (Chloraseptic) 1 spray PRN Q2HR PRN PO SORE THROAT 2ND CHOICE Last administered on 06/25/18at 19:34; Start 06/24/18 at 09:15 Throat Lozenges (Cepacol Sore Throat Lozenge) 1 geni PRN Q2HRS PRN PO SORE THROAT 1ST CHOICE Last administered on 06/27/18at 21:51; Start 06/24/18 at 09:15 Enoxaparin Sodium (Lovenox 40mg Syringe) 40 mg Q24H SQ ; Start 06/25/18 at 09:00 ; Stop 06/25/18 at 10:53; Status DC Ondansetron HCl (Zofran) 4 mg PRN Q6HRS PRN IV NAUSEA/VOMITING; Start 06/24/18 at 10:00; Stop 06/24/18 at 18:00; Status DC Fentanyl Citrate (Fentanyl 2ml Vial) 25 mcg PRN Q5MIN PRN IV MILD PAIN; Start 06/24/18 at 10:00; Stop 06/24/18 at 18:00; Status DC Fentanyl Citrate (Fentanyl 2ml Vial) 50 mcg PRN Q5MIN PRN IV MODERATE TO SEVERE PAIN Last administered on 06/24/18at 14:28; Start 06/24/18 at 10:00; Stop 06/24/18 at 18:00; Status DC Morphine Sulfate (Morphine Sulfate) 1 mg PRN Q10MIN PRN IV SEVERE PAIN; Start 06/24/18 at 10:00; Stop 06/24/18 at 18:00; Status DC Ringer's Solution 1,000 ml @ 30 mls/hr Q24H IV Last administered on 06/24/18at 11:34; Start 06/24/18 at 09:52; Stop 06/24/18 at 21:51; Status DC Lidocaine HCl (Xylocaine-Mpf 1% 2ml Vial) 2 ml PRN 1X PRN ID PRIOR TO IV START ; Start 06/24/18 at 10:00; Stop 06/24/18 at 18:00; Status DC Hydromorphone HCl (Dilaudid) 0.5 mg PRN Q10MIN PRN IV SEV PAIN, Second choice Last administered on 06/24/18at 15:15; Start 06/24/18 at 10:00; Stop 06/24/18 at 18:00; Status DC Prochlorperazine Edisylate (Compazine) 5 mg PACU PRN PRN IV NAUSEA, MRX1 Last administered on 06/24/18at 10:47; Start 06/24/18 at 10:00; Stop 06/24/18 at 18:00 ; Status DC Fentanyl Citrate (Fentanyl 2ml Vial) 100 mcg STK-MED ONCE .ROUTE ; Start at 10:24; Stop 06/24/18 at 10:25; Status DC Prochlorperazine Edisylate (Compazine) 10 mg STK-MED ONCE .ROUTE ; Start at 10:24; Stop 06/24/18 at 10:25; Status DC Hydromorphone HCl (Dilaudid) 2 mg STK-MED ONCE .ROUTE ; Start 06/24/18 at 11:04 ; Stop 06/24/18 at 11:05; Status DC Cefoxitin Sodium 100 ml @ 200 mls/hr OC PROC ONCE IV Last administered on at 08:43; Start 06/24/18 at 12:00; Stop 06/24/18 at 12:29; Status DC Vancomycin HCl 1.5 gm/Sodium Chloride 500 ml @ 250 mls/hr Q24H IV Last administered on 06/26/18at 13:47; Start 06/25/18 at 13:00; Stop 06/26/18 at 17:00 ; Status DC Vancomycin HCl (Vancomycin Trough Level) 1 each 1X ONCE MC Last administered on 06/26/18at 12:30; Start 06/26/18 at 12:30; Stop 06/26/18 at 12:31; Status DC Potassium Chloride/Water 50 ml @ 50 mls/hr 1X ONCE IV Last administered on at 14:29; Start 06/24/18 at 14:00; Stop 06/24/18 at 14:59; Status DC Calcium Chloride 1000 mg/Dextrose 60 ml @ 120 mls/hr 1X ONCE IV Last administered on 06/24/18at 14:28; Start 06/24/18 at 14:00; Stop 06/24/18 at 14:29 ; Status DC Cefepime HCl 1 gm/ Dextrose 50 ml @ 100 mls/hr Q12HR IV ; Start 06/24/18 at 14: 30; Status Cancel Cefepime HCl (Maxipime) 1 gm Q12HR IVP Last administered on 06/28/18at 08:32; Start 06/24/18 at 14:30 Albumin Human 250 ml @ 62.5 mls/hr 1X ONCE IV Last administered on 06/24/18at 20:32; Start 06/24/18 at 19:15; Stop 06/24/18 at 23:14; Status DC Furosemide (Lasix) 40 mg 1X ONCE IVP Last administered on 06/25/18at 09:05; Start 06/24/18 at 19:15; Stop 06/24/18 at 19:16; Status DC Morphine Sulfate (Morphine Sulfate) 5 mg PRN Q2HR PRN IV PAIN Last administered on 06/27/18at 04:20; Start 06/24/18 at 22:45 Enoxaparin Sodium (Lovenox 40mg Syringe) 40 mg Q24H SQ Last administered on at 16:19; Start 06/26/18 at 16:00 Lactobacillus Rhamnosus (Culturelle) 1 cap BID PO Last administered on at 08:29; Start 06/25/18 at 21:00 Propofol (Diprivan) 200 mg STK-MED ONCE IV ; Start 06/24/18 at 10:00; Stop 06/25 at 12:24; Status DC Potassium Chloride/Water 50 ml @ 50 mls/hr 1X ONCE IV Last administered on at 08:27; Start 06/26/18 at 08:00; Stop 06/26/18 at 08:59; Status DC Calcium Gluconate 1000 mg/Dextrose 110 ml @ 220 mls/hr 1X ONCE IV Last administered on 06/26/18at 08:09; Start 06/26/18 at 07:15; Stop 06/26/18 at 07:44 ; Status DC Vancomycin HCl 1.5 gm/Sodium Chloride 500 ml @ 250 mls/hr Q12H IV Last administered on 06/27/18at 13:34; Start 06/27/18 at 02:00; Stop 06/28/18 at 02:44 ; Status DC Vancomycin HCl (Vancomycin Trough Level) 1 each 1X ONCE MC Last administered on 06/28/18at 01:30; Start 06/28/18 at 01:30; Stop 06/28/18 at 01:31; Status DC Acetaminophen/ Hydrocodone Bitart (Lortab 5/325) 1 tab PRN Q4HRS PRN PO PAIN Last administered on 06/28/18at 08:29; Start 06/27/18 at 14:15 Lorazepam (Ativan) 0.5 mg PRN Q8HRS PRN PO ANXIETY / AGITATION Last administered on 06/28/18at 03:19; Start 06/27/18 at 14:15 Potassium Chloride (Klor-Con) 40 meq 1X ONCE PO Last administered on at 16:18; Start 06/27/18 at 15:15; Stop 06/27/18 at 15:16; Status DC Zolpidem Tartrate (Ambien) 5 mg PRN QHS PRN PO INSOMNIA Last administered on at 21:50; Start 06/27/18 at 19:00 Vancomycin HCl 1.75 gm/Sodium Chloride 500 ml @ 250 mls/hr Q12H IV Last administered on 06/28/18at 03:10; Start 06/28/18 at 03:00 Vancomycin HCl (Vancomycin Trough Level) 1 each 1X ONCE MC ; Start 06/29/18 at 02:30; Stop 06/29/18 at 02:31 Active Scripts Active Levaquin (Levofloxacin) 500 Mg Tablet 500 Mg PO DAILY06 Reported Januvia (Sitagliptin Phosphate) 100 Mg Tablet 1 Tab PO DAILY Beta Carotene (Beta-Carotene) 10,000 Unit Capsule 12,000 Unit PO Crestor (Rosuvastatin Calcium) 5 Mg Tablet 1 Tab PO DAILY Vitals/I & O Vital Sign - Last 24 Hours 06/27/18 06/27/18 06/27/18 06/27/18 11:43 14:51 15:20 20:00 Temp 97.9 97.9 97.9 97.9 Pulse 99 102 Resp 20 24 B/P (MAP) 140/66 (90) 143/91 (108) Pulse Ox 98 92 O2 Delivery Room Air Room Air Room Air Room Air 06/27/18 06/27/18 06/28/18 06/28/18 20:31 23:23 08:00 08:29 Temp 98.6 98.5 98.2 98.6 98.5 98.2 Pulse 105 103 108 Resp 16 16 18 B/P (MAP) 124/65 (84) 142/73 (96) 132/69 (90) Pulse Ox 94 94 95 94 O2 Delivery Room Air Room Air Room Air Room Air 06/28/18 09:48 Pulse Ox 94 O2 Delivery Room Air Intake and Output 06/27/18 06/27/18 06/28/18 15:00 23:00 07:00 Intake Total 200 ml Output Total 100 ml 750 ml 310 ml Balance -100 ml -750 ml -110 ml EDGAR RIVERA MD Jun 28, 2018 10:42
--- NOTE | 2018-06-28 10:46 | PDOC ---
Infectious Disease Note Subjective Subjective Doing well No F/C/S/N/V/D/rash and hoping for diet advance Pain ok ROS ROS o/w neg Vital Sign Vital Signs Vital Signs Date Time Temp Pulse Resp B/P (MAP) Pulse Ox O2 Delivery O2 Flow Rate FiO2 06/28/18 09:48 94 Room Air 06/28/18 08:00 98.2 108 18 132/69 (90) 98.2 Physical Exam PHYSICAL EXAM GENERAL: In chair and NAD - looks well HEENT: Anicteric, no thrush. Oral mucosa moist. NECK: Supple.RT IJ in place LUNGS: dec bs at bases HEART: S1, S2, tachycardia. ABDOMEN: Soft. surgical wound dressed - intact with allan ELI drain and ostomy intact. lorenzo in place EXTREMITIES: No cyanosis, no edema. DERMATOLOGIC: Warm, dry, no generalized rash. CENTRAL NERVOUS SYSTEM: Moves all 4 extremities.[facility] Laboratory Tests Test 06/28/18 01:50 White Blood Count 14.8 x10^3/uL (4.0-11.0) Red Blood Count 2.69 x10^6/uL (3.50-5.40) Hemoglobin 8.5 g/dL (12.0-15.5) Hematocrit 24.1 % (36.0-47.0) Mean Corpuscular Volume 90 fL (79-100) Mean Corpuscular Hemoglobin 32 pg (25-35) Mean Corpuscular Hemoglobin Concent 35 g/dL (31-37) Red Cell Distribution Width 15.7 % (11.5-14.5) Platelet Count 253 x10^3/uL (140-400) Neutrophils (%) (Auto) 86 % (31-73) Lymphocytes (%) (Auto) 4 % (24-48) Monocytes (%) (Auto) 9 % (0-9) Eosinophils (%) (Auto) 1 % (0-3) Basophils (%) (Auto) 0 % (0-3) Neutrophils # (Auto) 12.7 x10^3uL (1.8-7.7) Lymphocytes # (Auto) 0.7 x10^3/uL (1.0-4.8) Monocytes # (Auto) 1.3 x10^3/uL (0.0-1.1) Eosinophils # (Auto) 0.2 x10^3/uL (0.0-0.7) Basophils # (Auto) 0.0 x10^3/uL (0.0-0.2) Sodium Level 144 mmol/L (136-145) Potassium Level 3.5 mmol/L (3.5-5.1) Chloride Level 108 mmol/L (98-107) Carbon Dioxide Level 29 mmol/L (21-32) Anion Gap 7 (6-14) Blood Urea Nitrogen 11 mg/dL (7-20) Creatinine 0.5 mg/dL (0.6-1.0) Estimated GFR (Cockcroft-Gault) 142.2 Glucose Level 85 mg/dL (70-99) Calcium Level 7.6 mg/dL (8.5-10.1) Vancomycin Level Trough 10.5 mcg/mL (10.0-20.0) Vancomycin Last Dose Date 9221012 Vancomycin Last Dose Time 1400 Micro Staphylococcus epidermidis Based on susceptibility to oxacillin this isolate would be susceptible to: *Penicillinase-stable penicillins, such as: Cloxacillin, Dicloxacillin, Nafcillin *Beta-lactam combination agents, such as: Amoxicillin-clavulanic acid, Ampicillin-sulbactam, Piperacillin-tazobactam *Oral cephems, such as: Cefaclor, Cefdinir, Cefpodoxime, Cefprozil, Cefuroxime, Cephalexin, Loracarbef *Parenteral cephems, such as: Cefazolin, Cefepime, Cefotaxime, Cefotetan, Ceftaroline, Ceftizoxime, Ceftriaxone, Cefuroxime *Carbapenems, such as: Doripenem, Ertapenem, Imipenem, Meropenem ANTIMICROBIAL SUSCEPTIBILITY Final Comment S = Susceptible; I = Intermediate; R = Resistant P = Positive; N = Negative MICS are expressed in micrograms per mL Antibiotic RSLT#1 RSLT#2 RSLT#3 RSLT#4 Ciprofloxacin S<=0.5 Clindamycin S<=0.25 Erythromycin S<=0.25 Gentamicin S<=0.5 Levofloxacin S =0.25 Linezolid S =2 Nitrofurantoin S<=16 Oxacillin S<=0.25 CONTINUED ON NEXT PAGE RUN DATE: 06/27/18 PAGE 2 RUN TIME: 7242 [facility] [address] [place] [address] Pancho Zuniga M.D., Roofer SPEC: [id number] PATIENT: ROBERT MELO [id number] ( Continued) Procedure Result ANTIMICROBIAL SUSCEPTIBILITY Final (continued) Penicillin R>=0.5 Quinupristin/Dalfopristin S<=0.25 Rifampin S<=0.5 Tetracycline S<=1 Trimethoprim/Sulfa S<=10 Vancomycin S =4 Microbiology 06/25/18 Blood Culture - Preliminary, Resulted NO GROWTH AFTER 3 DAYS 06/22/18 Urine Culture - Final, Complete 06/22/18 Urine Culture Result 1 (DELONTE) - Final, Complete 06/22/18 Antimicrobic Susceptibility - Final, Complete Escherichia coli Greater than 100,000 colony forming units per mL Cefazolin <=4 ug/mL Cefazolin with an DELONTE <=16 predicts susceptibility to the oral agents cefaclor, cefdinir, cefpodoxime, cefprozil, cefuroxime, cephalexin, and loracarbef when used for therapy of uncomplicated urinary tract infections due to E. coli, Klebsiella pneumoniae, and Proteus mirabilis. ANTIMICROBIAL SUSCEPTIBILITY Final Comment S = Susceptible; I = Intermediate; R = Resistant P = Positive; N = Negative MICS are expressed in micrograms per mL Antibiotic RSLT#1 RSLT#2 RSLT#3 RSLT#4 Amoxicillin/Clavulanic Acid S<=2 Ampicillin S<=2 Cefepime S<=0.12 Ceftriaxone S<=0.25 Cefuroxime S =4 Ciprofloxacin S<=0.25 Ertapenem S<=0.12 Gentamicin S<=1 Imipenem S<=0.25 Levofloxacin S<=0.12 Meropenem S<=0.25 Nitrofurantoin S<=16 Piperacillin/Tazobactam S<=4 Tetracycline S =2 Tobramycin S<=1 Trimethoprim/Sulfa S<=20 Objective Assessment 1. Bright red blood per rectum secondary to diverticulosis, status post colectomy, 06/24/2018. 2. Hypotension with gastrointestinal bleed. 3. Two out of 3 bottles positive for gram-positive cocci in clusters suggestive of Staphylococcus bacteremia.coag neg staph prelim, final id and delonte pending 4. E coli uti pansensitive - 06/22 5. Hypertension/hyperlipidemia. 6. Diabetes mellitus 2. 7. Thrombocytopenia.resolved 8. Leucocytosis reactive 9. Acute blood loss Anemia Plan Plan of Care 1. Discontinue empiric vancomycin but cefepime for now 2. Follow up labs in SHANA Llanos MD Jun 28, 2018 10:46
--- NOTE | 2018-06-28 11:13 | RAD ---
Portable chest, 06/28/2018: HISTORY: Congestive heart failure Comparison is made to a study from 06/24/2018. A right jugular central venous catheter remains in place extending into the right atrium. The NG tube has been removed. The heart size is unchanged. The pulmonary vascularity is better defined than on the previous study. There are mild bibasilar opacities again suggesting atelectasis. An unchanged density in the left lateral costophrenic angle may be due to pleural fluid versus a prominent epicardial fat pad. The upper lung alcocer are clear. IMPRESSION: 1. The pulmonary vascularity has improved since 06/24/2018. 2. Mild ongoing bibasilar atelectasis. Electronically signed by: Adam Gallagher MD (06/28/2018 11:09 AM) [facility]
[2018-06-28 12:00] VITALS: BP 136/72
--- NOTE | 2018-06-28 12:13 | PDOC ---
Subjective: Subjective: Would really like some pudding, says she thought she was supposed to get some. Tolerating clears, doing better. Objective: Vital Signs: Vital Signs Date Time Temp Pulse Resp B/P (MAP) Pulse Ox O2 Delivery O2 Flow Rate FiO2 06/28/18 09:48 94 Room Air 06/28/18 08:00 98.2 108 18 132/69 (90) 98.2 Labs: Laboratory Tests Test 06/28/18 01:50 White Blood Count 14.8 x10^3/uL Red Blood Count 2.69 x10^6/uL Hemoglobin 8.5 g/dL Hematocrit 24.1 % Mean Corpuscular Volume 90 fL Mean Corpuscular Hemoglobin 32 pg Mean Corpuscular Hemoglobin Concent 35 g/dL Red Cell Distribution Width 15.7 % Platelet Count 253 x10^3/uL Neutrophils (%) (Auto) 86 % Lymphocytes (%) (Auto) 4 % Monocytes (%) (Auto) 9 % Eosinophils (%) (Auto) 1 % Basophils (%) (Auto) 0 % Neutrophils # (Auto) 12.7 x10^3uL Lymphocytes # (Auto) 0.7 x10^3/uL Monocytes # (Auto) 1.3 x10^3/uL Eosinophils # (Auto) 0.2 x10^3/uL Basophils # (Auto) 0.0 x10^3/uL Sodium Level 144 mmol/L Potassium Level 3.5 mmol/L Chloride Level 108 mmol/L Carbon Dioxide Level 29 mmol/L Anion Gap 7 Blood Urea Nitrogen 11 mg/dL Creatinine 0.5 mg/dL Estimated GFR (Cockcroft-Gault) 142.2 Glucose Level 85 mg/dL Calcium Level 7.6 mg/dL Vancomycin Level Trough 10.5 mcg/mL Vancomycin Last Dose Date 9221012 Vancomycin Last Dose Time 1400 BLOOD CULTURE LC Final Final report BLD CULT RESULT 1 Final Comment Staphylococcus epidermidis PE: GEN: NAD, up to chair LUNGS: CTAB HEART: tachycardic ABD: RLQ ostomy w/ liquid NEURO/PSYCH: A & O 3 A/P: Lower GI bleed s/p colectomy -- Ostomy functioning, anemia stable. Diet per surgery. ENMANUEL PORTER Jun 28, 2018 12:13
--- NOTE | 2018-06-28 15:09 | PATHOLOGY ---
[facility] Accession Number: [id number] . 01 Material submitted: . COLON, LEFT FALLOPIAN TUBE AND OVARY . 01 Clinical history: . GI bleed . 02 Diagnosis: Distal ileum, cecum and appendix, ascending colon, transverse colon, descending colon, and sigmoid colon with attached mesocolon and omentum and focal attached left fallopian tube and ovary, total colectomy with left salpingo-oophorectomy: - Diverticulosis and chronic diverticulitis of sigmoid colon with narrowed segment of sigmoid colon and dilatation of proximal colon. See comment. - Serosal adhesions of colon. - Submucosal fatty infiltration and focal mucosal hyperplastic changes of appendix. - Adhesion of left fallopian tube and ovary to distal mesocolon with involutional changes and multiple small simple serous inclusion cysts of ovary. RUST/06/28/2018 . 02 Comment: Sections of the colon reveal diverticulosis and chronic diverticulitis of the sigmoid colon with segmental narrowing of the sigmoid colon. There is blood present within some of the diverticula, although a specific site of diverticular bleeding is not identified. However, there are no polyps or masses identified within the colon and there is no evidence of colitis or angiodysplastic lesions identified. Thus, it appears most likely that the site of colonic hemorrhage is of diverticular origin. (JPM:[facility] 06/28/2018) . 02 Electronically signed: . Pancho Zuniga MD, Pathologist NPI- [id number] . 01 Gross description: . Received in formalin labeled "Joy Lyless, colon, left fallopian tube and ovary" is a total colectomy specimen consisting of a short stump of distal ileum, cecum, ascending colon, transverse colon, descending colon and sigmoid colon (105 cm in length, circumference-2.8 cm distal, 14.7 cm-proximal), contiguous mesocolic fat (5.0 cm thick), attached omentum (30.0 x 15.0 x 2.0 cm) which is yellow-orange and focally hemorrhagic, attached glistening pink appendix (9.0 cm in length by 0.5 cm in diameter) which grossly appears unremarkable. . There is adnexal tissue focally attached to the distal mesocolon (via strands of diaz fibrous tissue) consisting of a 5 g ovary (2.5 x 1.8 x 1.2 cm) and a 4 g non-fimbriated fallopian tube (6.0 x 0.5 cm). There are thin and thick serosal adhesions of the cecum and proximal ascending colon. . The segment is opened longitudinally. The mucosa is vaguely hyperemic (hepatic flexure and transverse colon). There is subtle submucosal edema identified at the distal descending colon. The lumen at proximal sigmoid is narrow to 0.8 cm in diameter with area extending for a linear length of 7.0 cm. The narrow lumen is 13.0 cm proximal to the distal margin. Sectioning this area reveals the multiple diverticula that extend through the muscularis propria and into adjacent mesocolon (0.3-1.0 cm deep). Several diverticula express serosanguineous fluid and contain blood clot. An obvious perforation is not grossly appreciated. There are no additional diverticula identified. There are no mucosal masses identified. Sectioning the adnexa reveals no gross lesions. . Sectioning the appendix reveals a semisolid yellow nodule at the appendiceal tip (1.0 x 0.7 x 0.7 cm). There is a vague yellow and slightly orange discoloration scattered throughout the muscularis propria of appendix. No other appendiceal lesions are identified. [employer] sections are submitted A1-A27. . . A1 proximal margin A2 distal margin A3-A11 diverticula (sigmoid colon region) A12 vague hyperemic mucosa distally ascending colon A13 vague hyperemic mucosa mid transverse colon A14-A15 edematous mucosa at distal descending colon A16-A17 serosal adhesions cecum/proximal ascending colon A18 transmural sections at distal transverse and proximal descending colon A19 ovary A20 fallopian tube A21-A22 appendiceal tip, entire A23-A26 remainder of appendix A27 appendiceal orifice (JI; 06/25/2018) JBR/JBR . 02 Pathologist provided ICD-10: K57.32, K57.30, N83.292 . 02 CPT . 142466, 231310 Specimen Comment: A courtesy copy of this report has been sent to Specimen Comment: [phone], , . Specimen Comment: Report sent to ,DR RIVERA / DR HERNÁNDEZ Performed at: 01 [facility] [address] [facility] [address], [place] [id number] MD Souleymane Conway MD Phone: [phone] Performed at: 02 [facility] [address] [place] [id number] MD Pancho Zuniga MD Phone: [phone]
[2018-06-28 16:00] VITALS: BP 134/68
[2018-06-28] MEDS: ENOXAPARIN 40 MG/0.4 ML SYRINGE. SQ SCH (16:20)
[2018-06-28 19:00] VITALS: BP 148/65
[2018-06-28] MEDS: ZOLPIDEM 5 MG TABLET. PO PRN (20:20)
[2018-06-28 23:00] VITALS: BP 145/97
[2018-06-29] MEDS: POTASSIUM CL 20MEQ-0.45% NACL 1,000 ML IV SCH ×3 (01:52→20:44)
[2018-06-29] MEDS: LORazepam 0.5 MG TABLET PO PRN ×2 (05:01→21:33)
[2018-06-29 07:00] VITALS: BP 165/57
[2018-06-29] MEDS: LACTOBACILLUS RHAMNOSUS GG 1 CAPSULE. PO SCH ×2 (09:53→20:44)
[2018-06-29] MEDS: CEFEPIME HCL IV Push 1 GM VIAL. IVP SCH ×2 (09:54→20:44)
--- NOTE | 2018-06-29 10:53 | PDOC ---
PROGRESS NOTES Chief Complaint Chief Complaint bright red blood per rectum, 2/2 diverticulosis 2/2 Colectomy and left salpingo -oophorectomy.06/24 hypotension with gib, requried pressors acute anemia with gib HTN dm2 hld morbid obesity 2/3 + bcx bacteremia sepsis with bacteremia hypokalemia hypocalcemia plan: ID WANTS ANOTHER DAY ON IV CEFIPIME HERE FU WITH GI, IR total got 9u PRBC transfusion, plt and FFP transfusion hold po meds , resume when eats better fu colostomy, ELI drain, sx wound care advance diet to full liquid / NS +K 100cc/h IR angiogram neg bleeding. + bleeding scan, neg CTA. EGD non obstructing shatzki ring. colectomy since cont bleeding with low hb and low bp. gi ppx fu with ID, fu bcx, on vanco and cefepime for now talked to daughter at bedside lovenox dvt ppx History of Present Illness History of Present Illness ROS: no fever, chills, sob or chest pain before sx: cont rectal bleeding with some abd cramps overnight, as per nurse could have about 2L blood loss bp low, need levaqhed since sx + bleeding scan, neg CTA. got Colectomy and left salpingo-oophorectomy 06/24, hb low again 06/25, no active bleeding , another 2u RPBC transfusion post op after sx: no active bleeding, hb stable after transfusion Vitals Vitals Vital Signs Date Time Temp Pulse Resp B/P (MAP) Pulse Ox O2 Delivery O2 Flow Rate FiO2 06/29/18 07:00 97.7 93 18 165/57 (93) 98 Room Air 97.7 06/28/18 21:21 8.0 Physical Exam Physical Exam GENERAL: In chair and NAD - looks well HEENT: Anicteric, no thrush. Oral mucosa moist. NECK: Supple.RT IJ in place LUNGS: dec bs at bases HEART: S1, S2, tachycardia. ABDOMEN: Soft. surgical wound dressed - intact with allan ELI drain and ostomy intact. lorenzo in place EXTREMITIES: No cyanosis, no edema. DERMATOLOGIC: Warm, dry, no generalized rash. CENTRAL NERVOUS SYSTEM: Moves all 4 extremities.Pleasant General: Alert, Oriented X3, Cooperative, No acute distress Heart: Regular rate, Normal S1, Normal S2 Lungs: Clear Abdomen: Soft, Other (ND, dressing dry, ostomy with stool, drain serosang) Extremities: No cyanosis Skin: Other (warm, dry) Assessment and Plan Assessmemt and Plan Problems Medical Problems: (1) Anemia Status: Acute (2) Dehydration Status: Acute (3) Rectal bleeding Status: Acute Comment Review of Relevant I have reviewed the following items fabiola (where applicable) has been applied. Labs Laboratory Tests Test 06/28/18 01:50 White Blood Count 14.8 x10^3/uL (4.0-11.0) Red Blood Count 2.69 x10^6/uL (3.50-5.40) Hemoglobin 8.5 g/dL (12.0-15.5) Hematocrit 24.1 % (36.0-47.0) Mean Corpuscular Volume 90 fL (79-100) Mean Corpuscular Hemoglobin 32 pg (25-35) Mean Corpuscular Hemoglobin Concent 35 g/dL (31-37) Red Cell Distribution Width 15.7 % (11.5-14.5) Platelet Count 253 x10^3/uL (140-400) Neutrophils (%) (Auto) 86 % (31-73) Lymphocytes (%) (Auto) 4 % (24-48) Monocytes (%) (Auto) 9 % (0-9) Eosinophils (%) (Auto) 1 % (0-3) Basophils (%) (Auto) 0 % (0-3) Neutrophils # (Auto) 12.7 x10^3uL (1.8-7.7) Lymphocytes # (Auto) 0.7 x10^3/uL (1.0-4.8) Monocytes # (Auto) 1.3 x10^3/uL (0.0-1.1) Eosinophils # (Auto) 0.2 x10^3/uL (0.0-0.7) Basophils # (Auto) 0.0 x10^3/uL (0.0-0.2) Sodium Level 144 mmol/L (136-145) Potassium Level 3.5 mmol/L (3.5-5.1) Chloride Level 108 mmol/L (98-107) Carbon Dioxide Level 29 mmol/L (21-32) Anion Gap 7 (6-14) Blood Urea Nitrogen 11 mg/dL (7-20) Creatinine 0.5 mg/dL (0.6-1.0) Estimated GFR (Cockcroft-Gault) 142.2 Glucose Level 85 mg/dL (70-99) Calcium Level 7.6 mg/dL (8.5-10.1) Vancomycin Level Trough 10.5 mcg/mL (10.0-20.0) Vancomycin Last Dose Date [id number] Vancomycin Last Dose Time 1400 Microbiology 06/25/18 Blood Culture - Preliminary, Resulted NO GROWTH AFTER 4 DAYS 06/22/18 Urine Culture - Final, Complete 06/22/18 Urine Culture Result 1 (ERICA) - Final, Complete 06/22/18 Antimicrobic Susceptibility - Final, Complete Medications Current Medications Pantoprazole Sodium (PROTONIX VIAL for IV PUSH) 80 mg 1X ONCE IVP Last administered on 06/22/18at 15:57; Start 06/22/18 at 15:30; Stop 06/22/18 at 15:32 ; Status DC Sodium Chloride 1,000 ml @ 1,000 mls/hr 1X ONCE IV Last administered on at 15:52; Start 06/22/18 at 15:30; Stop 06/22/18 at 16:29; Status DC Ondansetron HCl (Zofran) 4 mg PRN Q8HRS PRN IV NAUSEA/VOMITING; Start 06/22/18 at 16:15; Stop 06/23/18 at 16:14; Status DC Sodium Chloride 1,000 ml @ 150 mls/hr Q6H40M IV Last administered on at 06:27; Start 06/22/18 at 16:11; Stop 06/23/18 at 09:11; Status DC Iohexol (Omnipaque 300 Mg/ml) 75 ml 1X ONCE IV Last administered on 06/22/18at 17:04; Start 06/22/18 at 17:00; Stop 06/22/18 at 17:01; Status DC Info (CONTRAST GIVEN -- Rx MONITORING) 1 each PRN DAILY PRN MC SEE COMMENTS; Start 06/22/18 at 17:00; Stop 06/24/18 at 09:36; Status DC Sodium Chloride 1,000 ml @ 1,000 mls/hr 1X ONCE IV Last administered on at 17:45; Start 06/22/18 at 17:45; Stop 06/22/18 at 18:44; Status DC Pantoprazole Sodium (PROTONIX VIAL for IV PUSH) 40 mg DAILYAC IVP Last administered on 06/28/18at 08:29; Start 06/23/18 at 07:30; Stop 06/28/18 at 12:13 ; Status DC Heparin Sodium (Porcine) (HEPARIN for NUC MED) 100 unit 1X ONCE IV Last administered on 06/23/18at 03:30; Start 06/23/18 at 03:30; Stop 06/23/18 at 03:31 ; Status DC Acetaminophen (Tylenol) 650 mg 1X PRN PRN PO PRE-TRANSFUSION; Start 06/23/18 at 05:30; Stop 06/27/18 at 19:42; Status DC Diphenhydramine HCl (Benadryl) 25 mg PRN 1X PRN PO PRE-TRANSFUSION; Start 06/23 at 05:30; Stop 06/27/18 at 19:42; Status DC Iohexol (Omnipaque 300 Mg/ml) 90 ml 1X ONCE IV Last administered on 06/23/18at 07:15; Start 06/23/18 at 07:00; Stop 06/23/18 at 07:01; Status DC Info (CONTRAST GIVEN -- Rx MONITORING) 1 each PRN DAILY PRN MC SEE COMMENTS; Start 06/23/18 at 06:30; Stop 06/25/18 at 06:29; Status DC Acetaminophen (Tylenol) 650 mg PRN Q6HRS PRN PO FEVER Last administered on 06/27at 13:32; Start 06/23/18 at 09:15 Ondansetron HCl (Zofran) 4 mg PRN Q6HRS PRN IV NAUSEA/VOMITING Last administered on 06/27/18at 18:19; Start 06/23/18 at 09:15 Morphine Sulfate (Morphine Sulfate) 2 mg PRN Q2HR PRN IV MODERATE TO SEVERE PAIN; Start 06/23/18 at 09:15; Stop 06/24/18 at 09:36; Status DC Tramadol HCl (Ultram) 50 mg PRN Q6HRS PRN PO MILD TO MODERATE PAIN; Start 06/23 at 09:15 Docusate Sodium (Colace) 100 mg PRN DAILY PRN PO CONSTIPATION; Start 06/23/18 at 09:15 Sodium Chloride 1,000 ml @ 125 mls/hr Q8H IV Last administered on 06/24/18at 05 :55; Start 06/23/18 at 09:15; Stop 06/24/18 at 13:49; Status DC Iodixanol (Visipaque 320) 100 ml STK-MED ONCE .ROUTE ; Start 06/23/18 at 09:14; Stop 06/23/18 at 09:15; Status DC Lidocaine/Sodium Bicarbonate (Buffered Lidocaine 1%) 3 ml STK-MED ONCE .ROUTE ; Start 06/23/18 at 09:14; Stop 06/23/18 at 09:15; Status DC Iodixanol (Visipaque 320) 50 ml STK-MED ONCE .ROUTE ; Start 06/23/18 at 09:14; Stop 06/23/18 at 09:15; Status DC Heparin Sodium/ Sodium Chloride 1,000 ml @ As Directed STK-MED ONCE .ROUTE ; Start 06/23/18 at 09:14; Stop 06/23/18 at 09:15; Status DC Iodixanol (Visipaque 320) 100 ml STK-MED ONCE .ROUTE ; Start 06/23/18 at 09:31; Stop 06/23/18 at 09:32; Status DC Midazolam HCl (Versed) 2 mg STK-MED ONCE .ROUTE ; Start 06/23/18 at 09:34; Stop 06/23/18 at 09:35; Status DC Fentanyl Citrate (Fentanyl 2ml Vial) 100 mcg STK-MED ONCE .ROUTE ; Start at 09:34; Stop 06/23/18 at 09:35; Status DC Heparin Sodium/ Sodium Chloride (HEPARIN for ARTERIAL LINE FLUSH) 1,000 unit 1X ONCE IART Last administered on 06/23/18at 10:15; Start 06/23/18 at 10:15; Stop 06/23/18 at 10:16; Status DC Lidocaine/Sodium Bicarbonate (Buffered Lidocaine 1%) 3 ml 1X ONCE IJ Last administered on 06/23/18at 10:15; Start 06/23/18 at 10:15; Stop 06/23/18 at 10:16 ; Status DC Midazolam HCl (Versed) 2 mg 1X ONCE IV ; Start 06/23/18 at 10:15; Stop at 10:16; Status DC Fentanyl Citrate (Fentanyl 2ml Vial) 100 mcg 1X ONCE IV ; Start 06/23/18 at 10: 15; Stop 06/23/18 at 10:16; Status DC Iodixanol (Visipaque 320) 100 ml 1X ONCE IART Last administered on 06/23/18at 10:15; Start 06/23/18 at 10:15; Stop 06/23/18 at 10:16; Status DC Iodixanol (Visipaque 320) 100 ml STK-MED ONCE .ROUTE ; Start 06/23/18 at 10:09; Stop 06/23/18 at 10:10; Status DC Iodixanol (Visipaque 320) 50 ml STK-MED ONCE .ROUTE ; Start 06/23/18 at 11:01; Stop 06/23/18 at 11:02; Status DC Sodium Chloride 1,000 ml @ 1,000 mls/hr 1X ONCE IV Last administered on at 03:00; Start 06/24/18 at 03:15; Stop 06/24/18 at 04:14; Status DC Sodium Chloride 1,000 ml @ 1,000 mls/hr 1X ONCE IV Last administered on at 04:06; Start 06/24/18 at 04:15; Stop 06/24/18 at 05:14; Status DC Norepinephrine Bitartrate 250 ml @ 1.875 mls/ hr CONT PRN IV SEE I/O RECORD Last administered on 06/25/18at 13:45; Start 06/24/18 at 03:15; Stop 06/27/18 at 14:51; Status DC Cefoxitin Sodium 2 gm/Dextrose 100 ml @ 200 mls/hr ONCE ONCE IV Last administered on 06/24/18at 06:45; Start 06/24/18 at 05:00; Stop 06/24/18 at 05:29 ; Status DC Succinylcholine Chloride (Anectine) 200 mg STK-MED ONCE .ROUTE ; Start 06/24/18 at 05:48; Stop 06/24/18 at 05:49; Status DC Rocuronium [place] (Zemuron) 100 mg STK-MED ONCE .ROUTE ; Start 06/24/18 at 05: 48; Stop 06/24/18 at 05:49; Status DC Sodium Chloride 1,000 ml @ 1,000 mls/hr 1X ONCE IV Last administered on at 05:50; Start 06/24/18 at 05:50; Stop 06/24/18 at 06:49; Status DC Fentanyl Citrate (Fentanyl 5ml Vial) 250 mcg STK-MED ONCE .ROUTE ; Start at 07:16; Stop 06/24/18 at 07:18; Status DC Etomidate (Amidate) 20 mg STK-MED ONCE IV ; Start 06/24/18 at 07:17; Stop at 07:18; Status DC Propofol 20 ml @ As Directed STK-MED ONCE IV ; Start 06/24/18 at 07:17; Stop at 07:18; Status DC Ondansetron HCl (Zofran) 4 mg STK-MED ONCE .ROUTE ; Start 06/24/18 at 07:55; Stop 06/24/18 at 07:56; Status DC Neostigmine Methylsulfate (Neostigmine Methylsulfate) 5 mg STK-MED ONCE .ROUTE ; Start 06/24/18 at 08:38; Stop 06/24/18 at 08:40; Status DC Glycopyrrolate (Robinul) 1 mg STK-MED ONCE .ROUTE ; Start 06/24/18 at 08:39; Stop 06/24/18 at 08:40; Status DC Cefoxitin Sodium 100 ml @ As Directed STK-MED ONCE IV ; Start 06/24/18 at 07:42 ; Stop 06/24/18 at 08:43; Status DC Vancomycin HCl (Vanco Per Pharmacy) 1 each PRN DAILY PRN MC SEE COMMENTS Last administered on 06/28/18at 02:57; Start 06/24/18 at 09:00; Stop 06/28/18 at 10:45 ; Status DC Vancomycin HCl 2 gm/Sodium Chloride 500 ml @ 250 mls/hr 1X ONCE IV Last administered on 06/24/18at 12:47; Start 06/24/18 at 09:30; Stop 06/24/18 at 11:29 ; Status DC Cefoxitin Sodium 50 ml @ 100 mls/hr 1X PERIOP IV ; Start 06/24/18 at 09:15; Status Cancel Diphenhydramine HCl (Benadryl) 25 mg PRN Q6HRS PRN IV ITCHING Last administered on 06/26/18at 21:01; Start 06/24/18 at 09:15 Enoxaparin Sodium (Lovenox 40mg Syringe) 40 mg Q24H SQ ; Start 06/24/18 at 10:00 ; Stop 06/24/18 at 10:00; Status DC Sodium Chloride (Normal Saline Flush) 3 ml QSHIFT PRN IV AFTER MEDS AND BLOOD DRAWS; Start 06/24/18 at 09:15 Potassium Chloride/Sodium Chloride 1,000 ml @ 100 mls/hr Q10H IV Last administered on 06/29/18at 01:52; Start 06/24/18 at 09:13 Morphine Sulfate (Morphine Sulfate) 5 mg PRN Q3HRS PRN IV MODERATE-SEVERE PAIN Last administered on 06/24/18at 20:38; Start 06/24/18 at 09:45; Stop 06/24/18 at 22:38; Status DC Ondansetron HCl (Zofran) 4 mg PRN Q6HRS PRN IV NAUESA, 1ST CHOICE; Start at 09:15; Stop 06/24/18 at 14:47; Status DC Throat Lozenges (Chloraseptic) 1 spray PRN Q2HR PRN PO SORE THROAT 2ND CHOICE Last administered on 06/25/18at 19:34; Start 06/24/18 at 09:15 Throat Lozenges (Cepacol Sore Throat Lozenge) 1 geni PRN Q2HRS PRN PO SORE THROAT 1ST CHOICE Last administered on 06/27/18at 21:51; Start 06/24/18 at 09:15 Enoxaparin Sodium (Lovenox 40mg Syringe) 40 mg Q24H SQ ; Start 06/25/18 at 09:00 ; Stop 06/25/18 at 10:53; Status DC Ondansetron HCl (Zofran) 4 mg PRN Q6HRS PRN IV NAUSEA/VOMITING; Start 06/24/18 at 10:00; Stop 06/24/18 at 18:00; Status DC Fentanyl Citrate (Fentanyl 2ml Vial) 25 mcg PRN Q5MIN PRN IV MILD PAIN; Start 06/24/18 at 10:00; Stop 06/24/18 at 18:00; Status DC Fentanyl Citrate (Fentanyl 2ml Vial) 50 mcg PRN Q5MIN PRN IV MODERATE TO SEVERE PAIN Last administered on 06/24/18at 14:28; Start 06/24/18 at 10:00; Stop 06/24/18 at 18:00; Status DC Morphine Sulfate (Morphine Sulfate) 1 mg PRN Q10MIN PRN IV SEVERE PAIN; Start 06/24/18 at 10:00; Stop 06/24/18 at 18:00; Status DC Ringer's Solution 1,000 ml @ 30 mls/hr Q24H IV Last administered on 06/24/18at 11:34; Start 06/24/18 at 09:52; Stop 06/24/18 at 21:51; Status DC Lidocaine HCl (Xylocaine-Mpf 1% 2ml Vial) 2 ml PRN 1X PRN ID PRIOR TO IV START ; Start 06/24/18 at 10:00; Stop 06/24/18 at 18:00; Status DC Hydromorphone HCl (Dilaudid) 0.5 mg PRN Q10MIN PRN IV SEV PAIN, Second choice Last administered on 06/24/18at 15:15; Start 06/24/18 at 10:00; Stop 06/24/18 at 18:00; Status DC Prochlorperazine Edisylate (Compazine) 5 mg PACU PRN PRN IV NAUSEA, MRX1 Last administered on 06/24/18at 10:47; Start 06/24/18 at 10:00; Stop 06/24/18 at 18:00 ; Status DC Fentanyl Citrate (Fentanyl 2ml Vial) 100 mcg STK-MED ONCE .ROUTE ; Start at 10:24; Stop 06/24/18 at 10:25; Status DC Prochlorperazine Edisylate (Compazine) 10 mg STK-MED ONCE .ROUTE ; Start at 10:24; Stop 06/24/18 at 10:25; Status DC Hydromorphone HCl (Dilaudid) 2 mg STK-MED ONCE .ROUTE ; Start 06/24/18 at 11:04 ; Stop 06/24/18 at 11:05; Status DC Cefoxitin Sodium 100 ml @ 200 mls/hr OC PROC ONCE IV Last administered on at 08:43; Start 06/24/18 at 12:00; Stop 06/24/18 at 12:29; Status DC Vancomycin HCl 1.5 gm/Sodium Chloride 500 ml @ 250 mls/hr Q24H IV Last administered on 06/26/18at 13:47; Start 06/25/18 at 13:00; Stop 06/26/18 at 17:00 ; Status DC Vancomycin HCl (Vancomycin Trough Level) 1 each 1X ONCE MC Last administered on 06/26/18at 12:30; Start 06/26/18 at 12:30; Stop 06/26/18 at 12:31; Status DC Potassium Chloride/Water 50 ml @ 50 mls/hr 1X ONCE IV Last administered on at 14:29; Start 06/24/18 at 14:00; Stop 06/24/18 at 14:59; Status DC Calcium Chloride 1000 mg/Dextrose 60 ml @ 120 mls/hr 1X ONCE IV Last administered on 06/24/18at 14:28; Start 06/24/18 at 14:00; Stop 06/24/18 at 14:29 ; Status DC Cefepime HCl 1 gm/ Dextrose 50 ml @ 100 mls/hr Q12HR IV ; Start 06/24/18 at 14: 30; Status Cancel Cefepime HCl (Maxipime) 1 gm Q12HR IVP Last administered on 06/29/18at 09:54; Start 06/24/18 at 14:30 Albumin Human 250 ml @ 62.5 mls/hr 1X ONCE IV Last administered on 06/24/18at 20:32; Start 06/24/18 at 19:15; Stop 06/24/18 at 23:14; Status DC Furosemide (Lasix) 40 mg 1X ONCE IVP Last administered on 06/25/18at 09:05; Start 06/24/18 at 19:15; Stop 06/24/18 at 19:16; Status DC Morphine Sulfate (Morphine Sulfate) 5 mg PRN Q2HR PRN IV PAIN Last administered on 06/27/18at 04:20; Start 06/24/18 at 22:45 Enoxaparin Sodium (Lovenox 40mg Syringe) 40 mg Q24H SQ Last administered on at 16:20; Start 06/26/18 at 16:00 Lactobacillus Rhamnosus (Culturelle) 1 cap BID PO Last administered on at 09:53; Start 06/25/18 at 21:00 Propofol (Diprivan) 200 mg STK-MED ONCE IV ; Start 06/24/18 at 10:00; Stop 06/25 at 12:24; Status DC Potassium Chloride/Water 50 ml @ 50 mls/hr 1X ONCE IV Last administered on at 08:27; Start 06/26/18 at 08:00; Stop 06/26/18 at 08:59; Status DC Calcium Gluconate 1000 mg/Dextrose 110 ml @ 220 mls/hr 1X ONCE IV Last administered on 06/26/18at 08:09; Start 06/26/18 at 07:15; Stop 06/26/18 at 07:44 ; Status DC Vancomycin HCl 1.5 gm/Sodium Chloride 500 ml @ 250 mls/hr Q12H IV Last administered on 06/27/18at 13:34; Start 06/27/18 at 02:00; Stop 06/28/18 at 02:44 ; Status DC Vancomycin HCl (Vancomycin Trough Level) 1 each 1X ONCE MC Last administered on 06/28/18at 01:30; Start 06/28/18 at 01:30; Stop 06/28/18 at 01:31; Status DC Acetaminophen/ Hydrocodone Bitart (Lortab 5/325) 1 tab PRN Q4HRS PRN PO SEVERE PAIN Last administered on 06/28/18at 20:21; Start 06/27/18 at 14:15 Lorazepam (Ativan) 0.5 mg PRN Q8HRS PRN PO ANXIETY / AGITATION Last administered on 06/29/18at 05:01; Start 06/27/18 at 14:15 Potassium Chloride (Klor-Con) 40 meq 1X ONCE PO Last administered on at 16:18; Start 06/27/18 at 15:15; Stop 06/27/18 at 15:16; Status DC Zolpidem Tartrate (Ambien) 5 mg PRN QHS PRN PO INSOMNIA Last administered on at 20:20; Start 06/27/18 at 19:00 Vancomycin HCl 1.75 gm/Sodium Chloride 500 ml @ 250 mls/hr Q12H IV Last administered on 06/28/18at 03:10; Start 06/28/18 at 03:00; Stop 06/28/18 at 10:45 ; Status DC Vancomycin HCl (Vancomycin Trough Level) 1 each 1X ONCE MC ; Start 06/29/18 at 02:30; Stop 06/29/18 at 02:30; Status DC Active Scripts Active Levaquin (Levofloxacin) 500 Mg Tablet 500 Mg PO DAILY06 Reported Januvia (Sitagliptin Phosphate) 100 Mg Tablet 1 Tab PO DAILY Beta Carotene (Beta-Carotene) 10,000 Unit Capsule 12,000 Unit PO Crestor (Rosuvastatin Calcium) 5 Mg Tablet 1 Tab PO DAILY Vitals/I & O Vital Sign - Last 24 Hours 06/28/18 06/28/18 06/28/18 06/28/18 12:00 16:00 16:18 19:00 Temp 98.2 98.6 99.5 98.2 98.6 99.5 Pulse 102 101 97 Resp 18 18 17 B/P (MAP) 136/72 (93) 134/68 (90) 148/65 (92) Pulse Ox 95 96 96 100 O2 Delivery Room Air Room Air Room Air Room Air 06/28/18 06/28/18 06/28/18 06/28/18 20:00 20:21 21:21 23:00 Temp 98.4 98.4 Pulse 99 Resp 18 16 17 B/P (MAP) 145/97 (113) Pulse Ox 96 96 92 O2 Delivery Room Air Room Air Room Air Room Air O2 Flow Rate 8.0 8.0 8.0 06/29/18 07:00 Temp 97.7 97.7 Pulse 93 Resp 18 B/P (MAP) 165/57 (93) Pulse Ox 98 O2 Delivery Room Air Intake and Output 06/28/18 06/28/18 06/29/18 15:00 23:00 07:00 Output Total 510 ml Balance -510 ml EDGAR RIVERA MD Jun 29, 2018 10:53
[2018-06-29 11:00] VITALS: BP 147/60
[2018-06-29] MEDS: HYDROcodone/APAP 5/325MG 1 TAB TABLET PO PRN ×3 (11:10→21:33)
[2018-06-29] MEDS: BENZOCAINE/MENTHOL LOZENGE. PO PRN (11:11)
--- NOTE | 2018-06-29 11:48 | PDOC ---
Infectious Disease Note Subjective Subjective Doing well - tolerating diet advancement Has a dry cough No F/C/S/N/V/D/rash Pain ok ROS ROS o/w neg Vital Sign Vital Signs Vital Signs Date Time Temp Pulse Resp B/P (MAP) Pulse Ox O2 Delivery O2 Flow Rate FiO2 06/29/18 11:10 98 Room Air 06/29/18 07:00 97.7 93 18 165/57 (93) 97.7 06/28/18 21:21 8.0 Physical Exam PHYSICAL EXAM GENERAL: In chair and NAD - looks well HEENT: Anicteric, no thrush. Oral mucosa moist. NECK: Supple.RT IJ in place LUNGS: dec bs at bases HEART: S1, S2, tachycardia. ABDOMEN: Soft. surgical wound dressed - intact with allan ELI drain and ostomy intact. lorenzo out EXTREMITIES: No cyanosis, no edema. DERMATOLOGIC: Warm, dry, no generalized rash. CENTRAL NERVOUS SYSTEM: Moves all 4 extremities.Pleasant Labs Micro Staphylococcus epidermidis Based on susceptibility to oxacillin this isolate would be susceptible to: *Penicillinase-stable penicillins, such as: Cloxacillin, Dicloxacillin, Nafcillin *Beta-lactam combination agents, such as: Amoxicillin-clavulanic acid, Ampicillin-sulbactam, Piperacillin-tazobactam *Oral cephems, such as: Cefaclor, Cefdinir, Cefpodoxime, Cefprozil, Cefuroxime, Cephalexin, Loracarbef *Parenteral cephems, such as: Cefazolin, Cefepime, Cefotaxime, Cefotetan, Ceftaroline, Ceftizoxime, Ceftriaxone, Cefuroxime *Carbapenems, such as: Doripenem, Ertapenem, Imipenem, Meropenem ANTIMICROBIAL SUSCEPTIBILITY Final Comment S = Susceptible; I = Intermediate; R = Resistant P = Positive; N = Negative MICS are expressed in micrograms per mL Antibiotic RSLT#1 RSLT#2 RSLT#3 RSLT#4 Ciprofloxacin S<=0.5 Clindamycin S<=0.25 Erythromycin S<=0.25 Gentamicin S<=0.5 Levofloxacin S =0.25 Linezolid S =2 Nitrofurantoin S<=16 Oxacillin S<=0.25 CONTINUED ON NEXT PAGE RUN DATE: 06/27/18 PAGE 2 RUN TIME: [id number] [facility] [id number] [place] [facility] [place] [address] Pancho Zuniga M.D., It Senior Software Engineer Java SPEC: [id number] PATIENT: ROBERT MELO [id number] ( Continued) Procedure Result ANTIMICROBIAL SUSCEPTIBILITY Final (continued) Penicillin R>=0.5 Quinupristin/Dalfopristin S<=0.25 Rifampin S<=0.5 Tetracycline S<=1 Trimethoprim/Sulfa S<=10 Vancomycin S =4 Microbiology 06/25/18 Blood Culture - Preliminary, Resulted NO GROWTH AFTER 3 DAYS 06/22/18 Urine Culture - Final, Complete 06/22/18 Urine Culture Result 1 (DELONTE) - Final, Complete 06/22/18 Antimicrobic Susceptibility - Final, Complete Escherichia coli Greater than 100,000 colony forming units per mL Cefazolin <=4 ug/mL Cefazolin with an DELONTE <=16 predicts susceptibility to the oral agents cefaclor, cefdinir, cefpodoxime, cefprozil, cefuroxime, cephalexin, and loracarbef when used for therapy of uncomplicated urinary tract infections due to E. coli, Klebsiella pneumoniae, and Proteus mirabilis. ANTIMICROBIAL SUSCEPTIBILITY Final Comment S = Susceptible; I = Intermediate; R = Resistant P = Positive; N = Negative MICS are expressed in micrograms per mL Antibiotic RSLT#1 RSLT#2 RSLT#3 RSLT#4 Amoxicillin/Clavulanic Acid S<=2 Ampicillin S<=2 Cefepime S<=0.12 Ceftriaxone S<=0.25 Cefuroxime S =4 Ciprofloxacin S<=0.25 Ertapenem S<=0.12 Gentamicin S<=1 Imipenem S<=0.25 Levofloxacin S<=0.12 Meropenem S<=0.25 Nitrofurantoin S<=16 Piperacillin/Tazobactam S<=4 Tetracycline S =2 Tobramycin S<=1 Trimethoprim/Sulfa S<=20 Objective Assessment 1. Bright red blood per rectum secondary to diverticulosis, status post colectomy, 06/24/2018. 2. Hypotension with gastrointestinal bleed. 3. Two out of 3 bottles positive for gram-positive cocci in clusters suggestive of Staphylococcus bacteremia.coag neg staph prelim, final id and delonte pending 4. E coli uti pansensitive - 06/22 5. Hypertension/hyperlipidemia. 6. Diabetes mellitus 2. 7. Thrombocytopenia.resolved 8. Leucocytosis reactive 9. Acute blood loss Anemia Plan Plan of Care 1. Cont cefepime for now likely d/c in am 2. Follow up labs in a.celina. SHANA DICKINSON MD Jun 29, 2018 11:48
--- NOTE | 2018-06-29 11:51 | PDOC ---
DIXON GONSALVES [employer] COUNSELOR 06/29/18 1151: SURGICAL PROGRESS NOTE Subjective started soft diet feels ok no complaints Vital Signs Vital Signs Date Time Temp Pulse Resp B/P (MAP) Pulse Ox O2 Delivery O2 Flow Rate FiO2 06/29/18 11:10 98 Room Air 06/29/18 11:00 97.8 98 21 147/60 (89) 97.8 06/28/18 21:21 8.0 I&O Intake and Output 06/29/18 07:00 Output Total 510 ml Balance -510 ml Stool Total 300 ml Drainage Total 210 ml # Voids 2 General: Alert, Oriented X3, Cooperative, No acute distress Abdomen: Soft, Other (wound clean, ostomy with stool, alec serosang) Labs Laboratory Tests Test 06/28/18 01:50 White Blood Count 14.8 x10^3/uL (4.0-11.0) Red Blood Count 2.69 x10^6/uL (3.50-5.40) Hemoglobin 8.5 g/dL (12.0-15.5) Hematocrit 24.1 % (36.0-47.0) Mean Corpuscular Volume 90 fL (79-100) Mean Corpuscular Hemoglobin 32 pg (25-35) Mean Corpuscular Hemoglobin Concent 35 g/dL (31-37) Red Cell Distribution Width 15.7 % (11.5-14.5) Platelet Count 253 x10^3/uL (140-400) Neutrophils (%) (Auto) 86 % (31-73) Lymphocytes (%) (Auto) 4 % (24-48) Monocytes (%) (Auto) 9 % (0-9) Eosinophils (%) (Auto) 1 % (0-3) Basophils (%) (Auto) 0 % (0-3) Neutrophils # (Auto) 12.7 x10^3uL (1.8-7.7) Lymphocytes # (Auto) 0.7 x10^3/uL (1.0-4.8) Monocytes # (Auto) 1.3 x10^3/uL (0.0-1.1) Eosinophils # (Auto) 0.2 x10^3/uL (0.0-0.7) Basophils # (Auto) 0.0 x10^3/uL (0.0-0.2) Sodium Level 144 mmol/L (136-145) Potassium Level 3.5 mmol/L (3.5-5.1) Chloride Level 108 mmol/L (98-107) Carbon Dioxide Level 29 mmol/L (21-32) Anion Gap 7 (6-14) Blood Urea Nitrogen 11 mg/dL (7-20) Creatinine 0.5 mg/dL (0.6-1.0) Estimated GFR (Cockcroft-Gault) 142.2 Glucose Level 85 mg/dL (70-99) Calcium Level 7.6 mg/dL (8.5-10.1) Vancomycin Level Trough 10.5 mcg/mL (10.0-20.0) Vancomycin Last Dose Date [id number] Vancomycin Last Dose Time 1400 Problem List Problems Medical Problems: (1) Anemia Status: Acute (2) Dehydration Status: Acute (3) Rectal bleeding Status: Acute Assessment/Plan s/p resection, ileostomy ostomy care, diet at tolerated, continue drains for now EDGAR CORADO MD 06/30/18 0901: SURGICAL PROGRESS NOTE Assessment/Plan Agree with Nisha's assessment and plan. DIXON GONSALVES APRN Jun 29, 2018 11:51 EDGAR CORADO MD Jun 30, 2018 09:01
[2018-06-29 12:29] LABS: BASO % 0 % (0-3); EOS # 0.1 x10^3/uL (0.0-0.7); EOS % 1 % (0-3); HEMATOCRIT 25.3 % (36.0-47.0); HEMOGLOBIN 8.8 g/dL (12.0-15.5); LYMPH # 0.9 x10^3/uL (1.0-4.8); LYMPH % 7 % (24-48); MEAN CORPUSCULAR HEMOGLOBIN 31 pg (25-35); MEAN CORPUSCULAR HGB CONC 35 g/dL (31-37); MEAN CORPUSCULAR VOLUME 90 fL (79-100); MONO # 1.3 x10^3/uL (0.0-1.1); MONO % 11 % (0-9); NEUT % 81 % (31-73); PLATELET COUNT 331 x10^3/uL (140-400); RED BLOOD COUNT 2.82 x10^6/uL (3.50-5.40); RED CELL DISTRIBUTION WIDTH 15.7 % (11.5-14.5); WHITE BLOOD COUNT 12.4 x10^3/uL (4.0-11.0)
[2018-06-29 12:37] LABS: CREATININE 0.5 mg/dL (0.6-1.0); GFR 142.2
--- NOTE | 2018-06-29 12:52 | PDOC ---
G I PROGRESS NOTE Subjective Few complaints. Tolerating diet. Physical Exam Lungs clear. RRR Abdomen soft,not distended. Review of Relevant I have reviewed the following items fabiola (where applicable) has been applied. Labs Laboratory Tests Test 06/28/18 01:50 06/29/18 12:15 White Blood Count 14.8 x10^3/uL (4.0-11.0) 12.4 x10^3/uL (4.0-11.0) Red Blood Count 2.69 x10^6/uL (3.50-5.40) 2.82 x10^6/uL (3.50-5.40) Hemoglobin 8.5 g/dL (12.0-15.5) 8.8 g/dL (12.0-15.5) Hematocrit 24.1 % (36.0-47.0) 25.3 % (36.0-47.0) Mean Corpuscular Volume 90 fL (79-100) 90 fL (79-100) Mean Corpuscular Hemoglobin 32 pg (25-35) 31 pg (25-35) Mean Corpuscular Hemoglobin Concent 35 g/dL (31-37) 35 g/dL (31-37) Red Cell Distribution Width 15.7 % (11.5-14.5) 15.7 % (11.5-14.5) Platelet Count 253 x10^3/uL (140-400) 331 x10^3/uL (140-400) Neutrophils (%) (Auto) 86 % (31-73) 81 % (31-73) Lymphocytes (%) (Auto) 4 % (24-48) 7 % (24-48) Monocytes (%) (Auto) 9 % (0-9) 11 % (0-9) Eosinophils (%) (Auto) 1 % (0-3) 1 % (0-3) Basophils (%) (Auto) 0 % (0-3) 0 % (0-3) Neutrophils # (Auto) 12.7 x10^3uL (1.8-7.7) 10.0 x10^3uL (1.8-7.7) Lymphocytes # (Auto) 0.7 x10^3/uL (1.0-4.8) 0.9 x10^3/uL (1.0-4.8) Monocytes # (Auto) 1.3 x10^3/uL (0.0-1.1) 1.3 x10^3/uL (0.0-1.1) Eosinophils # (Auto) 0.2 x10^3/uL (0.0-0.7) 0.1 x10^3/uL (0.0-0.7) Basophils # (Auto) 0.0 x10^3/uL (0.0-0.2) 0.0 x10^3/uL (0.0-0.2) Sodium Level 144 mmol/L (136-145) Potassium Level 3.5 mmol/L (3.5-5.1) Chloride Level 108 mmol/L (98-107) Carbon Dioxide Level 29 mmol/L (21-32) Anion Gap 7 (6-14) Blood Urea Nitrogen 11 mg/dL (7-20) Creatinine 0.5 mg/dL (0.6-1.0) 0.5 mg/dL (0.6-1.0) Estimated GFR (Cockcroft-Gault) 142.2 142.2 Glucose Level 85 mg/dL (70-99) Calcium Level 7.6 mg/dL (8.5-10.1) Vancomycin Level Trough 10.5 mcg/mL (10.0-20.0) Vancomycin Last Dose Date [id number] Vancomycin Last Dose Time 1400 Laboratory Tests Test 06/29/18 12:15 White Blood Count 12.4 x10^3/uL (4.0-11.0) Red Blood Count 2.82 x10^6/uL (3.50-5.40) Hemoglobin 8.8 g/dL (12.0-15.5) Hematocrit 25.3 % (36.0-47.0) Mean Corpuscular Volume 90 fL (79-100) Mean Corpuscular Hemoglobin 31 pg (25-35) Mean Corpuscular Hemoglobin Concent 35 g/dL (31-37) Red Cell Distribution Width 15.7 % (11.5-14.5) Platelet Count 331 x10^3/uL (140-400) Neutrophils (%) (Auto) 81 % (31-73) Lymphocytes (%) (Auto) 7 % (24-48) Monocytes (%) (Auto) 11 % (0-9) Eosinophils (%) (Auto) 1 % (0-3) Basophils (%) (Auto) 0 % (0-3) Neutrophils # (Auto) 10.0 x10^3uL (1.8-7.7) Lymphocytes # (Auto) 0.9 x10^3/uL (1.0-4.8) Monocytes # (Auto) 1.3 x10^3/uL (0.0-1.1) Eosinophils # (Auto) 0.1 x10^3/uL (0.0-0.7) Basophils # (Auto) 0.0 x10^3/uL (0.0-0.2) Creatinine 0.5 mg/dL (0.6-1.0) Estimated GFR (Cockcroft-Gault) 142.2 Microbiology 06/25/18 Blood Culture - Preliminary, Resulted NO GROWTH AFTER 4 DAYS 06/22/18 Urine Culture - Final, Complete 06/22/18 Urine Culture Result 1 (ERICA) - Final, Complete 06/22/18 Antimicrobic Susceptibility - Final, Complete Vitals/I & O Vital Sign - Last 24 Hours 06/28/18 06/28/18 06/28/18 06/28/18 16:00 16:18 19:00 20:00 Temp 98.6 99.5 98.6 99.5 Pulse 101 97 Resp 18 17 B/P (MAP) 134/68 (90) 148/65 (92) Pulse Ox 96 96 100 O2 Delivery Room Air Room Air Room Air Room Air O2 Flow Rate 8.0 06/28/18 06/28/18 06/28/18 06/29/18 20:21 21:21 23:00 07:00 Temp 98.4 97.7 98.4 97.7 Pulse 99 93 Resp 18 16 17 18 B/P (MAP) 145/97 (113) 165/57 (93) Pulse Ox 96 92 98 O2 Delivery Room Air Room Air Room Air O2 Flow Rate 8.0 8.0 06/29/18 06/29/18 06/29/18 11:00 11:10 12:18 Temp 97.8 97.8 Pulse 98 Resp 21 B/P (MAP) 147/60 (89) Pulse Ox 98 98 98 O2 Delivery Room Air Room Air Room Air Intake and Output 06/28/18 06/28/1818 15:00 23:00 07:00 Output Total 510 ml Balance -510 ml Problem List Problems Medical Problems: (1) Anemia Status: Acute (2) Dehydration Status: Acute (3) Rectal bleeding Status: Acute Assessment Post-colectomy for probable diverticular bleed; slowly progressing. Plan of Care: Continue current Tx, Mgmt PRAVEENA GARCIA MD Jun 29, 2018 12:52
[2018-06-29 15:00] VITALS: BP 152/62
[2018-06-29] MEDS: ENOXAPARIN 40 MG/0.4 ML SYRINGE. SQ SCH (17:23)
[2018-06-29] MEDS: ACETAMINOPHEN 325 MG TABLET. PO PRN (17:58)
[2018-06-29 19:30] VITALS: BP 150/68
[2018-06-29] MEDS: ZOLPIDEM 5 MG TABLET. PO PRN (21:33)
[2018-06-29 23:24] VITALS: BP 142/56
[2018-06-30] MEDS: HYDROcodone/APAP 5/325MG 1 TAB TABLET PO PRN ×2 (05:10→09:05)
[2018-06-30] MEDS: POTASSIUM CL 20MEQ-0.45% NACL 1,000 ML IV SCH (05:12)
[2018-06-30 05:19] LABS: BASO # 0.1 x10^3/uL (0.0-0.2); BASO % 1 % (0-3); EOS # 0.3 x10^3/uL (0.0-0.7); EOS % 2 % (0-3); HEMATOCRIT 25.3 % (36.0-47.0); HEMOGLOBIN 8.6 g/dL (12.0-15.5); LYMPH # 1.2 x10^3/uL (1.0-4.8); LYMPH % 10 % (24-48); MEAN CORPUSCULAR HEMOGLOBIN 31 pg (25-35); MEAN CORPUSCULAR HGB CONC 34 g/dL (31-37); MEAN CORPUSCULAR VOLUME 90 fL (79-100); MONO # 1.3 x10^3/uL (0.0-1.1); MONO % 11 % (0-9); NEUT # 9.4 x10^3uL (1.8-7.7); NEUT % 77 % (31-73); PLATELET COUNT 362 x10^3/uL (140-400); RED CELL DISTRIBUTION WIDTH 15.8 % (11.5-14.5); WHITE BLOOD COUNT 12.3 x10^3/uL (4.0-11.0)
[2018-06-30] MEDS: LORazepam 0.5 MG TABLET PO PRN (05:26)
[2018-06-30 07:00] VITALS: BP 159/82
[2018-06-30] MEDS: LACTOBACILLUS RHAMNOSUS GG 1 CAPSULE. PO SCH (09:05)
[2018-06-30] MEDS: CEFEPIME HCL IV Push 1 GM VIAL. IVP SCH (09:05)
--- NOTE | 2018-06-30 09:24 | PDOC ---
PROGRESS NOTES Chief Complaint Chief Complaint bright red blood per rectum, 2/2 diverticulosis 2/2 Colectomy and left salpingo -oophorectomy.06/24 hypotension with gib, requried pressors acute anemia with gib HTN dm2 hld morbid obesity 2/3 + bcx bacteremia sepsis with bacteremia hypokalemia hypocalcemia plan: d/c today if ok with ID FU WITH GI, IR total got 9u PRBC transfusion, plt and FFP transfusion hold po meds , resume when eats better fu colostomy, ALEC drain, sx wound care advance diet to full liquid 1/2 NS +K 100cc/h IR angiogram neg bleeding. + bleeding scan, neg CTA. EGD non obstructing shatzki ring. colectomy since cont bleeding with low hb and low bp. gi ppx fu with ID, fu bcx, on vanco and cefepime for now talked to daughter at bedside lovenox dvt ppx History of Present Illness History of Present Illness ROS: no fever, chills, sob or chest pain before sx: cont rectal bleeding with some abd cramps overnight, as per nurse could have about 2L blood loss bp low, need levaqhed since sx + bleeding scan, neg CTA. got Colectomy and left salpingo-oophorectomy 06/24, hb low again 06/25, no active bleeding , another 2u RPBC transfusion post op after sx: no active bleeding, hb stable after transfusion Vitals Vitals Vital Signs Date Time Temp Pulse Resp B/P (MAP) Pulse Ox O2 Delivery O2 Flow Rate FiO2 06/30/18 09:05 18 97 Room Air 06/30/18 07:00 98.0 101 159/82 (107) 98.0 Physical Exam Physical Exam GENERAL: In chair and NAD - looks well HEENT: Anicteric, no thrush. Oral mucosa moist. NECK: Supple.RT IJ in place LUNGS: dec bs at bases HEART: S1, S2, tachycardia. ABDOMEN: Soft. surgical wound dressed - intact with allan ALEC drain and ostomy intact. lorenzo out EXTREMITIES: No cyanosis, no edema. DERMATOLOGIC: Warm, dry, no generalized rash. CENTRAL NERVOUS SYSTEM: Moves all 4 extremities.Pleasant General: Alert, Oriented X3, Cooperative, No acute distress Heart: Regular rate, Normal S1, Normal S2 Lungs: Clear Abdomen: Soft, Other (wound clean, ostomy with stool, alec serosang) Extremities: No cyanosis Skin: Other (warm, dry) Labs LABS Laboratory Tests Test 06/29/18 12:15 06/30/18 05:00 White Blood Count 12.4 x10^3/uL (4.0-11.0) 12.3 x10^3/uL (4.0-11.0) Red Blood Count 2.82 x10^6/uL (3.50-5.40) 2.80 x10^6/uL (3.50-5.40) Hemoglobin 8.8 g/dL (12.0-15.5) 8.6 g/dL (12.0-15.5) Hematocrit 25.3 % (36.0-47.0) 25.3 % (36.0-47.0) Mean Corpuscular Volume 90 fL (79-100) 90 fL (79-100) Mean Corpuscular Hemoglobin 31 pg (25-35) 31 pg (25-35) Mean Corpuscular Hemoglobin Concent 35 g/dL (31-37) 34 g/dL (31-37) Red Cell Distribution Width 15.7 % (11.5-14.5) 15.8 % (11.5-14.5) Platelet Count 331 x10^3/uL (140-400) 362 x10^3/uL (140-400) Neutrophils (%) (Auto) 81 % (31-73) 77 % (31-73) Lymphocytes (%) (Auto) 7 % (24-48) 10 % (24-48) Monocytes (%) (Auto) 11 % (0-9) 11 % (0-9) Eosinophils (%) (Auto) 1 % (0-3) 2 % (0-3) Basophils (%) (Auto) 0 % (0-3) 1 % (0-3) Neutrophils # (Auto) 10.0 x10^3uL (1.8-7.7) 9.4 x10^3uL (1.8-7.7) Lymphocytes # (Auto) 0.9 x10^3/uL (1.0-4.8) 1.2 x10^3/uL (1.0-4.8) Monocytes # (Auto) 1.3 x10^3/uL (0.0-1.1) 1.3 x10^3/uL (0.0-1.1) Eosinophils # (Auto) 0.1 x10^3/uL (0.0-0.7) 0.3 x10^3/uL (0.0-0.7) Basophils # (Auto) 0.0 x10^3/uL (0.0-0.2) 0.1 x10^3/uL (0.0-0.2) Creatinine 0.5 mg/dL (0.6-1.0) Estimated GFR (Cockcroft-Gault) 142.2 Assessment and Plan Assessmemt and Plan Problems Medical Problems: (1) Anemia Status: Acute (2) Dehydration Status: Acute (3) Rectal bleeding Status: Acute Comment Review of Relevant I have reviewed the following items faboila (where applicable) has been applied. Labs Laboratory Tests Test 06/29/18 12:15 06/30/18 05:00 White Blood Count 12.4 x10^3/uL (4.0-11.0) 12.3 x10^3/uL (4.0-11.0) Red Blood Count 2.82 x10^6/uL (3.50-5.40) 2.80 x10^6/uL (3.50-5.40) Hemoglobin 8.8 g/dL (12.0-15.5) 8.6 g/dL (12.0-15.5) Hematocrit 25.3 % (36.0-47.0) 25.3 % (36.0-47.0) Mean Corpuscular Volume 90 fL (79-100) 90 fL (79-100) Mean Corpuscular Hemoglobin 31 pg (25-35) 31 pg (25-35) Mean Corpuscular Hemoglobin Concent 35 g/dL (31-37) 34 g/dL (31-37) Red Cell Distribution Width 15.7 % (11.5-14.5) 15.8 % (11.5-14.5) Platelet Count 331 x10^3/uL (140-400) 362 x10^3/uL (140-400) Neutrophils (%) (Auto) 81 % (31-73) 77 % (31-73) Lymphocytes (%) (Auto) 7 % (24-48) 10 % (24-48) Monocytes (%) (Auto) 11 % (0-9) 11 % (0-9) Eosinophils (%) (Auto) 1 % (0-3) 2 % (0-3) Basophils (%) (Auto) 0 % (0-3) 1 % (0-3) Neutrophils # (Auto) 10.0 x10^3uL (1.8-7.7) 9.4 x10^3uL (1.8-7.7) Lymphocytes # (Auto) 0.9 x10^3/uL (1.0-4.8) 1.2 x10^3/uL (1.0-4.8) Monocytes # (Auto) 1.3 x10^3/uL (0.0-1.1) 1.3 x10^3/uL (0.0-1.1) Eosinophils # (Auto) 0.1 x10^3/uL (0.0-0.7) 0.3 x10^3/uL (0.0-0.7) Basophils # (Auto) 0.0 x10^3/uL (0.0-0.2) 0.1 x10^3/uL (0.0-0.2) Creatinine 0.5 mg/dL (0.6-1.0) Estimated GFR (Cockcroft-Gault) 142.2 Laboratory Tests Test 06/29/18 12:15 06/30/18 05:00 White Blood Count 12.4 x10^3/uL (4.0-11.0) 12.3 x10^3/uL (4.0-11.0) Red Blood Count 2.82 x10^6/uL (3.50-5.40) 2.80 x10^6/uL (3.50-5.40) Hemoglobin 8.8 g/dL (12.0-15.5) 8.6 g/dL (12.0-15.5) Hematocrit 25.3 % (36.0-47.0) 25.3 % (36.0-47.0) Mean Corpuscular Volume 90 fL (79-100) 90 fL (79-100) Mean Corpuscular Hemoglobin 31 pg (25-35) 31 pg (25-35) Mean Corpuscular Hemoglobin Concent 35 g/dL (31-37) 34 g/dL (31-37) Red Cell Distribution Width 15.7 % (11.5-14.5) 15.8 % (11.5-14.5) Platelet Count 331 x10^3/uL (140-400) 362 x10^3/uL (140-400) Neutrophils (%) (Auto) 81 % (31-73) 77 % (31-73) Lymphocytes (%) (Auto) 7 % (24-48) 10 % (24-48) Monocytes (%) (Auto) 11 % (0-9) 11 % (0-9) Eosinophils (%) (Auto) 1 % (0-3) 2 % (0-3) Basophils (%) (Auto) 0 % (0-3) 1 % (0-3) Neutrophils # (Auto) 10.0 x10^3uL (1.8-7.7) 9.4 x10^3uL (1.8-7.7) Lymphocytes # (Auto) 0.9 x10^3/uL (1.0-4.8) 1.2 x10^3/uL (1.0-4.8) Monocytes # (Auto) 1.3 x10^3/uL (0.0-1.1) 1.3 x10^3/uL (0.0-1.1) Eosinophils # (Auto) 0.1 x10^3/uL (0.0-0.7) 0.3 x10^3/uL (0.0-0.7) Basophils # (Auto) 0.0 x10^3/uL (0.0-0.2) 0.1 x10^3/uL (0.0-0.2) Creatinine 0.5 mg/dL (0.6-1.0) Estimated GFR (Cockcroft-Gault) 142.2 Microbiology 06/25/18 Blood Culture - Final, Complete NO GROWTH AFTER 5 DAYS 06/22/18 Urine Culture - Final, Complete 06/22/18 Urine Culture Result 1 (ERICA) - Final, Complete 06/22/18 Antimicrobic Susceptibility - Final, Complete Medications Current Medications Pantoprazole Sodium (PROTONIX VIAL for IV PUSH) 80 mg 1X ONCE IVP Last administered on 06/22/18at 15:57; Start 06/22/18 at 15:30; Stop 06/22/18 at 15:32 ; Status DC Sodium Chloride 1,000 ml @ 1,000 mls/hr 1X ONCE IV Last administered on at 15:52; Start 06/22/18 at 15:30; Stop 06/22/18 at 16:29; Status DC Ondansetron HCl (Zofran) 4 mg PRN Q8HRS PRN IV NAUSEA/VOMITING; Start 06/22/18 at 16:15; Stop 06/23/18 at 16:14; Status DC Sodium Chloride 1,000 ml @ 150 mls/hr Q6H40M IV Last administered on at 06:27; Start 06/22/18 at 16:11; Stop 06/23/18 at 09:11; Status DC Iohexol (Omnipaque 300 Mg/ml) 75 ml 1X ONCE IV Last administered on 06/22/18at 17:04; Start 06/22/18 at 17:00; Stop 06/22/18 at 17:01; Status DC Info (CONTRAST GIVEN -- Rx MONITORING) 1 each PRN DAILY PRN MC SEE COMMENTS; Start 06/22/18 at 17:00; Stop 06/24/18 at 09:36; Status DC Sodium Chloride 1,000 ml @ 1,000 mls/hr 1X ONCE IV Last administered on at 17:45; Start 06/22/18 at 17:45; Stop 06/22/18 at 18:44; Status DC Pantoprazole Sodium (PROTONIX VIAL for IV PUSH) 40 mg DAILYAC IVP Last administered on 06/28/18at 08:29; Start 06/23/18 at 07:30; Stop 06/28/18 at 12:13 ; Status DC Heparin Sodium (Porcine) (HEPARIN for NUC MED) 100 unit 1X ONCE IV Last administered on 06/23/18at 03:30; Start 06/23/18 at 03:30; Stop 06/23/18 at 03:31 ; Status DC Acetaminophen (Tylenol) 650 mg 1X PRN PRN PO PRE-TRANSFUSION; Start 06/23/18 at 05:30; Stop 06/27/18 at 19:42; Status DC Diphenhydramine HCl (Benadryl) 25 mg PRN 1X PRN PO PRE-TRANSFUSION; Start 06/23 at 05:30; Stop 06/27/18 at 19:42; Status DC Iohexol (Omnipaque 300 Mg/ml) 90 ml 1X ONCE IV Last administered on 06/23/18at 07:15; Start 06/23/18 at 07:00; Stop 06/23/18 at 07:01; Status DC Info (CONTRAST GIVEN -- Rx MONITORING) 1 each PRN DAILY PRN MC SEE COMMENTS; Start 06/23/18 at 06:30; Stop 06/25/18 at 06:29; Status DC Acetaminophen (Tylenol) 650 mg PRN Q6HRS PRN PO FEVER Last administered on 06/29at 17:58; Start 06/23/18 at 09:15 Ondansetron HCl (Zofran) 4 mg PRN Q6HRS PRN IV NAUSEA/VOMITING Last administered on 06/27/18at 18:19; Start 06/23/18 at 09:15 Morphine Sulfate (Morphine Sulfate) 2 mg PRN Q2HR PRN IV MODERATE TO SEVERE PAIN; Start 06/23/18 at 09:15; Stop 06/24/18 at 09:36; Status DC Tramadol HCl (Ultram) 50 mg PRN Q6HRS PRN PO MILD TO MODERATE PAIN; Start 06/23 at 09:15 Docusate Sodium (Colace) 100 mg PRN DAILY PRN PO CONSTIPATION; Start 06/23/18 at 09:15 Sodium Chloride 1,000 ml @ 125 mls/hr Q8H IV Last administered on 06/24/18at 05 :55; Start 06/23/18 at 09:15; Stop 06/24/18 at 13:49; Status DC Iodixanol (Visipaque 320) 100 ml STK-MED ONCE .ROUTE ; Start 06/23/18 at 09:14; Stop 06/23/18 at 09:15; Status DC Lidocaine/Sodium Bicarbonate (Buffered Lidocaine 1%) 3 ml STK-MED ONCE .ROUTE ; Start 06/23/18 at 09:14; Stop 06/23/18 at 09:15; Status DC Iodixanol (Visipaque 320) 50 ml STK-MED ONCE .ROUTE ; Start 06/23/18 at 09:14; Stop 06/23/18 at 09:15; Status DC Heparin Sodium/ Sodium Chloride 1,000 ml @ As Directed STK-MED ONCE .ROUTE ; Start 06/23/18 at 09:14; Stop 06/23/18 at 09:15; Status DC Iodixanol (Visipaque 320) 100 ml STK-MED ONCE .ROUTE ; Start 06/23/18 at 09:31; Stop 06/23/18 at 09:32; Status DC Midazolam HCl (Versed) 2 mg STK-MED ONCE .ROUTE ; Start 06/23/18 at 09:34; Stop 06/23/18 at 09:35; Status DC Fentanyl Citrate (Fentanyl 2ml Vial) 100 mcg STK-MED ONCE .ROUTE ; Start at 09:34; Stop 06/23/18 at 09:35; Status DC Heparin Sodium/ Sodium Chloride (HEPARIN for ARTERIAL LINE FLUSH) 1,000 unit 1X ONCE IART Last administered on 06/23/18at 10:15; Start 06/23/18 at 10:15; Stop 06/23/18 at 10:16; Status DC Lidocaine/Sodium Bicarbonate (Buffered Lidocaine 1%) 3 ml 1X ONCE IJ Last administered on 06/23/18at 10:15; Start 06/23/18 at 10:15; Stop 06/23/18 at 10:16 ; Status DC Midazolam HCl (Versed) 2 mg 1X ONCE IV ; Start 06/23/18 at 10:15; Stop at 10:16; Status DC Fentanyl Citrate (Fentanyl 2ml Vial) 100 mcg 1X ONCE IV ; Start 06/23/18 at 10: 15; Stop 06/23/18 at 10:16; Status DC Iodixanol (Visipaque 320) 100 ml 1X ONCE IART Last administered on 06/23/18at 10:15; Start 06/23/18 at 10:15; Stop 06/23/18 at 10:16; Status DC Iodixanol (Visipaque 320) 100 ml STK-MED ONCE .ROUTE ; Start 06/23/18 at 10:09; Stop 06/23/18 at 10:10; Status DC Iodixanol (Visipaque 320) 50 ml STK-MED ONCE .ROUTE ; Start 06/23/18 at 11:01; Stop 06/23/18 at 11:02; Status DC Sodium Chloride 1,000 ml @ 1,000 mls/hr 1X ONCE IV Last administered on at 03:00; Start 06/24/18 at 03:15; Stop 06/24/18 at 04:14; Status DC Sodium Chloride 1,000 ml @ 1,000 mls/hr 1X ONCE IV Last administered on at 04:06; Start 06/24/18 at 04:15; Stop 06/24/18 at 05:14; Status DC Norepinephrine Bitartrate 250 ml @ 1.875 mls/ hr CONT PRN IV SEE I/O RECORD Last administered on 06/25/18at 13:45; Start 06/24/18 at 03:15; Stop 06/27/18 at 14:51; Status DC Cefoxitin Sodium 2 gm/Dextrose 100 ml @ 200 mls/hr ONCE ONCE IV Last administered on 06/24/18at 06:45; Start 06/24/18 at 05:00; Stop 06/24/18 at 05:29 ; Status DC Succinylcholine Chloride (Anectine) 200 mg STK-MED ONCE .ROUTE ; Start 06/24/18 at 05:48; Stop 06/24/18 at 05:49; Status DC Rocuronium [place] (Zemuron) 100 mg STK-MED ONCE .ROUTE ; Start 06/24/18 at 05: 48; Stop 06/24/18 at 05:49; Status DC Sodium Chloride 1,000 ml @ 1,000 mls/hr 1X ONCE IV Last administered on at 05:50; Start 06/24/18 at 05:50; Stop 06/24/18 at 06:49; Status DC Fentanyl Citrate (Fentanyl 5ml Vial) 250 mcg STK-MED ONCE .ROUTE ; Start at 07:16; Stop 06/24/18 at 07:18; Status DC Etomidate (Amidate) 20 mg STK-MED ONCE IV ; Start 06/24/18 at 07:17; Stop at 07:18; Status DC Propofol 20 ml @ As Directed STK-MED ONCE IV ; Start 06/24/18 at 07:17; Stop at 07:18; Status DC Ondansetron HCl (Zofran) 4 mg STK-MED ONCE .ROUTE ; Start 06/24/18 at 07:55; Stop 06/24/18 at 07:56; Status DC Neostigmine Methylsulfate (Neostigmine Methylsulfate) 5 mg STK-MED ONCE .ROUTE ; Start 06/24/18 at 08:38; Stop 06/24/18 at 08:40; Status DC Glycopyrrolate (Robinul) 1 mg STK-MED ONCE .ROUTE ; Start 06/24/18 at 08:39; Stop 06/24/18 at 08:40; Status DC Cefoxitin Sodium 100 ml @ As Directed STK-MED ONCE IV ; Start 06/24/18 at 07:42 ; Stop 06/24/18 at 08:43; Status DC Vancomycin HCl (Vanco Per Pharmacy) 1 each PRN DAILY PRN MC SEE COMMENTS Last administered on 06/28/18at 02:57; Start 06/24/18 at 09:00; Stop 06/28/18 at 10:45 ; Status DC Vancomycin HCl 2 gm/Sodium Chloride 500 ml @ 250 mls/hr 1X ONCE IV Last administered on 06/24/18at 12:47; Start 06/24/18 at 09:30; Stop 06/24/18 at 11:29 ; Status DC Cefoxitin Sodium 50 ml @ 100 mls/hr 1X PERIOP IV ; Start 06/24/18 at 09:15; Status Cancel Diphenhydramine HCl (Benadryl) 25 mg PRN Q6HRS PRN IV ITCHING Last administered on 06/26/18at 21:01; Start 06/24/18 at 09:15 Enoxaparin Sodium (Lovenox 40mg Syringe) 40 mg Q24H SQ ; Start 06/24/18 at 10:00 ; Stop 06/24/18 at 10:00; Status DC Sodium Chloride (Normal Saline Flush) 3 ml QSHIFT PRN IV AFTER MEDS AND BLOOD DRAWS; Start 06/24/18 at 09:15 Potassium Chloride/Sodium Chloride 1,000 ml @ 100 mls/hr Q10H IV Last administered on 06/30/18at 05:12; Start 06/24/18 at 09:13 Morphine Sulfate (Morphine Sulfate) 5 mg PRN Q3HRS PRN IV MODERATE-SEVERE PAIN Last administered on 06/24/18at 20:38; Start 06/24/18 at 09:45; Stop 06/24/18 at 22:38; Status DC Ondansetron HCl (Zofran) 4 mg PRN Q6HRS PRN IV NAUESA, 1ST CHOICE; Start at 09:15; Stop 06/24/18 at 14:47; Status DC Throat Lozenges (Chloraseptic) 1 spray PRN Q2HR PRN PO SORE THROAT 2ND CHOICE Last administered on 06/25/18at 19:34; Start 06/24/18 at 09:15 Throat Lozenges (Cepacol Sore Throat Lozenge) 1 geni PRN Q2HRS PRN PO SORE THROAT 1ST CHOICE Last administered on 06/29/18at 11:11; Start 06/24/18 at 09:15 Enoxaparin Sodium (Lovenox 40mg Syringe) 40 mg Q24H SQ ; Start 06/25/18 at 09:00 ; Stop 06/25/18 at 10:53; Status DC Ondansetron HCl (Zofran) 4 mg PRN Q6HRS PRN IV NAUSEA/VOMITING; Start 06/24/18 at 10:00; Stop 06/24/18 at 18:00; Status DC Fentanyl Citrate (Fentanyl 2ml Vial) 25 mcg PRN Q5MIN PRN IV MILD PAIN; Start 06/24/18 at 10:00; Stop 06/24/18 at 18:00; Status DC Fentanyl Citrate (Fentanyl 2ml Vial) 50 mcg PRN Q5MIN PRN IV MODERATE TO SEVERE PAIN Last administered on 06/24/18at 14:28; Start 06/24/18 at 10:00; Stop 06/24/18 at 18:00; Status DC Morphine Sulfate (Morphine Sulfate) 1 mg PRN Q10MIN PRN IV SEVERE PAIN; Start 06/24/18 at 10:00; Stop 06/24/18 at 18:00; Status DC Ringer's Solution 1,000 ml @ 30 mls/hr Q24H IV Last administered on 06/24/18at 11:34; Start 06/24/18 at 09:52; Stop 06/24/18 at 21:51; Status DC Lidocaine HCl (Xylocaine-Mpf 1% 2ml Vial) 2 ml PRN 1X PRN ID PRIOR TO IV START ; Start 06/24/18 at 10:00; Stop 06/24/18 at 18:00; Status DC Hydromorphone HCl (Dilaudid) 0.5 mg PRN Q10MIN PRN IV SEV PAIN, Second choice Last administered on 06/24/18at 15:15; Start 06/24/18 at 10:00; Stop 06/24/18 at 18:00; Status DC Prochlorperazine Edisylate (Compazine) 5 mg PACU PRN PRN IV NAUSEA, MRX1 Last administered on 06/24/18at 10:47; Start 06/24/18 at 10:00; Stop 06/24/18 at 18:00 ; Status DC Fentanyl Citrate (Fentanyl 2ml Vial) 100 mcg STK-MED ONCE .ROUTE ; Start at 10:24; Stop 06/24/18 at 10:25; Status DC Prochlorperazine Edisylate (Compazine) 10 mg STK-MED ONCE .ROUTE ; Start at 10:24; Stop 06/24/18 at 10:25; Status DC Hydromorphone HCl (Dilaudid) 2 mg STK-MED ONCE .ROUTE ; Start 06/24/18 at 11:04 ; Stop 06/24/18 at 11:05; Status DC Cefoxitin Sodium 100 ml @ 200 mls/hr OC PROC ONCE IV Last administered on at 08:43; Start 06/24/18 at 12:00; Stop 06/24/18 at 12:29; Status DC Vancomycin HCl 1.5 gm/Sodium Chloride 500 ml @ 250 mls/hr Q24H IV Last administered on 06/26/18at 13:47; Start 06/25/18 at 13:00; Stop 06/26/18 at 17:00 ; Status DC Vancomycin HCl (Vancomycin Trough Level) 1 each 1X ONCE MC Last administered on 06/26/18at 12:30; Start 06/26/18 at 12:30; Stop 06/26/18 at 12:31; Status DC Potassium Chloride/Water 50 ml @ 50 mls/hr 1X ONCE IV Last administered on at 14:29; Start 06/24/18 at 14:00; Stop 06/24/18 at 14:59; Status DC Calcium Chloride 1000 mg/Dextrose 60 ml @ 120 mls/hr 1X ONCE IV Last administered on 06/24/18at 14:28; Start 06/24/18 at 14:00; Stop 06/24/18 at 14:29 ; Status DC Cefepime HCl 1 gm/ Dextrose 50 ml @ 100 mls/hr Q12HR IV ; Start 06/24/18 at 14: 30; Status Cancel Cefepime HCl (Maxipime) 1 gm Q12HR IVP Last administered on 06/30/18at 09:05; Start 06/24/18 at 14:30 Albumin Human 250 ml @ 62.5 mls/hr 1X ONCE IV Last administered on 06/24/18at 20:32; Start 06/24/18 at 19:15; Stop 06/24/18 at 23:14; Status DC Furosemide (Lasix) 40 mg 1X ONCE IVP Last administered on 06/25/18at 09:05; Start 06/24/18 at 19:15; Stop 06/24/18 at 19:16; Status DC Morphine Sulfate (Morphine Sulfate) 5 mg PRN Q2HR PRN IV PAIN Last administered on 06/27/18at 04:20; Start 06/24/18 at 22:45 Enoxaparin Sodium (Lovenox 40mg Syringe) 40 mg Q24H SQ Last administered on at 17:23; Start 06/26/18 at 16:00 Lactobacillus Rhamnosus (Culturelle) 1 cap BID PO Last administered on at 09:05; Start 06/25/18 at 21:00 Propofol (Diprivan) 200 mg STK-MED ONCE IV ; Start 06/24/18 at 10:00; Stop 06/25 at 12:24; Status DC Potassium Chloride/Water 50 ml @ 50 mls/hr 1X ONCE IV Last administered on at 08:27; Start 06/26/18 at 08:00; Stop 06/26/18 at 08:59; Status DC Calcium Gluconate 1000 mg/Dextrose 110 ml @ 220 mls/hr 1X ONCE IV Last administered on 06/26/18at 08:09; Start 06/26/18 at 07:15; Stop 06/26/18 at 07:44 ; Status DC Vancomycin HCl 1.5 gm/Sodium Chloride 500 ml @ 250 mls/hr Q12H IV Last administered on 06/27/18at 13:34; Start 06/27/18 at 02:00; Stop 06/28/18 at 02:44 ; Status DC Vancomycin HCl (Vancomycin Trough Level) 1 each 1X ONCE MC Last administered on 06/28/18at 01:30; Start 06/28/18 at 01:30; Stop 06/28/18 at 01:31; Status DC Acetaminophen/ Hydrocodone Bitart (Lortab 5/325) 1 tab PRN Q4HRS PRN PO SEVERE PAIN Last administered on 06/30/18at 09:05; Start 06/27/18 at 14:15 Lorazepam (Ativan) 0.5 mg PRN Q8HRS PRN PO ANXIETY / AGITATION Last administered on 06/30/18at 05:26; Start 06/27/18 at 14:15 Potassium Chloride (Klor-Con) 40 meq 1X ONCE PO Last administered on at 16:18; Start 06/27/18 at 15:15; Stop 06/27/18 at 15:16; Status DC Zolpidem Tartrate (Ambien) 5 mg PRN QHS PRN PO INSOMNIA Last administered on at 21:33; Start 06/27/18 at 19:00 Vancomycin HCl 1.75 gm/Sodium Chloride 500 ml @ 250 mls/hr Q12H IV Last administered on 06/28/18at 03:10; Start 06/28/18 at 03:00; Stop 06/28/18 at 10:45 ; Status DC Vancomycin HCl (Vancomycin Trough Level) 1 each 1X ONCE MC ; Start 06/29/18 at 02:30; Stop 06/29/18 at 02:30; Status DC Active Scripts Active Levaquin (Levofloxacin) 500 Mg Tablet 500 Mg PO DAILY06 Reported Januvia (Sitagliptin Phosphate) 100 Mg Tablet 1 Tab PO DAILY Beta Carotene (Beta-Carotene) 10,000 Unit Capsule 12,000 Unit PO Crestor (Rosuvastatin Calcium) 5 Mg Tablet 1 Tab PO DAILY Vitals/I & O Vital Sign - Last 24 Hours 06/29/18 06/29/18 06/29/18 06/29/18 11:00 11:10 15:00 17:22 Temp 97.8 98.1 97.8 98.1 Pulse 98 100 Resp 21 20 B/P (MAP) 147/60 (89) 152/62 (92) Pulse Ox 98 98 97 97 O2 Delivery Room Air Room Air Room Air Room Air 06/29/18 06/29/18 06/29/18 06/29/18 18:40 19:30 20:05 20:09 Temp 98.6 98.6 Pulse 80 Resp 18 B/P (MAP) 150/68 (95) Pulse Ox 97 98 98 O2 Delivery Room Air Room Air Room Air 06/29/18 06/30/18 06/30/18 23:24 07:00 09:05 Temp 98.2 98.0 98.2 98.0 Pulse 81 101 Resp 18 16 18 B/P (MAP) 142/56 (84) 159/82 (107) Pulse Ox 100 97 97 O2 Delivery Room Air Room Air Room Air Intake and Output 06/29/18 06/29/18 06/30/18 15:00 23:00 07:00 Intake Total 360 ml Output Total 495 ml 255 ml 150 ml Balance -495 ml -255 ml 210 ml EDGAR RIVERA MD Jun 30, 2018 09:24
--- NOTE | 2018-06-30 10:05 | PDOC ---
Infectious Disease Note Subjective Subjective Doing well - tolerating diet advancement cough is better No F/C/S/N/V/D/rash Pain ok ROS ROS o/w neg Vital Sign Vital Signs Vital Signs Date Time Temp Pulse Resp B/P (MAP) Pulse Ox O2 Delivery O2 Flow Rate FiO2 06/30/18 09:05 18 97 Room Air 06/30/18 07:00 98.0 101 159/82 (107) 98.0 Physical Exam PHYSICAL EXAM GENERAL: In chair and NAD - looks well HEENT: Anicteric, no thrush. Oral mucosa moist. NECK: Supple.RT IJ in place LUNGS: dec bs at bases HEART: S1, S2, tachycardia. ABDOMEN: Soft. surgical wound dressed - intact ostomy intact. ELI out lorenzo out EXTREMITIES: No cyanosis, no edema. DERMATOLOGIC: Warm, dry, no generalized rash. CENTRAL NERVOUS SYSTEM: Moves all 4 extremities.[facility] Laboratory Tests Test 06/29/18 12:15 06/30/18 05:00 White Blood Count 12.4 x10^3/uL (4.0-11.0) 12.3 x10^3/uL (4.0-11.0) Red Blood Count 2.82 x10^6/uL (3.50-5.40) 2.80 x10^6/uL (3.50-5.40) Hemoglobin 8.8 g/dL (12.0-15.5) 8.6 g/dL (12.0-15.5) Hematocrit 25.3 % (36.0-47.0) 25.3 % (36.0-47.0) Mean Corpuscular Volume 90 fL (79-100) 90 fL (79-100) Mean Corpuscular Hemoglobin 31 pg (25-35) 31 pg (25-35) Mean Corpuscular Hemoglobin Concent 35 g/dL (31-37) 34 g/dL (31-37) Red Cell Distribution Width 15.7 % (11.5-14.5) 15.8 % (11.5-14.5) Platelet Count 331 x10^3/uL (140-400) 362 x10^3/uL (140-400) Neutrophils (%) (Auto) 81 % (31-73) 77 % (31-73) Lymphocytes (%) (Auto) 7 % (24-48) 10 % (24-48) Monocytes (%) (Auto) 11 % (0-9) 11 % (0-9) Eosinophils (%) (Auto) 1 % (0-3) 2 % (0-3) Basophils (%) (Auto) 0 % (0-3) 1 % (0-3) Neutrophils # (Auto) 10.0 x10^3uL (1.8-7.7) 9.4 x10^3uL (1.8-7.7) Lymphocytes # (Auto) 0.9 x10^3/uL (1.0-4.8) 1.2 x10^3/uL (1.0-4.8) Monocytes # (Auto) 1.3 x10^3/uL (0.0-1.1) 1.3 x10^3/uL (0.0-1.1) Eosinophils # (Auto) 0.1 x10^3/uL (0.0-0.7) 0.3 x10^3/uL (0.0-0.7) Basophils # (Auto) 0.0 x10^3/uL (0.0-0.2) 0.1 x10^3/uL (0.0-0.2) Creatinine 0.5 mg/dL (0.6-1.0) Estimated GFR (Cockcroft-Gault) 142.2 Micro Staphylococcus epidermidis Based on susceptibility to oxacillin this isolate would be susceptible to: *Penicillinase-stable penicillins, such as: Cloxacillin, Dicloxacillin, Nafcillin *Beta-lactam combination agents, such as: Amoxicillin-clavulanic acid, Ampicillin-sulbactam, Piperacillin-tazobactam *Oral cephems, such as: Cefaclor, Cefdinir, Cefpodoxime, Cefprozil, Cefuroxime, Cephalexin, Loracarbef *Parenteral cephems, such as: Cefazolin, Cefepime, Cefotaxime, Cefotetan, Ceftaroline, Ceftizoxime, Ceftriaxone, Cefuroxime *Carbapenems, such as: Doripenem, Ertapenem, Imipenem, Meropenem ANTIMICROBIAL SUSCEPTIBILITY Final Comment S = Susceptible; I = Intermediate; R = Resistant P = Positive; N = Negative MICS are expressed in micrograms per mL Antibiotic RSLT#1 RSLT#2 RSLT#3 RSLT#4 Ciprofloxacin S<=0.5 Clindamycin S<=0.25 Erythromycin S<=0.25 Gentamicin S<=0.5 Levofloxacin S =0.25 Linezolid S =2 Nitrofurantoin S<=16 Oxacillin S<=0.25 CONTINUED ON NEXT PAGE RUN DATE: 06/27/18 PAGE 2 RUN TIME: 5148 [facility] [address] [place] [address] Pancho Zuniga M.D., Professional Architect SPEC: [id number] PATIENT: LORIEROBERT P [id number] ( Continued) Procedure Result ANTIMICROBIAL SUSCEPTIBILITY Final (continued) Penicillin R>=0.5 Quinupristin/Dalfopristin S<=0.25 Rifampin S<=0.5 Tetracycline S<=1 Trimethoprim/Sulfa S<=10 Vancomycin S =4 Microbiology 06/25/18 Blood Culture - Preliminary, Resulted NO GROWTH AFTER 3 DAYS 06/22/18 Urine Culture - Final, Complete 06/22/18 Urine Culture Result 1 (DELONTE) - Final, Complete 06/22/18 Antimicrobic Susceptibility - Final, Complete Escherichia coli Greater than 100,000 colony forming units per mL Cefazolin <=4 ug/mL Cefazolin with an DELONTE <=16 predicts susceptibility to the oral agents cefaclor, cefdinir, cefpodoxime, cefprozil, cefuroxime, cephalexin, and loracarbef when used for therapy of uncomplicated urinary tract infections due to E. coli, Klebsiella pneumoniae, and Proteus mirabilis. ANTIMICROBIAL SUSCEPTIBILITY Final Comment S = Susceptible; I = Intermediate; R = Resistant P = Positive; N = Negative MICS are expressed in micrograms per mL Antibiotic RSLT#1 RSLT#2 RSLT#3 RSLT#4 Amoxicillin/Clavulanic Acid S<=2 Ampicillin S<=2 Cefepime S<=0.12 Ceftriaxone S<=0.25 Cefuroxime S =4 Ciprofloxacin S<=0.25 Ertapenem S<=0.12 Gentamicin S<=1 Imipenem S<=0.25 Levofloxacin S<=0.12 Meropenem S<=0.25 Nitrofurantoin S<=16 Piperacillin/Tazobactam S<=4 Tetracycline S =2 Tobramycin S<=1 Trimethoprim/Sulfa S<=20 Objective Assessment 1. Bright red blood per rectum secondary to diverticulosis, status post colectomy, 06/24/2018. 2. Hypotension with gastrointestinal bleed. 3. Two out of 3 bottles positive for gram-positive cocci in clusters suggestive of Staphylococcus bacteremia.coag neg staph prelim, final id and delonte pending 4. E coli uti pansensitive - 06/22 5. Hypertension/hyperlipidemia. 6. Diabetes mellitus 2. 7. Thrombocytopenia.resolved 8. Leucocytosis stable - should improve with drain and IJ removal. Clinically much better 9. Acute blood loss Anemia Plan Plan of Care 1. Discont cefepime - Cefpodoxime for 2 days D/w nursing SHANA DICKINSON MD Jun 30, 2018 10:05
--- NOTE | 2018-06-30 10:19 | PDOC ---
Subjective: Subjective: Feeling better. Tolerating PO, ostomy functioning. Thinks she might get to leave today. Objective: Vital Signs: Vital Signs Date Time Temp Pulse Resp B/P (MAP) Pulse Ox O2 Delivery O2 Flow Rate FiO2 06/30/18 09:05 18 97 Room Air 06/30/18 07:00 98.0 101 159/82 (107) 98.0 Labs: BLOOD CULTURE Final NO GROWTH AFTER 5 DAYS PE: GEN: NAD, up to chair LUNGS: CTAB HEART: RRR ABD: ostomy w/ air/stool, abd soft NEURO/PSYCH: A & O 3, smiling and joking A/P: Lower GI bleed s/p colectomy -- Improved post-op. DC plans? ENMANUEL PORTER Jun 30, 2018 10:19
--- NOTE | 2018-06-30 10:25 | PDOC ---
SURGICAL PROGRESS NOTE Subjective Doing well, good ostomy output Vital Signs Vital Signs Date Time Temp Pulse Resp B/P (MAP) Pulse Ox O2 Delivery O2 Flow Rate FiO2 06/30/18 09:05 18 97 Room Air 06/30/18 07:00 98.0 101 159/82 (107) 98.0 I&O Intake and Output 06/30/18 07:00 Intake Total 360 ml Output Total 900 ml Balance -540 ml Intake Oral 360 ml Stool Total 550 ml Drainage Total 350 ml # Voids 7 PATIENT HAS A KEANE: No General: Alert, Oriented X3, Cooperative, No acute distress Abdomen: Normal bowel sounds, Soft, No tenderness, Other (wound c/d/i) Labs Laboratory Tests Test 06/29/18 12:15 06/30/18 05:00 White Blood Count 12.4 x10^3/uL (4.0-11.0) 12.3 x10^3/uL (4.0-11.0) Red Blood Count 2.82 x10^6/uL (3.50-5.40) 2.80 x10^6/uL (3.50-5.40) Hemoglobin 8.8 g/dL (12.0-15.5) 8.6 g/dL (12.0-15.5) Hematocrit 25.3 % (36.0-47.0) 25.3 % (36.0-47.0) Mean Corpuscular Volume 90 fL (79-100) 90 fL (79-100) Mean Corpuscular Hemoglobin 31 pg (25-35) 31 pg (25-35) Mean Corpuscular Hemoglobin Concent 35 g/dL (31-37) 34 g/dL (31-37) Red Cell Distribution Width 15.7 % (11.5-14.5) 15.8 % (11.5-14.5) Platelet Count 331 x10^3/uL (140-400) 362 x10^3/uL (140-400) Neutrophils (%) (Auto) 81 % (31-73) 77 % (31-73) Lymphocytes (%) (Auto) 7 % (24-48) 10 % (24-48) Monocytes (%) (Auto) 11 % (0-9) 11 % (0-9) Eosinophils (%) (Auto) 1 % (0-3) 2 % (0-3) Basophils (%) (Auto) 0 % (0-3) 1 % (0-3) Neutrophils # (Auto) 10.0 x10^3uL (1.8-7.7) 9.4 x10^3uL (1.8-7.7) Lymphocytes # (Auto) 0.9 x10^3/uL (1.0-4.8) 1.2 x10^3/uL (1.0-4.8) Monocytes # (Auto) 1.3 x10^3/uL (0.0-1.1) 1.3 x10^3/uL (0.0-1.1) Eosinophils # (Auto) 0.1 x10^3/uL (0.0-0.7) 0.3 x10^3/uL (0.0-0.7) Basophils # (Auto) 0.0 x10^3/uL (0.0-0.2) 0.1 x10^3/uL (0.0-0.2) Creatinine 0.5 mg/dL (0.6-1.0) Estimated GFR (Cockcroft-Gault) 142.2 Laboratory Tests Test 06/29/18 12:15 06/30/18 05:00 White Blood Count 12.4 x10^3/uL (4.0-11.0) 12.3 x10^3/uL (4.0-11.0) Red Blood Count 2.82 x10^6/uL (3.50-5.40) 2.80 x10^6/uL (3.50-5.40) Hemoglobin 8.8 g/dL (12.0-15.5) 8.6 g/dL (12.0-15.5) Hematocrit 25.3 % (36.0-47.0) 25.3 % (36.0-47.0) Mean Corpuscular Volume 90 fL (79-100) 90 fL (79-100) Mean Corpuscular Hemoglobin 31 pg (25-35) 31 pg (25-35) Mean Corpuscular Hemoglobin Concent 35 g/dL (31-37) 34 g/dL (31-37) Red Cell Distribution Width 15.7 % (11.5-14.5) 15.8 % (11.5-14.5) Platelet Count 331 x10^3/uL (140-400) 362 x10^3/uL (140-400) Neutrophils (%) (Auto) 81 % (31-73) 77 % (31-73) Lymphocytes (%) (Auto) 7 % (24-48) 10 % (24-48) Monocytes (%) (Auto) 11 % (0-9) 11 % (0-9) Eosinophils (%) (Auto) 1 % (0-3) 2 % (0-3) Basophils (%) (Auto) 0 % (0-3) 1 % (0-3) Neutrophils # (Auto) 10.0 x10^3uL (1.8-7.7) 9.4 x10^3uL (1.8-7.7) Lymphocytes # (Auto) 0.9 x10^3/uL (1.0-4.8) 1.2 x10^3/uL (1.0-4.8) Monocytes # (Auto) 1.3 x10^3/uL (0.0-1.1) 1.3 x10^3/uL (0.0-1.1) Eosinophils # (Auto) 0.1 x10^3/uL (0.0-0.7) 0.3 x10^3/uL (0.0-0.7) Basophils # (Auto) 0.0 x10^3/uL (0.0-0.2) 0.1 x10^3/uL (0.0-0.2) Creatinine 0.5 mg/dL (0.6-1.0) Estimated GFR (Cockcroft-Gault) 142.2 Problem List Problems Medical Problems: (1) Anemia Status: Acute (2) Dehydration Status: Acute (3) Rectal bleeding Status: Acute Assessment/Plan s/p xlap for sbo Doing well Agree with discharge F/U with Dr Barry in 1 to 2 weeks EDGAR CORADO MD Jun 30, 2018 10:25
[2018-06-30 11:00] VITALS: BP 152/59
--- NOTE | 2018-06-30 13:57 | PDOC3 ---
Discharge Summary Date of Admission: Jun 22, 2018 Date of Discharge: Jun 30, 2018 Follow-Up: 1-2 days Admitting Diagnosis comment: DISCHARGE DIAGNOSIS====== Chief Complaint bright red blood per rectum, 2/2 diverticulosis 2/2 Colectomy and left salpingo -oophorectomy.06/24 hypotension with gib, requried pressors acute anemia with gib HTN dm2 hld morbid obesity 2/3 + bcx bacteremia sepsis with bacteremia hypokalemia hypocalcemia plan: d/c today if ok with ID ON VANTIN 200MG BID X 2 DAYS FU WITH GI, IR total got 9u PRBC transfusion, plt and FFP transfusion hold po meds , resume when eats better fu colostomy, ELI drain, sx wound care advance diet to full liquid 1/2 NS +K 100cc/h IR angiogram neg bleeding. + bleeding scan, neg CTA. EGD non obstructing shatzki ring. colectomy since cont bleeding with low hb and low bp. gi ppx fu with ID, fu bcx, on vanco and cefepime for now talked to daughter at bedside lovenox dvt ppx History of Present Illness History of Present Illness ROS: no fever, chills, sob or chest pain before sx: cont rectal bleeding with some abd cramps overnight, as per nurse could have about 2L blood loss bp low, need levaqhed since sx + bleeding scan, neg CTA. got Colectomy and left salpingo-oophorectomy 06/24, hb low again 06/25, no active bleeding , another 2u RPBC transfusion post op after sx: no active bleeding, hb stable after transfusion D/C ON VANTIN 200MG PO BID X 2 DAYS FINAL DIAGNOSIS Problems Medical Problems: (1) Anemia Status: Acute (2) Dehydration Status: Acute (3) Rectal bleeding Status: Acute Brief Hospital Course Ms. Molina is a 83 old [sex] who presented with [ ] CONDITION AT DISCHARGE: Improved Discharge Medications Current Medications Pantoprazole Sodium (PROTONIX VIAL for IV PUSH) 80 mg 1X ONCE IVP Last administered on 06/22/18at 15:57; Start 06/22/18 at 15:30; Stop 06/22/18 at 15:32 ; Status DC Sodium Chloride 1,000 ml @ 1,000 mls/hr 1X ONCE IV Last administered on at 15:52; Start 06/22/18 at 15:30; Stop 06/22/18 at 16:29; Status DC Ondansetron HCl (Zofran) 4 mg PRN Q8HRS PRN IV NAUSEA/VOMITING; Start 06/22/18 at 16:15; Stop 06/23/18 at 16:14; Status DC Sodium Chloride 1,000 ml @ 150 mls/hr Q6H40M IV Last administered on at 06:27; Start 06/22/18 at 16:11; Stop 06/23/18 at 09:11; Status DC Iohexol (Omnipaque 300 Mg/ml) 75 ml 1X ONCE IV Last administered on 06/22/18at 17:04; Start 06/22/18 at 17:00; Stop 06/22/18 at 17:01; Status DC Info (CONTRAST GIVEN -- Rx MONITORING) 1 each PRN DAILY PRN MC SEE COMMENTS; Start 06/22/18 at 17:00; Stop 06/24/18 at 09:36; Status DC Sodium Chloride 1,000 ml @ 1,000 mls/hr 1X ONCE IV Last administered on at 17:45; Start 06/22/18 at 17:45; Stop 06/22/18 at 18:44; Status DC Pantoprazole Sodium (PROTONIX VIAL for IV PUSH) 40 mg DAILYAC IVP Last administered on 06/28/18at 08:29; Start 06/23/18 at 07:30; Stop 06/28/18 at 12:13 ; Status DC Heparin Sodium (Porcine) (HEPARIN for NUC MED) 100 unit 1X ONCE IV Last administered on 06/23/18at 03:30; Start 06/23/18 at 03:30; Stop 06/23/18 at 03:31 ; Status DC Acetaminophen (Tylenol) 650 mg 1X PRN PRN PO PRE-TRANSFUSION; Start 06/23/18 at 05:30; Stop 06/27/18 at 19:42; Status DC Diphenhydramine HCl (Benadryl) 25 mg PRN 1X PRN PO PRE-TRANSFUSION; Start 06/23 at 05:30; Stop 06/27/18 at 19:42; Status DC Iohexol (Omnipaque 300 Mg/ml) 90 ml 1X ONCE IV Last administered on 06/23/18at 07:15; Start 06/23/18 at 07:00; Stop 06/23/18 at 07:01; Status DC Info (CONTRAST GIVEN -- Rx MONITORING) 1 each PRN DAILY PRN MC SEE COMMENTS; Start 06/23/18 at 06:30; Stop 06/25/18 at 06:29; Status DC Acetaminophen (Tylenol) 650 mg PRN Q6HRS PRN PO FEVER Last administered on 06/29at 17:58; Start 06/23/18 at 09:15 Ondansetron HCl (Zofran) 4 mg PRN Q6HRS PRN IV NAUSEA/VOMITING Last administered on 06/27/18at 18:19; Start 06/23/18 at 09:15 Morphine Sulfate (Morphine Sulfate) 2 mg PRN Q2HR PRN IV MODERATE TO SEVERE PAIN; Start 06/23/18 at 09:15; Stop 06/24/18 at 09:36; Status DC Tramadol HCl (Ultram) 50 mg PRN Q6HRS PRN PO MILD TO MODERATE PAIN; Start 06/23 at 09:15 Docusate Sodium (Colace) 100 mg PRN DAILY PRN PO CONSTIPATION; Start 06/23/18 at 09:15 Sodium Chloride 1,000 ml @ 125 mls/hr Q8H IV Last administered on 06/24/18at 05 :55; Start 06/23/18 at 09:15; Stop 06/24/18 at 13:49; Status DC Iodixanol (Visipaque 320) 100 ml STK-MED ONCE .ROUTE ; Start 06/23/18 at 09:14; Stop 06/23/18 at 09:15; Status DC Lidocaine/Sodium Bicarbonate (Buffered Lidocaine 1%) 3 ml STK-MED ONCE .ROUTE ; Start 06/23/18 at 09:14; Stop 06/23/18 at 09:15; Status DC Iodixanol (Visipaque 320) 50 ml STK-MED ONCE .ROUTE ; Start 06/23/18 at 09:14; Stop 06/23/18 at 09:15; Status DC Heparin Sodium/ Sodium Chloride 1,000 ml @ As Directed STK-MED ONCE .ROUTE ; Start 06/23/18 at 09:14; Stop 06/23/18 at 09:15; Status DC Iodixanol (Visipaque 320) 100 ml STK-MED ONCE .ROUTE ; Start 06/23/18 at 09:31; Stop 06/23/18 at 09:32; Status DC Midazolam HCl (Versed) 2 mg STK-MED ONCE .ROUTE ; Start 06/23/18 at 09:34; Stop 06/23/18 at 09:35; Status DC Fentanyl Citrate (Fentanyl 2ml Vial) 100 mcg STK-MED ONCE .ROUTE ; Start at 09:34; Stop 06/23/18 at 09:35; Status DC Heparin Sodium/ Sodium Chloride (HEPARIN for ARTERIAL LINE FLUSH) 1,000 unit 1X ONCE IART Last administered on 06/23/18at 10:15; Start 06/23/18 at 10:15; Stop 06/23/18 at 10:16; Status DC Lidocaine/Sodium Bicarbonate (Buffered Lidocaine 1%) 3 ml 1X ONCE IJ Last administered on 06/23/18at 10:15; Start 06/23/18 at 10:15; Stop 06/23/18 at 10:16 ; Status DC Midazolam HCl (Versed) 2 mg 1X ONCE IV ; Start 06/23/18 at 10:15; Stop at 10:16; Status DC Fentanyl Citrate (Fentanyl 2ml Vial) 100 mcg 1X ONCE IV ; Start 06/23/18 at 10: 15; Stop 06/23/18 at 10:16; Status DC Iodixanol (Visipaque 320) 100 ml 1X ONCE IART Last administered on 06/23/18at 10:15; Start 06/23/18 at 10:15; Stop 06/23/18 at 10:16; Status DC Iodixanol (Visipaque 320) 100 ml STK-MED ONCE .ROUTE ; Start 06/23/18 at 10:09; Stop 06/23/18 at 10:10; Status DC Iodixanol (Visipaque 320) 50 ml STK-MED ONCE .ROUTE ; Start 06/23/18 at 11:01; Stop 06/23/18 at 11:02; Status DC Sodium Chloride 1,000 ml @ 1,000 mls/hr 1X ONCE IV Last administered on at 03:00; Start 06/24/18 at 03:15; Stop 06/24/18 at 04:14; Status DC Sodium Chloride 1,000 ml @ 1,000 mls/hr 1X ONCE IV Last administered on at 04:06; Start 06/24/18 at 04:15; Stop 06/24/18 at 05:14; Status DC Norepinephrine Bitartrate 250 ml @ 1.875 mls/ hr CONT PRN IV SEE I/O RECORD Last administered on 06/25/18at 13:45; Start 06/24/18 at 03:15; Stop 06/27/18 at 14:51; Status DC Cefoxitin Sodium 2 gm/Dextrose 100 ml @ 200 mls/hr ONCE ONCE IV Last administered on 06/24/18at 06:45; Start 06/24/18 at 05:00; Stop 06/24/18 at 05:29 ; Status DC Succinylcholine Chloride (Anectine) 200 mg STK-MED ONCE .ROUTE ; Start 06/24/18 at 05:48; Stop 06/24/18 at 05:49; Status DC Rocuronium Rentz (Zemuron) 100 mg STK-MED ONCE .ROUTE ; Start 06/24/18 at 05: 48; Stop 06/24/18 at 05:49; Status DC Sodium Chloride 1,000 ml @ 1,000 mls/hr 1X ONCE IV Last administered on at 05:50; Start 06/24/18 at 05:50; Stop 06/24/18 at 06:49; Status DC Fentanyl Citrate (Fentanyl 5ml Vial) 250 mcg STK-MED ONCE .ROUTE ; Start at 07:16; Stop 06/24/18 at 07:18; Status DC Etomidate (Amidate) 20 mg STK-MED ONCE IV ; Start 06/24/18 at 07:17; Stop at 07:18; Status DC Propofol 20 ml @ As Directed STK-MED ONCE IV ; Start 06/24/18 at 07:17; Stop at 07:18; Status DC Ondansetron HCl (Zofran) 4 mg STK-MED ONCE .ROUTE ; Start 06/24/18 at 07:55; Stop 06/24/18 at 07:56; Status DC Neostigmine Methylsulfate (Neostigmine Methylsulfate) 5 mg STK-MED ONCE .ROUTE ; Start 06/24/18 at 08:38; Stop 06/24/18 at 08:40; Status DC Glycopyrrolate (Robinul) 1 mg STK-MED ONCE .ROUTE ; Start 06/24/18 at 08:39; Stop 06/24/18 at 08:40; Status DC Cefoxitin Sodium 100 ml @ As Directed STK-MED ONCE IV ; Start 06/24/18 at 07:42 ; Stop 06/24/18 at 08:43; Status DC Vancomycin HCl (Vanco Per Pharmacy) 1 each PRN DAILY PRN MC SEE COMMENTS Last administered on 06/28/18at 02:57; Start 06/24/18 at 09:00; Stop 06/28/18 at 10:45 ; Status DC Vancomycin HCl 2 gm/Sodium Chloride 500 ml @ 250 mls/hr 1X ONCE IV Last administered on 06/24/18at 12:47; Start 06/24/18 at 09:30; Stop 06/24/18 at 11:29 ; Status DC Cefoxitin Sodium 50 ml @ 100 mls/hr 1X PERIOP IV ; Start 06/24/18 at 09:15; Status Cancel Diphenhydramine HCl (Benadryl) 25 mg PRN Q6HRS PRN IV ITCHING Last administered on 06/26/18at 21:01; Start 06/24/18 at 09:15 Enoxaparin Sodium (Lovenox 40mg Syringe) 40 mg Q24H SQ ; Start 06/24/18 at 10:00 ; Stop 06/24/18 at 10:00; Status DC Sodium Chloride (Normal Saline Flush) 3 ml QSHIFT PRN IV AFTER MEDS AND BLOOD DRAWS; Start 06/24/18 at 09:15 Potassium Chloride/Sodium Chloride 1,000 ml @ 100 mls/hr Q10H IV Last administered on 06/30/18at 05:12; Start 06/24/18 at 09:13 Morphine Sulfate (Morphine Sulfate) 5 mg PRN Q3HRS PRN IV MODERATE-SEVERE PAIN Last administered on 06/24/18at 20:38; Start 06/24/18 at 09:45; Stop 06/24/18 at 22:38; Status DC Ondansetron HCl (Zofran) 4 mg PRN Q6HRS PRN IV NAUESA, 1ST CHOICE; Start at 09:15; Stop 06/24/18 at 14:47; Status DC Throat Lozenges (Chloraseptic) 1 spray PRN Q2HR PRN PO SORE THROAT 2ND CHOICE Last administered on 06/25/18at 19:34; Start 06/24/18 at 09:15 Throat Lozenges (Cepacol Sore Throat Lozenge) 1 geni PRN Q2HRS PRN PO SORE THROAT 1ST CHOICE Last administered on 06/29/18at 11:11; Start 06/24/18 at 09:15 Enoxaparin Sodium (Lovenox 40mg Syringe) 40 mg Q24H SQ ; Start 06/25/18 at 09:00 ; Stop 06/25/18 at 10:53; Status DC Ondansetron HCl (Zofran) 4 mg PRN Q6HRS PRN IV NAUSEA/VOMITING; Start 06/24/18 at 10:00; Stop 06/24/18 at 18:00; Status DC Fentanyl Citrate (Fentanyl 2ml Vial) 25 mcg PRN Q5MIN PRN IV MILD PAIN; Start 06/24/18 at 10:00; Stop 06/24/18 at 18:00; Status DC Fentanyl Citrate (Fentanyl 2ml Vial) 50 mcg PRN Q5MIN PRN IV MODERATE TO SEVERE PAIN Last administered on 06/24/18at 14:28; Start 06/24/18 at 10:00; Stop 06/24/18 at 18:00; Status DC Morphine Sulfate (Morphine Sulfate) 1 mg PRN Q10MIN PRN IV SEVERE PAIN; Start 06/24/18 at 10:00; Stop 06/24/18 at 18:00; Status DC Ringer's Solution 1,000 ml @ 30 mls/hr Q24H IV Last administered on 06/24/18at 11:34; Start 06/24/18 at 09:52; Stop 06/24/18 at 21:51; Status DC Lidocaine HCl (Xylocaine-Mpf 1% 2ml Vial) 2 ml PRN 1X PRN ID PRIOR TO IV START ; Start 06/24/18 at 10:00; Stop 06/24/18 at 18:00; Status DC Hydromorphone HCl (Dilaudid) 0.5 mg PRN Q10MIN PRN IV SEV PAIN, Second choice Last administered on 06/24/18at 15:15; Start 06/24/18 at 10:00; Stop 06/24/18 at 18:00; Status DC Prochlorperazine Edisylate (Compazine) 5 mg PACU PRN PRN IV NAUSEA, MRX1 Last administered on 06/24/18at 10:47; Start 06/24/18 at 10:00; Stop 06/24/18 at 18:00 ; Status DC Fentanyl Citrate (Fentanyl 2ml Vial) 100 mcg STK-MED ONCE .ROUTE ; Start at 10:24; Stop 06/24/18 at 10:25; Status DC Prochlorperazine Edisylate (Compazine) 10 mg STK-MED ONCE .ROUTE ; Start at 10:24; Stop 06/24/18 at 10:25; Status DC Hydromorphone HCl (Dilaudid) 2 mg STK-MED ONCE .ROUTE ; Start 06/24/18 at 11:04 ; Stop 06/24/18 at 11:05; Status DC Cefoxitin Sodium 100 ml @ 200 mls/hr OC PROC ONCE IV Last administered on at 08:43; Start 06/24/18 at 12:00; Stop 06/24/18 at 12:29; Status DC Vancomycin HCl 1.5 gm/Sodium Chloride 500 ml @ 250 mls/hr Q24H IV Last administered on 06/26/18at 13:47; Start 06/25/18 at 13:00; Stop 06/26/18 at 17:00 ; Status DC Vancomycin HCl (Vancomycin Trough Level) 1 each 1X ONCE MC Last administered on 06/26/18at 12:30; Start 06/26/18 at 12:30; Stop 06/26/18 at 12:31; Status DC Potassium Chloride/Water 50 ml @ 50 mls/hr 1X ONCE IV Last administered on at 14:29; Start 06/24/18 at 14:00; Stop 06/24/18 at 14:59; Status DC Calcium Chloride 1000 mg/Dextrose 60 ml @ 120 mls/hr 1X ONCE IV Last administered on 06/24/18at 14:28; Start 06/24/18 at 14:00; Stop 06/24/18 at 14:29 ; Status DC Cefepime HCl 1 gm/ Dextrose 50 ml @ 100 mls/hr Q12HR IV ; Start 06/24/18 at 14: 30; Status Cancel Cefepime HCl (Maxipime) 1 gm Q12HR IVP Last administered on 06/30/18at 09:05; Start 06/24/18 at 14:30; Stop 06/30/18 at 10:59; Status DC Albumin Human 250 ml @ 62.5 mls/hr 1X ONCE IV Last administered on 06/24/18at 20:32; Start 06/24/18 at 19:15; Stop 06/24/18 at 23:14; Status DC Furosemide (Lasix) 40 mg 1X ONCE IVP Last administered on 06/25/18at 09:05; Start 06/24/18 at 19:15; Stop 06/24/18 at 19:16; Status DC Morphine Sulfate (Morphine Sulfate) 5 mg PRN Q2HR PRN IV PAIN Last administered on 06/27/18at 04:20; Start 06/24/18 at 22:45 Enoxaparin Sodium (Lovenox 40mg Syringe) 40 mg Q24H SQ Last administered on at 17:23; Start 06/26/18 at 16:00 Lactobacillus Rhamnosus (Culturelle) 1 cap BID PO Last administered on at 09:05; Start 06/25/18 at 21:00 Propofol (Diprivan) 200 mg STK-MED ONCE IV ; Start 06/24/18 at 10:00; Stop 06/25 at 12:24; Status DC Potassium Chloride/Water 50 ml @ 50 mls/hr 1X ONCE IV Last administered on at 08:27; Start 06/26/18 at 08:00; Stop 06/26/18 at 08:59; Status DC Calcium Gluconate 1000 mg/Dextrose 110 ml @ 220 mls/hr 1X ONCE IV Last administered on 06/26/18at 08:09; Start 06/26/18 at 07:15; Stop 06/26/18 at 07:44 ; Status DC Vancomycin HCl 1.5 gm/Sodium Chloride 500 ml @ 250 mls/hr Q12H IV Last administered on 06/27/18at 13:34; Start 06/27/18 at 02:00; Stop 06/28/18 at 02:44 ; Status DC Vancomycin HCl (Vancomycin Trough Level) 1 each 1X ONCE MC Last administered on 06/28/18at 01:30; Start 06/28/18 at 01:30; Stop 06/28/18 at 01:31; Status DC Acetaminophen/ Hydrocodone Bitart (Lortab 5/325) 1 tab PRN Q4HRS PRN PO SEVERE PAIN Last administered on 06/30/18at 09:05; Start 06/27/18 at 14:15 Lorazepam (Ativan) 0.5 mg PRN Q8HRS PRN PO ANXIETY / AGITATION Last administered on 06/30/18at 05:26; Start 06/27/18 at 14:15 Potassium Chloride (Klor-Con) 40 meq 1X ONCE PO Last administered on at 16:18; Start 06/27/18 at 15:15; Stop 06/27/18 at 15:16; Status DC Zolpidem Tartrate (Ambien) 5 mg PRN QHS PRN PO INSOMNIA Last administered on at 21:33; Start 06/27/18 at 19:00 Vancomycin HCl 1.75 gm/Sodium Chloride 500 ml @ 250 mls/hr Q12H IV Last administered on 06/28/18at 03:10; Start 06/28/18 at 03:00; Stop 06/28/18 at 10:45 ; Status DC Vancomycin HCl (Vancomycin Trough Level) 1 each 1X ONCE MC ; Start 06/29/18 at 02:30; Stop 06/29/18 at 02:30; Status DC Cefpodoxime Proxetil (Vantin) 200 mg BID PO ; Start 06/30/18 at 21:00 Active Scripts Active Levaquin (Levofloxacin) 500 Mg Tablet 500 Mg PO DAILY06 Reported Januvia (Sitagliptin Phosphate) 100 Mg Tablet 1 Tab PO DAILY Beta Carotene (Beta-Carotene) 10,000 Unit Capsule 12,000 Unit PO Crestor (Rosuvastatin Calcium) 5 Mg Tablet 1 Tab PO DAILY Vital Signs Vital Signs Date Time Temp Pulse Resp B/P (MAP) Pulse Ox O2 Delivery O2 Flow Rate FiO2 06/30/18 11:00 97.9 89 16 152/59 (90) 99 Room Air 97.9 Labs Laboratory Tests Test 06/29/18 12:15 06/30/18 05:00 White Blood Count 12.4 x10^3/uL (4.0-11.0) 12.3 x10^3/uL (4.0-11.0) Red Blood Count 2.82 x10^6/uL (3.50-5.40) 2.80 x10^6/uL (3.50-5.40) Hemoglobin 8.8 g/dL (12.0-15.5) 8.6 g/dL (12.0-15.5) Hematocrit 25.3 % (36.0-47.0) 25.3 % (36.0-47.0) Mean Corpuscular Volume 90 fL (79-100) 90 fL (79-100) Mean Corpuscular Hemoglobin 31 pg (25-35) 31 pg (25-35) Mean Corpuscular Hemoglobin Concent 35 g/dL (31-37) 34 g/dL (31-37) Red Cell Distribution Width 15.7 % (11.5-14.5) 15.8 % (11.5-14.5) Platelet Count 331 x10^3/uL (140-400) 362 x10^3/uL (140-400) Neutrophils (%) (Auto) 81 % (31-73) 77 % (31-73) Lymphocytes (%) (Auto) 7 % (24-48) 10 % (24-48) Monocytes (%) (Auto) 11 % (0-9) 11 % (0-9) Eosinophils (%) (Auto) 1 % (0-3) 2 % (0-3) Basophils (%) (Auto) 0 % (0-3) 1 % (0-3) Neutrophils # (Auto) 10.0 x10^3uL (1.8-7.7) 9.4 x10^3uL (1.8-7.7) Lymphocytes # (Auto) 0.9 x10^3/uL (1.0-4.8) 1.2 x10^3/uL (1.0-4.8) Monocytes # (Auto) 1.3 x10^3/uL (0.0-1.1) 1.3 x10^3/uL (0.0-1.1) Eosinophils # (Auto) 0.1 x10^3/uL (0.0-0.7) 0.3 x10^3/uL (0.0-0.7) Basophils # (Auto) 0.0 x10^3/uL (0.0-0.2) 0.1 x10^3/uL (0.0-0.2) Creatinine 0.5 mg/dL (0.6-1.0) Estimated GFR (Cockcroft-Gault) 142.2 Laboratory Tests Test 06/30/18 05:00 White Blood Count 12.3 x10^3/uL (4.0-11.0) Red Blood Count 2.80 x10^6/uL (3.50-5.40) Hemoglobin 8.6 g/dL (12.0-15.5) Hematocrit 25.3 % (36.0-47.0) Mean Corpuscular Volume 90 fL (79-100) Mean Corpuscular Hemoglobin 31 pg (25-35) Mean Corpuscular Hemoglobin Concent 34 g/dL (31-37) Red Cell Distribution Width 15.8 % (11.5-14.5) Platelet Count 362 x10^3/uL (140-400) Neutrophils (%) (Auto) 77 % (31-73) Lymphocytes (%) (Auto) 10 % (24-48) Monocytes (%) (Auto) 11 % (0-9) Eosinophils (%) (Auto) 2 % (0-3) Basophils (%) (Auto) 1 % (0-3) Neutrophils # (Auto) 9.4 x10^3uL (1.8-7.7) Lymphocytes # (Auto) 1.2 x10^3/uL (1.0-4.8) Monocytes # (Auto) 1.3 x10^3/uL (0.0-1.1) Eosinophils # (Auto) 0.3 x10^3/uL (0.0-0.7) Basophils # (Auto) 0.1 x10^3/uL (0.0-0.2) Allergies Allergies Coded Allergies Type Severity Reaction Last Updated Verified No Known Drug Allergies 10/20/15 No Disposition/Orders: Other (TO [facility] BED) Patient Instructions D/C PLANNING 38 MIN EDGAR RIVERA MD Jun 30, 2018 13:57
--- NOTE | 2018-06-30 13:59 | DISCH ---
DISCHARGE DISCHARGE INFORMATION: FINAL DIAGNOSIS Problems Medical Problems: (1) Anemia Status: Acute (2) Dehydration Status: Acute (3) Rectal bleeding Status: Acute CONDITION ON DISCHARGE: Stable CODE STATUS: Code Status: Full PENITENTIARY: SNF STAY <30 DAYS: Yes HOSPICE: HOSPICE: No HOSPICE EVAL & TREAT: No POST DISCHARGE ORDERS: ACTIVITY ORDERS: No restrictions, Activity as tolerated DIET AFTER DISCHARGE: Cardiac TREATMENT/EQUIPMENT ORDERS: Physical Therapy For: Evalulation/Treatment Occupational Therapy For: Evaluation/Treatment Speech Language Pathology For: Evaluation/Treatment DISCHARGE MEDICATIONS: Home Meds Active Scripts Levofloxacin (LEVAQUIN) 500 Mg Tablet, 500 MG PO DAILY06, #1 Prov:DENNIS HOLCOMB MD 10/21/15 Reported Medications Sitagliptin Phosphate (JANUVIA) 100 Mg Tablet, 1 TAB PO DAILY, #30 TAB 5 Refills 10/20/15 Beta-Carotene (BETA CAROTENE) 10,000 Unit Capsule, 17629 UNIT PO 10/20/15 Rosuvastatin Calcium (CRESTOR) 5 Mg Tablet, 1 TAB PO DAILY, #30 TAB 5 Refills 10/20/15 EDGAR RIVERA MD Jun 30, 2018 13:59
[2018-06-30] MEDS ORDERED: LACT1CAP19 PO (14:04)
[2018-06-30] MEDS ORDERED: DOCU-109 PO (14:04)
[2018-06-30] MEDS ORDERED: TRAM50TA PO (14:04)
[2018-06-30] MEDS ORDERED: CEFP100T PO (14:04)
[2018-06-30 15:00] VITALS: BP 152/59
[2018-06-30] MEDS: ENOXAPARIN 40 MG/0.4 ML SYRINGE. SQ SCH (16:00)
[2018-06-30] MEDS ORDERED: CEFPODOXIME PROXETIL 100 MG TABLET. PO SCH (21:00)
== END 2018-06-30 18:05 | DRG 853 ==
LOC: ER 15:17 → 1 WEST ICU 15:54 → 4 NORTH 06-26 17:31
PROVIDERS: ADMIT Family Medicine; ATTEND Family Medicine
PROC: 0DJ08ZZ Inspection of Upper Intestinal Tract, Via Natural or Artificial Opening Endoscopic (ICD-10-PCS; 2018-06-22)
PROC: 0DTE0ZZ Resection of Large Intestine, Open Approach (ICD-10-PCS; 2018-06-24)
PROC: 0UT60ZZ Resection of Left Fallopian Tube, Open Approach (ICD-10-PCS; 2018-06-24)
PROC: 30233N1 Transfusion of Nonautologous Red Blood Cells into Peripheral Vein, Percutaneous Approach (ICD-10-PCS; 2018-06-24)
PROC: 30233L1 Transfusion of Nonautologous Fresh Plasma into Peripheral Vein, Percutaneous Approach (ICD-10-PCS; 2018-06-24)
PROC: 30233K1 Transfusion of Nonautologous Frozen Plasma into Peripheral Vein, Percutaneous Approach (ICD-10-PCS; 2018-06-24)
PROC: 30233R1 Transfusion of Nonautologous Platelets into Peripheral Vein, Percutaneous Approach (ICD-10-PCS; 2018-06-24)
PROC: 0D1B0Z4 Bypass Ileum to Cutaneous, Open Approach (ICD-10-PCS; 2018-06-24)
PROC: 0UT10ZZ Resection of Left Ovary, Open Approach (ICD-10-PCS; principal; 2018-06-24 06:00)
DX: A41.9 Sepsis, unspecified organism (principal); E43 Unspecified severe protein-calorie malnutrition; K57.91 Diverticulosis of intestine, part unspecified, without perforation or abscess with bleeding; K55.9 Vascular disorder of intestine, unspecified; D62 Acute posthemorrhagic anemia; N39.0 Urinary tract infection, site not specified; K57.90 Diverticulosis of intestine, part unspecified, without perforation or abscess without bleeding; I10 Essential (primary) hypertension; E78.00 Pure hypercholesterolemia, unspecified; E11.9 Type 2 diabetes mellitus without complications; E86.0 Dehydration; M19.90 Unspecified osteoarthritis, unspecified site; Z82.49 Family history of ischemic heart disease and other diseases of the circulatory system; J45.909 Unspecified asthma, uncomplicated; E66.9 Obesity, unspecified; E83.51 Hypocalcemia; D69.6 Thrombocytopenia, unspecified; Z90.49 Acquired absence of other specified parts of digestive tract; I95.9 Hypotension, unspecified; E66.01 Morbid (severe) obesity due to excess calories; E78.5 Hyperlipidemia, unspecified; E87.6 Hypokalemia; B96.20 Unspecified Escherichia coli [E. coli] as the cause of diseases classified elsewhere; K66.0 Peritoneal adhesions (postprocedural) (postinfection); Z79.82 Long term (current) use of aspirin; Z68.38 Body mass index [BMI] 38.0-38.9, adult
CPT/HCPCS: 36245; 36415; 51702; 71045; 74018; 74174; 74177; 75726; 76937; 78278; 80048; 80053; 80202; 81001; 82310; 82565; 82962; 83605; 83880; 84484; 85007; 85018; 85025; 85027; 85379; 85384; 85610; 85730; 86850; 86900; 86901; 86920; 86927; 87040; 87086; 87186; 87205; 87641; 88305; 88307; 93970; 96360; 96361; 96374; A9560; C1713; C1760; C1769; C1887; C1892; C1894; C9113; G0269; J0330; J0610; J0692; J0694; J0780; J1170; J1200; J1644; J1650; J1940; J2270; J2405; J2704; J2710; J3010; J3370; J3480; J3490; J7030; J7040; J7120; P9016; P9017; P9035; P9041; Q9967; 97110; 97116; 97530; 97535; 99285-25

== ENCOUNTER → 2019-01-12 | Outpatient (CLI) | payer OTHER ==
[~2019-01-12] MED LIST changes: +CEFP100T PO; +DOCU-109 PO; +LACT1CAP19 PO; +TRAM50TA PO
--- NOTE | 2019-01-12 10:55 | CARD ---
MR#: [id number] Date of Study: 01/12/2019 Ordering Physician: DELFINA KENNEY, Referring Physician: DELFINA KENNEY Tech: Ileana Garsia RDCS APPROVED REPORT EXAM: Two-dimensional and M-mode echocardiogram with Doppler and color Doppler. Other Information Quality : Fair INDICATION Aortic Valve Disease 2D DIMENSIONS RVDd2.9 (2.9-3.5cm)Left Atrium(2D)3.9 (1.6-4.0cm) IVSd1.0 (0.7-1.1cm)Aortic Root(2D)2.6 (2.0-3.7cm) LVDd4.3 (3.9-5.9cm)LVOT Diameter2.0 (1.8-2.4cm) PWd1.4 (0.7-1.1cm)LVDs2.7 (2.5-4.0cm) FS (%) 36.6 %SV55.9 ml LVEF(%)60.0 (>50%) Aortic Valve AoV Peak Amaury.380.0cm/sAoV VTI80.4cm AO Peak GR.58.0mmHgLVOT Peak Amaury.126.8cm/s LVOT VTI 33.97cmAO Mean GR.25mmHg ÓSCAR (VMAX)1.61jm9IKA (VTI)1.23cm2 AI P 1/2 Anyg199ln Mitral Valve MV E Nwcdemaz193.1cm/sMV DECEL CTWL526ty MV A Mlshdogf180.9cm/sMV NFQ94hj E/A Ratio0.9MVA (PHT)2.67cm2 TDI E/Lateral E'24.2E/Medial E'25.3 Tricuspid Valve TR P. Hktjrkym136ax/sRAP [id number] TR Peak Gr.04tkArBBWZ41roUq Pulmonary Vein S1 Jxnwvylj41.8cm/sD2 Milgaxll50.9cm/s LEFT VENTRICLE The left ventricle is normal size. There is mild concentric left ventricular hypertrophy. The left ve ntricular systolic function is normal. The Ejection Fraction is 55-60%. There is normal LV segmental wall motion. Transmitral Doppler flow pattern is Grade I-abnormal relaxation pattern. RIGHT VENTRICLE The right ventricle is normal size. The right ventricular systolic function is normal. ATRIA The left atrium size is normal. The right atrium size is normal. The interatrial septum is intact wit h no evidence for an atrial septal defect or patent foramen ovale as noted on 2-D or Doppler imaging. AORTIC VALVE The aortic valve is not well visualized. Doppler and Color Flow revealed mild to moderate aortic regu rgitation. Calculated aortic valve area is 1.23 cm2 with maximum pressure gradient of 58 mmHg and spencer n pressure gradient of 33 mmHg. Doppler and color-flow analysis revealed moderate aortic stenosis. MITRAL VALVE The mitral valve is calcified but opens well. Posterior mitral annular calcification is moderate. The re is no evidence of mitral valve prolapse. There is no mitral valve stenosis. Doppler and Color-flow revealed trace to mild mitral regurgitation. TRICUSPID VALVE The tricuspid valve is normal in structure and function. Doppler and Color Flow revealed trace to mil d tricuspid regurgitation. There is mild pulmonary hypertension. The PA pressure was estimated at 36 mmHg. There is no tricuspid valve stenosis. PULMONIC VALVE The pulmonic valve is not well visualized. Doppler and Color Flow revealed trace pulmonic valvular re gurgitation. There is no pulmonic valvular stenosis. GREAT VESSELS The aortic root is normal in size. The ascending aorta is normal in size. The IVC is normal in size a nd collapses >50% with inspiration. PERICARDIAL EFFUSION There is no evidence of significant pericardial effusion. Critical Notification Critical Value: No <Conclusion> The left ventricular systolic function is normal. The Ejection Fraction is 55-60%. There is normal LV segmental wall motion. Transmitral Doppler flow pattern is Grade I-abnormal relaxation pattern. Moderate aortic stenosis with mean pressure gradient of 33 mmHg. Mild to moderate aortic regurgitation. Trace to mild mitral regurgitation. Trace to mild tricuspid regurgitation. The PA pressure was estimated at 36 mmHg. There is no evidence of significant pericardial effusion. Signed by : Delfina Kenney, Electronically Approved : 01/12/2019 10:55:07
== END | disposition home or self-care (01) ==
LOC: ECHO 08:55
PROVIDERS: ATTEND Internal Medicine Cardiovascular Disease
DX: I35.0 Nonrheumatic aortic (valve) stenosis (principal); I35.1 Nonrheumatic aortic (valve) insufficiency; I27.20 Pulmonary hypertension, unspecified
CPT/HCPCS: 93306